=== PATIENT | male | born 1950 | race Caucasian/White ===

== ENCOUNTER 2017-03-26 12:49 | Inpatient (IN) | payer MEDICARE, OTHER, SELFPAY ==
[2017-03-26] VITALS (11 sets, daily range): BP systolic 106–127; BP diastolic 60–70; PULSE 73–94; RESP 14–20; TEMP 36.8–37.8; O2SAT 95–100; BMI 27.2; BMI 27.3
--- NOTE | 2017-03-26 13:12 | RAD_ITS ---
STUDY: X-RAY CHEST REASON FOR EXAM: Male, 66 years old. Fever with cough. TECHNIQUE: Frontal and lateral views of the chest. COMPARISON: March 12, 2017 FINDINGS: There is stable low volume inspiration. There is scarring/atelectasis at the left base unchanged. There is no demonstrated pleural abnormality. There is cardiomegaly with changes of coronary artery bypass grafting unaltered. Normal mediastinum and joseph. Normal visualized pulmonary arteries. Normal visualized aortic arch and descending thoracic aorta. Normal visualized thoracic spine. Normal visualized ribs, clavicles, and shoulders. There is no demonstrated abnormality of the visualized soft tissue structures of the upper abdomen. RAD/Chest PA and Lateral IMPRESSION: Stable cardiomegaly with low volume inspiration and scarring/atelectasis in the left base. No new or acute pathology. Electronically Signed: Erickson Che MD at 14:16 EST , Service support ,
--- NOTE | 2017-03-26 13:14 | CT_ITS ---
STUDY: CT SOFT TISSUE NECK WITH CONTRAST REASON FOR EXAM: Male, 66 years old. SORE THROAT WITH DIFFICULTY SWALLOWING. PATIENT HAS BLOOD CANCER. RADIATION DOSAGE (If Supplied By Facility): CTDIvol = ( 20.65 ) mGy, DLP = ( 551.69 ) mGycm TECHNIQUE: The patient was scanned in a multi-detector CT scanner. High resolution transaxial imaging was performed following intravenous administration of 100 ml of Isovue 300 contrast material. Sagittal and coronal images were reconstructed. Individualized dose optimization techniques were used for this CT. COMPARISON: None. FINDINGS: Normal bilateral parotid glands. Normal bilateral inclinometer tester spaces. Normal bilateral parapharyngeal spaces. Normal bilateral carotid spaces. Normal bilateral sublingual and submandibular glands and spaces. Normal visualized nasopharynx. Normal retropharyngeal space. Normal perivertebral space. Normal visualized bilateral faucial tonsils. The visualized tongue, tongue base and oropharynx are normal. The visualized cervical lymph nodes (levels I-) are within normal size limits, and maintain normal morphology. There is no demonstrated solid or cystic mass lesion. There is no abnormal contrast enhancement. Normal epiglottis, bilateral vallecula and hypopharynx. The pre-epiglottic and paraglottic adipose spaces are normal. Normal visualized bilateral piriform sinuses, aryepiglottic folds, vocal cords, and arytenoid-cricoid articulations. Normal subglottic trachea. Normal bilateral lobes of the thyroid gland. Normal visualized pulmonary apices. Normal visualized paranasal sinuses. There is multilevel degenerative changes of the cervical spine. CT/Soft Tissue Neck WITH Contrast IMPRESSION: Normal enhanced CT examination of the soft tissues of the neck. Electronically Signed: Morro Worley MD at 14:36 EST Tel , Service support ,
[2017-03-26] MEDS: 0.9% Normal Saline 1,000 ML 999 ML IV (13:38)
[2017-03-26 13:51] LABS: International Normalized Ratio 1.2; Prothrombin Time (Protime)PT. 15.1 SECONDS (11.7-14.9)
[2017-03-26 13:52] LABS: Partial Thromboplast Time 33.4 Seconds (24.1-36.2)
[2017-03-26 13:57] LABS: ALB/GLOB Ratio 0.7 RATIO (0.9-2.4); AST(SGOT) 32 U/L (15-37); Alanine Aminotransfer ALT/SGPT 47 U/L (12-78); Albumin, Serum 2.8 g/dL (3.2-5.0); Alkaline Phosphatase 91 U/L (45-117); Anion Gap 8 (5-15); BUN 27 mg/dL (7-18); BUN/Creat Ratio 23.5 RATIO (10-20); Calcium,Total 8.2 mg/dL (8.5-10.1); Chloride 98 mmol/L (98-107); Creatinine, Serum 1.15 mg/dL (0.70-1.30); EST Glomerular Filtration Rate 67 mL/min (>60); Est Glom Filt Rate - Afr Amer 81 mL/min (>60); Estimated Creatinine Clearance 63.48 ml/min; Globulin 4.3 g/dL (2.2-4.2); Glucose 156 mg/dL (70-110); Magnesium 2.1 mg/dL (1.6-2.6); Potassium 3.9 mmol/L (3.5-5.1); Protein, Total 7.1 g/dL (6.4-8.2); Sodium Level 132 mmol/L (136-145)
[2017-03-26 14:12] LABS: Lactic Acid 1.7 mmol/L (0.4-2.0)
[2017-03-26 14:33] LABS: Hematocrit 23.2 % (40-54); Hemoglobin 8.1 g/dl (13.0-16.5); Mean Corp Hgb Conc 34.9 g/gl (32-36); Mean Corpuscular Hgb 34.2 pg (27.0-32.0); Mean Corpuscular Volume 97.9 fL (80-94); RBC Distribution Width CV 17.9 % (11.6-14.6); RBC Distribution Width SD 59.2 fl (35.1-43.9); Red Blood Count 2.37 M/mm3 (4.6-6.2); White Blood Count 0.7 K/mm3 (4.4-11.0)
[2017-03-26 14:34] LABS: Absolute Lymphocyte Count 0.32 X10^3/ul (0.83-4.51); Basophil% 10.3 % (0-1); Differential Indicated SCAN CRITERIA MET; Eosinophils% 1.5 % (0-5); Lymphocyte # 0.32 X10^3/ul (4.0); Mean Platelet Vol. 10.6 fl (6.2-12.0); Monocyte% 41.2 % (0-10); POSITIVE COUNT YES; POSITIVE DIFFERENTIAL YES; POSITIVE MORPHOLOGY YES; Platelet Count 22 K/mm3 (150-450)
[2017-03-26 14:35] LABS: Basophil# 0.07 X10^3/uL; Differential Comment SCANNED; Eosinophil# 0.01 X10^3/uL; Monocyte# 0.28 X10^3/uL; Platelet Estimate MKD DEC (ADEQ)
[2017-03-26 14:42] LABS: Bacteria 0 SEEN /hpf (None Seen); Mucous, Urine 0 SEEN /hpf (<or=2+); Squamous Epithelial Cells - UA 0 SEEN /hpf (0-5); White Blood Cells 0 SEEN /hpf (0-5)
[2017-03-26 14:44] LABS: Color, Urine Yellow (Yellow); Glucose, Dipstick Normal (Normal); Ketone-Dipstick Negative (Negative); Leukocyte Esterase-Dipstick Negative /ul (Negative); Nitrite-Dipstick Negative (Negative); Occult Blood-Urine Negative /ul (Negative); Protein-Dipstick 15 mg/dl (Negative); Urine Bilirubin Dipstick Negative (Negative); Urine Clarity Clear (Clear); Urine Urobilinogen 1 mg/dl (Normal); Urine pH 6.5 (5.0 - 8.0)
[2017-03-26] MEDS: 0.9% Normal Saline 1,000 ML 150 ML IV (14:44)
[2017-03-26 14:52] LABS: Red Blood Cells-Urine 0-5 SEEN /hpf (0-5)
--- NOTE | 2017-03-26 16:01 | PCM.HP.STD ---
Problem List (1) Neutropenic sepsis Status: Acute (2) Pancytopenia Status: Chronic (3) MDS (myelodysplastic syndrome) with 5q deletion Status: Chronic History of Present Illness Date of Admission: 03/26/17 Chief Complaint: Sore throat The patient is a 66 year old M past medical history of MDS, status post repeated blood transfusions and platelet transfusions, following with oncology in [place], on Revlimid comes in with complaints of worsening sore throat, fever. Patient was recently seen in the ED and diagnosed with oropharyngeal candidiasis and started on nystatin swish and swallow. He has been on his oral chemotherapy and has noticed worsening problems with swallowing. He admits to fever and chills but denied any nausea and vomiting or diarrhea. Admits to nasal congestion Past Medical History Past Medical History (Chronic Problems): Chronic Problems (Last Reviewed 03/13/17 @ 09:01 by Soo Yang) Neutropenia (Chronic) Leukopenia (Chronic) Thrombocytopenia (Chronic) Pancytopenia (Chronic) 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) Allergies No Known Allergies Allergy (Verified 03/26/17 12:54) Home Medications: Ambulatory Orders Medication Instructions Recorded Atorvastatin Calcium [Lipitor] 80 mg PO QHS 04/16/13 Nitroglycerin [Nitrostat] 0.4 mg SUBLINGUAL PRN PRN 04/16/13 Ramipril [Altace] 10 mg PO DAILY 04/16/13 Lactobacillus Combo No.10 1 each PO DAILY 02/03/17 [Probiotic] Lenalidomide [Revlimid] 5 mg PO DAILY #30 cap NS 03/07/17 Dexamethasone [Decadron] 2 mg PO DAILY #30 tab 03/08/17 Acetaminophen with Codeine 1 each PO Q6H PRN #60 tablet 03/20/17 [Tylenol with Codeine #3 Tablet] Lidocaine 2% Viscous [Xylocaine 20 ml PO 4X/DAY PRN 03/26/17 Viscous] Metoprolol Tartrate 12.5 mg PO BID 03/26/17 Nystatin [Nystatin] 5 ml PO 4X/DAY 03/26/17 Oxycodone Soln [Oxyfast] 5 - 10 mg PO Q4H PRN 03/26/17 Psychiatric History: No pertinent psych hx Smoking Status: Never smoker Tobacco Use: Non-smoker Alcohol: None Drugs: None - *Family History Maternal Family History: Family History (Last Reviewed 03/13/17 @ 09:01 by Soo Yang) Mother Hyperlipidemia Heart disease Father CHF (congestive heart failure) History Items: Heart Disease Paternal Family History: Family History (Last Reviewed 03/13/17 @ 09:01 by Soo Yang) Mother Hyperlipidemia Heart disease Father CHF (congestive heart failure) History Items: Heart Disease Review of Systems Constitutional: Reports: Chills, Fever. Denies: Anorexia, Weakness, Weight Change Eyes: Denies: Blurred vision, Cataracts, Conjunctivae Inflammation, Pain, Redness HEENT: Denies: Difficulty Hearing, Difficulty Swallowing, Head Aches, Hearing Changes, Sinus Congestion, Sinus Drainage, Sore Throat Cardiovascular: Reports: Orthopnea, Paroxysmal Noc. Dyspnea. Denies: Chest Pain, Claudication, Chest Pressure, Palpitations Respiratory: Denies: Cough, Shortness of Breath, Shortness of breath at rest, Shortness of breath upon exertion, Sputum production Gastrointestinal: Denies: Abdominal Pain, Hematemesis, Hematochezia, Nausea, Vomiting Genitourinary: Denies: Dysuria, Frequency, Incontinence Musculoskeletal: Denies: Joint Pain, Joint stiffness, Joint swelling, Joint Tenderness Skin: Denies: Dryness, Pruritis, Rash, Wounds Neurological: Denies: Difficulty swallowing, Focal weakness, Numbness, Tingling Psychiatric: Denies: Anxiety, Depression, Homicidal Ideations, Suicidal Ideations Hematologic/ Lymphatic: Denies: Easy Bruising, Easy Bleeding VTE Information - Inpt Only VTE Present on Admission: No VTE Pharm Prophylaxis ordered?: Yes Patient Problems: Active and Suspected Problems (Last Reviewed 03/13/17 @ 09:01 by Soo Yang) Neutropenic sepsis (Acute) - Physical Exam General: Alert, Oriented x3, Cooperative, No apparent distress HEENT: Atraumatic, PERRLA, EOMI, Normocephalic Oral: Moist Mucosa Neck: Supple Lungs: Clear to auscultation, Normal air movement Cardiovascular: Regular rate, Regular Rhythm, Normal S1, Normal S2, No murmurs Abdomen: Bowel Sounds Present, Soft, Non Tender, Non-Distended, No Hepato-splenomegaly Extremities: No edema Skin: No rashes Musculoskeletal: No Tenderness to Palpation of Joints or Extremities Lymphatic: No Cervical, Supraclavicular, or Inguinal Adenopathy Neurological: Cranial nerves II-XII grossly intact Psych/Mental Status: Normal Affect, Appropriate Vital Signs Temp Pulse Resp BP Pulse Ox 98.9 F 74 14 120/60 97 03/26/17 15:28 03/26/17 14:46 03/26/17 14:46 03/26/17 14:46 03/26/17 14:46 Oxygen Delivery Method Room Air Weight: 86.183 kg Body Mass Index (BMI) 27.2 Microbiology Past 72 Hours 03/26/17 13:20 Influenza Types A,B Direct FA ([facility]) - Final Mucosa - Nasopharyngeal Laboratory Tests Past 24 Hrs 03/26/17 03/26/17 03/26/17 13:30 13:30 13:30 WBC Cancelled Corrected WBC Cancelled RBC Cancelled Hgb Cancelled Hct Cancelled MCV Cancelled MCH Cancelled MCHC Cancelled RDW Cancelled RDW Differential Cancelled Plt Count Cancelled MPV Cancelled Immature Gran % (Auto) Cancelled Neut % (Auto) Cancelled Lymph % (Auto) Cancelled [place] % (Auto) Cancelled Eos % (Auto) Cancelled Baso % (Auto) Cancelled Immature Gran # (Auto) Cancelled Absolute Neuts (auto) Cancelled Absolute Lymphs (auto) Cancelled Absolute Monos (auto) Cancelled Total Counted Cancelled Neutrophils % (Manual) Cancelled Band Neutrophils % Cancelled Lymphocytes % (Manual) Cancelled Monocytes % (Manual) Cancelled Eosinophils % (Manual) Cancelled Basophils % (Manual) Cancelled Metamyelocytes % Cancelled Myelocytes % Cancelled Promyelocytes % Cancelled Blast Cells % Cancelled Plasma Cell % (Manual) Cancelled Other Cells % Cancelled Lymphocytes # Cancelled Nucleated RBCs/100 WBC Cancelled Differential Comment Cancelled Diff Path Review Cancelled Hypersegmented Neuts Cancelled Atypical Lymphocytes Cancelled Reactive Lymphocytes Cancelled Smudge Cells Cancelled Eosinophilia # Cancelled Basophilia # Cancelled Toxic Granulation Cancelled Dohle Bodies Cancelled [place] Rods Cancelled Platelet Estimate Cancelled Plt Morphology Comment Cancelled RBC Morphology Cancelled Polychromasia Cancelled Hypochromasia Cancelled Poikilocytosis Cancelled Basophilic Stippling Cancelled Anisocytosis Cancelled Microcytosis Cancelled Macrocytosis Cancelled Spherocytes Cancelled Sickle Cells Cancelled Target Cells Cancelled Tear Drop Cells Cancelled Ovalocytes Cancelled Stomatocytes Cancelled [place] Bodies Cancelled [place] Cells Cancelled Bite Cells Cancelled Acanthocytes (Spur) Cancelled Rouleaux Cancelled Schistocytes Cancelled PT 15.1 H INR 1.2 APTT 33.4 Sodium 132 L Potassium 3.9 Chloride 98 Carbon Dioxide 26.0 Anion Gap 8 BUN 27 H Creatinine 1.15 Estim Creat Clear Calc 63.48 Est GFR (MDRD) Af Amer 81 Est GFR (MDRD) Non-Af 67 BUN/Creatinine Ratio 23.5 H Glucose 156 H Lactic Acid Calcium 8.2 L Magnesium 2.1 Total Bilirubin 1.10 H AST 32 ALT 47 Alkaline Phosphatase 91 Total Protein 7.1 Albumin 2.8 L Globulin 4.3 H Albumin/Globulin Ratio 0.7 L Urine Color Urine Clarity Urine pH Ur Specific [place] Urine Protein Urine Glucose (UA) Urine Ketones Urine Occult Blood Urine Nitrite Urine Bilirubin Urine Urobilinogen Ur Leukocyte Esterase Urine RBC Urine WBC Ur Squamous Epith Cells Urine Bacteria Urine Mucus 03/26/17 03/26/17 03/26/17 13:30 13:30 14:35 WBC 0.7 L* Corrected WBC RBC 2.37 L Hgb 8.1 L Hct 23.2 L MCV 97.9 H MCH 34.2 H MCHC 34.9 RDW 17.9 H RDW Differential 59.2 H Plt Count 22 L* MPV 10.6 Immature Gran % (Auto) 0.000 Neut % (Auto) 0.0 L Lymph % (Auto) 47.0 H [place] % (Auto) 41.2 H Eos % (Auto) 1.5 Baso % (Auto) 10.3 H Immature Gran # (Auto) Absolute Neuts (auto) 0.0 L Absolute Lymphs (auto) 0.32 L Absolute Monos (auto) Total Counted Not Reportable Neutrophils % (Manual) Band Neutrophils % Lymphocytes % (Manual) Monocytes % (Manual) Eosinophils % (Manual) Basophils % (Manual) Metamyelocytes % Myelocytes % Promyelocytes % Blast Cells % Plasma Cell % (Manual) Other Cells % Lymphocytes # Nucleated RBCs/100 WBC Differential Comment SCANNED Diff Path Review May foll Hypersegmented Neuts Atypical Lymphocytes Reactive Lymphocytes Smudge Cells Eosinophilia # Basophilia # Toxic Granulation Dohle Bodies Blake Rods Platelet Estimate MKD DEC Plt Morphology Comment RBC Morphology Polychromasia Hypochromasia Poikilocytosis Basophilic Stippling Anisocytosis Microcytosis Macrocytosis Spherocytes Sickle Cells Target Cells Tear Drop Cells Ovalocytes Stomatocytes [place] Bodies [place] Cells Bite Cells Acanthocytes (Spur) Rouleaux Schistocytes PT INR APTT Sodium Potassium Chloride Carbon Dioxide Anion Gap BUN Creatinine Estim Creat Clear Calc Est GFR (MDRD) Af Amer Est GFR (MDRD) Non-Af BUN/Creatinine Ratio Glucose Lactic Acid 1.7 Calcium Magnesium Total Bilirubin AST ALT Alkaline Phosphatase Total Protein Albumin Globulin Albumin/Globulin Ratio Urine Color Yellow Urine Clarity Clear Urine pH 6.5 Ur Specific [place] 1.010 Urine Protein 15 H Urine Glucose (UA) Normal Urine Ketones Negative Urine Occult Blood Negative Urine Nitrite Negative Urine Bilirubin Negative Urine Urobilinogen 1 H Ur Leukocyte Esterase Negative Urine RBC 0-5 SEEN Urine WBC 0 SEEN Ur Squamous Epith Cells 0 SEEN Urine Bacteria 0 SEEN Urine Mucus 0 SEEN Assessment/Plan Active and Suspected Problems (Last Reviewed 03/13/17 @ 09:01 by Soo Yang) Neutropenic sepsis (Acute) 66y/o female with PMHx of MDS comes in with fever, congestion, sorethroat whilst also receiving chemotherapy for MDS. 1. Neutropenia in a patient on chemotherapy for MDS, absolute neutrophil count is 0, patient having low-grade fevers with T-max of 100.1 F, WBC count is 0.7 Plan: Admit patient to the MedSurg floor, reverse isolation, started on meropenem 1 g 3 times daily, oncology consult, stage Granix, repeat CBCD daily 2. Odynophagia secondary to Oropharyngeal candidiasis,been on nystatin swish and swallow for some days, will continue and add diflucan 3. MDS, s/p chemotherapy, will hold Revlimid, oncology consult 4. Hyperlipidemia, on statin 5. Hypertension, on ramipril, will continue with holding parameters 6. DVT PPx - SCDs on account of thrombocytopenia Code Visit Inpatient E&M: 77177 Subs Hosp L2
--- NOTE | 2017-03-26 16:45 | ED.VISSUMM ---
- ER Visit Summary Date of Service: 03/26/17 Chief Complaint: Sore throat History of Present Illness: The patient is a 66 M who has myelodysplastic syndrome with every [address] Watson for oncology and is currently on Revlimid and tells me that on Monday he was neutropenic. He was seen last Monday uvulitis and placed on amoxicillin. He was seen by oncology on Monday. he was at an urgent care was diagnosed with thrush and put on nystatin. States now he has a fever (100.1) and worsening sore throat. He states he has decreased p.o. due to pain. He feels lethargic. He states that he usually sleeps in a chair or at an angle. He states it is hard for him to swallow but is able to do so and is not drooling. Physical Examination: Temperature 100.1 heart rate 74 respirations are 16 pulse ox 95% on room air blood pressure is 113/67 Gen: Well-nourished well-developed Head: Normocephalic atraumatic Eyes: Perrl EOMI ENT: TMs clear no rhinorrhea moist mucous membranes there is uvular edema and erythema involving the pharynx and posterior pharynx. There is no retropharyngeal or peritonsillar abscess. He seems to be handling his secretions. Neck: Supple no lymphadenopathy no JVD nontender CVS: Regular rate rhythm no murmurs normal S1-S2 Respiratory: No distress clear to auscultation bilaterally chest nontender Abdomen: Soft nontender nondistended normal bowel sounds no masses Back: Nontender Extremity: Nontender no edema Skin: Normal color no rash Neuro: alert orientated ?3 CN II-XII intact normal strength sensation reflexes gait cerebellar Psych: Normal affect normal mood Test Results: . Absolute neutrophil count is 0. Hemoglobin 8.1. Platelets are 22. Creatinine 1.15. BUN is 27. Lactic acid 1.7. Urinalysis normal. Chest x-ray negative. Influenza negative. CT the soft tissue the neck demonstrates no epiglottitis. Emergency Department Course and Treatment: Patient received IV fluids. I believe the patient's pain is most likely due to irritation from oral candidiasis. By definition he does not meet SIRS criteria. Without giving him any antipyretics for the temperature of 100.1 it has come down. I spoke with oncology who would like the patient admitted. I spoke with Dr. Cardoso. She is asked that the patient receive a dose of meropenem. Impression: 1. Oral candidiasis 2. Dehydration 3. Pancytopenia with an ANC of 0. This note was generated with [employer] dictation software. It may contain incorrect words, spelling, and punctuation that were not noted in review of the chart prior to signing ED Disposition - Plan for ED Patient: Chief Complaint: Sore Throat Referrals: Екатерина Haq MD [Primary Care Provider] -
[2017-03-26] MEDS: TBO-FILGRASTIM 300 MCG/0.5 ML ML SC (21:34)
[2017-03-26] MEDS: NYSTATIN 500,000 UNIT/5 ML UDC 500000 UNIT PO (21:35)
[2017-03-26] MEDS: Atorvastatin Calcium 80 MG Tablet PO (21:36)
[2017-03-27] VITALS (10 sets, daily range): BP systolic 114–119; BP diastolic 56–68; PULSE 78–99; RESP 16–18; TEMP 37–37.8; O2SAT 93–97
[2017-03-27] MEDS: oxyCODONE Soln 5 MG/0.25 ML PO.SYRINGE PO ×5 (00:46→17:24)
[2017-03-27 06:29] LABS: Basophil# 0.02 X10^3/uL; Basophil% 2.2 % (0-1); Eosinophil# 0.01 X10^3/uL; Eosinophils% 1.1 % (0-5); Hematocrit 21.2 % (40-54); Hemoglobin 7.4 g/dl (13.0-16.5); Lymphocyte % 67.4 % (19-41); Mean Corp Hgb Conc 34.9 g/gl (32-36); Mean Corpuscular Hgb 33.6 pg (27.0-32.0); Mean Corpuscular Volume 96.4 fL (80-94); Mean Platelet Vol. 10.4 fl (6.2-12.0); Monocyte# 0.22 X10^3/uL; Monocyte% 24.7 % (0-10); Neutrophil # 0.04 X10^3/uL (2.7-7.7); Neutrophil % 4.6 % (47-70); RBC Distribution Width CV 18.1 % (11.6-14.6)
[2017-03-27 06:34] LABS: Differential Indicated SCAN CRITERIA MET; POSITIVE COUNT YES; POSITIVE DIFFERENTIAL YES; POSITIVE MORPHOLOGY YES; Platelet Count 15 K/mm3 (150-450); White Blood Count 0.9 K/mm3 (4.4-11.0)
[2017-03-27 06:40] LABS: Anion Gap 9 (5-15); BUN 20 mg/dL (7-18); BUN/Creat Ratio 21.7 RATIO (10-20); Calcium,Total 7.9 mg/dL (8.5-10.1); Chloride 100 mmol/L (98-107); Creatinine, Serum 0.92 mg/dL (0.70-1.30); EST Glomerular Filtration Rate 87 mL/min (>60); Est Glom Filt Rate - Afr Amer 105 mL/min (>60); Estimated Creatinine Clearance 79.35 ml/min; Glucose 92 mg/dL (70-110); Potassium 3.6 mmol/L (3.5-5.1); Sodium Level 133 mmol/L (136-145)
[2017-03-27 07:18] LABS: Differential Comment SCANNED
--- NOTE | 2017-03-27 07:18 | PCM.PN.HOSP ---
Patient Problems: Active and Suspected Problems (Last Reviewed 03/13/17 @ 09:01 by Soo Yang) Neutropenic sepsis (Acute) Subjective: Patient with no acute events overnight per self and per nursing report. Patient does state he still having a sore throat and difficulty swallowing but it has improved mildly since initial presentation. Discussed plan of care which included alteration of IV fluconazole, ongoing pending cultures, pending him on evaluation, plan speech and surgery evaluation for consideration for EGD to ascertain the extent of oropharyngeal candidiasis, possible esophageal involvement, suspected. Patient denies fevers, chills, nausea, emesis, abdominal pain, chest pain or dyspnea. Objective: Physical Examination: General: awake, alert, oriented x 3 and cooperative, seated upright in bed , trying to eat breakfast, notes ongoing sore throat. Skin: normal color, turgor, no icterus, cyanosis. HEENT: AT/NC, EOMI, PERRLA, moderately dry MM, posterior OP thrush noted, no exudate or lesions otherwise. Lungs: CTA bilaterally, moderate effort, moderate decrease BL bases, no rales, ronchi or wheezing. Heart: Regular rate and rhythm; no gallop, rub audible. Abdomen: soft, NTTP, ND, normal BS, no HSM. Extremities: no cyanosis, clubbing, or edema. Neurological: patient awake, alert, oriented x 3; cognitive function intact; pupils equally reactive to light and accomodation; cranial nerves II-XII grossly normal, moving all 4 extremities, no focal deficits, strength severely globally decreased secondary to acute presentation. Psychiatric: affect appears fatigued, no acute evidence of depressive or anxiety feelings. Vitals/I&O's: Vital Signs Temp Pulse Resp BP Pulse Ox 98.6 F 78 16 117/64 96 03/27/17 04:04 03/27/17 07:09 03/27/17 04:04 03/27/17 04:04 03/27/17 04:04 Oxygen Delivery Method Room Air Weight: 190 lb 0.615 oz Body Mass Index (BMI) 27.2 Intake and Output for Last 24 Hours 03/25/17 03/26/17 03/27/17 23:59 23:59 23:59 Intake Total 286 / 286 534.1 / 534.1 Output Total 400 / 400 950 / 950 Balance -114 / -114 -415.9 / -415.9 Laboratory Results 03/27/17 05:32: WBC 0.9 L*, RBC 2.20 L, Hgb 7.4 L, Hct 21.2 L, MCV 96.4 H, MCH 33.6 H, MCHC 34.9, RDW 18.1 H, RDW Differential 61.0 H, Plt Count 15 L*, MPV 10.4, Immature Gran % (Auto) 0.000, Neut % (Auto) 4.6 L, Lymph % (Auto) 67.4 H, [place] % (Auto) 24.7 H, Eos % (Auto) 1.1, Baso % (Auto) 2.2 H, Absolute Neuts (auto) 0.0 L, Absolute Lymphs (auto) 0.60 L, Total Counted Not Reportable, Differential Comment SCANNED, Diff Path Review May foll 03/27/17 05:32: Sodium 133 L, Potassium 3.6, Chloride 100, Carbon Dioxide 24.0, Anion Gap 9, BUN 20 H, Creatinine 0.92, Estim Creat Clear Calc 79.35, Est GFR (MDRD) Af Amer 105, Est GFR (MDRD) Non-Af 87, BUN/Creatinine Ratio 21.7 H, Glucose 92, Calcium 7.9 L Current Medications Acetaminophen/Codeine Phosphate (Tylenol#3) 1 tablet PO Q6H PRN PRN PRN Reason: PAIN Atorvastatin Calcium (Lipitor) 80 mg PO QHS [facility] Last Admin: 03/26/17 21:36 Dose: 80 mg Fluconazole (Diflucan) 100 mg PO DAILY [facility] Meropenem 1 gm/ Sodium (Chloride) 120 mls @ 33 mls/hr IV Q8 [facility] Last Admin: 03/27/17 05:14 Dose: 33 mls/hr Lactobacillus Acidophilus (Acidophilus) 1 tablet PO DAILY [facility] Lidocaine HCl (Xylocaine Viscous) 20 ml PO 4X/DAY PRN PRN PRN Reason: PAIN Last Admin: 03/26/17 19:24 Dose: 20 ml Magnesium Hydroxide (Milk Of Magnesia) 30 ml PO DAILY PRN PRN PRN Reason: Constipation Metoprolol Tartrate (Lopressor (Beta Suellen)) 12.5 mg PO BID [facility] Last Admin: 03/26/17 21:36 Dose: Not Given Morphine Sulfate (Morphine) 2 mg IV Q4H PRN PRN PRN Reason: SEVERE PAIN (6-10/10) Last Admin: 03/27/17 04:02 Dose: 2 mg Nitroglycerin (Nitrostat) 0.4 mg SUBLINGUAL Q5M PRN PRN Reason: Chest Pain Nutritional Formula (Lactose Free) (Ensure Enlive) 120 ml PO 4X/DAY [facility] Last Admin: 03/26/17 21:39 Dose: Not Given Nystatin (Nystatin) 500,000 unit PO 4X/DAY [facility] Last Admin: 03/26/17 21:35 Dose: 500,000 unit Oxycodone HCl (Oxyfast) 5 mg PO Q4H PRN PRN PRN Reason: MOD-SEVERE PAIN (4-10/10) Last Admin: 03/27/17 05:14 Dose: 5 mg Ramipril (Altace) 10 mg PO DAILY [facility] Sodium Chloride () 5 - 30 ml IV UD PRN PRN Reason: SALINE FLUSH Tbo-Filgrastim (Granix) 300 mcg SC DAILY [facility] Assessment/Plan Active and Suspected Problems (Last Reviewed 03/13/17 @ 09:01 by Soo Yang) Neutropenic sepsis (Acute) The patient is a 66 y/o M w/ PMHx: MDS w/ Chronic Pancytopenia, HTN, HLD, CAD, Chronic Pain Syndrome who presents to the [facility] ED on 03/26/17 with sore throat, fever, noted to have Oropharyngeal candidiasis in the ED, started on nystatin S/S with worsened swallowing. (1) Neutropenic fever secondary to Oropharyngeal Candidiasis, Possible Additional Etiology: Admission T 100.1, afebrile since admission. Admission CBC w/ WBC 0.7, Hgb 8.1, Plts 22 with ANC 0-->03/27/17 CBC w/ WBC 0.9, Hgb 7.4, Plts 15 with ANC 0, CXR w/ stable cardiomegaly w/ low volume inspiration and scarring/atelectasis L base, UA w/ no acute findings. Bld cx and UCx pending. Oncology aware, consult pending. Maintained on MS, maintain on Neutropenic precautions, maintain on fluconazole but transition to IV and elevated dose pending Hem/Onc assessment, mag 2.1, will obtain phos level, maintain I&Os, treat with IV meropenem pending cultures. PRN tylenol, anti-emetics, pain regimen. Granix administered upon admission. Will place on altered mechanical soft diet pending Speech assessment. Given possible extension, will also request evaluation per Surgery for consideration EGD to ascertain esophageal involvement. (2) MDS secondary to Chronic Thrombocytopenia: Admission CBC w/ WBC 0.7, Hgb 8.1, Plts 22 with ANC 0-->03/27/17 CBC w/ WBC 0.9, Hgb 7.4, Plts 15 with ANC 0, maintain on precautions, expect plt administration, but will await Hem/Onc evaluation today to avoid repeat ordering, maintain on fluconazole. (3) Hypertension: Continue home regimen including metoprolol, ANITRA inhibitor, PRN hydralazine. (4) Hyperlipidemia: Continue home statin regimen. (5) CAD: Will continue home regimen statin, BB. Holding ASA. (6) Severe Protein-Calorie Malnutrition: Evidenced per weight loss, muscle and fat loss, nutrition consulted. (7) DVT Prophylaxis: SCDs, defer chemoprophylaxis given presentation. Code Visit Inpatient E&M: 64005 [facility] Hosp L3
--- NOTE | 2017-03-27 07:30 | PN_ITS ---
Patient Problems: Active and Suspected Problems (Last Reviewed 03/13/17 @ 09:01 by Soo Yang) Neutropenic sepsis (Acute) Subjective: Patient with no acute events overnight per self and per nursing report. Patient does state he still having a sore throat and difficulty swallowing but it has improved mildly since initial presentation. Discussed plan of care which included alteration of IV fluconazole, ongoing pending cultures, pending him on evaluation, plan speech and surgery evaluation for consideration for EGD to ascertain the extent of oropharyngeal candidiasis, possible esophageal involvement, suspected. Patient denies fevers, chills, nausea, emesis, abdominal pain, chest pain or dyspnea. Objective: Physical Examination: General: awake, alert, oriented x 3 and cooperative, seated upright in bed , trying to eat breakfast, notes ongoing sore throat. Skin: normal color, turgor, no icterus, cyanosis. HEENT: AT/NC, EOMI, PERRLA, moderately dry MM, posterior OP thrush noted, no exudate or lesions otherwise. Lungs: CTA bilaterally, moderate effort, moderate decrease BL bases, no rales, ronchi or wheezing. Heart: Regular rate and rhythm; no gallop, rub audible. Abdomen: soft, NTTP, ND, normal BS, no HSM. Extremities: no cyanosis, clubbing, or edema. Neurological: patient awake, alert, oriented x 3; cognitive function intact; pupils equally reactive to light and accomodation; cranial nerves II-XII grossly normal, moving all 4 extremities, no focal deficits, strength severely globally decreased secondary to acute presentation. Psychiatric: affect appears fatigued, no acute evidence of depressive or anxiety feelings. Vitals/I&O's: Vital Signs Temp Pulse Resp BP Pulse Ox 98.6 F 78 16 117/64 96 03/27/17 04:04 03/27/17 07:09 03/27/17 04:04 03/27/17 04:04 03/27/17 04:04 Oxygen Delivery Method Room Air Weight: 190 lb 0.615 oz Body Mass Index (BMI) 27.2 Intake and Output for Last 24 Hours 03/25/17 03/26/17 03/27/17 23:59 23:59 23:59 Intake Total 286 / 286 534.1 / 534.1 Output Total 400 / 400 950 / 950 Balance -114 / -114 -415.9 / -415.9 Laboratory Results 03/27/17 05:32: WBC 0.9 L*, RBC 2.20 L, Hgb 7.4 L, Hct 21.2 L, MCV 96.4 H, MCH 33.6 H, MCHC 34.9, RDW 18.1 H, RDW Differential 61.0 H, Plt Count 15 L*, MPV 10.4, Immature Gran % (Auto) 0.000, Neut % (Auto) 4.6 L, Lymph % (Auto) 67.4 H, [place] % (Auto) 24.7 H, Eos % (Auto) 1.1, Baso % (Auto) 2.2 H, Absolute Neuts ( auto) 0.0 L, Absolute Lymphs (auto) 0.60 L, Total Counted Not Reportable, Differential Comment SCANNED, Diff Path Review May foll 03/27/17 05:32: Sodium 133 L, Potassium 3.6, Chloride 100, Carbon Dioxide 24.0, Anion Gap 9, BUN 20 H, Creatinine 0.92, Estim Creat Clear Calc 79.35, Est GFR ( MDRD) Af Amer 105, Est GFR (MDRD) Non-Af 87, BUN/Creatinine Ratio 21.7 H, Glucose 92, Calcium 7.9 L Current Medications Acetaminophen/Codeine Phosphate (Tylenol#3) 1 tablet PO Q6H PRN PRN PRN Reason: PAIN Atorvastatin Calcium (Lipitor) 80 mg PO QHS [facility] Last Admin: 03/26/17 21:36 Dose: 80 mg Fluconazole (Diflucan) 100 mg PO DAILY [facility] Meropenem 1 gm/ Sodium (Chloride) 120 mls @ 33 mls/hr IV Q8 [facility] Last Admin: 03/27/17 05:14 Dose: 33 mls/hr Lactobacillus Acidophilus (Acidophilus) 1 tablet PO DAILY [facility] Lidocaine HCl (Xylocaine Viscous) 20 ml PO 4X/DAY PRN PRN PRN Reason: PAIN Last Admin: 03/26/17 19:24 Dose: 20 ml Magnesium Hydroxide (Milk Of Magnesia) 30 ml PO DAILY PRN PRN PRN Reason: Constipation Metoprolol Tartrate (Lopressor (Beta Suellen)) 12.5 mg PO BID [facility] Last Admin: 03/26/17 21:36 Dose: Not Given Morphine Sulfate (Morphine) 2 mg IV Q4H PRN PRN PRN Reason: SEVERE PAIN (6-10/10) Last Admin: 03/27/17 04:02 Dose: 2 mg Nitroglycerin (Nitrostat) 0.4 mg SUBLINGUAL Q5M PRN PRN Reason: Chest Pain Nutritional Formula (Lactose Free) (Ensure Enlive) 120 ml PO 4X/DAY [facility] Last Admin: 03/26/17 21:39 Dose: Not Given Nystatin (Nystatin) 500,000 unit PO 4X/DAY [facility] Last Admin: 03/26/17 21:35 Dose: 500,000 unit Oxycodone HCl (Oxyfast) 5 mg PO Q4H PRN PRN PRN Reason: MOD-SEVERE PAIN (4-10/10) Last Admin: 03/27/17 05:14 Dose: 5 mg Ramipril (Altace) 10 mg PO DAILY [facility] Sodium Chloride () 5 - 30 ml IV UD PRN PRN Reason: SALINE FLUSH Tbo-Filgrastim (Granix) 300 mcg SC DAILY [facility] Assessment/Plan Active and Suspected Problems (Last Reviewed 03/13/17 @ 09:01 by Soo Yang) Neutropenic sepsis (Acute) The patient is a 66 y/o M w/ PMHx: MDS w/ Chronic Pancytopenia, HTN, HLD, CAD, Chronic Pain Syndrome who presents to the [facility] ED on 03/26/17 with sore throat, fever, noted to have Oropharyngeal candidiasis in the ED, started on nystatin S/ S with worsened swallowing. (1) Neutropenic fever secondary to Oropharyngeal Candidiasis, Possible Additional Etiology: Admission T 100.1, afebrile since admission. Admission CBC w/ WBC 0.7, Hgb 8.1, Plts 22 with ANC 0-->03/27/17 CBC w/ WBC 0.9, Hgb 7.4, Plts 15 with ANC 0, CXR w/ stable cardiomegaly w/ low volume inspiration and scarring /atelectasis L base, UA w/ no acute findings. Bld cx and UCx pending. Oncology aware, consult pending. Maintained on MS, maintain on Neutropenic precautions, maintain on fluconazole but transition to IV and elevated dose pending Hem/Onc assessment, mag 2.1, will obtain phos level, maintain I&Os, treat with IV meropenem pending cultures. PRN tylenol, anti-emetics, pain regimen. Granix administered upon admission. Will place on altered mechanical soft diet pending Speech assessment. Given possible extension, will also request evaluation per Surgery for consideration EGD to ascertain esophageal involvement. (2) MDS secondary to Chronic Thrombocytopenia: Admission CBC w/ WBC 0.7, Hgb 8.1 , Plts 22 with ANC 0-->03/27/17 CBC w/ WBC 0.9, Hgb 7.4, Plts 15 with ANC 0, maintain on precautions, expect plt administration, but will await Hem/Onc evaluation today to avoid repeat ordering, maintain on fluconazole. (3) Hypertension: Continue home regimen including metoprolol, ANITRA inhibitor, PRN hydralazine. (4) Hyperlipidemia: Continue home statin regimen. (5) CAD: Will continue home regimen statin, BB. Holding ASA. (6) Severe Protein-Calorie Malnutrition: Evidenced per weight loss, muscle and fat loss, nutrition consulted. (7) DVT Prophylaxis: SCDs, defer chemoprophylaxis given presentation. Code Visit Inpatient E&M: [id number] [facility] Hosp L3
[2017-03-27 08:22] LABS: Phosphorus 2.9 mg/dL (2.5-4.9)
[2017-03-27] MEDS: Metoprolol Tartrate 25 MG Tablet 12.5 MG PO ×2 (08:43→22:02)
[2017-03-27] MEDS: Ramipril 10 MG Capsule PO (08:43)
[2017-03-27] MEDS: NYSTATIN 500,000 UNIT/5 ML UDC 500000 UNIT PO ×4 (08:44→21:59)
[2017-03-27] MEDS: Famotidine 20 MG Tablet PO ×2 (08:54→21:59)
[2017-03-27] MEDS: TBO-FILGRASTIM 300 MCG/0.5 ML ML SC (12:31)
[2017-03-27] MEDS: 0.9% NaCl Peripheral Flush Adult/Peds IV (13:45)
--- NOTE | 2017-03-27 14:41 | NURSING ---
ST [facility] saw patient this morning and cleared for mechanical soft diet- per physician order.
--- NOTE | 2017-03-27 15:09 | CON.PCM_ITS ---
Reason for Consult Date of Consultation: 03/27/17 Reason for Consultation: Request possible EGD for possible esophageal candidiasis History of Present Illness: The patient is a 66 year old M admitted yesterday due to neutropenic fevers. Patient has a past medical history for MDS and has been doing chemotherapy however that did cause a drop in his white blood cell count so he was getting Granix to help improve this. Patient was previously diagnosed with uveitis and was given antibiotics however he did state his throat did get more sore. In the ER he was diagnosed noticed also with some oral thrush, severe Neutropenia, thrombocytopenia. Patient was started on IV meropenem and Flagyl along with nystatin swish and swallow. Patient states that his sore throat is better today his cultures did come back as alpha hemolytic strep, blood cultures are pending. Patient had a CT of the soft tissue of the neck which was normal. Due to patient's MDS. He has chronically low platelet counts been in the 30s but currently they have been from 22-15,000. Patient also states that he seems to be getting a bit of a cold with some nasal congestion but denies any pain in his chest or coughing. Patient did pass a swallow eval with thickened liquids. 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) Allergies No Known Allergies Allergy (Verified 03/26/17 12:54) Home Medications: Ambulatory Orders Medication Instructions Recorded Atorvastatin Calcium [Lipitor] 80 mg PO DAILY 04/16/13 Nitroglycerin [Nitrostat] 0.4 mg SUBLINGUAL PRN PRN 04/16/13 Ramipril [Altace] 10 mg PO DAILY 04/16/13 Lactobacillus Combo No.10 1 each PO DAILY 02/03/17 [Probiotic] Lenalidomide [Revlimid] 5 mg PO DAILY #30 cap NS 03/07/17 Dexamethasone [Decadron] 2 mg PO DAILY #30 tab 03/08/17 Acetaminophen with Codeine 1 each PO Q6H PRN #60 tablet 03/20/17 [Tylenol with Codeine #3 Tablet] Lidocaine 2% Viscous [Xylocaine 20 ml PO 4X/DAY PRN 03/26/17 Viscous] Metoprolol Tartrate 12.5 mg PO BID 03/26/17 Nystatin [Nystatin] 5 ml PO 4X/DAY 03/26/17 Oxycodone Soln [Oxyfast] 5 - 10 mg PO Q4H PRN 03/26/17 Surgical History: coronary bypass surgery Psychiatric History: No pertinent psych hx Lives: Spouse/ Significant Other Smoking Status: Never smoker Tobacco Use: Non-smoker Alcohol: None Drugs: None - *Family History Maternal Family History: Family History (Last Reviewed 03/13/17 @ 09:01 by Soo Yang) Mother Hyperlipidemia Heart disease Father CHF (congestive heart failure) History Items: Heart Disease Paternal Family History: Family History (Last Reviewed 03/13/17 @ 09:01 by Soo Yang) Mother Hyperlipidemia Heart disease Father CHF (congestive heart failure) History Items: Heart Disease Review of Systems Constitutional: Reports: Fever. Denies: Anorexia HEENT: Reports: Sore Throat. Denies: Difficulty Swallowing Cardiovascular: Denies: Chest Pain Respiratory: Denies: Cough Gastrointestinal: Denies: Abdominal Pain Genitourinary: Denies: Dysuria Skin: Denies: Rash Psychiatric: Denies: Depression Hematologic/ Lymphatic: Reports: Anemia Patient Problems: Active and Suspected Problems (Last Reviewed 03/13/17 @ 09:01 by Soo Yang) Febrile neutropenia (Acute) Neutropenic sepsis (Acute) - Physical Exam General: Alert, Oriented x3, Cooperative, No apparent distress Oral: - - Unable to see the back of the throat clearly due to obstruction from tongue Lungs: Normal air movement Cardiovascular: Regular rate Abdomen: Soft, Non Tender, Non-Distended, - - No guarding or rebound Extremities: No clubbing, No cyanosis Skin: No rashes Vital Signs Temp Pulse Resp BP Pulse Ox 99.4 F H 92 18 119/56 L 94 03/27/17 14:40 03/27/17 14:40 03/27/17 14:40 03/27/17 14:40 03/27/17 14:40 Oxygen Delivery Method Room Air Weight: 190 lb 0.615 oz Body Mass Index (BMI) 27.2 Intake and Output for Last 24 Hours 03/25/17 03/26/17 03/27/17 23:59 23:59 23:59 Intake Total 286 / 286 786.1 / 786.1 Output Total 400 / 400 1200 / 1200 Balance -114 / -114 -413.9 / -413.9 Microbiology Past 72 Hours 03/26/17 19:22 Respiratory Panel (PCR) - Final Mucosa - Nose Laboratory Tests Past 24 Hrs 03/27/17 03/27/17 03/27/17 05:32 05:32 05:32 WBC 0.9 L* RBC 2.20 L Hgb 7.4 L Hct 21.2 L MCV 96.4 H MCH 33.6 H MCHC 34.9 RDW 18.1 H RDW Differential 61.0 H Plt Count 15 L* MPV 10.4 Immature Gran % (Auto) 0.000 Neut % (Auto) 4.6 L Lymph % (Auto) 67.4 H [place] % (Auto) 24.7 H Eos % (Auto) 1.1 Baso % (Auto) 2.2 H Absolute Neuts (auto) 0.0 L Absolute Lymphs (auto) 0.60 L Total Counted Not Reportable Differential Comment SCANNED Diff Path Review May foll Sodium 133 L Potassium 3.6 Chloride 100 Carbon Dioxide 24.0 Anion Gap 9 BUN 20 H Creatinine 0.92 Estim Creat Clear Calc 79.35 Est GFR (MDRD) Af Amer 105 Est GFR (MDRD) Non-Af 87 BUN/Creatinine Ratio 21.7 H Glucose 92 Calcium 7.9 L Phosphorus 2.9 Assessment/Plan Active and Suspected Problems (Last Reviewed 03/13/17 @ 09:01 by Soo Yang) Febrile neutropenia (Acute) Neutropenic sepsis (Acute) 66-year-old male with MDS, neutropenic fever, oropharyngeal candidiasis and presumed esophageal candidiasis, chronic thrombocytopenia 1. Discussed with patient and his that doing an EGD would not change his current therapy of systemic fluconazole and due to his extremely low platelet count he would be at very high risk for bleeding during the procedure. Normally I would prefer to do an EGD with platelets around 50,000 his platelets are currently 15-22,000. Patient also states that his soreness in his throat is also improving. If the pain would get worse I would possibly consider doing EGD after multiple transfusions of platelet; however, currently I do not believe the risk outweigh the benefits and would continue with current therapy of IV fluconazole or possible oral depending on his blood cultures per primary. Patient's were agreeable with plan and had no further questions at this time. Also discussed with Dr. Bradford. Lyn Chance M.D. Pager: [phone] [facility] [address] [place] [address], [address] [place] [address] Office: [phone]
--- NOTE | 2017-03-27 15:27 | ONC.CON.INP2 ---
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 minus deletion I PSS score 2.5 he started Revlimid March 16, 2017. He had received granix every other day in the past few weeks to improve his neutrophil count but did not show a significant improvement. He was treated with oral amoxicillin approximately 1 week earlier for upper respiratory tract infection possible epiglottitis and oral nystatin for thrush a few days ago. Overall patient did not feel any notable improvement and was hospitalized with fever and neutropenia. 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: Yes Living Will: Yes Advance Directives on File: No Health History: Cancer History: [] Past Medical History: [] Past Surgical History: [] Family History: [] Social History: [] Allergies/Adverse Reactions: Allergy/AdvReac Type Severity Reaction Status Date / Time No Known Allergies Allergy Verified 03/26/17 12:54 Home Medications Medication Instructions Recorded Atorvastatin Calcium [Lipitor] 80 mg PO DAILY 04/16/13 Nitroglycerin [Nitrostat] 0.4 mg SUBLINGUAL PRN PRN 04/16/13 Ramipril [Altace] 10 mg PO DAILY 04/16/13 Lactobacillus Combo No.10 1 each PO DAILY 02/03/17 [Probiotic] Lenalidomide [Revlimid] 5 mg PO DAILY #30 cap NS 03/07/17 Dexamethasone [Decadron] 2 mg PO DAILY #30 tab 03/08/17 Acetaminophen with Codeine 1 each PO Q6H PRN #60 tablet 03/20/17 [Tylenol with Codeine #3 Tablet] Lidocaine 2% Viscous [Xylocaine 20 ml PO 4X/DAY PRN 03/26/17 Viscous] Metoprolol Tartrate 12.5 mg PO BID 03/26/17 Nystatin [Nystatin] 5 ml PO 4X/DAY 03/26/17 Oxycodone Soln [Oxyfast] 5 - 10 mg PO Q4H PRN 03/26/17 Review of Systems Constitutional:: Reports: Weakness, Fatigue, Fever, Weight loss, Appetite change, - - Sore throat and hoarse voice. Denies: Sweats, Chills Cardiovascular:: Denies: Chest pain, Palpitations, Dyspnea on exertion, Orthopnea, PND, Shortness of breath Respiratory: Denies: Cough, Hemoptysis, Shortness of Breath, Wheezing Gastrointestinal:: Denies: Abdominal pain, Nausea, Vomiting, Diarrhea, Constipation, Hematochezia Genitourinary: Denies: Dysuria, Hematuria, 15, Flank pain Musculoskeletal:: Denies: Back pain, Myalgia, Arthralgia Skin: Reports: - - Bruises easy. Denies: Rash, Skin Changes, Wounds Neurological:: Denies: Headache, Dizziness, Visual changes, Tinnitus, Hearing loss Psychiatric: Denies: Anxiety, Depression, Homicidal Ideations, Suicidal Ideations Vital Signs Height 5 ft 10 in Weight: 86.2 kg Weight in Pounds 190.0 lbs Pulse Ox 94 Temperature 99.4 F Pulse Rate 92 Respiratory Rate 18 Blood Pressure 119/56 Blood Pressure Position Semi-Fowlers - Physical Exam General: Alert, Oriented x3, - - Chronic ill-looking and pale HEENT: Atraumatic, PERRLA, EOMI, Normocephalic Oropharynx:: Dry mucosa, - - No visible oral thrush Neck:: Supple, Trachea midline. Negative for: JVD, bilateral Cardiac:: Regular rate, Regular rhythm, Normal S1, Normal S2. Negative for: Murmur Lungs: Clear to auscultation, Excusion symmetrical. Negative for: Rhonchi, Wheezes Abdomen:: Soft, Non-tender, Non-distended. Negative for: Hepatosplenomegaly Extremities:: Negative for: Cyanosis, Edema Neurological: Neuro grossly intact Skin:: Ecchymosis. Negative for: Lesions, Rash, Petechiae Psychiatric:: Appropriate affect, Euthymic Lymphatics:: Negative for: Cervical lymphadenopathy, Supraclavicular lymphadenopathy, Axillary lymphadenopathy Laboratory Data: Microbiology 03/26/17 19:22 Respiratory Panel (PCR) - Final Mucosa - Nose Laboratory Tests 03/27/17 03/27/17 03/27/17 Range/Units 05:32 05:32 05:32 WBC 0.9 L* (4.4-11.0) K/mm3 RBC 2.20 L (4.6-6.2) M/mm3 Hgb 7.4 L (13.0-16.5) g/dl Hct 21.2 L (40-54) % MCV 96.4 H (80-94) fL MCH 33.6 H (27.0-32.0) pg MCHC 34.9 (32-36) g/gl RDW 18.1 H (11.6-14.6) % RDW Differential 61.0 H (35.1-43.9) fl Plt Count 15 L* (150-450) K/mm3 MPV 10.4 (6.2-12.0) fl Immature Gran % (Auto) 0.000 (0.0-0.9) % Neut % (Auto) 4.6 L (47-70) % Lymph % (Auto) 67.4 H (19-41) % [place] % (Auto) 24.7 H (0-10) % Eos % (Auto) 1.1 (0-5) % Baso % (Auto) 2.2 H (0-1) % Absolute Neuts (auto) 0.0 L (2.0-7.7) X10^3/uL Absolute Lymphs (auto) 0.60 L (0.83-4.51) X10^3/ul Total Counted Not Reportable Differential Comment SCANNED Diff Path Review June Sodium 133 L (136-145) mmol/L Potassium 3.6 (3.5-5.1) mmol/L Chloride 100 (98-107) mmol/L Carbon Dioxide 24.0 (21.0-32.0) mmol/L Anion Gap 9 (5-15) BUN 20 H (7-18) mg/dL Creatinine 0.92 (0.70-1.30) mg/dL Estim Creat Clear Calc 79.35 ml/min Est GFR (MDRD) Af Amer 105 (>60) mL/min Est GFR (MDRD) Non-Af 87 (>60) mL/min BUN/Creatinine Ratio 21.7 H (10-20) RATIO Glucose 92 (70-110) mg/dL Calcium 7.9 L (8.5-10.1) mg/dL Phosphorus 2.9 (2.5-4.9) mg/dL Diagnostic Data: Diagnostic Data Chest X-Ray 03/26/17 13:12 IMPRESSION: Stable cardiomegaly with low volume inspiration and scarring/atelectasis in the left base. No new or acute pathology. Electronically Signed: Erickson Che MD at 14:16 EST , Service support , Soft Tissue Neck CT 03/26/17 13:14 IMPRESSION: Normal enhanced CT examination of the soft tissues of the neck. Electronically Signed: Morro Worley MD at 14:36 EST Tel , Service support , Assessment and Plan 66-year-old male with 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 Patient admitted with febrile neutropenia, strep throat infection, and diagnosed earlier with oral thrush. From the hematology consult view recommend: 1. Hold Revlimid during acute infectious episode. 2. A trial of daily Granix 480 mcg subcu may improve neutrophil count and help and recovery from infection. Of note he did not respond to every other day Granix trial. 3. Support was blood product transfusions target hemoglobin above 7 g per DL and prophylactic platelet transfusions if platelet count is less than 10,000. 4. VTE prophylaxis with nonpharmacologic agents and ambulation. 5. Treatment of infection deferred to primary service Medications: Prescriptions This Visit Medication Instructions Recorded Lidocaine 2% Viscous [Xylocaine 20 ml PO 4X/DAY PRN 03/26/17 Viscous] Metoprolol Tartrate 12.5 mg PO BID 03/26/17 Nystatin [Nystatin] 5 ml PO 4X/DAY 03/26/17 Oxycodone Soln [Oxyfast] 5 - 10 mg PO Q4H PRN 03/26/17 Medications Added to Medication List This Visit Category Date Time Status Acetaminophen [Tylenol] Med 03/27/17 07:25 Active 650 mg PO Q6H PRN PRN Famotidine [Pepcid] Med 03/27/17 10:00 Active 20 mg PO BID Fluconazole [Diflucan] Med 03/27/17 10:00 Active 200 mg in 100 ml IV Q24 HydrALAZINE [Apresoline] Med 03/27/17 07:23 Active 10 mg IV Q4H PRN PRN Lactobacillus Acidophilus [Acidophilus] Med 03/27/17 10:00 Active 1 tablet PO DAILY Ramipril [Altace] Med 03/27/17 10:00 Active 10 mg PO DAILY Tbo-Filgrastim [Granix] Med 03/27/17 10:00 Active 300 mcg SC DAILY Tbo-Filgrastim [Granix] Med 03/28/17 12:15 Once 480 mcg SC X1 ONE Temazepam [Restoril] Med 03/27/17 07:24 Active 15 mg PO QHS PRN PRN Primary Care Provider: Екатерина Haq Referring Provider:
[2017-03-27] MEDS: Atorvastatin Calcium 80 MG Tablet PO (21:59)
[2017-03-28] VITALS (7 sets, daily range): BP systolic 99–120; BP diastolic 57–68; PULSE 87–98; RESP 18–20; TEMP 36.9–38.2; O2SAT 92–100
[2017-03-28] MEDS: oxyCODONE Soln 5 MG/0.25 ML PO.SYRINGE PO ×4 (03:07→23:08)
[2017-03-28 06:48] LABS: Basophil# 0.07 X10^3/uL; Basophil% 7.5 % (0-1); Eosinophil# 0.01 X10^3/uL; Eosinophils% 1.1 % (0-5); Hematocrit 20.4 % (40-54); Lymphocyte % 64.5 % (19-41); Mean Corp Hgb Conc 34.3 g/gl (32-36); Mean Corpuscular Hgb 33.7 pg (27.0-32.0); Mean Corpuscular Volume 98.1 fL (80-94); Mean Platelet Vol. 10.4 fl (6.2-12.0); Monocyte# 0.22 X10^3/uL; Monocyte% 23.7 % (0-10); Neutrophil # 0.01 X10^3/uL (2.7-7.7); RBC Distribution Width CV 17.8 % (11.6-14.6); RBC Distribution Width SD 58.5 fl (35.1-43.9); Red Blood Count 2.08 M/mm3 (4.6-6.2)
[2017-03-28 06:50] LABS: Differential Indicated SCAN CRITERIA MET; POSITIVE COUNT YES; POSITIVE DIFFERENTIAL YES; POSITIVE MORPHOLOGY YES; Platelet Count 18 K/mm3 (150-450); White Blood Count 0.9 K/mm3 (4.4-11.0)
[2017-03-28 06:52] LABS: ALB/GLOB Ratio 0.5 RATIO (0.9-2.4); AST(SGOT) 41 U/L (15-37); Alanine Aminotransfer ALT/SGPT 56 U/L (16-61); Albumin, Serum 2.3 g/dL (3.2-5.0); Alkaline Phosphatase 78 U/L (45-117); Anion Gap 8 (5-15); BUN 21 mg/dL (7-18); BUN/Creat Ratio 23.3 RATIO (10-20); Calcium,Total 7.9 mg/dL (8.5-10.1); Chloride 97 mmol/L (98-107); EST Glomerular Filtration Rate 89 mL/min (>60); Est Glom Filt Rate - Afr Amer 108 mL/min (>60); Estimated Creatinine Clearance 81.11 ml/min; Globulin 4.3 g/dL (2.2-4.2); Glucose 111 mg/dL (70-110); Potassium 3.8 mmol/L (3.5-5.1); Protein, Total 6.6 g/dL (6.4-8.2); Sodium Level 131 mmol/L (136-145)
[2017-03-28 07:18] LABS: Differential Comment SCAN; Platelet Estimate MKD DEC (ADEQ)
--- NOTE | 2017-03-28 08:28 | PCM.PN.HOSP ---
Patient Problems: Active and Suspected Problems (Last Reviewed 03/13/17 @ 09:01 by Soo Yang) Febrile neutropenia (Acute) Neutropenic sepsis (Acute) Subjective: Patient with no acute events overnight per self and per nursing report. He still does have sore throat although this is mildly improved from the day prior he is status post speech evaluation with further alterations to the diet to include soft mechanical as well as nectar thickened liquids. Discussed recent evaluations with surgery evaluation and deferral of EGD and continued IV fluconazole secondary to risks with current lab values with low platelets and continued anemia. Patient denies fevers, chills, nausea, emesis, abdominal pain, chest pain or dyspnea. Objective: Physical Examination: General: awake, alert, oriented x 3 and cooperative, seated upright in bed, NAD. Skin: normal color, turgor, no icterus, cyanosis. HEENT: AT/NC, EOMI, PERRLA, moderately dry MM, posterior OP thrush improved, mild erythema posteriorly, no exudate or lesions otherwise. Lungs: CTA bilaterally, moderate effort, moderate decrease BL bases, no rales, ronchi or wheezing. Heart: Regular rate and rhythm; no gallop, rub audible. Abdomen: soft, NTTP, ND, normal BS, no HSM. Extremities: no cyanosis, clubbing, or edema. Neurological: patient awake, alert, oriented x 3; cognitive function intact; pupils equally reactive to light and accomodation; cranial nerves II-XII grossly normal, moving all 4 extremities, no focal deficits, strength improved, remains moderately to severely globally decreased secondary to acute presentation. Psychiatric: affect appears improved, normal, no acute evidence of depressive or anxiety feelings. Vitals/I&O's: Vital Signs Temp Pulse Resp BP Pulse Ox 98.5 F 98 20 H 120/68 93 03/28/17 08:18 03/28/17 08:18 03/28/17 08:18 03/28/17 08:18 03/28/17 08:18 Oxygen Delivery Method Room Air Weight: 190 lb 0.615 oz Body Mass Index (BMI) 27.2 Intake and Output for Last 24 Hours 03/26/17 03/27/17 03/28/17 23:59 23:59 23:59 Intake Total 286 / 286 786.1 / 786.1 454 / 454 Output Total 400 / 400 1200 / 1200 525 / 525 Balance -114 / -114 -413.9 / -413.9 -71 / -71 Microbiology Past 72 Hours 03/26/17 19:22 Mucosa - Nose Respiratory Panel (PCR) - Final Laboratory Results 03/28/17 05:54: WBC 0.9 L*, RBC 2.08 L, Hgb 7.0 L, Hct 20.4 L, MCV 98.1 H, MCH 33.7 H, MCHC 34.3, RDW 17.8 H, RDW Differential 58.5 H, Plt Count 18 L*, MPV 10.4, Immature Gran % (Auto) 2.200 H, Neut % (Auto) 1.0 L, Lymph % (Auto) 64.5 H, [place] % (Auto) 23.7 H, Eos % (Auto) 1.1, Baso % (Auto) 7.5 H, Absolute Neuts (auto) 0.0 L, Absolute Lymphs (auto) 0.60 L, Total Counted Not Reportable, Differential Comment SCAN, Diff Path Review June, Platelet Estimate MKD 03/28/17 05:54: Sodium 131 L, Potassium 3.8, Chloride 97 L, Carbon Dioxide 26.0, Anion Gap 8, BUN 21 H, Creatinine 0.90, Estim Creat Clear Calc 81.11, Est GFR (MDRD) Af Amer 108, Est GFR (MDRD) Non-Af 89, BUN/Creatinine Ratio 23.3 H, Glucose 111 H, Calcium 7.9 L, Total Bilirubin 1.30 H, AST 41 H, ALT 56, Alkaline Phosphatase 78, Total Protein 6.6, Albumin 2.3 L, Globulin 4.3 H, Albumin/Globulin Ratio 0.5 L Current Medications Acetaminophen (Tylenol) 650 mg PO Q6H PRN PRN PRN Reason: fever, pain Atorvastatin Calcium (Lipitor) 80 mg PO QHS [facility] Last Admin: 03/27/17 21:59 Dose: 80 mg Famotidine (Pepcid) 20 mg PO BID [facility] Last Admin: 03/27/17 21:59 Dose: 20 mg Hydralazine HCl (Apresoline) 10 mg IV Q4H PRN PRN PRN Reason: SBP > 160 Meropenem 1 gm/ Sodium (Chloride) 120 mls @ 33 mls/hr IV Q8 [facility] Last Admin: 03/28/17 05:15 Dose: 33 mls/hr Fluconazole (Diflucan) 200 mg in 100 mls @ 100 mls/hr IV Q24 [facility] Last Admin: 03/27/17 08:54 Dose: 100 mls/hr Lactobacillus Acidophilus (Acidophilus) 1 tablet PO DAILY [facility] Last Admin: 03/27/17 08:43 Dose: 1 tablet Lidocaine HCl (Xylocaine Viscous) 20 ml PO 4X/DAY PRN PRN PRN Reason: PAIN Last Admin: 03/26/17 19:24 Dose: 20 ml Magnesium Hydroxide (Milk Of Magnesia) 30 ml PO DAILY PRN PRN PRN Reason: Constipation Metoprolol Tartrate (Lopressor (Beta Suellen)) 12.5 mg PO BID [facility] Last Admin: 03/27/17 22:02 Dose: 12.5 mg Morphine Sulfate (Morphine) 2 mg IV Q4H PRN PRN PRN Reason: SEVERE PAIN (6-10/10) Last Admin: 03/28/17 03:08 Dose: 2 mg Nitroglycerin (Nitrostat) 0.4 mg SUBLINGUAL Q5M PRN PRN Reason: Chest Pain Nutritional Formula (Lactose Free) (Ensure Enlive) 120 ml PO 4X/DAY [facility] Last Admin: 03/27/17 21:59 Dose: 120 ml Nystatin (Nystatin) 500,000 unit PO 4X/DAY [facility] Last Admin: 03/27/17 21:59 Dose: 500,000 unit Oxycodone HCl (Oxyfast) 5 mg PO Q4H PRN PRN PRN Reason: MOD-SEVERE PAIN (4-10/10) Last Admin: 03/28/17 08:24 Dose: 5 mg Ramipril (Altace) 10 mg PO DAILY [facility] Last Admin: 03/27/17 08:43 Dose: 10 mg Sodium Chloride () 5 - 30 ml IV UD PRN PRN Reason: SALINE FLUSH Last Admin: 03/27/17 13:45 Dose: 10 ml Tbo-Filgrastim (Granix) 300 mcg SC DAILY [facility] Last Admin: 03/27/17 12:31 Dose: 300 mcg Tbo-Filgrastim (Granix) 480 mcg SC X1 ONE Stop: 03/28/17 12:16 Temazepam (Restoril) 15 mg PO QHS PRN PRN PRN Reason: insomnia Assessment/Plan Active and Suspected Problems (Last Reviewed 03/13/17 @ 09:01 by Soo Yang) Febrile neutropenia (Acute) Neutropenic sepsis (Acute) The patient is a 66 y/o M w/ PMHx: MDS w/ Chronic Pancytopenia, HTN, HLD, CAD, Chronic Pain Syndrome who presents to the [facility] ED on 03/26/17 with sore throat, fever, noted to have Oropharyngeal candidiasis in the ED, started on nystatin S/S with worsened swallowing. (1) Neutropenic fever secondary to Oropharyngeal Candidiasis, Possible Esophageal in addition to Alpha-Hemolytic Streptococcal Throat Infection w/ Dysphagia, Oropharyngeal: Admission T 100.1, afebrile since admission. Admission CBC w/ WBC 0.7, Hgb 8.1, Plts 22 with ANC 0, CXR w/ stable cardiomegaly w/ low volume inspiration and scarring/atelectasis L base, UA w/ no acute findings. Bld cx and UCx pending. Oncology aware, consult pending. Maintained on MS, maintain on Neutropenic precautions, maintain on fluconazole transitioned to IV and elevated dose, mag and phos normal, trending CBC w/ WBC 0.7, Hgb 8.1, Plts 22 with ANC 0-->03/27/17 CBC w/ WBC 0.9, Hgb 7.4, Plts 15 with ANC 0-->03/28/17 CBC w/ WBC 0.9, Hgb 7, Plts 18 w/ ANC 1.0, maintained on IV meropenem until cultures result negative, throat culture w/ + strep, discussed w/ Hem/Onc and pharmacy and will continue meropenem until negative Bld Cx and following if only source aside candidal infection, transition to oral amox 500 mg BID-TID x 10 days. UCx unremarkable. Respiratory viral panel unremarkable. PRN tylenol, anti-emetics, pain regimen. Granix administered upon admission and continued at increased dose daily per Hem/Onc recommendation. Continued on altered mechanical soft diet w/ Speech assessment w/ recommendation mechanical soft texture with nectar thick liquids with [place]enez water protocol, medications with liquids or pur?es prior, during, post with continued evaluations. Surgery evaluation performed, deferred EGD to ascertain esophageal involvement given labs secondary to risk. (2) MDS secondary to Chronic Thrombocytopenia: Admission CBC w/ WBC 0.7, Hgb 8.1, Plts 22 with ANC 0-->03/27/17 CBC w/ WBC 0.9, Hgb 7.4, Plts 15 with ANC 0-->03/28/17 CBC w/ WBC 0.9, Hgb 7, Plts 18 w/ ANC 1.0, improved ANC, continue to monitor, maintain on precautions, discussed plt/PRBC with Hem/Onc, and will defer until PRBC < 7 or plts < 10,000 if no bleeding present, maintain on fluconazole IV as noted above and planned meropenem-->amoxicillin pending cultures. Holding revlimid during acute infectious period. (3) Hypertension: Continue home regimen including metoprolol, ANITRA inhibitor, PRN hydralazine. (4) Hyperlipidemia: Continue home statin regimen. (5) CAD: Will continue home regimen statin, BB. Holding ASA. (6) Severe Protein-Calorie Malnutrition: Evidenced per weight loss, muscle and fat loss, nutrition consulted. (7) DVT Prophylaxis: SCDs, defer chemoprophylaxis given presentation. Code Visit Inpatient E&M: 49367 Subs Hosp L2
--- NOTE | 2017-03-28 08:34 | PN_ITS ---
Patient Problems: Active and Suspected Problems (Last Reviewed 03/13/17 @ 09:01 by Soo Yang) Febrile neutropenia (Acute) Neutropenic sepsis (Acute) Subjective: Patient with no acute events overnight per self and per nursing report. He still does have sore throat although this is mildly improved from the day prior he is status post speech evaluation with further alterations to the diet to include soft mechanical as well as nectar thickened liquids. Discussed recent evaluations with surgery evaluation and deferral of EGD and continued IV fluconazole secondary to risks with current lab values with low platelets and continued anemia. Patient denies fevers, chills, nausea, emesis, abdominal pain , chest pain or dyspnea. Objective: Physical Examination: General: awake, alert, oriented x 3 and cooperative, seated upright in bed, NAD. Skin: normal color, turgor, no icterus, cyanosis. HEENT: AT/NC, EOMI, PERRLA, moderately dry MM, posterior OP thrush improved, mild erythema posteriorly, no exudate or lesions otherwise. Lungs: CTA bilaterally, moderate effort, moderate decrease BL bases, no rales, ronchi or wheezing. Heart: Regular rate and rhythm; no gallop, rub audible. Abdomen: soft, NTTP, ND, normal BS, no HSM. Extremities: no cyanosis, clubbing, or edema. Neurological: patient awake, alert, oriented x 3; cognitive function intact; pupils equally reactive to light and accomodation; cranial nerves II-XII grossly normal, moving all 4 extremities, no focal deficits, strength improved, remains moderately to severely globally decreased secondary to acute presentation. Psychiatric: affect appears improved, normal, no acute evidence of depressive or anxiety feelings. Vitals/I&O's: Vital Signs Temp Pulse Resp BP Pulse Ox 98.5 F 98 20 H 120/68 93 03/28/17 08:18 03/28/17 08:18 03/28/17 08:18 03/28/17 08:18 03/28/17 08:18 Oxygen Delivery Method Room Air Weight: 190 lb 0.615 oz Body Mass Index (BMI) 27.2 Intake and Output for Last 24 Hours 03/26/17 03/27/17 03/28/17 23:59 23:59 23:59 Intake Total 286 / 286 786.1 / 786.1 454 / 454 Output Total 400 / 400 1200 / 1200 525 / 525 Balance -114 / -114 -413.9 / -413.9 -71 / -71 Microbiology Past 72 Hours 03/26/17 19:22 Mucosa - Nose Respiratory Panel (PCR) - Final Laboratory Results 03/28/17 05:54: WBC 0.9 L*, RBC 2.08 L, Hgb 7.0 L, Hct 20.4 L, MCV 98.1 H, MCH 33.7 H, MCHC 34.3, RDW 17.8 H, RDW Differential 58.5 H, Plt Count 18 L*, MPV 10.4, Immature Gran % (Auto) 2.200 H, Neut % (Auto) 1.0 L, Lymph % (Auto) 64.5 H , [place] % (Auto) 23.7 H, Eos % (Auto) 1.1, Baso % (Auto) 7.5 H, Absolute Neuts ( auto) 0.0 L, Absolute Lymphs (auto) 0.60 L, Total Counted Not Reportable, Differential Comment SCAN, Diff Path Review June, Platelet Estimate MKD 03/28/17 05:54: Sodium 131 L, Potassium 3.8, Chloride 97 L, Carbon Dioxide 26.0 , Anion Gap 8, BUN 21 H, Creatinine 0.90, Estim Creat Clear Calc 81.11, Est GFR (MDRD) Af Amer 108, Est GFR (MDRD) Non-Af 89, BUN/Creatinine Ratio 23.3 H, Glucose 111 H, Calcium 7.9 L, Total Bilirubin 1.30 H, AST 41 H, ALT 56, Alkaline Phosphatase 78, Total Protein 6.6, Albumin 2.3 L, Globulin 4.3 H, Albumin/Globulin Ratio 0.5 L Current Medications Acetaminophen (Tylenol) 650 mg PO Q6H PRN PRN PRN Reason: fever, pain Atorvastatin Calcium (Lipitor) 80 mg PO QHS [facility] Last Admin: 03/27/17 21:59 Dose: 80 mg Famotidine (Pepcid) 20 mg PO BID [facility] Last Admin: 03/27/17 21:59 Dose: 20 mg Hydralazine HCl (Apresoline) 10 mg IV Q4H PRN PRN PRN Reason: SBP > 160 Meropenem 1 gm/ Sodium (Chloride) 120 mls @ 33 mls/hr IV Q8 [facility] Last Admin: 03/28/17 05:15 Dose: 33 mls/hr Fluconazole (Diflucan) 200 mg in 100 mls @ 100 mls/hr IV Q24 [facility] Last Admin: 03/27/17 08:54 Dose: 100 mls/hr Lactobacillus Acidophilus (Acidophilus) 1 tablet PO DAILY [facility] Last Admin: 03/27/17 08:43 Dose: 1 tablet Lidocaine HCl (Xylocaine Viscous) 20 ml PO 4X/DAY PRN PRN PRN Reason: PAIN Last Admin: 03/26/17 19:24 Dose: 20 ml Magnesium Hydroxide (Milk Of Magnesia) 30 ml PO DAILY PRN PRN PRN Reason: Constipation Metoprolol Tartrate (Lopressor (Beta Suellen)) 12.5 mg PO BID [facility] Last Admin: 03/27/17 22:02 Dose: 12.5 mg Morphine Sulfate (Morphine) 2 mg IV Q4H PRN PRN PRN Reason: SEVERE PAIN (6-10/10) Last Admin: 03/28/17 03:08 Dose: 2 mg Nitroglycerin (Nitrostat) 0.4 mg SUBLINGUAL Q5M PRN PRN Reason: Chest Pain Nutritional Formula (Lactose Free) (Ensure Enlive) 120 ml PO 4X/DAY [facility] Last Admin: 03/27/17 21:59 Dose: 120 ml Nystatin (Nystatin) 500,000 unit PO 4X/DAY [facility] Last Admin: 03/27/17 21:59 Dose: 500,000 unit Oxycodone HCl (Oxyfast) 5 mg PO Q4H PRN PRN PRN Reason: MOD-SEVERE PAIN (4-10/10) Last Admin: 03/28/17 08:24 Dose: 5 mg Ramipril (Altace) 10 mg PO DAILY [facility] Last Admin: 03/27/17 08:43 Dose: 10 mg Sodium Chloride () 5 - 30 ml IV UD PRN PRN Reason: SALINE FLUSH Last Admin: 03/27/17 13:45 Dose: 10 ml Tbo-Filgrastim (Granix) 300 mcg SC DAILY [facility] Last Admin: 03/27/17 12:31 Dose: 300 mcg Tbo-Filgrastim (Granix) 480 mcg SC X1 ONE Stop: 03/28/17 12:16 Temazepam (Restoril) 15 mg PO QHS PRN PRN PRN Reason: insomnia Assessment/Plan Active and Suspected Problems (Last Reviewed 03/13/17 @ 09:01 by Soo Yang) Febrile neutropenia (Acute) Neutropenic sepsis (Acute) The patient is a 66 y/o M w/ PMHx: MDS w/ Chronic Pancytopenia, HTN, HLD, CAD, Chronic Pain Syndrome who presents to the [facility] ED on 03/26/17 with sore throat, fever, noted to have Oropharyngeal candidiasis in the ED, started on nystatin S/ S with worsened swallowing. (1) Neutropenic fever secondary to Oropharyngeal Candidiasis, Possible Esophageal in addition to Alpha-Hemolytic Streptococcal Throat Infection w/ Dysphagia, Oropharyngeal: Admission T 100.1, afebrile since admission. Admission CBC w/ WBC 0.7, Hgb 8.1, Plts 22 with ANC 0, CXR w/ stable cardiomegaly w/ low volume inspiration and scarring/atelectasis L base, UA w/ no acute findings. Bld cx and UCx pending. Oncology aware, consult pending. Maintained on MS, maintain on Neutropenic precautions, maintain on fluconazole transitioned to IV and elevated dose, mag and phos normal, trending CBC w/ WBC 0.7, Hgb 8.1, Plts 22 with ANC 0-->03/27/17 CBC w/ WBC 0.9, Hgb 7.4, Plts 15 with ANC 0-->03/28/17 CBC w/ WBC 0.9, Hgb 7, Plts 18 w/ ANC 1.0, maintained on IV meropenem until cultures result negative, throat culture w/ + strep, discussed w/ Hem/Onc and pharmacy and will continue meropenem until negative Bld Cx and following if only source aside candidal infection, transition to oral amox 500 mg BID-TID x 10 days. UCx unremarkable. Respiratory viral panel unremarkable. PRN tylenol, anti-emetics, pain regimen. Granix administered upon admission and continued at increased dose daily per Hem/Onc recommendation. Continued on altered mechanical soft diet w/ Speech assessment w/ recommendation mechanical soft texture with nectar thick liquids with Jimenez water protocol, medications with liquids or pur?es prior, during, post with continued evaluations. Surgery evaluation performed, deferred EGD to ascertain esophageal involvement given labs secondary to risk. (2) MDS secondary to Chronic Thrombocytopenia: Admission CBC w/ WBC 0.7, Hgb 8.1 , Plts 22 with ANC 0-->03/27/17 CBC w/ WBC 0.9, Hgb 7.4, Plts 15 with ANC 0--> CBC w/ WBC 0.9, Hgb 7, Plts 18 w/ ANC 1.0, improved ANC, continue to monitor, maintain on precautions, discussed plt/PRBC with Hem/Onc, and will defer until PRBC < 7 or plts < 10,000 if no bleeding present, maintain on fluconazole IV as noted above and planned meropenem-->amoxicillin pending cultures. Holding revlimid during acute infectious period. (3) Hypertension: Continue home regimen including metoprolol, ANITRA inhibitor, PRN hydralazine. (4) Hyperlipidemia: Continue home statin regimen. (5) CAD: Will continue home regimen statin, BB. Holding ASA. (6) Severe Protein-Calorie Malnutrition: Evidenced per weight loss, muscle and fat loss, nutrition consulted. (7) DVT Prophylaxis: SCDs, defer chemoprophylaxis given presentation. Code Visit Inpatient E&M: 34832 Subs Hosp L2
[2017-03-28 09:53] LABS: Pathologist Review Reviewed
[2017-03-28] MEDS: Metoprolol Tartrate 25 MG Tablet 12.5 MG PO ×2 (10:04→21:27)
[2017-03-28] MEDS: Ramipril 10 MG Capsule PO (10:04)
[2017-03-28] MEDS: TBO-FILGRASTIM 300 MCG/0.5 ML ML SC (10:05)
[2017-03-28] MEDS: Famotidine 20 MG Tablet PO ×2 (10:05→21:28)
[2017-03-28] MEDS: NYSTATIN 500,000 UNIT/5 ML UDC 500000 UNIT PO ×4 (10:06→21:32)
[2017-03-28 10:10] LABS: Pathologist Review Reviewed
[2017-03-28] MEDS: Phenol/Sodium Phenolate 180ML 5 SPRAY MM ×4 (12:20→21:31)
[2017-03-28] MEDS: TBO-FILGRASTIM 480 MCG/0.8 ML ML SC (12:20)
--- NOTE | 2017-03-28 13:31 | CASEMGMT ---
See RN CM Assessment Link. DC PLAN: Home on dc with family support. Pt has prn home O2 through [facility]. Mely SALVADOR RN ACM
--- NOTE | 2017-03-28 16:10 | PN_ITS ---
Patient Problems: Active and Suspected Problems (Last Reviewed 03/13/17 @ 09:01 by Soo Yang) Febrile neutropenia (Acute) Neutropenic sepsis (Acute) Subjective: I feel a bit better today My throat does not hurt as much unable to talk with less hoarseness Have a cough with clear sputum no hemoptysis No nausea or vomiting or diarrhea and no KS bleed No dysuria or hematuria No skin rash No headache - Physical Exam General: Alert, Oriented x3, Cooperative, - - Pale and chronically ill but in no acute distress Vital Signs Temp Pulse Resp BP Pulse Ox 99.2 F H 87 18 99/57 L 93 03/28/17 14:13 03/28/17 14:13 03/28/17 14:13 03/28/17 14:13 03/28/17 14:13 Oxygen Delivery Method Room Air Weight: 86.2 kg Body Mass Index (BMI) 27.2 Intake and Output for Last 24 Hours 03/26/17 03/27/17 03/28/17 23:59 23:59 23:59 Intake Total 286 / 286 786.1 / 786.1 700 / 700 Output Total 400 / 400 1200 / 1200 525 / 525 Balance -114 / -114 -413.9 / -413.9 175 / 175 Microbiology Past 72 Hours 03/26/17 19:22 Respiratory Panel (PCR) - Final Mucosa - Nose Laboratory Tests Past 24 Hrs 03/27/17 03/28/17 03/28/17 05:32 05:54 05:54 WBC 0.9 L* RBC 2.08 L Hgb 7.0 L Hct 20.4 L MCV 98.1 H MCH 33.7 H MCHC 34.3 RDW 17.8 H RDW Differential 58.5 H Plt Count 18 L* MPV 10.4 Immature Gran % (Auto) 2.200 H Neut % (Auto) 1.0 L Lymph % (Auto) 64.5 H [place] % (Auto) 23.7 H Eos % (Auto) 1.1 Baso % (Auto) 7.5 H Absolute Neuts (auto) 0.0 L Absolute Lymphs (auto) 0.60 L Total Counted Not Reportable Differential Comment SCAN Diff Path Review Reviewed June foll Platelet Estimate MKD DEC Sodium 131 L Potassium 3.8 Chloride 97 L Carbon Dioxide 26.0 Anion Gap 8 BUN 21 H Creatinine 0.90 Estim Creat Clear Calc 81.11 Est GFR (MDRD) Af Amer 108 Est GFR (MDRD) Non-Af 89 BUN/Creatinine Ratio 23.3 H Glucose 111 H Calcium 7.9 L Total Bilirubin 1.30 H AST 41 H ALT 56 Alkaline Phosphatase 78 Total Protein 6.6 Albumin 2.3 L Globulin 4.3 H Albumin/Globulin Ratio 0.5 L Assessment/Plan Active and Suspected Problems (Last Reviewed 03/13/17 @ 09:01 by Soo Yang) Febrile neutropenia (Acute) Neutropenic sepsis (Acute) 66-year-old male with 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 Patient admitted with febrile neutropenia, strep throat infection, and diagnosed earlier with oral thrush. From the hematology consult view recommend: 1. Hold Revlimid during acute infectious episode. 2. Continue with a trial of daily Granix 480 mcg subcu may improve neutrophil count and help and recovery from infection. Of note he did not respond to every other day Granix in the past. 3. Support was blood product transfusions target hemoglobin above 7 g per DL and prophylactic platelet transfusions if platelet count is less than 10,000. 4. VTE prophylaxis with nonpharmacologic agents and ambulation. 5. Treatment of infection deferred to primary service Impression and plan discussed with patient
[2017-03-28 16:46] LABS: Pathologist Review Reviewed
[2017-03-28] MEDS: Atorvastatin Calcium 80 MG Tablet PO (21:28)
[2017-03-28] MEDS: Acetaminophen 325 MG Tablet 650 MG PO (21:28)
[2017-03-29] VITALS (7 sets, daily range): BP systolic 94–116; BP diastolic 56–63; PULSE 60–99; RESP 18–20; TEMP 36.8–37; O2SAT 93–99
[2017-03-29] MEDS: oxyCODONE Soln 5 MG/0.25 ML PO.SYRINGE PO ×4 (03:18→22:07)
[2017-03-29 05:44] LABS: Absolute Lymphocyte Count 0.95 X10^3/ul (0.83-4.51); Basophil# 0.09 X10^3/uL; Basophil% 5.9 % (0-1); Eosinophil# 0.01 X10^3/uL; Eosinophils% 0.7 % (0-5); Hemoglobin 7.6 g/dl (13.0-16.5); Lymphocyte # 0.95 X10^3/ul (4.0); Lymphocyte % 62.5 % (19-41); Mean Corp Hgb Conc 34.5 g/gl (32-36); Mean Corpuscular Hgb 33.3 pg (27.0-32.0); Mean Corpuscular Volume 96.5 fL (80-94); Monocyte# 0.43 X10^3/uL; Monocyte% 28.3 % (0-10); Neutrophil # 0.03 X10^3/uL (2.7-7.7); Neutrophil % 1.9 % (47-70); RBC Distribution Width CV 18.3 % (11.6-14.6); RBC Distribution Width SD 62.1 fl (35.1-43.9); Red Blood Count 2.28 M/mm3 (4.6-6.2); White Blood Count 1.5 K/mm3 (4.4-11.0)
[2017-03-29 05:45] LABS: Differential Indicated SCAN CRITERIA MET; POSITIVE COUNT YES; POSITIVE DIFFERENTIAL YES; POSITIVE MORPHOLOGY YES
[2017-03-29 05:46] LABS: Platelet Count 13 K/mm3 (150-450)
--- NOTE | 2017-03-29 05:48 | NURSING ---
Lab called notifying this RN that the pt's platelets are 13. Message given to pt's primary RN, Harleen.
[2017-03-29 05:50] LABS: BUN 25 mg/dL (7-18); Creatinine, Serum 1.05 mg/dL (0.70-1.30); Glucose 120 mg/dL (70-110)
[2017-03-29 05:51] LABS: ALB/GLOB Ratio 0.5 RATIO (0.9-2.4); AST(SGOT) 79 U/L (15-37); Alanine Aminotransfer ALT/SGPT 98 U/L (16-61); Albumin, Serum 2.3 g/dL (3.2-5.0); Alkaline Phosphatase 88 U/L (45-117); Anion Gap 7 (5-15); BUN/Creat Ratio 23.8 RATIO (10-20); Chloride 99 mmol/L (98-107); EST Glomerular Filtration Rate 75 mL/min (>60); Est Glom Filt Rate - Afr Amer 90 mL/min (>60); Estimated Creatinine Clearance 69.52 ml/min; Globulin 4.7 g/dL (2.2-4.2); Potassium 3.7 mmol/L (3.5-5.1); Sodium Level 134 mmol/L (136-145)
[2017-03-29 06:22] LABS: Differential Comment SCAN; Platelet Estimate MKD DEC (ADEQ)
[2017-03-29 06:23] LABS: Platelet Morphology LARGE
[2017-03-29 06:24] LABS: Anisocytosis 1+; Hypochromasia 1+; Microcytosis 1+; Polychromasia 1+
--- NOTE | 2017-03-29 06:53 | PCM.PN.HOSP ---
Patient Problems: Active and Suspected Problems (Last Reviewed 03/13/17 @ 09:01 by Soo Yang) Febrile neutropenia (Acute) Neutropenic sepsis (Acute) Subjective: Patient with no acute events overnight per self and per nursing report. He does report a mild dull headache and states that he still has ongoing dysphagia with sore throat but this has improved and continues to mildly improve on a daily basis. Discussed labs this morning with some improvement in his WBC and ANC with ongoing granix administration. Noted to be weak per staff with assist needs with pending PT and OT assessment. Patient denies fevers, chills, nausea, emesis, abdominal pain, chest pain or dyspnea. Objective: Physical Examination: General: awake, alert, oriented x 3 and cooperative, seated upright in bed, NAD. Skin: normal color, turgor, no icterus, cyanosis. HEENT: AT/NC, EOMI, PERRLA, moderately dry MM, posterior OP with no apparent thrush now, lessened redness, no exudate or lesions otherwise. Lungs: CTA bilaterally, moderate effort, moderate decrease BL bases, no rales, ronchi or wheezing. Heart: Regular rate and rhythm; no gallop, rub audible. Abdomen: soft, NTTP, ND, normal BS. Extremities: no cyanosis, clubbing, or edema. Neurological: patient awake, alert, oriented x 3; cognitive function intact; pupils equally reactive to light and accomodation; cranial nerves II-XII grossly normal, moving all 4 extremities, no focal deficits, strength improving but still weak and needing assist, moderately to severely globally decreased secondary to acute presentation. Psychiatric: affect appears normal, no acute evidence of depressive or anxiety feelings. Vitals/I&O's: Vital Signs Temp Pulse Resp BP Pulse Ox 98.6 F 86 18 94/56 L 99 03/29/17 02:15 03/29/17 02:15 03/29/17 02:15 03/29/17 02:15 03/29/17 02:15 Oxygen Delivery Method Room Air Weight: 190 lb 0.615 oz Body Mass Index (BMI) 27.2 Intake and Output for Last 24 Hours 03/27/17 03/28/17 03/29/17 23:59 23:59 23:59 Intake Total 786.1 / 786.1 1203 / 1203 681 / 681 Output Total 1200 / 1200 1525 / 1525 500 / 500 Balance -413.9 / -413.9 -322 / -322 181 / 181 Microbiology Past 72 Hours 03/26/17 19:22 Mucosa - Nose Respiratory Panel (PCR) - Final Laboratory Results 03/27/17 05:32: Diff Path Review Reviewed 03/28/17 05:54: Total Counted Not Reportable, Differential Comment SCAN, Diff Path Review Reviewed, Platelet Estimate MKD 03/29/17 05:20: WBC 1.5 L, RBC 2.28 L, Hgb 7.6 L, Hct 22.0 L, MCV 96.5 H, MCH 33.3 H, MCHC 34.5, RDW 18.3 H, RDW Differential 62.1 H, Plt Count 13 L*, Immature Gran % (Auto) 0.700, Neut % (Auto) 1.9 L, Lymph % (Auto) 62.5 H, [place] % (Auto) 28.3 H, Eos % (Auto) 0.7, Baso % (Auto) 5.9 H, Absolute Neuts (auto) 0.0 L, Absolute Lymphs (auto) 0.95, Total Counted Not Reportable, Differential Comment SCAN, Diff Path Review May foll, Platelet Estimate MKD JAN, Plt Morphology Comment LARGE, Polychromasia 1+, Hypochromasia 1+, Anisocytosis 1+, Microcytosis 1+ 03/29/17 05:20: Sodium 134 L, Potassium 3.7, Chloride 99, Carbon Dioxide 28.0, Anion Gap 7, BUN 25 H, Creatinine 1.05, Estim Creat Clear Calc 69.52, Est GFR (MDRD) Af Amer 90, Est GFR (MDRD) Non-Af 75, BUN/Creatinine Ratio 23.8 H, Glucose 120 H, Calcium 8.0 L, Total Bilirubin 1.30 H, AST 79 H, ALT 98 H, Alkaline Phosphatase 88, Total Protein 7.0, Albumin 2.3 L, Globulin 4.7 H, Albumin/Globulin Ratio 0.5 L Current Medications Acetaminophen (Tylenol) 650 mg PO Q6H PRN PRN PRN Reason: fever, pain Last Admin: 03/28/17 21:28 Dose: 650 mg Atorvastatin Calcium (Lipitor) 80 mg PO QHS [facility] Last Admin: 03/28/17 21:28 Dose: 80 mg Famotidine (Pepcid) 20 mg PO BID [facility] Last Admin: 03/28/17 21:28 Dose: 20 mg Hydralazine HCl (Apresoline) 10 mg IV Q4H PRN PRN PRN Reason: SBP > 160 Meropenem 1 gm/ Sodium (Chloride) 120 mls @ 33 mls/hr IV Q8 [facility] Last Admin: 03/29/17 05:35 Dose: 33 mls/hr Fluconazole (Diflucan) 200 mg in 100 mls @ 100 mls/hr IV Q24 [facility] Last Admin: 03/28/17 10:04 Dose: 100 mls/hr Lactobacillus Acidophilus (Acidophilus) 1 tablet PO DAILY [facility] Last Admin: 03/28/17 10:03 Dose: 1 tablet Lidocaine HCl (Xylocaine Viscous) 20 ml PO 4X/DAY PRN PRN PRN Reason: PAIN Last Admin: 03/26/17 19:24 Dose: 20 ml Magnesium Hydroxide (Milk Of Magnesia) 30 ml PO DAILY PRN PRN PRN Reason: Constipation Metoprolol Tartrate (Lopressor (Beta Suellen)) 12.5 mg PO BID [facility] Last Admin: 03/28/17 21:27 Dose: 12.5 mg Morphine Sulfate (Morphine) 2 mg IV Q4H PRN PRN PRN Reason: SEVERE PAIN (6-10/10) Last Admin: 03/28/17 19:28 Dose: 2 mg Nitroglycerin (Nitrostat) 0.4 mg SUBLINGUAL Q5M PRN PRN Reason: Chest Pain Nutritional Formula (Lactose Free) (Ensure Enlive) 120 ml PO 4X/DAY [facility] Last Admin: 03/28/17 21:27 Dose: 120 ml Nystatin (Nystatin) 500,000 unit PO 4X/DAY [facility] Last Admin: 03/28/17 21:32 Dose: 500,000 unit Oxycodone HCl (Oxyfast) 5 mg PO Q4H PRN PRN PRN Reason: MOD-SEVERE PAIN (4-10/10) Last Admin: 03/29/17 03:18 Dose: 5 mg Phenol/Menthol (Chloraseptic (Bkc)) 5 spray MM Q2H PRN PRN PRN Reason: SORE THROAT Last Admin: 03/28/17 21:31 Dose: 5 spray Ramipril (Altace) 10 mg PO DAILY [facility] Last Admin: 03/28/17 10:04 Dose: 10 mg Sodium Chloride () 5 - 30 ml IV UD PRN PRN Reason: SALINE FLUSH Last Admin: 03/27/17 13:45 Dose: 10 ml Tbo-Filgrastim (Granix) 300 mcg SC DAILY [facility] Last Admin: 03/28/17 10:05 Dose: 300 mcg Temazepam (Restoril) 15 mg PO QHS PRN PRN PRN Reason: insomnia Assessment/Plan Active and Suspected Problems (Last Reviewed 03/13/17 @ 09:01 by Soo Yang) Febrile neutropenia (Acute) Neutropenic sepsis (Acute) The patient is a 66 y/o M w/ PMHx: MDS w/ Chronic Pancytopenia, HTN, HLD, CAD, Chronic Pain Syndrome who presents to the [facility] ED on 03/26/17 with sore throat, fever, noted to have Oropharyngeal candidiasis in the ED, started on nystatin S/S with worsened swallowing. (1) Neutropenic fever secondary to Oropharyngeal Candidiasis, Possible Esophageal in addition to Alpha-Hemolytic Streptococcal Throat Infection w/ Dysphagia, Oropharyngeal: Admission T 100.1, afebrile since admission. Admission CBC w/ WBC 0.7, Hgb 8.1, Plts 22 with ANC 0, CXR w/ stable cardiomegaly w/ low volume inspiration and scarring/atelectasis L base, UA w/ no acute findings. Bld cx and UCx pending. Oncology aware, consult pending. Maintained on MS, maintain on Neutropenic precautions, maintain on fluconazole transitioned to IV and elevated dose, mag and phos normal, trending CBC w/ WBC 0.7, Hgb 8.1, Plts 22 with ANC 0-->03/27/17 CBC w/ WBC 0.9, Hgb 7.4, Plts 15 with ANC 0-->03/29/17 CBC w/ WBC 1.5, Hgb 7.6, Plts 13 with ANC 1.9, however 03/28/17 Tm 100.8, maintained on IV meropenem until cultures result negative, throat culture w/ + strep, discussed w/ Hem/Onc and pharmacy w/ plan to transition off meropenem given all cultures negative aside candidal infection and + strep throat culture to oral amox 500 mg BID-TID x 10 days but will discuss again w/ Hem/Onc given T elevated day prior. PRN tylenol, anti-emetics, pain regimen. Granix administered upon admission and continued at increased dose daily per Hem/Onc recommendation. Continued on altered mechanical soft diet w/ Speech assessment w/ recommendation mechanical soft texture with nectar thick liquids with Jimenez water protocol, medications with liquids or pur?es prior, during, post with continued evaluations. Surgery evaluation performed, deferred EGD to ascertain esophageal involvement given labs secondary to risk. PT, OT consulted given ongoing weakness and debility for discharge planning. (2) MDS secondary to Chronic Thrombocytopenia: Admission CBC w/ WBC 0.7, Hgb 8.1, Plts 22 with ANC 0-->03/27/17 CBC w/ WBC 0.9, Hgb 7.4, Plts 15 with ANC 0-->03/29/17 CBC w/ WBC 1.5, Hgb 7.6, Plts 13 with ANC 1.9, continue to monitor, maintain on precautions, discussed plt/PRBC with Hem/Onc, and will defer until PRBC < 7 or plts < 10,000 if no bleeding present, maintain on fluconazole IV as noted above and planned meropenem-->amoxicillin but will discuss w/ Hem/Onc given elevated T recently. Holding revlimid during acute infectious period. (3) Hypertension: Continue home regimen including metoprolol, ANITRA inhibitor, PRN hydralazine. (4) Hyperlipidemia: Continue home statin regimen. (5) CAD: Will continue home regimen statin, BB. Holding ASA. (6) Severe Protein-Calorie Malnutrition: Evidenced per weight loss, muscle and fat loss, nutrition consulted. (7) DVT Prophylaxis: SCDs, defer chemoprophylaxis given presentation. Code Visit Inpatient E&M: 80090 Subs Hosp L2
--- NOTE | 2017-03-29 06:56 | PN_ITS ---
Patient Problems: Active and Suspected Problems (Last Reviewed 03/13/17 @ 09:01 by Soo Yang) Febrile neutropenia (Acute) Neutropenic sepsis (Acute) Subjective: Patient with no acute events overnight per self and per nursing report. He does report a mild dull headache and states that he still has ongoing dysphagia with sore throat but this has improved and continues to mildly improve on a daily basis. Discussed labs this morning with some improvement in his WBC and ANC with ongoing granix administration. Noted to be weak per staff with assist needs with pending PT and OT assessment. Patient denies fevers, chills, nausea , emesis, abdominal pain, chest pain or dyspnea. Objective: Physical Examination: General: awake, alert, oriented x 3 and cooperative, seated upright in bed, NAD. Skin: normal color, turgor, no icterus, cyanosis. HEENT: AT/NC, EOMI, PERRLA, moderately dry MM, posterior OP with no apparent thrush now, lessened redness, no exudate or lesions otherwise. Lungs: CTA bilaterally, moderate effort, moderate decrease BL bases, no rales, ronchi or wheezing. Heart: Regular rate and rhythm; no gallop, rub audible. Abdomen: soft, NTTP, ND, normal BS. Extremities: no cyanosis, clubbing, or edema. Neurological: patient awake, alert, oriented x 3; cognitive function intact; pupils equally reactive to light and accomodation; cranial nerves II-XII grossly normal, moving all 4 extremities, no focal deficits, strength improving but still weak and needing assist, moderately to severely globally decreased secondary to acute presentation. Psychiatric: affect appears normal, no acute evidence of depressive or anxiety feelings. Vitals/I&O's: Vital Signs Temp Pulse Resp BP Pulse Ox 98.6 F 86 18 94/56 L 99 03/29/17 02:15 03/29/17 02:15 03/29/17 02:15 03/29/17 02:15 03/29/17 02:15 Oxygen Delivery Method Room Air Weight: 190 lb 0.615 oz Body Mass Index (BMI) 27.2 Intake and Output for Last 24 Hours 03/27/17 03/28/17 03/29/17 23:59 23:59 23:59 Intake Total 786.1 / 786.1 1203 / 1203 681 / 681 Output Total 1200 / 1200 1525 / 1525 500 / 500 Balance -413.9 / -413.9 -322 / -322 181 / 181 Microbiology Past 72 Hours 03/26/17 19:22 Mucosa - Nose Respiratory Panel (PCR) - Final Laboratory Results 03/27/17 05:32: Diff Path Review Reviewed 03/28/17 05:54: Total Counted Not Reportable, Differential Comment SCAN, Diff Path Review Reviewed, Platelet Estimate MKD 03/29/17 05:20: WBC 1.5 L, RBC 2.28 L, Hgb 7.6 L, Hct 22.0 L, MCV 96.5 H, MCH 33.3 H, MCHC 34.5, RDW 18.3 H, RDW Differential 62.1 H, Plt Count 13 L*, Immature Gran % (Auto) 0.700, Neut % (Auto) 1.9 L, Lymph % (Auto) 62.5 H, [place] % (Auto) 28.3 H, Eos % (Auto) 0.7, Baso % (Auto) 5.9 H, Absolute Neuts (auto) 0.0 L, Absolute Lymphs (auto) 0.95, Total Counted Not Reportable, Differential Comment SCAN, Diff Path Review May foll, Platelet Estimate MKD JAN, Plt Morphology Comment LARGE, Polychromasia 1+, Hypochromasia 1+, Anisocytosis 1+, Microcytosis 1+ 03/29/17 05:20: Sodium 134 L, Potassium 3.7, Chloride 99, Carbon Dioxide 28.0, Anion Gap 7, BUN 25 H, Creatinine 1.05, Estim Creat Clear Calc 69.52, Est GFR ( MDRD) Af Amer 90, Est GFR (MDRD) Non-Af 75, BUN/Creatinine Ratio 23.8 H, Glucose 120 H, Calcium 8.0 L, Total Bilirubin 1.30 H, AST 79 H, ALT 98 H, Alkaline Phosphatase 88, Total Protein 7.0, Albumin 2.3 L, Globulin 4.7 H, Albumin/Globulin Ratio 0.5 L Current Medications Acetaminophen (Tylenol) 650 mg PO Q6H PRN PRN PRN Reason: fever, pain Last Admin: 03/28/17 21:28 Dose: 650 mg Atorvastatin Calcium (Lipitor) 80 mg PO QHS WARREN Last Admin: 03/28/17 21:28 Dose: 80 mg Famotidine (Pepcid) 20 mg PO BID COUNT INCLUDES THE [facility] Last Admin: 03/28/17 21:28 Dose: 20 mg Hydralazine HCl (Apresoline) 10 mg IV Q4H PRN PRN PRN Reason: SBP > 160 Meropenem 1 gm/ Sodium (Chloride) 120 mls @ 33 mls/hr IV Q8 COUNT INCLUDES THE [facility] Last Admin: 03/29/17 05:35 Dose: 33 mls/hr Fluconazole (Diflucan) 200 mg in 100 mls @ 100 mls/hr IV Q24 COUNT INCLUDES THE [facility] Last Admin: 03/28/17 10:04 Dose: 100 mls/hr Lactobacillus Acidophilus (Acidophilus) 1 tablet PO DAILY COUNT INCLUDES THE [facility] Last Admin: 03/28/17 10:03 Dose: 1 tablet Lidocaine HCl (Xylocaine Viscous) 20 ml PO 4X/DAY PRN PRN PRN Reason: PAIN Last Admin: 03/26/17 19:24 Dose: 20 ml Magnesium Hydroxide (Milk Of Magnesia) 30 ml PO DAILY PRN PRN PRN Reason: Constipation Metoprolol Tartrate (Lopressor (Beta Suellen)) 12.5 mg PO BID COUNT INCLUDES THE [facility] Last Admin: 03/28/17 21:27 Dose: 12.5 mg Morphine Sulfate (Morphine) 2 mg IV Q4H PRN PRN PRN Reason: SEVERE PAIN (6-10/10) Last Admin: 03/28/17 19:28 Dose: 2 mg Nitroglycerin (Nitrostat) 0.4 mg SUBLINGUAL Q5M PRN PRN Reason: Chest Pain Nutritional Formula (Lactose Free) (Ensure Enlive) 120 ml PO 4X/DAY COUNT INCLUDES THE [facility] Last Admin: 03/28/17 21:27 Dose: 120 ml Nystatin (Nystatin) 500,000 unit PO 4X/DAY COUNT INCLUDES THE [facility] Last Admin: 03/28/17 21:32 Dose: 500,000 unit Oxycodone HCl (Oxyfast) 5 mg PO Q4H PRN PRN PRN Reason: MOD-SEVERE PAIN (4-10/10) Last Admin: 03/29/17 03:18 Dose: 5 mg Phenol/Menthol (Chloraseptic (Bkc)) 5 spray MM Q2H PRN PRN PRN Reason: SORE THROAT Last Admin: 03/28/17 21:31 Dose: 5 spray Ramipril (Altace) 10 mg PO DAILY COUNT INCLUDES THE [facility] Last Admin: 03/28/17 10:04 Dose: 10 mg Sodium Chloride () 5 - 30 ml IV UD PRN PRN Reason: SALINE FLUSH Last Admin: 03/27/17 13:45 Dose: 10 ml Tbo-Filgrastim (Granix) 300 mcg SC DAILY WARREN Last Admin: 03/28/17 10:05 Dose: 300 mcg Temazepam (Restoril) 15 mg PO QHS PRN PRN PRN Reason: insomnia Assessment/Plan Active and Suspected Problems (Last Reviewed 03/13/17 @ 09:01 by Soo Yang) Febrile neutropenia (Acute) Neutropenic sepsis (Acute) The patient is a 66 y/o M w/ PMHx: MDS w/ Chronic Pancytopenia, HTN, HLD, CAD, Chronic Pain Syndrome who presents to the [facility] ED on 03/26/17 with sore throat, fever, noted to have Oropharyngeal candidiasis in the ED, started on nystatin S/ S with worsened swallowing. (1) Neutropenic fever secondary to Oropharyngeal Candidiasis, Possible Esophageal in addition to Alpha-Hemolytic Streptococcal Throat Infection w/ Dysphagia, Oropharyngeal: Admission T 100.1, afebrile since admission. Admission CBC w/ WBC 0.7, Hgb 8.1, Plts 22 with ANC 0, CXR w/ stable cardiomegaly w/ low volume inspiration and scarring/atelectasis L base, UA w/ no acute findings. Bld cx and UCx pending. Oncology aware, consult pending. Maintained on MS, maintain on Neutropenic precautions, maintain on fluconazole transitioned to IV and elevated dose, mag and phos normal, trending CBC w/ WBC 0.7, Hgb 8.1, Plts 22 with ANC 0-->03/27/17 CBC w/ WBC 0.9, Hgb 7.4, Plts 15 with ANC 0-->03/29/17 CBC w/ WBC 1.5, Hgb 7.6, Plts 13 with ANC 1.9, however 03/28 Tm 100.8, maintained on IV meropenem until cultures result negative, throat culture w/ + strep, discussed w/ Hem/Onc and pharmacy w/ plan to transition off meropenem given all cultures negative aside candidal infection and + strep throat culture to oral amox 500 mg BID-TID x 10 days but will discuss again w/ Hem/Onc given T elevated day prior. PRN tylenol, anti-emetics, pain regimen. Granix administered upon admission and continued at increased dose daily per Hem /Onc recommendation. Continued on altered mechanical soft diet w/ Speech assessment w/ recommendation mechanical soft texture with nectar thick liquids with Jimenez water protocol, medications with liquids or pur?es prior, during, post with continued evaluations. Surgery evaluation performed, deferred EGD to ascertain esophageal involvement given labs secondary to risk. PT, OT consulted given ongoing weakness and debility for discharge planning. (2) MDS secondary to Chronic Thrombocytopenia: Admission CBC w/ WBC 0.7, Hgb 8.1 , Plts 22 with ANC 0-->03/27/17 CBC w/ WBC 0.9, Hgb 7.4, Plts 15 with ANC 0--> CBC w/ WBC 1.5, Hgb 7.6, Plts 13 with ANC 1.9, continue to monitor, maintain on precautions, discussed plt/PRBC with Hem/Onc, and will defer until PRBC < 7 or plts < 10,000 if no bleeding present, maintain on fluconazole IV as noted above and planned meropenem-->amoxicillin but will discuss w/ Hem/Onc given elevated T recently. Holding revlimid during acute infectious period. (3) Hypertension: Continue home regimen including metoprolol, ANITRA inhibitor, PRN hydralazine. (4) Hyperlipidemia: Continue home statin regimen. (5) CAD: Will continue home regimen statin, BB. Holding ASA. (6) Severe Protein-Calorie Malnutrition: Evidenced per weight loss, muscle and fat loss, nutrition consulted. (7) DVT Prophylaxis: SCDs, defer chemoprophylaxis given presentation. Code Visit Inpatient E&M: 70815 Subs Hosp L2
[2017-03-29 10:40] LABS: Pathologist Review Reviewed
[2017-03-29] MEDS: Metoprolol Tartrate 25 MG Tablet 12.5 MG PO ×2 (11:07→21:49)
[2017-03-29] MEDS: Ramipril 10 MG Capsule PO (11:07)
[2017-03-29] MEDS: Famotidine 20 MG Tablet PO ×2 (11:07→21:49)
[2017-03-29] MEDS: Magnesium Hydroxide 30 ML UDC PO (11:08)
[2017-03-29] MEDS: TBO-FILGRASTIM 300 MCG/0.5 ML ML SC (11:08)
[2017-03-29] MEDS: NYSTATIN 500,000 UNIT/5 ML UDC 500000 UNIT PO ×4 (11:08→21:49)
[2017-03-29] MEDS: Phenol/Sodium Phenolate 180ML 5 SPRAY MM ×2 (15:03→21:50)
--- NOTE | 2017-03-29 15:45 | CHAPLAIN ---
Type of Pastoral Visit _x__ Initial Visit ___ Follow-up Visit ___ On-call Visit ___ General Patient Visit ___ Spiritual Assessment ___ Family Conference ___ Bereavement ___ Rapid Response ___ Code Blue ___ Other (describe below) Pastoral Care Referral From _x__ Patient ___ Family ___ Nurse ___ Physician ___ Mangle Catcher ___ Repair Table Operator ___ Other (describe below) Sacrament/Intervention _x__ Active listening ___ Anointing ___ Druze ___ Bereavement ___ Communion ___ Miriam exploration ___ ___ Life review _x__ Prayer ___ Reconciliation ___ Sacrament of Sick _x__ Supportive presence ___ Wedding ___ Other (describe below) Pastoral Comments
--- NOTE | 2017-03-29 17:10 | CON.PCM_ITS ---
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 minus deletion I PSS score 2.5 he started Revlimid March 16, 2017. He had received granix every other day in the past few weeks to improve his neutrophil count but did not show a significant improvement. He was treated with oral amoxicillin approximately 1 week earlier for upper respiratory tract infection possible epiglottitis and oral nystatin for thrush a few days ago. Overall patient did not feel any notable improvement and was hospitalized with fever and neutropenia. Power of Technical Information Specialist: No Living Will: No Advance Directives on File: No Past Medical History: Chronic Problems (Last Reviewed 03/13/17 @ 09:01 by Soo Yang) 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) Pancytopenia (Chronic) Neutropenia (Chronic) Leukopenia (Chronic) Thrombocytopenia (Chronic) Pancytopenia (Chronic) 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) Past Medical/Surgical History: Cancer History: [] Past Medical History: [] Past Surgical History: [] Family History: [] Social History: [] Lives: Spouse/ Significant Other Smoking Status: Never smoker Tobacco Use: Non-smoker Alcohol: None Drugs: None Maternal Family History: Family History (Last Reviewed 03/13/17 @ 09:01 by Soo Yang) Mother Hyperlipidemia Heart disease Father CHF (congestive heart failure) Family History: Heart Disease Paternal Family History: Family History (Last Reviewed 03/13/17 @ 09:01 by Soo Yang) Mother Hyperlipidemia Heart disease Father CHF (congestive heart failure) Family History: Heart Disease Allergies/Adverse Reactions: Allergy/AdvReac Type Severity Reaction Status Date / Time No Known Allergies Allergy Verified 03/26/17 12:54 Home Medications Medication Instructions Recorded Atorvastatin Calcium [Lipitor] 80 mg PO DAILY 04/16/13 Nitroglycerin [Nitrostat] 0.4 mg SUBLINGUAL PRN PRN 04/16/13 Ramipril [Altace] 10 mg PO DAILY 04/16/13 Lactobacillus Combo No.10 1 each PO DAILY 02/03/17 [Probiotic] Lenalidomide [Revlimid] 5 mg PO DAILY #30 cap NS 03/07/17 Dexamethasone [Decadron] 2 mg PO DAILY #30 tab 03/08/17 Acetaminophen with Codeine 1 each PO Q6H PRN #60 tablet 03/20/17 [Tylenol with Codeine #3 Tablet] Lidocaine 2% Viscous [Xylocaine 20 ml PO 4X/DAY PRN 03/26/17 Viscous] Metoprolol Tartrate 12.5 mg PO BID 03/26/17 Nystatin [Nystatin] 5 ml PO 4X/DAY 03/26/17 Oxycodone Soln [Oxyfast] 5 - 10 mg PO Q4H PRN 03/26/17 Vital Signs Height 5 ft 10 in Weight: 86.2 kg Weight in Pounds 190.0 lbs Pulse Ox 95 Temperature 98.5 F Pulse Rate 95 Respiratory Rate 18 Blood Pressure 96/61 Blood Pressure Position Semi-Fowlers Laboratory Data: Microbiology 03/26/17 19:22 Respiratory Panel (PCR) - Final Mucosa - Nose Laboratory Tests 3 03/29/17 03/29/17 Range/Units 05:20 05:20 WBC 1.5 L (4.4-11.0) K/mm3 RBC 2.28 L (4.6-6.2) M/mm3 Hgb 7.6 L (13.0-16.5) g/dl Hct 22.0 L (40-54) % MCV 96.5 H (80-94) fL MCH 33.3 H (27.0-32.0) pg MCHC 34.5 (32-36) g/gl RDW 18.3 H (11.6-14.6) % RDW Differential 62.1 H (35.1-43.9) fl Plt Count 13 L* (150-450) K/mm3 Immature Gran % (Auto) 0.700 (0.0-0.9) % Neut % (Auto) 1.9 L (47-70) % Lymph % (Auto) 62.5 H (19-41) % [place] % (Auto) 28.3 H (0-10) % Eos % (Auto) 0.7 (0-5) % Baso % (Auto) 5.9 H (0-1) % Absolute Neuts (auto) 0.0 L (2.0-7.7) X10^3/uL Absolute Lymphs (auto) 0.95 (0.83-4.51) X10^3/ul Total Counted Not Reportable Differential Comment SCAN Diff Path Review Reviewed Platelet Estimate MKD DEC (ADEQ) Plt Morphology Comment LARGE Polychromasia 1+ Hypochromasia 1+ Anisocytosis 1+ Microcytosis 1+ Sodium 134 L (136-145) mmol/L Potassium 3.7 (3.5-5.1) mmol/L Chloride 99 (98-107) mmol/L Carbon Dioxide 28.0 (21.0-32.0) mmol/L Anion Gap 7 (5-15) BUN 25 H (7-18) mg/dL Creatinine 1.05 (0.70-1.30) mg/dL Estim Creat Clear Calc 69.52 ml/min Est GFR (MDRD) Af Amer 90 (>60) mL/min Est GFR (MDRD) Non-Af 75 (>60) mL/min BUN/Creatinine Ratio 23.8 H (10-20) RATIO Glucose 120 H (70-110) mg/dL Calcium 8.0 L (8.5-10.1) mg/dL Total Bilirubin 1.30 H (0.20-1.00) mg/dL AST 79 H (15-37) U/L ALT 98 H (16-61) U/L Alkaline Phosphatase 88 (45-117) U/L Total Protein 7.0 (6.4-8.2) g/dL Albumin 2.3 L (3.2-5.0) g/dL Globulin 4.7 H (2.2-4.2) g/dL Albumin/Globulin Ratio 0.5 L (0.9-2.4) RATIO Diagnostic Data: Diagnostic Data Chest X-Ray 03/26/17 13:12 IMPRESSION: Stable cardiomegaly with low volume inspiration and scarring/atelectasis in the left base. No new or acute pathology. Electronically Signed: Erickson Che MD at 14:16 EST , Service support , Soft Tissue Neck CT 03/26/17 13:14 IMPRESSION: Normal enhanced CT examination of the soft tissues of the neck. Electronically Signed: Morro Worley MD at 14:36 EST Tel , Service support , Assessment and Plan 66-year-old male with 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 Patient admitted with febrile neutropenia, strep throat infection, and diagnosed earlier with oral thrush. From the hematology consult view recommend: 1. Hold Revlimid during acute infectious episode. 2. Continue with a trial of daily Granix 480 mcg subcu may improve neutrophil count and help and recovery from infection. Of note he did not respond to every other day Granix in the past. 3. Support was blood product transfusions target hemoglobin above 7 g per DL and prophylactic platelet transfusions if platelet count is less than 10,000. 4. VTE prophylaxis with nonpharmacologic agents and ambulation. 5. Treatment of infection deferred to primary service Impression and plan discussed with patient Medications: Prescriptions This Visit Medication Instructions Recorded Lidocaine 2% Viscous [Xylocaine 20 ml PO 4X/DAY PRN 03/26/17 Viscous] Metoprolol Tartrate 12.5 mg PO BID 03/26/17 Nystatin [Nystatin] 5 ml PO 4X/DAY 03/26/17 Oxycodone Soln [Oxyfast] 5 - 10 mg PO Q4H PRN 03/26/17
[2017-03-29] MEDS: Ondansetron 4 MG/2 ML Vial IV (20:17)
[2017-03-29] MEDS: 0.9% NaCl Peripheral Flush Adult/Peds IV (20:17)
[2017-03-29] MEDS: Atorvastatin Calcium 80 MG Tablet PO (21:49)
[2017-03-30] VITALS (24 sets, daily range): BP systolic 96–136; BP diastolic 56–75; PULSE 79–99; RESP 16–18; TEMP 36.7–38.7; O2SAT 93–99
[2017-03-30] MEDS: Phenol/Sodium Phenolate 180ML 5 SPRAY MM ×3 (06:23→20:10)
[2017-03-30 06:26] LABS: Absolute Lymphocyte Count 0.74 X10^3/ul (0.83-4.51); Basophil# 0.08 X10^3/uL; Basophil% 5.4 % (0-1); Eosinophil# 0.01 X10^3/uL; Eosinophils% 0.7 % (0-5); Hematocrit 19.8 % (40-54); Hemoglobin 6.8 g/dl (13.0-16.5); Lymphocyte # 0.74 X10^3/ul (4.0); Lymphocyte % 49.6 % (19-41); Mean Corp Hgb Conc 34.3 g/gl (32-36); Mean Corpuscular Hgb 33.3 pg (27.0-32.0); Mean Corpuscular Volume 97.1 fL (80-94); Monocyte# 0.66 X10^3/uL; Monocyte% 44.3 % (0-10); RBC Distribution Width CV 18.6 % (11.6-14.6); RBC Distribution Width SD 63.2 fl (35.1-43.9); Red Blood Count 2.04 M/mm3 (4.6-6.2); White Blood Count 1.5 K/mm3 (4.4-11.0)
[2017-03-30 06:27] LABS: Differential Indicated SCAN CRITERIA MET; POSITIVE COUNT YES; POSITIVE DIFFERENTIAL YES; POSITIVE MORPHOLOGY YES
[2017-03-30 06:31] LABS: Platelet Count 9 K/mm3 (150-450)
[2017-03-30 06:36] LABS: ALB/GLOB Ratio 0.4 RATIO (0.9-2.4); AST(SGOT) 105 U/L (15-37); Alanine Aminotransfer ALT/SGPT 122 U/L (16-61); Albumin, Serum 2.1 g/dL (3.2-5.0); Alkaline Phosphatase 95 U/L (45-117); Anion Gap 8 (5-15); BUN 30 mg/dL (7-18); Calcium,Total 7.8 mg/dL (8.5-10.1); Chloride 101 mmol/L (98-107); Creatinine, Serum 1.07 mg/dL (0.70-1.30); EST Glomerular Filtration Rate 73 mL/min (>60); Est Glom Filt Rate - Afr Amer 88 mL/min (>60); Estimated Creatinine Clearance 68.22 ml/min; Globulin 4.7 g/dL (2.2-4.2); Glucose 113 mg/dL (70-110); Potassium 4.1 mmol/L (3.5-5.1); Protein, Total 6.8 g/dL (6.4-8.2); Sodium Level 137 mmol/L (136-145)
[2017-03-30] MEDS: 0.9% NaCl Peripheral Flush Adult/Peds IV (06:38)
[2017-03-30] MEDS: Ondansetron 4 MG/2 ML Vial IV (06:38)
[2017-03-30] MEDS: Magnesium Citrate 300 ML 150 ML PO (06:38)
--- NOTE | 2017-03-30 06:39 | PCM.PN.HOSP ---
Patient Problems: Active and Suspected Problems (Last Reviewed 03/13/17 @ 09:01 by Soo Ynag) Neutropenic sepsis (Acute) Subjective: Patient overnight with worsened fatigue, mild dyspnea, abdominal distention although ongoing flatus with discomfort with decreased bowel movements noted to be firm and small. Discussed labs this morning with plan for PRBC and platelet administration. KUB ordered stat this morning with nonspecific pattern although patient notes that abdominal discomfort is improved but still notes constipation present. Patient and family note that if hemoglobin less than 8 often he is very fatigued, lethargic. Patient denies fevers, chills, nausea, emesis, abdominal pain, chest pain. Objective: Physical Examination: General: awake, alert, oriented x 3 and cooperative, seated upright in bed, fatigued appearance, more than prior. Skin: pale palor, turgor, no icterus, cyanosis. HEENT: AT/NC, EOMI, PERRLA, moderately dry MM, posterior OP with no apparent thrush now, lessened redness, no exudate or lesions otherwise. Lungs: Diminished BS bases, mild effort, no rales, ronchi or wheezing. Heart: Regular rate and rhythm; no gallop, rub audible. Abdomen: soft, NTTP, improved distention, noted was firm evening prior, normalized BS. Extremities: no cyanosis, clubbing, or edema. Neurological: patient awake, alert, oriented x 3; cognitive function intact; pupils equally reactive to light and accomodation; cranial nerves II-XII grossly normal, moving all 4 extremities, no focal deficits, strength worsened, severely globally decreased secondary to acute presentation. Psychiatric: affect appears flat, no acute evidence of depressive or anxiety feelings. Vitals/I&O's: Vital Signs Temp Pulse Resp BP Pulse Ox 98.9 F 99 16 126/61 H 98 03/30/17 03:25 03/30/17 03:25 03/30/17 03:25 03/30/17 03:25 03/30/17 03:25 Oxygen Flow Rate 2 Oxygen Delivery Method Nasal Cannula Weight: 190 lb 0.615 oz Body Mass Index (BMI) 27.2 Intake and Output for Last 24 Hours 03/28/17 03/29/17 03/30/17 23:59 23:59 23:59 Intake Total 1203 / 1203 1608 / 1608 546 / 546 Output Total 1525 / 1525 500 / 500 650 / 650 Balance -322 / -322 1108 / 1108 -104 / -104 Microbiology Past 72 Hours 03/26/17 19:22 Mucosa - Nose Respiratory Panel (PCR) - Final Laboratory Results 03/29/17 05:20: Diff Path Review Reviewed 03/30/17 06:00: WBC 1.5 L, RBC 2.04 L, Hgb 6.8 L, Hct 19.8 L, MCV 97.1 H, MCH 33.3 H, MCHC 34.3, RDW 18.6 H, RDW Differential 63.2 H, Plt Count 9 L*, Immature Gran % (Auto) 0.000, Neut % (Auto) 0.0 L, Lymph % (Auto) 49.6 H, [place] % (Auto) 44.3 H, Eos % (Auto) 0.7, Baso % (Auto) 5.4 H, Absolute Neuts (auto) 0.0 L, Absolute Lymphs (auto) 0.74 L, Total Counted Pending 03/30/17 06:00: Sodium 137, Potassium 4.1, Chloride 101, Carbon Dioxide 28.0, Anion Gap 8, BUN 30 H, Creatinine 1.07, Estim Creat Clear Calc 68.22, Est GFR (MDRD) Af Amer 88, Est GFR (MDRD) Non-Af 73, BUN/Creatinine Ratio 28.0 H, Glucose 113 H, Calcium 7.8 L, Total Bilirubin 0.80, AST 105 H, ALT 122 H, Alkaline Phosphatase 95, Total Protein 6.8, Albumin 2.1 L, Globulin 4.7 H, Albumin/Globulin Ratio 0.4 L Current Medications Acetaminophen (Tylenol) 650 mg PO Q6H PRN PRN PRN Reason: fever, pain Last Admin: 03/28/17 21:28 Dose: 650 mg Amoxicillin (Amoxil 200mg/5ml Susp) 500 mg PO Q8 [facility] Stop: 04/05/17 06:38 Atorvastatin Calcium (Lipitor) 80 mg PO QHS [facility] Last Admin: 03/29/17 21:49 Dose: 80 mg Famotidine (Pepcid) 20 mg PO BID [facility] Last Admin: 03/29/17 21:49 Dose: 20 mg Hydralazine HCl (Apresoline) 10 mg IV Q4H PRN PRN PRN Reason: SBP > 160 Fluconazole (Diflucan) 200 mg in 100 mls @ 100 mls/hr IV Q24 [facility] Last Admin: 03/29/17 09:24 Dose: 100 mls/hr Lactobacillus Acidophilus (Acidophilus) 1 tablet PO DAILY [facility] Last Admin: 03/29/17 11:07 Dose: 1 tablet Lidocaine HCl (Xylocaine Viscous) 20 ml PO 4X/DAY PRN PRN PRN Reason: PAIN Last Admin: 03/29/17 22:07 Dose: 15 ml Magnesium Hydroxide (Milk Of Magnesia) 30 ml PO DAILY PRN PRN PRN Reason: Constipation Last Admin: 03/29/17 11:08 Dose: 30 ml Metoprolol Tartrate (Lopressor (Beta Suellen)) 12.5 mg PO BID [facility] Last Admin: 03/29/17 21:49 Dose: 12.5 mg Morphine Sulfate (Morphine) 2 mg IV Q4H PRN PRN PRN Reason: SEVERE PAIN (6-10/10) Last Admin: 03/28/17 19:28 Dose: 2 mg Nitroglycerin (Nitrostat) 0.4 mg SUBLINGUAL Q5M PRN PRN Reason: Chest Pain Nutritional Formula (Lactose Free) (Ensure Enlive) 120 ml PO 4X/DAY [facility] Last Admin: 03/29/17 21:56 Dose: 120 ml Nystatin (Nystatin) 500,000 unit PO 4X/DAY [facility] Last Admin: 03/29/17 21:49 Dose: 500,000 unit Ondansetron HCl (Zofran) 4 mg IV Q6H PRN PRN PRN Reason: NAUSEA Last Admin: 03/29/17 20:17 Dose: 4 mg Oxycodone HCl (Oxyfast) 5 mg PO Q4H PRN PRN PRN Reason: MOD-SEVERE PAIN (4-10/10) Last Admin: 03/29/17 22:07 Dose: 5 mg Phenol/Menthol (Chloraseptic (Bkc)) 5 spray MM Q2H PRN PRN PRN Reason: SORE THROAT Last Admin: 03/30/17 06:23 Dose: 5 spray Promethazine HCl (Phenergan (Ll)) 25 mg IV Q6H PRN PRN PRN Reason: NAUSEA/VOMITING Ramipril (Altace) 10 mg PO DAILY [facility] Last Admin: 03/29/17 11:07 Dose: 10 mg Sodium Chloride () 5 - 30 ml IV UD PRN PRN Reason: SALINE FLUSH Last Admin: 03/29/17 20:17 Dose: 10 ml Tbo-Filgrastim (Granix) 300 mcg SC DAILY [facility] Last Admin: 03/29/17 11:08 Dose: 300 mcg Temazepam (Restoril) 15 mg PO QHS PRN PRN PRN Reason: insomnia Assessment/Plan Active and Suspected Problems (Last Reviewed 03/13/17 @ 09:01 by Soo Yang) Neutropenic sepsis (Acute) The patient is a 66 y/o M w/ PMHx: MDS w/ Chronic Pancytopenia, HTN, HLD, CAD, Chronic Pain Syndrome who presents to the [facility] ED on 03/26/17 with sore throat, fever, noted to have Oropharyngeal candidiasis in the ED, started on nystatin S/S with worsened swallowing. (1) Neutropenic fever secondary to Oropharyngeal Candidiasis, Possible Esophageal in addition to Alpha-Hemolytic Streptococcal Throat Infection w/ Dysphagia, Oropharyngeal: Admission T 100.1, afebrile since admission. Admission CBC w/ WBC 0.7, Hgb 8.1, Plts 22 with ANC 0, CXR w/ stable cardiomegaly w/ low volume inspiration and scarring/atelectasis L base, UA w/ no acute findings. Maintained on MS, maintain on Neutropenic precautions, maintain on fluconazole transitioned to IV and elevated dose, mag and phos normal, trending CBC w/ WBC 0.7, Hgb 8.1, Plts 22 with ANC 0-->03/27/17 CBC w/ WBC 0.9, Hgb 7.4, Plts 15 with ANC 0-->03/29/17 CBC w/ WBC 1.5, Hgb 7.6, Plts 13 with ANC 1.9, however 03/28/17 Tm 100.8, maintained on IV meropenem until cultures result negative, throat culture w/ + strep, discussed w/ Hem/Onc and pharmacy w/ 03/30/17 transition off meropenem given all cultures negative aside candidal infection and + strep throat culture to oral amox 500 mg BID-TID x 10 days total abx duration. 03/30/17 CBC w/ WBC 1.5, Hgb 6.8, Plts 9 thus PRBC and plts ordered. Granix administered upon admission and continued at increased dose daily per Hem/Onc recommendation which they noted they will manage. Continued on altered mechanical soft diet w/ Speech assessment w/ recommendation mechanical soft texture with nectar thick liquids with Jimenez water protocol, medications with liquids or pur?es prior, during, post with continued evaluations. Surgery evaluation performed, deferred EGD to ascertain esophageal involvement given labs secondary to risk. PT, OT consulted given ongoing weakness and debility for discharge planning. Planning discharge to home once appropriate elevated WBC and ANC with stable plts and hgb x 3 days per Hem/Onc recommendation. (2) MDS with Acute on Chronic Pancytopenia: Admission CBC w/ WBC 0.7, Hgb 8.1, Plts 22 with ANC 0-->03/27/17 CBC w/ WBC 0.9, Hgb 7.4, Plts 15 with ANC 0-->03/30/17 CBC w/ WBC 1.5, Hgb 6.8, Plts 9, 03/30/17 will initiate PRBC (4u) and Plt (2p) administration given PRBC < 7 or plts < 10,000, maintain on fluconazole IV as noted above w/ 03/30/17 meropenem-->amoxicillin given source of fever. Holding revlimid during acute infectious period. (3) Elevated LFTs: Initially normal upon admission, trending upward, 03/30/17 AST/ALT 105/122, will obtain liver US, hepatitis panel. (4) Abdominal distention, discomfort secondary to Constipation: NPO status initially, STAT KUB performed with non-specific pattern, likely secondary to constipation as noted mild improvement following small BM, but still constipated. Will place on more aggressive bowel regimen. Following improved Hgb w/ transfusions, encouraged regular ambulation to assist w/ bowel function. (5) Hypertension: Continue home regimen including metoprolol, ANITRA inhibitor, PRN hydralazine. (6) Hyperlipidemia: Continue home statin regimen. (7) CAD: Will continue home regimen statin, BB. Holding ASA. (8) Severe Protein-Calorie Malnutrition: Evidenced per weight loss, muscle and fat loss, nutrition consulted. (9) DVT Prophylaxis: SCDs, defer chemoprophylaxis given presentation. Code Visit Inpatient E&M: 94057 [facility] Hosp L3
--- NOTE | 2017-03-30 06:44 | PN_ITS ---
Patient Problems: Active and Suspected Problems (Last Reviewed 03/13/17 @ 09:01 by Soo Yang) Neutropenic sepsis (Acute) Subjective: Patient overnight with worsened fatigue, mild dyspnea, abdominal distention although ongoing flatus with discomfort with decreased bowel movements noted to be firm and small. Discussed labs this morning with plan for PRBC and platelet administration. KUB ordered stat this morning with nonspecific pattern although patient notes that abdominal discomfort is improved but still notes constipation present. Patient and family note that if hemoglobin less than 8 often he is very fatigued, lethargic. Patient denies fevers, chills, nausea, emesis, abdominal pain, chest pain. Objective: Physical Examination: General: awake, alert, oriented x 3 and cooperative, seated upright in bed, fatigued appearance, more than prior. Skin: pale palor, turgor, no icterus, cyanosis. HEENT: AT/NC, EOMI, PERRLA, moderately dry MM, posterior OP with no apparent thrush now, lessened redness, no exudate or lesions otherwise. Lungs: Diminished BS bases, mild effort, no rales, ronchi or wheezing. Heart: Regular rate and rhythm; no gallop, rub audible. Abdomen: soft, NTTP, improved distention, noted was firm evening prior, normalized BS. Extremities: no cyanosis, clubbing, or edema. Neurological: patient awake, alert, oriented x 3; cognitive function intact; pupils equally reactive to light and accomodation; cranial nerves II-XII grossly normal, moving all 4 extremities, no focal deficits, strength worsened, severely globally decreased secondary to acute presentation. Psychiatric: affect appears flat, no acute evidence of depressive or anxiety feelings. Vitals/I&O's: Vital Signs Temp Pulse Resp BP Pulse Ox 98.9 F 99 16 126/61 H 98 03/30/17 03:25 03/30/17 03:25 03/30/17 03:25 03/30/17 03:25 03/30/17 03:25 Oxygen Flow Rate 2 Oxygen Delivery Method Nasal Cannula Weight: 190 lb 0.615 oz Body Mass Index (BMI) 27.2 Intake and Output for Last 24 Hours 03/28/17 03/29/17 03/30/17 23:59 23:59 23:59 Intake Total 1203 / 1203 1608 / 1608 546 / 546 Output Total 1525 / 1525 500 / 500 650 / 650 Balance -322 / -322 1108 / 1108 -104 / -104 Microbiology Past 72 Hours 03/26/17 19:22 Mucosa - Nose Respiratory Panel (PCR) - Final Laboratory Results 03/29/17 05:20: Diff Path Review Reviewed 03/30/17 06:00: WBC 1.5 L, RBC 2.04 L, Hgb 6.8 L, Hct 19.8 L, MCV 97.1 H, MCH 33.3 H, MCHC 34.3, RDW 18.6 H, RDW Differential 63.2 H, Plt Count 9 L*, Immature Gran % (Auto) 0.000, Neut % (Auto) 0.0 L, Lymph % (Auto) 49.6 H, [place] % (Auto) 44.3 H, Eos % (Auto) 0.7, Baso % (Auto) 5.4 H, Absolute Neuts (auto) 0.0 L, Absolute Lymphs (auto) 0.74 L, Total Counted Pending 03/30/17 06:00: Sodium 137, Potassium 4.1, Chloride 101, Carbon Dioxide 28.0, Anion Gap 8, BUN 30 H, Creatinine 1.07, Estim Creat Clear Calc 68.22, Est GFR ( MDRD) Af Amer 88, Est GFR (MDRD) Non-Af 73, BUN/Creatinine Ratio 28.0 H, Glucose 113 H, Calcium 7.8 L, Total Bilirubin 0.80, AST 105 H, ALT 122 H, Alkaline Phosphatase 95, Total Protein 6.8, Albumin 2.1 L, Globulin 4.7 H, Albumin/Globulin Ratio 0.4 L Current Medications Acetaminophen (Tylenol) 650 mg PO Q6H PRN PRN PRN Reason: fever, pain Last Admin: 03/28/17 21:28 Dose: 650 mg Amoxicillin (Amoxil 200mg/5ml Susp) 500 mg PO Q8 [facility] Stop: 04/05/17 06:38 Atorvastatin Calcium (Lipitor) 80 mg PO QHS [facility] Last Admin: 03/29/17 21:49 Dose: 80 mg Famotidine (Pepcid) 20 mg PO BID [facility] Last Admin: 03/29/17 21:49 Dose: 20 mg Hydralazine HCl (Apresoline) 10 mg IV Q4H PRN PRN PRN Reason: SBP > 160 Fluconazole (Diflucan) 200 mg in 100 mls @ 100 mls/hr IV Q24 [facility] Last Admin: 03/29/17 09:24 Dose: 100 mls/hr Lactobacillus Acidophilus (Acidophilus) 1 tablet PO DAILY [facility] Last Admin: 03/29/17 11:07 Dose: 1 tablet Lidocaine HCl (Xylocaine Viscous) 20 ml PO 4X/DAY PRN PRN PRN Reason: PAIN Last Admin: 03/29/17 22:07 Dose: 15 ml Magnesium Hydroxide (Milk Of Magnesia) 30 ml PO DAILY PRN PRN PRN Reason: Constipation Last Admin: 03/29/17 11:08 Dose: 30 ml Metoprolol Tartrate (Lopressor (Beta Suellen)) 12.5 mg PO BID [facility] Last Admin: 03/29/17 21:49 Dose: 12.5 mg Morphine Sulfate (Morphine) 2 mg IV Q4H PRN PRN PRN Reason: SEVERE PAIN (6-10/10) Last Admin: 03/28/17 19:28 Dose: 2 mg Nitroglycerin (Nitrostat) 0.4 mg SUBLINGUAL Q5M PRN PRN Reason: Chest Pain Nutritional Formula (Lactose Free) (Ensure Enlive) 120 ml PO 4X/DAY [facility] Last Admin: 03/29/17 21:56 Dose: 120 ml Nystatin (Nystatin) 500,000 unit PO 4X/DAY [facility] Last Admin: 03/29/17 21:49 Dose: 500,000 unit Ondansetron HCl (Zofran) 4 mg IV Q6H PRN PRN PRN Reason: NAUSEA Last Admin: 03/29/17 20:17 Dose: 4 mg Oxycodone HCl (Oxyfast) 5 mg PO Q4H PRN PRN PRN Reason: MOD-SEVERE PAIN (4-10/10) Last Admin: 03/29/17 22:07 Dose: 5 mg Phenol/Menthol (Chloraseptic (Bkc)) 5 spray MM Q2H PRN PRN PRN Reason: SORE THROAT Last Admin: 03/30/17 06:23 Dose: 5 spray Promethazine HCl (Phenergan (Ll)) 25 mg IV Q6H PRN PRN PRN Reason: NAUSEA/VOMITING Ramipril (Altace) 10 mg PO DAILY [facility] Last Admin: 03/29/17 11:07 Dose: 10 mg Sodium Chloride () 5 - 30 ml IV UD PRN PRN Reason: SALINE FLUSH Last Admin: 03/29/17 20:17 Dose: 10 ml Tbo-Filgrastim (Granix) 300 mcg SC DAILY [facility] Last Admin: 03/29/17 11:08 Dose: 300 mcg Temazepam (Restoril) 15 mg PO QHS PRN PRN PRN Reason: insomnia Assessment/Plan Active and Suspected Problems (Last Reviewed 03/13/17 @ 09:01 by Soo Yang) Neutropenic sepsis (Acute) The patient is a 66 y/o M w/ PMHx: MDS w/ Chronic Pancytopenia, HTN, HLD, CAD, Chronic Pain Syndrome who presents to the [facility] ED on 03/26/17 with sore throat, fever, noted to have Oropharyngeal candidiasis in the ED, started on nystatin S/ S with worsened swallowing. (1) Neutropenic fever secondary to Oropharyngeal Candidiasis, Possible Esophageal in addition to Alpha-Hemolytic Streptococcal Throat Infection w/ Dysphagia, Oropharyngeal: Admission T 100.1, afebrile since admission. Admission CBC w/ WBC 0.7, Hgb 8.1, Plts 22 with ANC 0, CXR w/ stable cardiomegaly w/ low volume inspiration and scarring/atelectasis L base, UA w/ no acute findings. Maintained on MS, maintain on Neutropenic precautions, maintain on fluconazole transitioned to IV and elevated dose, mag and phos normal, trending CBC w/ WBC 0.7, Hgb 8.1, Plts 22 with ANC 0-->03/27/17 CBC w/ WBC 0.9, Hgb 7.4, Plts 15 with ANC 0-->03/29/17 CBC w/ WBC 1.5, Hgb 7.6, Plts 13 with ANC 1.9, however 03/28/17 Tm 100.8, maintained on IV meropenem until cultures result negative, throat culture w/ + strep, discussed w/ Hem/Onc and pharmacy w/ 03/30/17 transition off meropenem given all cultures negative aside candidal infection and + strep throat culture to oral amox 500 mg BID-TID x 10 days total abx duration. 03/30/17 CBC w/ WBC 1.5, Hgb 6.8, Plts 9 thus PRBC and plts ordered. Granix administered upon admission and continued at increased dose daily per Hem/Onc recommendation which they noted they will manage. Continued on altered mechanical soft diet w/ Speech assessment w/ recommendation mechanical soft texture with nectar thick liquids with Jimenez water protocol, medications with liquids or pur?es prior, during, post with continued evaluations. Surgery evaluation performed, deferred EGD to ascertain esophageal involvement given labs secondary to risk. PT, OT consulted given ongoing weakness and debility for discharge planning. Planning discharge to home once appropriate elevated WBC and ANC with stable plts and hgb x 3 days per Hem/Onc recommendation. (2) MDS with Acute on Chronic Pancytopenia: Admission CBC w/ WBC 0.7, Hgb 8.1, Plts 22 with ANC 0-->03/27/17 CBC w/ WBC 0.9, Hgb 7.4, Plts 15 with ANC 0--> CBC w/ WBC 1.5, Hgb 6.8, Plts 9, 03/30/17 will initiate PRBC (4u) and Plt (2p) administration given PRBC < 7 or plts < 10,000, maintain on fluconazole IV as noted above w/ 03/30/17 meropenem-->amoxicillin given source of fever. Holding revlimid during acute infectious period. (3) Elevated LFTs: Initially normal upon admission, trending upward, 03/30/17 AST/ ALT 105/122, will obtain liver US, hepatitis panel. (4) Abdominal distention, discomfort secondary to Constipation: NPO status initially, STAT KUB performed with non-specific pattern, likely secondary to constipation as noted mild improvement following small BM, but still constipated. Will place on more aggressive bowel regimen. Following improved Hgb w/ transfusions, encouraged regular ambulation to assist w/ bowel function. (5) Hypertension: Continue home regimen including metoprolol, ANITRA inhibitor, PRN hydralazine. (6) Hyperlipidemia: Continue home statin regimen. (7) CAD: Will continue home regimen statin, BB. Holding ASA. (8) Severe Protein-Calorie Malnutrition: Evidenced per weight loss, muscle and fat loss, nutrition consulted. (9) DVT Prophylaxis: SCDs, defer chemoprophylaxis given presentation. Code Visit Inpatient E&M: [id number] [facility] Hosp L3
[2017-03-30 06:53] LABS: Differential Comment SCAN; Platelet Estimate MKD DEC (ADEQ)
--- NOTE | 2017-03-30 06:58 | RAD_ITS ---
STUDY: X-RAY - ABDOMEN/PELVIS REASON FOR EXAM: Male, 66 years old. Abdominal distention. Neutropenic. Sepsis on chemotherapy for MDS TECHNIQUE: 5 AP supine and upright views of the abdomen and pelvis. COMPARISON: None. FINDINGS: There are interstitial changes in the left lung base. The patient is status post sternotomy. There is an unremarkable bowel gas pattern. There is no demonstrated free abdominal air. The visualized liver, spleen and kidneys are grossly normal in size and morphology. Normal soft tissue structures. Normal visualized osseous structures. There are surgical clips in bilateral groin areas RAD/Abd Decub and/or Erect(Portabl IMPRESSION: No nonobstructive gas pattern with the abdomen Electronically Signed: Say Jiang MD, FACR at 8:28 EST , Service support ,
--- NOTE | 2017-03-30 07:46 | US_ITS ---
STUDY: ABDOMINAL ULTRASOUND - RIGHT UPPER QUADRANT REASON FOR VISIT: Male, 66 years old. Elevated LFTs. TECHNIQUE: Ultrasound evaluation of the right upper quadrant was performed with real-time and static renee-scale imaging. TECHNICAL QUALITY: Examination limited by bowel gas. COMPARISON: None. FINDINGS: Liver: The liver measures 15.0 cm. There is increased echogenicity consistent with fatty infiltration. The bile ducts are within normal limits. There is hepatic color flow. The direction of portal flow is hepatopetal. There is no demonstrated mass lesion. Gallbladder: Normal distended gallbladder. The gallbladder wall measures 2 mm. There is a negative sonographic Covarrubias's sign. There is no pericholecystic fluid. There are no gallstones. Common Bile Duct (C.B.D.): The common bile duct measures 4 mm. Pancreas: There is nonvisualization of the pancreas. Right Kidney: Normal size of the right kidney. The right kidney measures 12.4 cm. Normal renal cortex. The right cortex measures 1.7 cm. There is no demonstrated renal mass or cyst. There is no right hydronephrosis. US/Liver IMPRESSION: 1. Nonvisualization of the pancreas. 2. Fatty infiltration of the liver without focal mass. 3. No other sonographic evidence of right upper quadrant abnormality Electronically Signed: Chi Moreno DO at 17:43 EST Tel [phone], Service support ,
[2017-03-30] MEDS: Ramipril 10 MG Capsule PO (09:27)
[2017-03-30] MEDS: Famotidine 20 MG Tablet PO ×2 (09:27→21:27)
[2017-03-30] MEDS: NYSTATIN 500,000 UNIT/5 ML UDC 500000 UNIT PO ×4 (09:27→21:28)
[2017-03-30] MEDS: Metoprolol Tartrate 25 MG Tablet 12.5 MG PO ×2 (09:45→21:27)
[2017-03-30] MEDS: Senna/Docusate Sodium 1 Tablet 2 TABLET PO (09:59)
[2017-03-30] MEDS: Amoxicillin 200MG/5 ML Susp PO.SYRINGE 500 MG PO ×3 (09:59→21:32)
[2017-03-30] MEDS: Bisacodyl 10 MG Suppository RECTAL (10:06)
[2017-03-30] MEDS: TBO-FILGRASTIM 480 MCG/0.8 ML ML SC (10:07)
--- NOTE | 2017-03-30 12:35 | PCM.PROGNOTE ---
Patient Problems: Active and Suspected Problems (Last Reviewed 03/13/17 @ 09:01 by Soo Yang) Febrile neutropenia (Acute) Neutropenic sepsis (Acute) Subjective: No fever or chills Tired, no dyspnea or chest pain, cough with clear sputum Still hoarse but no dysphagia Abdominal discomfort and constipation, no dysuria No rectal bleed or hematuria No headache No skin rash - Physical Exam General: Alert, Oriented x3, Cooperative HEENT: Atraumatic, PERRLA, EOMI, Normocephalic Oral: Moist Mucosa, - - No thrush Neck: Supple, No JVD Lungs: Clear to auscultation, Normal air movement Cardiovascular: Regular rate, No murmurs Abdomen: Soft, Non Tender Extremities: No edema, Capillary Refill Less than 3 Seconds Skin: No rashes, - - Bruises over the extremities Musculoskeletal: No Tenderness to Palpation of Joints or Extremities Neurological: Neuro grossly intact Psych/Mental Status: Normal Affect Vital Signs Temp Pulse Resp BP Pulse Ox 98.8 F 92 18 114/67 96 03/30/17 09:20 03/30/17 09:45 03/30/17 09:20 03/30/17 09:20 03/30/17 09:20 Oxygen Flow Rate 2 Oxygen Delivery Method Nasal Cannula Weight: 86.2 kg Body Mass Index (BMI) 27.2 Intake and Output for Last 24 Hours 03/28/17 03/29/17 03/30/17 23:59 23:59 23:59 Intake Total 1203 / 1203 1608 / 1608 546 / 546 Output Total 1525 / 1525 500 / 500 650 / 650 Balance -322 / -322 1108 / 1108 -104 / -104 Microbiology Past 72 Hours 03/26/17 19:22 Respiratory Panel (PCR) - Final Mucosa - Nose Laboratory Tests Past 24 Hrs 03/30/17 03/30/17 03/30/17 06:00 06:00 07:12 WBC 1.5 L RBC 2.04 L Hgb 6.8 L Hct 19.8 L MCV 97.1 H MCH 33.3 H MCHC 34.3 RDW 18.6 H RDW Differential 63.2 H Plt Count 9 L* Immature Gran % (Auto) 0.000 Neut % (Auto) 0.0 L Lymph % (Auto) 49.6 H [place] % (Auto) 44.3 H Eos % (Auto) 0.7 Baso % (Auto) 5.4 H Absolute Neuts (auto) 0.0 L Absolute Lymphs (auto) 0.74 L Total Counted Not Reportable Differential Comment SCAN Diff Path Review May foll Platelet Estimate MKD DEC Sodium 137 Potassium 4.1 Chloride 101 Carbon Dioxide 28.0 Anion Gap 8 BUN 30 H Creatinine 1.07 Estim Creat Clear Calc 68.22 Est GFR (MDRD) Af Amer 88 Est GFR (MDRD) Non-Af 73 BUN/Creatinine Ratio 28.0 H Glucose 113 H Calcium 7.8 L Total Bilirubin 0.80 AST 105 H ALT 122 H Alkaline Phosphatase 95 Total Protein 6.8 Albumin 2.1 L Globulin 4.7 H Albumin/Globulin Ratio 0.4 L Hepatitis A IgM Ab Hepatitis A Ab Total Hep Bs Antigen Hep B Core Total Ab Hep B Core IgM Ab Hepatitis C Comment Blood Type O POSITIVE Antibody Screen NEGATIVE Crossmatch See Detail 03/30/17 08:25 WBC RBC Hgb Hct MCV MCH MCHC RDW RDW Differential Plt Count Immature Gran % (Auto) Neut % (Auto) Lymph % (Auto) [place] % (Auto) Eos % (Auto) Baso % (Auto) Absolute Neuts (auto) Absolute Lymphs (auto) Total Counted Differential Comment Diff Path Review Platelet Estimate Sodium Potassium Chloride Carbon Dioxide Anion Gap BUN Creatinine Estim Creat Clear Calc Est GFR (MDRD) Af Amer Est GFR (MDRD) Non-Af BUN/Creatinine Ratio Glucose Calcium Total Bilirubin AST ALT Alkaline Phosphatase Total Protein Albumin Globulin Albumin/Globulin Ratio Hepatitis A IgM Ab Pending Hepatitis A Ab Total Pending Hep Bs Antigen Pending Hep B Core Total Ab Pending Hep B Core IgM Ab Pending Hepatitis C Comment Pending Blood Type Antibody Screen Crossmatch Assessment/Plan Active and Suspected Problems (Last Reviewed 03/13/17 @ 09:01 by Soo Yang) Febrile neutropenia (Acute) Neutropenic sepsis (Acute) 66-year-old male with 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 Patient admitted with febrile neutropenia, strep throat infection, and diagnosed prior to admission with oral thrush. From the hematology consult view recommend: 1. Hold Revlimid during acute infectious episode. 2. Continue with a trial of daily Granix 480 mcg subcu , although there is a mild increase in the total WBC he remains severely neutropenic with ANC 0. 3. Support was blood product transfusions target hemoglobin above 7 g per DL and prophylactic platelet transfusions if platelet count is less than 10,000. 4. VTE prophylaxis with nonpharmacologic agents and ambulation. 5. Continue treatment of documented strep and oral thrush infection choice of antimicrobial as per primary service 6. Management of other medical problems as per primary service Impression and plan discussed with patient and his sister who was present at the bedside Overall prognosis remains poor due to bone marrow failure. An evolving acute leukemia cannot be ruled out without a bone marrow biopsy at this time. Dr. Grijalva his primary meat cutting block repairer will be covering the inpatient service as of tomorrow and will follow-up.
[2017-03-30 13:14] LABS: Pathologist Review Reviewed
[2017-03-30] MEDS: oxyCODONE Soln 5 MG/0.25 ML PO.SYRINGE PO ×2 (15:54→20:16)
[2017-03-30] MEDS: Acetaminophen 325 MG Tablet 650 MG PO (20:45)
[2017-03-30] MEDS: Atorvastatin Calcium 80 MG Tablet PO (21:27)
[2017-03-31] VITALS (13 sets, daily range): BP systolic 101–117; BP diastolic 54–65; PULSE 71–81; RESP 16–20; TEMP 36.9–37.5; O2SAT 93–99
[2017-03-31] MEDS: Amoxicillin 200MG/5 ML Susp PO.SYRINGE 500 MG PO ×3 (06:03→21:44)
[2017-03-31 06:08] LABS: HEPATITIS B SURFACE AG Negative (Negative); Hepatitis A AB, Total Positive (Negative); Hepatitis A IgM Antibody Negative (Negative); Hepatitis B Core AB IgM Negative (Negative); Hepatitis B Core Ab Total Negative (Negative); Hepatitis C Ab 0.1 s/co ratio (0.0-0.9)
[2017-03-31 08:13] LABS: Hematocrit 28.9 % (40-54); Mean Corp Hgb Conc 34.6 g/gl (32-36); Mean Corpuscular Hgb 31.5 pg (27.0-32.0); Mean Corpuscular Volume 91.2 fL (80-94); Mean Platelet Vol. 11.3 fl (6.2-12.0); Platelet Count 52 K/mm3 (150-450); RBC Distribution Width CV 18.7 % (11.6-14.6); RBC Distribution Width SD 56.4 fl (35.1-43.9); Red Blood Count 3.17 M/mm3 (4.6-6.2); White Blood Count 1.7 K/mm3 (4.4-11.0)
[2017-03-31 08:14] LABS: Differential Indicated MANUAL DIFF; POSITIVE COUNT NO; POSITIVE DIFFERENTIAL YES; POSITIVE MORPHOLOGY YES
--- NOTE | 2017-03-31 08:19 | PCM.PN.HOSP ---
Patient Problems: Active and Suspected Problems (Last Reviewed 03/13/17 @ 09:01 by Soo Yang) Neutropenic sepsis (Acute) Subjective: Patient overnight with ongoing bowel movements, noted to be more firm not specifically diarrhea following aggressive bowel regimen day prior. Still feeling weak but improved since transfusions day prior. He is upright sitting in bed eating this morning and more talkative and interactive. Discussed results from day including improved CBC, mild increased liver enzymes with unremarkable liver ultrasound and pending hepatitis panel. Dr. Watson evaluate patient today and notes possible addition of cyclosporine. Patient denies fevers, chills, nausea, emesis, abdominal pain, chest pain or dyspnea. Objective: Physical Examination: General: awake, alert, oriented x 3 and cooperative, seated upright in bed, NAD, much more interactive, less fatigued appearance. Skin: improved less pale color, turgor, no icterus, cyanosis. HEENT: AT/NC, EOMI, PERRLA, improved MMM. Lungs: Diminished bases, moderate effort, no rales, ronchi or wheezing. Heart: Regular rate and rhythm; no gallop, rub audible. Abdomen: soft, NTTP, improved, less distended, normalized BS. Extremities: no cyanosis, clubbing, or edema. Neurological: patient awake, alert, oriented x 3; cognitive function intact; pupils equally reactive to light and accomodation; cranial nerves II-XII grossly normal, moving all 4 extremities, no focal deficits, strength moderately to severely globally decreased. Psychiatric: affect appears improved, less fatigued, no acute evidence of depressive or anxiety feelings. Vitals/I&O's: Vital Signs Temp Pulse Resp BP Pulse Ox 98.5 F 80 18 106/62 99 03/31/17 02:14 03/31/17 02:27 03/31/17 02:27 03/31/17 02:14 03/31/17 02:27 Oxygen Flow Rate 1 Oxygen Delivery Method Nasal Cannula Weight: 190 lb 0.615 oz Body Mass Index (BMI) 27.2 Intake and Output for Last 24 Hours 03/29/17 03/30/17 03/31/17 23:59 23:59 23:59 Intake Total 1608 / 1608 2416 / 2416 2711 / 2711 Output Total 500 / 500 950 / 950 375 / 375 Balance 1108 / 1108 1466 / 1466 2336 / 2336 Laboratory Results 03/30/17 06:00: Diff Path Review Reviewed 03/30/17 07:12: Blood Type O POSITIVE, Antibody Screen NEGATIVE, Crossmatch See Detail 03/30/17 08:25: Hepatitis A IgM Ab Pending, Hepatitis A Ab Total Pending, Hep Bs Antigen Pending, Hep B Core Total Ab Pending, Hep B Core IgM Ab Pending, Hepatitis C Comment Pending 03/31/17 07:30: WBC 1.7 L, RBC 3.17 L, Hgb 10.0 L, Hct 28.9 L, MCV 91.2, MCH 31.5, MCHC 34.6, RDW 18.7 H, RDW Differential 56.4 H, Plt Count 52 L, MPV 11.3, Neut % (Auto) Not Reportable, Absolute Neuts (auto) Not Reportable, Total Counted Pending 03/31/17 07:30: Sodium Pending, Potassium Pending, Chloride Pending, Carbon Dioxide Pending, Anion Gap Pending, BUN Pending, Creatinine Pending, Est GFR (MDRD) Af Amer Pending, Est GFR (MDRD) Non-Af Pending, BUN/Creatinine Ratio Pending, Glucose Pending, Calcium Pending, Phosphorus Pending, Magnesium Pending, Total Bilirubin Pending, AST Pending, ALT Pending, Alkaline Phosphatase Pending, Total Protein Pending, Albumin Pending Current Medications Acetaminophen (Tylenol) 650 mg PO Q6H PRN PRN PRN Reason: fever, pain Last Admin: 03/30/17 20:45 Dose: 650 mg Amoxicillin (Amoxil 200mg/5ml Susp) 500 mg PO Q8 [facility] Stop: 04/05/17 06:38 Last Admin: 03/31/17 06:03 Dose: 500 mg Atorvastatin Calcium (Lipitor) 80 mg PO QHS [facility] Last Admin: 03/30/17 21:27 Dose: 80 mg Famotidine (Pepcid) 20 mg PO BID [facility] Last Admin: 03/30/17 21:27 Dose: 20 mg Hydralazine HCl (Apresoline) 10 mg IV Q4H PRN PRN PRN Reason: SBP > 160 Fluconazole (Diflucan) 200 mg in 100 mls @ 100 mls/hr IV Q24 [facility] Last Admin: 03/30/17 10:07 Dose: 100 mls/hr Lactobacillus Acidophilus (Acidophilus) 1 tablet PO DAILY [facility] Last Admin: 03/30/17 09:27 Dose: 1 tablet Lidocaine HCl (Xylocaine Viscous) 20 ml PO 4X/DAY PRN PRN PRN Reason: PAIN Last Admin: 03/29/17 22:07 Dose: 15 ml Magnesium Hydroxide (Milk Of Magnesia) 30 ml PO DAILY PRN PRN PRN Reason: Constipation Last Admin: 03/29/17 11:08 Dose: 30 ml Metoprolol Tartrate (Lopressor (Beta Suellen)) 12.5 mg PO BID [facility] Last Admin: 03/30/17 21:27 Dose: 12.5 mg Morphine Sulfate (Morphine) 2 mg IV Q4H PRN PRN PRN Reason: SEVERE PAIN (6-10/10) Last Admin: 03/28/17 19:28 Dose: 2 mg Nitroglycerin (Nitrostat) 0.4 mg SUBLINGUAL Q5M PRN PRN Reason: Chest Pain Nutritional Formula (Lactose Free) (Ensure Enlive) 120 ml PO 4X/DAY [facility] Last Admin: 03/30/17 21:32 Dose: 120 ml Nystatin (Nystatin) 500,000 unit PO 4X/DAY [facility] Last Admin: 03/30/17 21:28 Dose: 500,000 unit Ondansetron HCl (Zofran) 4 mg IV Q6H PRN PRN PRN Reason: NAUSEA Last Admin: 03/30/17 06:38 Dose: 4 mg Oxycodone HCl (Oxyfast) 5 mg PO Q4H PRN PRN PRN Reason: MOD-SEVERE PAIN (4-10/10) Last Admin: 03/30/17 20:16 Dose: 5 mg Phenol/Menthol (Chloraseptic (Bkc)) 5 spray MM Q2H PRN PRN PRN Reason: SORE THROAT Last Admin: 03/30/17 20:10 Dose: 5 spray Promethazine HCl (Phenergan (Ll)) 25 mg IV Q6H PRN PRN PRN Reason: NAUSEA/VOMITING Ramipril (Altace) 10 mg PO DAILY [facility] Last Admin: 03/30/17 09:27 Dose: 10 mg Senna/Docusate Sodium (Senokot-S, Anika-Colace) 2 tablet PO BID [facility] Last Admin: 03/30/17 21:18 Dose: Not Given Sodium Chloride () 5 - 30 ml IV UD PRN PRN Reason: SALINE FLUSH Last Admin: 03/30/17 06:38 Dose: 10 ml Tbo-Filgrastim (Granix) 480 mcg SC DAILY [facility] Last Admin: 03/30/17 10:07 Dose: 480 mcg Temazepam (Restoril) 15 mg PO QHS PRN PRN PRN Reason: insomnia Assessment/Plan Active and Suspected Problems (Last Reviewed 03/13/17 @ 09:01 by Soo Yang) Neutropenic sepsis (Acute) The patient is a 66 y/o M w/ PMHx: MDS w/ Chronic Pancytopenia, HTN, HLD, CAD, Chronic Pain Syndrome who presents to the [facility] ED on 03/26/17 with sore throat, fever, noted to have Oropharyngeal candidiasis in the ED, started on nystatin S/S with worsened swallowing. (1) Neutropenic fever secondary to Oropharyngeal Candidiasis, Possible Esophageal in addition to Alpha-Hemolytic Streptococcal Throat Infection w/ Dysphagia, Oropharyngeal: Admission T 100.1, afebrile since admission. Admission CBC w/ WBC 0.7, Hgb 8.1, Plts 22 with ANC 0, CXR w/ stable cardiomegaly w/ low volume inspiration and scarring/atelectasis L base, UA w/ no acute findings. Maintained on MS, maintain on Neutropenic precautions, maintain on fluconazole transitioned to IV and elevated dose, mag and phos normal, trending CBC w/ WBC 0.7, Hgb 8.1, Plts 22 with ANC 0-->03/27/17 CBC w/ WBC 0.9, Hgb 7.4, Plts 15 with ANC 0-->03/29/17 CBC w/ WBC 1.5, Hgb 7.6, Plts 13 with ANC 1.9, however 03/28/17 Tm 100.8, maintained on IV meropenem until cultures result negative, throat culture w/ + strep, discussed w/ Hem/Onc and pharmacy w/ 03/30/17 transition off meropenem given all cultures negative aside candidal infection and + strep throat culture to oral amox 500 mg BID-TID x 10 days total abx duration. 03/30/17 CBC w/ WBC 1.5, Hgb 6.8, Plts 9 thus PRBC and plts ordered-->03/31/17 CBC w/ WBC 1.7, Hgb 10, Plts 52. Granix administered upon admission and continued at increased dose daily per Hem/Onc recommendation which they noted they will manage. Continued on altered mechanical soft diet w/ Speech assessment w/ recommendation mechanical soft texture with nectar thick liquids with Jimenez water protocol, medications with liquids or pur?es prior, during, post with continued evaluations. Surgery evaluation performed, deferred EGD to ascertain esophageal involvement given labs secondary to risk. PT, OT consulted given ongoing weakness and debility for discharge planning. Planning discharge to home once appropriate elevated WBC and ANC with stable plts and hgb x 3 days per Hem/Onc recommendation. Dr. Watson noted possibility of cyclosporine usage. (2) MDS with Acute on Chronic Pancytopenia: Admission CBC w/ WBC 0.7, Hgb 8.1, Plts 22 with ANC 0-->03/27/17 CBC w/ WBC 0.9, Hgb 7.4, Plts 15 with ANC 0-->03/30/17 CBC w/ WBC 1.5, Hgb 6.8, Plts 9, 03/30/17 will initiate PRBC (4u) and Plt (2p) administration given PRBC < 7 or plts < 10,000, maintain on fluconazole IV as noted above w/ 03/30/17 meropenem-->amoxicillin given source of fever. Holding revlimid during acute infectious period. (3) Elevated LFTs: Initially normal upon admission, trending upward, 03/30/17 AST/ALT 105/122, liver US w/ nonvisualization of the pancreas, fatty infiltration of the liver without focal mass, hepatitis panel pending, 03/31/17 CMP AST/ALT 129/139, unclear specific etiology. (4) Abdominal distention, discomfort secondary to Constipation: NPO status initially, STAT KUB performed with non-specific pattern, likely secondary to constipation as noted mild improvement following small BM, but still constipated. Placed on more aggressive bowel regimen with following overnight several bowel movements. Will hold further aggressive regimen given good response and once appropriate add back only softner. (5) Hypertension: Continue home regimen including metoprolol, ANITRA inhibitor, PRN hydralazine. (6) Hyperlipidemia: Continue home statin regimen. (7) CAD: Will continue home regimen statin, BB. Holding ASA. (8) Severe Protein-Calorie Malnutrition: Evidenced per weight loss, muscle and fat loss, nutrition consulted. (9) DVT Prophylaxis: SCDs, defer chemoprophylaxis given presentation. Code Visit Inpatient E&M: 55735 Subs Hosp L2
[2017-03-31 08:22] LABS: ALB/GLOB Ratio 0.5 RATIO (0.9-2.4); AST(SGOT) 129 U/L (15-37); Alanine Aminotransfer ALT/SGPT 139 U/L (16-61); Albumin, Serum 2.2 g/dL (3.2-5.0); Alkaline Phosphatase 98 U/L (45-117); Anion Gap 9 (5-15); BUN 31 mg/dL (7-18); BUN/Creat Ratio 26.3 RATIO (10-20); Calcium,Total 7.9 mg/dL (8.5-10.1); Chloride 100 mmol/L (98-107); Creatinine, Serum 1.18 mg/dL (0.70-1.30); EST Glomerular Filtration Rate 65 mL/min (>60); Est Glom Filt Rate - Afr Amer 79 mL/min (>60); Estimated Creatinine Clearance 61.86 ml/min; Globulin 4.8 g/dL (2.2-4.2); Glucose 148 mg/dL (70-110); Magnesium 2.5 mg/dL (1.6-2.6); Phosphorus 1.8 mg/dL (2.5-4.9); Potassium 4.1 mmol/L (3.5-5.1); Sodium Level 135 mmol/L (136-145)
--- NOTE | 2017-03-31 08:25 | PN_ITS ---
Patient Problems: Active and Suspected Problems (Last Reviewed 03/13/17 @ 09:01 by Soo Yang) Neutropenic sepsis (Acute) Subjective: Patient overnight with ongoing bowel movements, noted to be more firm not specifically diarrhea following aggressive bowel regimen day prior. Still feeling weak but improved since transfusions day prior. He is upright sitting in bed eating this morning and more talkative and interactive. Discussed results from day including improved CBC, mild increased liver enzymes with unremarkable liver ultrasound and pending hepatitis panel. Dr. Watson evaluate patient today and notes possible addition of cyclosporine. Patient denies fevers, chills, nausea, emesis, abdominal pain, chest pain or dyspnea. Objective: Physical Examination: General: awake, alert, oriented x 3 and cooperative, seated upright in bed, NAD , much more interactive, less fatigued appearance. Skin: improved less pale color, turgor, no icterus, cyanosis. HEENT: AT/NC, EOMI, PERRLA, improved MMM. Lungs: Diminished bases, moderate effort, no rales, ronchi or wheezing. Heart: Regular rate and rhythm; no gallop, rub audible. Abdomen: soft, NTTP, improved, less distended, normalized BS. Extremities: no cyanosis, clubbing, or edema. Neurological: patient awake, alert, oriented x 3; cognitive function intact; pupils equally reactive to light and accomodation; cranial nerves II-XII grossly normal, moving all 4 extremities, no focal deficits, strength moderately to severely globally decreased. Psychiatric: affect appears improved, less fatigued, no acute evidence of depressive or anxiety feelings. Vitals/I&O's: Vital Signs Temp Pulse Resp BP Pulse Ox 98.5 F 80 18 106/62 99 03/31/17 02:14 03/31/17 02:27 03/31/17 02:27 03/31/17 02:14 03/31/17 02:27 Oxygen Flow Rate 1 Oxygen Delivery Method Nasal Cannula Weight: 190 lb 0.615 oz Body Mass Index (BMI) 27.2 Intake and Output for Last 24 Hours 03/29/17 03/30/17 03/31/17 23:59 23:59 23:59 Intake Total 1608 / 1608 2416 / 2416 2711 / 2711 Output Total 500 / 500 950 / 950 375 / 375 Balance 1108 / 1108 1466 / 1466 2336 / 2336 Laboratory Results 03/30/17 06:00: Diff Path Review Reviewed 03/30/17 07:12: Blood Type O POSITIVE, Antibody Screen NEGATIVE, Crossmatch See Detail 03/30/17 08:25: Hepatitis A IgM Ab Pending, Hepatitis A Ab Total Pending, Hep Bs Antigen Pending, Hep B Core Total Ab Pending, Hep B Core IgM Ab Pending, Hepatitis C Comment Pending 03/31/17 07:30: WBC 1.7 L, RBC 3.17 L, Hgb 10.0 L, Hct 28.9 L, MCV 91.2, MCH 31.5, MCHC 34.6, RDW 18.7 H, RDW Differential 56.4 H, Plt Count 52 L, MPV 11.3, Neut % (Auto) Not Reportable, Absolute Neuts (auto) Not Reportable, Total Counted Pending 03/31/17 07:30: Sodium Pending, Potassium Pending, Chloride Pending, Carbon Dioxide Pending, Anion Gap Pending, BUN Pending, Creatinine Pending, Est GFR ( MDRD) Af Amer Pending, Est GFR (MDRD) Non-Af Pending, BUN/Creatinine Ratio Pending, Glucose Pending, Calcium Pending, Phosphorus Pending, Magnesium Pending , Total Bilirubin Pending, AST Pending, ALT Pending, Alkaline Phosphatase Pending, Total Protein Pending, Albumin Pending Current Medications Acetaminophen (Tylenol) 650 mg PO Q6H PRN PRN PRN Reason: fever, pain Last Admin: 03/30/17 20:45 Dose: 650 mg Amoxicillin (Amoxil 200mg/5ml Susp) 500 mg PO Q8 [facility] Stop: 04/05/17 06:38 Last Admin: 03/31/17 06:03 Dose: 500 mg Atorvastatin Calcium (Lipitor) 80 mg PO QHS [facility] Last Admin: 03/30/17 21:27 Dose: 80 mg Famotidine (Pepcid) 20 mg PO BID [facility] Last Admin: 03/30/17 21:27 Dose: 20 mg Hydralazine HCl (Apresoline) 10 mg IV Q4H PRN PRN PRN Reason: SBP > 160 Fluconazole (Diflucan) 200 mg in 100 mls @ 100 mls/hr IV Q24 [facility] Last Admin: 03/30/17 10:07 Dose: 100 mls/hr Lactobacillus Acidophilus (Acidophilus) 1 tablet PO DAILY [facility] Last Admin: 03/30/17 09:27 Dose: 1 tablet Lidocaine HCl (Xylocaine Viscous) 20 ml PO 4X/DAY PRN PRN PRN Reason: PAIN Last Admin: 03/29/17 22:07 Dose: 15 ml Magnesium Hydroxide (Milk Of Magnesia) 30 ml PO DAILY PRN PRN PRN Reason: Constipation Last Admin: 03/29/17 11:08 Dose: 30 ml Metoprolol Tartrate (Lopressor (Beta Suellen)) 12.5 mg PO BID [facility] Last Admin: 03/30/17 21:27 Dose: 12.5 mg Morphine Sulfate (Morphine) 2 mg IV Q4H PRN PRN PRN Reason: SEVERE PAIN (6-10/10) Last Admin: 03/28/17 19:28 Dose: 2 mg Nitroglycerin (Nitrostat) 0.4 mg SUBLINGUAL Q5M PRN PRN Reason: Chest Pain Nutritional Formula (Lactose Free) (Ensure Enlive) 120 ml PO 4X/DAY [facility] Last Admin: 03/30/17 21:32 Dose: 120 ml Nystatin (Nystatin) 500,000 unit PO 4X/DAY [facility] Last Admin: 03/30/17 21:28 Dose: 500,000 unit Ondansetron HCl (Zofran) 4 mg IV Q6H PRN PRN PRN Reason: NAUSEA Last Admin: 03/30/17 06:38 Dose: 4 mg Oxycodone HCl (Oxyfast) 5 mg PO Q4H PRN PRN PRN Reason: MOD-SEVERE PAIN (4-10/10) Last Admin: 03/30/17 20:16 Dose: 5 mg Phenol/Menthol (Chloraseptic (Bkc)) 5 spray MM Q2H PRN PRN PRN Reason: SORE THROAT Last Admin: 03/30/17 20:10 Dose: 5 spray Promethazine HCl (Phenergan (Ll)) 25 mg IV Q6H PRN PRN PRN Reason: NAUSEA/VOMITING Ramipril (Altace) 10 mg PO DAILY [facility] Last Admin: 03/30/17 09:27 Dose: 10 mg Senna/Docusate Sodium (Senokot-S, Anika-Colace) 2 tablet PO BID [facility] Last Admin: 03/30/17 21:18 Dose: Not Given Sodium Chloride () 5 - 30 ml IV UD PRN PRN Reason: SALINE FLUSH Last Admin: 03/30/17 06:38 Dose: 10 ml Tbo-Filgrastim (Granix) 480 mcg SC DAILY [facility] Last Admin: 03/30/17 10:07 Dose: 480 mcg Temazepam (Restoril) 15 mg PO QHS PRN PRN PRN Reason: insomnia Assessment/Plan Active and Suspected Problems (Last Reviewed 03/13/17 @ 09:01 by Soo Yang) Neutropenic sepsis (Acute) The patient is a 66 y/o M w/ PMHx: MDS w/ Chronic Pancytopenia, HTN, HLD, CAD, Chronic Pain Syndrome who presents to the [facility] ED on 03/26/17 with sore throat, fever, noted to have Oropharyngeal candidiasis in the ED, started on nystatin S/ S with worsened swallowing. (1) Neutropenic fever secondary to Oropharyngeal Candidiasis, Possible Esophageal in addition to Alpha-Hemolytic Streptococcal Throat Infection w/ Dysphagia, Oropharyngeal: Admission T 100.1, afebrile since admission. Admission CBC w/ WBC 0.7, Hgb 8.1, Plts 22 with ANC 0, CXR w/ stable cardiomegaly w/ low volume inspiration and scarring/atelectasis L base, UA w/ no acute findings. Maintained on MS, maintain on Neutropenic precautions, maintain on fluconazole transitioned to IV and elevated dose, mag and phos normal, trending CBC w/ WBC 0.7, Hgb 8.1, Plts 22 with ANC 0-->03/27/17 CBC w/ WBC 0.9, Hgb 7.4, Plts 15 with ANC 0-->03/29/17 CBC w/ WBC 1.5, Hgb 7.6, Plts 13 with ANC 1.9, however 03/28/17 Tm 100.8, maintained on IV meropenem until cultures result negative, throat culture w/ + strep, discussed w/ Hem/Onc and pharmacy w/ 03/30/17 transition off meropenem given all cultures negative aside candidal infection and + strep throat culture to oral amox 500 mg BID-TID x 10 days total abx duration. 03/30/17 CBC w/ WBC 1.5, Hgb 6.8, Plts 9 thus PRBC and plts ordered-->03/31/17 CBC w/ WBC 1.7, Hgb 10, Plts 52. Granix administered upon admission and continued at increased dose daily per Hem/Onc recommendation which they noted they will manage. Continued on altered mechanical soft diet w/ Speech assessment w/ recommendation mechanical soft texture with nectar thick liquids with Jimenez water protocol, medications with liquids or pur?es prior, during, post with continued evaluations. Surgery evaluation performed, deferred EGD to ascertain esophageal involvement given labs secondary to risk. PT, OT consulted given ongoing weakness and debility for discharge planning. Planning discharge to home once appropriate elevated WBC and ANC with stable plts and hgb x 3 days per Hem/Onc recommendation. Dr. Watson noted possibility of cyclosporine usage. (2) MDS with Acute on Chronic Pancytopenia: Admission CBC w/ WBC 0.7, Hgb 8.1, Plts 22 with ANC 0-->03/27/17 CBC w/ WBC 0.9, Hgb 7.4, Plts 15 with ANC 0--> CBC w/ WBC 1.5, Hgb 6.8, Plts 9, 03/30/17 will initiate PRBC (4u) and Plt (2p) administration given PRBC < 7 or plts < 10,000, maintain on fluconazole IV as noted above w/ 03/30/17 meropenem-->amoxicillin given source of fever. Holding revlimid during acute infectious period. (3) Elevated LFTs: Initially normal upon admission, trending upward, 03/30/17 AST/ ALT 105/122, liver US w/ nonvisualization of the pancreas, fatty infiltration of the liver without focal mass, hepatitis panel pending, 03/31/17 CMP AST/ALT 129 /139, unclear specific etiology. (4) Abdominal distention, discomfort secondary to Constipation: NPO status initially, STAT KUB performed with non-specific pattern, likely secondary to constipation as noted mild improvement following small BM, but still constipated. Placed on more aggressive bowel regimen with following overnight several bowel movements. Will hold further aggressive regimen given good response and once appropriate add back only softner. (5) Hypertension: Continue home regimen including metoprolol, ANITRA inhibitor, PRN hydralazine. (6) Hyperlipidemia: Continue home statin regimen. (7) CAD: Will continue home regimen statin, BB. Holding ASA. (8) Severe Protein-Calorie Malnutrition: Evidenced per weight loss, muscle and fat loss, nutrition consulted. (9) DVT Prophylaxis: SCDs, defer chemoprophylaxis given presentation. Code Visit Inpatient E&M: 82522 Subs Hosp L2
[2017-03-31 09:02] LABS: Lymphocyte 61 % (19-41); Neutrophil-Segmented 1 % (47-70); Total Cells Counted 100 (MANUAL DIFF)
[2017-03-31 09:03] LABS: Eosinophil 1 % (0-5); Monocyte 37 % (0-10); Platelet Estimate MOD DEC (ADEQ); Red Cell Morphology NORM C+C NORMAL (NORM C&C)
[2017-03-31 09:05] LABS: Absolute Lymphocyte Count 1.04 X10^3/ul (0.83-4.51)
[2017-03-31] MEDS: Acetaminophen 325 MG Tablet 650 MG PO ×2 (09:43→17:07)
[2017-03-31] MEDS: Metoprolol Tartrate 25 MG Tablet 12.5 MG PO ×2 (09:44→21:35)
[2017-03-31] MEDS: NYSTATIN 500,000 UNIT/5 ML UDC 500000 UNIT PO ×4 (09:45→21:36)
[2017-03-31] MEDS: Ramipril 10 MG Capsule PO (09:45)
[2017-03-31] MEDS: Famotidine 20 MG Tablet PO ×2 (09:47→21:36)
[2017-03-31] MEDS: TBO-FILGRASTIM 480 MCG/0.8 ML ML SC (10:06)
[2017-03-31] MEDS: 0.9% NaCl Peripheral Flush Adult/Peds IV (10:10)
--- NOTE | 2017-03-31 10:56 | PCM.PROGNOTE ---
Patient Problems: Active and Suspected Problems (Last Reviewed 03/13/17 @ 09:01 by Soo Yang) Neutropenic sepsis (Acute) Subjective: Pt awake, feels better today with less throat pain. Was eating breakfast when I saw him. Denies fever, nausea/vomiting or diarrhea. - Physical Exam General: Alert, Oriented x3, Cooperative Psych/Mental Status: Normal Affect, Appropriate Vital Signs Temp Pulse Resp BP Pulse Ox 98.5 F 81 20 H 101/61 93 03/31/17 09:33 03/31/17 09:44 03/31/17 09:33 03/31/17 09:33 03/31/17 09:33 Oxygen Flow Rate 1 Oxygen Delivery Method Room Air Weight: 86.2 kg Body Mass Index (BMI) 27.2 Intake and Output for Last 24 Hours 03/29/17 03/30/17 03/31/17 23:59 23:59 23:59 Intake Total 1608 / 1608 2416 / 2416 2711 / 2711 Output Total 500 / 500 950 / 950 375 / 375 Balance 1108 / 1108 1466 / 1466 2336 / 2336 Laboratory Tests Past 24 Hrs 03/30/17 03/30/17 03/31/17 06:00 07:12 07:30 WBC 1.7 L RBC 3.17 L Hgb 10.0 L Hct 28.9 L MCV 91.2 MCH 31.5 MCHC 34.6 RDW 18.7 H RDW Differential 56.4 H Plt Count 52 L MPV 11.3 Neut % (Auto) Not Reportable Absolute Neuts (auto) 0.0 L Absolute Lymphs (auto) 1.04 Total Counted 100 Neutrophils % (Manual) 1 L Lymphocytes % (Manual) 61 H Monocytes % (Manual) 37 H Eosinophils % (Manual) 1 Diff Path Review Reviewed June foll Platelet Estimate MOD DEC RBC Morphology NORM C+C Sodium Potassium Chloride Carbon Dioxide Anion Gap BUN Creatinine Estim Creat Clear Calc Est GFR (MDRD) Af Amer Est GFR (MDRD) Non-Af BUN/Creatinine Ratio Glucose Calcium Phosphorus Magnesium Total Bilirubin AST ALT Alkaline Phosphatase Total Protein Albumin Globulin Albumin/Globulin Ratio Blood Type O POSITIVE Antibody Screen NEGATIVE Crossmatch See Detail 03/31/17 07:30 WBC RBC Hgb Hct MCV MCH MCHC RDW RDW Differential Plt Count MPV Neut % (Auto) Absolute Neuts (auto) Absolute Lymphs (auto) Total Counted Neutrophils % (Manual) Lymphocytes % (Manual) Monocytes % (Manual) Eosinophils % (Manual) Diff Path Review Platelet Estimate RBC Morphology Sodium 135 L Potassium 4.1 Chloride 100 Carbon Dioxide 26.0 Anion Gap 9 BUN 31 H Creatinine 1.18 Estim Creat Clear Calc 61.86 Est GFR (MDRD) Af Amer 79 Est GFR (MDRD) Non-Af 65 BUN/Creatinine Ratio 26.3 H Glucose 148 H Calcium 7.9 L Phosphorus 1.8 L Magnesium 2.5 Total Bilirubin 1.00 AST 129 H ALT 139 H Alkaline Phosphatase 98 Total Protein 7.0 Albumin 2.2 L Globulin 4.8 H Albumin/Globulin Ratio 0.5 L Blood Type Antibody Screen Crossmatch Assessment/Plan Active and Suspected Problems (Last Reviewed 03/13/17 @ 09:01 by Soo Yang) Neutropenic sepsis (Acute) MDS 5q minus. Pancytopenia with Pharyngitis. Still Neutropenic. Received RBCs and Platelet transfusions and responded with increase in Hgb and Plt. Increased liver enzymes may be multifactorial including Fluconazole, Antibiotics. Suggestion is to continue Antibiotics, Supportive transfusions as needed, continue Granix. Will consider Cyclosprine for MDS when Pt is stable.
[2017-03-31 11:54] LABS: Hep B Surface Antibodies Non Reactive (.)
--- NOTE | 2017-03-31 14:21 | CASEMGMT ---
Addendum entered by Jj Triana 03/31/17 16:00: Per Theodora, [facility] can accept patient with start of care likely to be Monday. Original Note: Addendum entered by Jj Triana 03/31/17 14:31: See Green sheet. Physician will need to sign Face to Face and fax to [facility] on dc. If [facility] is not able to accept pt, will need to find another agency on Monday. Mely QUINN Original Note: Discussed home health with patient. He is agreeable to [facility] on dc. Call to Ras PICKETT for [facility] who will check on availability. Mely QUINN
[2017-03-31 15:25] LABS: Pathologist Review Reviewed
[2017-03-31] MEDS: oxyCODONE Soln 5 MG/0.25 ML PO.SYRINGE PO (18:42)
[2017-03-31] MEDS: Atorvastatin Calcium 80 MG Tablet PO (21:35)
[2017-03-31] MEDS: Senna/Docusate Sodium 1 Tablet 2 TABLET PO (21:36)
[2017-04-01] VITALS (10 sets, daily range): BP systolic 107–126; BP diastolic 58–73; PULSE 76–90; RESP 16–20; TEMP 37–37.6; O2SAT 93–98
[2017-04-01] MEDS: oxyCODONE Soln 5 MG/0.25 ML PO.SYRINGE PO ×4 (00:57→22:10)
[2017-04-01] MEDS: Amoxicillin 200MG/5 ML Susp PO.SYRINGE 500 MG PO ×3 (05:53→21:31)
[2017-04-01 07:20] LABS: Absolute Lymphocyte Count 0.87 X10^3/ul (0.83-4.51); Basophil# 0.13 X10^3/uL; Basophil% 8.2 % (0-1); Eosinophil# 0.01 X10^3/uL; Eosinophils% 0.6 % (0-5); Hematocrit 31.5 % (40-54); Hemoglobin 10.6 g/dl (13.0-16.5); Lymphocyte # 0.87 X10^3/ul (4.0); Lymphocyte % 55.1 % (19-41); Mean Corp Hgb Conc 33.7 g/gl (32-36); Mean Corpuscular Hgb 31.3 pg (27.0-32.0); Mean Corpuscular Volume 92.9 fL (80-94); Monocyte# 0.57 X10^3/uL; Monocyte% 36.1 % (0-10); RBC Distribution Width CV 18.7 % (11.6-14.6); RBC Distribution Width SD 60.7 fl (35.1-43.9); Red Blood Count 3.39 M/mm3 (4.6-6.2); White Blood Count 1.6 K/mm3 (4.4-11.0)
[2017-04-01 07:22] LABS: Differential Indicated SCAN CRITERIA MET; POSITIVE COUNT YES; POSITIVE DIFFERENTIAL YES; POSITIVE MORPHOLOGY YES; Platelet Count 23 K/mm3 (150-450)
--- NOTE | 2017-04-01 07:32 | PCM.PN.HOSP ---
Subjective: Patient with no acute events overnight per self and per nursing report. Patient's stooling markedly decreased and resolved following aggressive bowel regimen with serial stools the day prior. He notes continuing to have more energy following transfusions. He states that swallowing has improved. Reviewed lab results with patient and family with continued current regimen until resolution of neutropenia to satisfaction of heme oncology. Patient denies fevers, chills, nausea, emesis, abdominal pain, chest pain or dyspnea. Objective: Physical Examination: General: awake, alert, oriented x 3 and cooperative, seated upright in bed, NAD. Skin: improved less pale color, turgor, no icterus, cyanosis. HEENT: AT/NC, EOMI, PERRLA, improved MMM. Lungs: Diminished bases, moderate effort, no rales, ronchi or wheezing. Heart: Regular rate and rhythm; no gallop, rub audible. Abdomen: soft, NTTP, improved, less distended, normalized BS. Extremities: no cyanosis, clubbing, or edema. Neurological: patient awake, alert, oriented x 3; cognitive function intact; pupils equally reactive to light and accomodation; cranial nerves II-XII grossly normal, moving all 4 extremities, no focal deficits, strength improving, moderately globally decreased. Psychiatric: affect appears improved, no acute evidence of depressive or anxiety feelings. Vitals/I&O's: Vital Signs Temp Pulse Resp BP Pulse Ox 99.0 F 76 18 114/67 97 04/01/17 06:39 04/01/17 06:39 04/01/17 06:39 04/01/17 06:39 04/01/17 06:39 Oxygen Flow Rate 2 Oxygen Delivery Method Nasal Cannula Weight: 190 lb 0.615 oz Body Mass Index (BMI) 27.2 Intake and Output for Last 24 Hours 03/30/17 03/31/17 04/01/17 23:59 23:59 23:59 Intake Total 2416 / 2416 3861 / 3861 300 / 300 Output Total 950 / 950 375 / 375 Balance 1466 / 1466 3486 / 3486 300 / 300 Laboratory Results 03/30/17 08:25: Hepatitis A IgM Ab Negative, Hepatitis A Ab Total Positive H, Hep Bs Antigen Negative, Hep B Core Total Ab Negative, Hep B Core IgM Ab Negative, Hepatitis C Ab Confirm 0.1, Hepatitis C Comment Comment 03/31/17 07:30: WBC 1.7 L, RBC 3.17 L, Hgb 10.0 L, Hct 28.9 L, MCV 91.2, MCH 31.5, MCHC 34.6, RDW 18.7 H, RDW Differential 56.4 H, Plt Count 52 L, MPV 11.3, Neut % (Auto) Not Reportable, Absolute Neuts (auto) 0.0 L, Absolute Lymphs (auto) 1.04, Total Counted 100, Neutrophils % (Manual) 1 L, Lymphocytes % (Manual) 61 H, Monocytes % (Manual) 37 H, Eosinophils % (Manual) 1, Diff Path Review Reviewed, Platelet Estimate MOD DEC, RBC Morphology NORM C+C 03/31/17 07:30: Sodium 135 L, Potassium 4.1, Chloride 100, Carbon Dioxide 26.0, Anion Gap 9, BUN 31 H, Creatinine 1.18, Estim Creat Clear Calc 61.86, Est GFR (MDRD) Af Amer 79, Est GFR (MDRD) Non-Af 65, BUN/Creatinine Ratio 26.3 H, Glucose 148 H, Calcium 7.9 L, Phosphorus 1.8 L, Magnesium 2.5, Total Bilirubin 1.00, AST 129 H, ALT 139 H, Alkaline Phosphatase 98, Total Protein 7.0, Albumin 2.2 L, Globulin 4.8 H, Albumin/Globulin Ratio 0.5 L 04/01/17 06:30: WBC 1.6 L, RBC 3.39 L, Hgb 10.6 L, Hct 31.5 L, MCV 92.9, MCH 31.3, MCHC 33.7, RDW 18.7 H, RDW Differential 60.7 H, Plt Count 23 L*, MPV 11.0, Immature Gran % (Auto) 0.000, Neut % (Auto) 0.0 L, Lymph % (Auto) 55.1 H, Brule % (Auto) 36.1 H, Eos % (Auto) 0.6, Baso % (Auto) 8.2 H, Absolute Neuts (auto) 0.0 L, Absolute Lymphs (auto) 0.87, Total Counted Pending 04/01/17 06:30: Sodium Pending, Potassium Pending, Chloride Pending, Carbon Dioxide Pending, Anion Gap Pending, BUN Pending, Creatinine Pending, Est GFR (MDRD) Af Amer Pending, Est GFR (MDRD) Non-Af Pending, BUN/Creatinine Ratio Pending, Glucose Pending, Calcium Pending, Magnesium Pending, Total Bilirubin Pending, AST Pending, ALT Pending, Alkaline Phosphatase Pending, Total Protein Pending, Albumin Pending 04/01/17 06:30: Phosphorus Pending Current Medications Acetaminophen (Tylenol) 650 mg PO Q6H PRN PRN PRN Reason: fever, pain Last Admin: 03/31/17 17:07 Dose: 650 mg Amoxicillin (Amoxil 200mg/5ml Susp) 500 mg PO Q8 [facility] Stop: 04/05/17 06:38 Last Admin: 04/01/17 05:53 Dose: 500 mg Atorvastatin Calcium (Lipitor) 80 mg PO QHS [facility] Last Admin: 03/31/17 21:35 Dose: 80 mg Famotidine (Pepcid) 20 mg PO BID [facility] Last Admin: 03/31/17 21:36 Dose: 20 mg Hydralazine HCl (Apresoline) 10 mg IV Q4H PRN PRN PRN Reason: SBP > 160 Fluconazole (Diflucan) 200 mg in 100 mls @ 100 mls/hr IV Q24 [facility] Last Admin: 03/31/17 10:05 Dose: 100 mls/hr Lactobacillus Acidophilus (Acidophilus) 1 tablet PO DAILY [facility] Last Admin: 03/31/17 09:44 Dose: 1 tablet Lidocaine HCl (Xylocaine Viscous) 20 ml PO 4X/DAY PRN PRN PRN Reason: PAIN Last Admin: 03/31/17 23:21 Dose: 20 ml Magnesium Hydroxide (Milk Of Magnesia) 30 ml PO DAILY PRN PRN PRN Reason: Constipation Last Admin: 03/29/17 11:08 Dose: 30 ml Metoprolol Tartrate (Lopressor (Beta Suellen)) 12.5 mg PO BID [facility] Last Admin: 03/31/17 21:35 Dose: 12.5 mg Morphine Sulfate (Morphine) 2 mg IV Q4H PRN PRN PRN Reason: SEVERE PAIN (6-10/10) Last Admin: 03/28/17 19:28 Dose: 2 mg Nitroglycerin (Nitrostat) 0.4 mg SUBLINGUAL Q5M PRN PRN Reason: Chest Pain Nutritional Formula (Lactose Free) (Ensure Enlive) 120 ml PO 4X/DAY [facility] Last Admin: 03/31/17 21:34 Dose: 120 ml Nystatin (Nystatin) 500,000 unit PO 4X/DAY [facility] Last Admin: 03/31/17 21:36 Dose: 500,000 unit Ondansetron HCl (Zofran) 4 mg IV Q6H PRN PRN PRN Reason: NAUSEA Last Admin: 03/30/17 06:38 Dose: 4 mg Oxycodone HCl (Oxyfast) 5 mg PO Q4H PRN PRN PRN Reason: MOD-SEVERE PAIN (4-10/10) Last Admin: 04/01/17 06:47 Dose: 5 mg Phenol/Menthol (Chloraseptic (Bkc)) 5 spray MM Q2H PRN PRN PRN Reason: SORE THROAT Last Admin: 03/30/17 20:10 Dose: 5 spray Promethazine HCl (Phenergan (Ll)) 25 mg IV Q6H PRN PRN PRN Reason: NAUSEA/VOMITING Ramipril (Altace) 10 mg PO DAILY [facility] Last Admin: 03/31/17 09:45 Dose: 10 mg Senna/Docusate Sodium (Senokot-S, Anika-Colace) 2 tablet PO BID [facility] Last Admin: 03/31/17 21:36 Dose: 2 tablet Sodium Chloride () 5 - 30 ml IV UD PRN PRN Reason: SALINE FLUSH Last Admin: 03/31/17 10:10 Dose: 10 ml Tbo-Filgrastim (Granix) 480 mcg SC DAILY [facility] Last Admin: 03/31/17 10:06 Dose: 480 mcg Temazepam (Restoril) 15 mg PO QHS PRN PRN PRN Reason: insomnia Assessment/Plan The patient is a 66 y/o M w/ PMHx: MDS w/ Chronic Pancytopenia, HTN, HLD, CAD, Chronic Pain Syndrome who presents to the [facility] ED on 03/26/17 with sore throat, fever, noted to have Oropharyngeal candidiasis in the ED, started on nystatin S/S with worsened swallowing. (1) Neutropenic fever secondary to Oropharyngeal Candidiasis, Possible Esophageal in addition to Alpha-Hemolytic Streptococcal Throat Infection w/ Dysphagia, Oropharyngeal: Admission T 100.1, afebrile since admission. Admission CBC w/ WBC 0.7, Hgb 8.1, Plts 22 with ANC 0, CXR w/ stable cardiomegaly w/ low volume inspiration and scarring/atelectasis L base, UA w/ no acute findings. Maintained on MS, maintain on Neutropenic precautions, maintain on fluconazole transitioned to IV and elevated dose while dsyphagia ongoing w/ plan x 21 days treatment w/ then continued treatment at least 2 weeks beyond resolution, mag and phos normal, trending CBC w/ WBC 0.7, Hgb 8.1, Plts 22 with ANC 0-->03/27/17 CBC w/ WBC 0.9, Hgb 7.4, Plts 15 with ANC 0-->03/29/17 CBC w/ WBC 1.5, Hgb 7.6, Plts 13 with ANC 1.9, however 03/28/17 Tm 100.8, maintained on IV meropenem until cultures result negative, throat culture w/ + strep, discussed w/ Hem/Onc and pharmacy w/ 03/30/17 transition off meropenem given all cultures negative aside candidal infection and + strep throat culture to oral amox 500 mg BID-TID x 10 days total abx duration. 03/30/17 CBC w/ WBC 1.5, Hgb 6.8, Plts 9 thus PRBC and plts ordered-->03/31/17 CBC w/ WBC 1.7, Hgb 10, Plts 52-->04/01/17 CBC w/ WBC 1.6, Hgb 10.6, Plts 23. Granix administered upon admission and continued at increased dose daily per Hem/Onc recommendation which they noted they will manage. Continued on altered mechanical soft diet w/ Speech assessment w/ recommendation mechanical soft texture with nectar thick liquids with Jimenez water protocol, medications with liquids or pur?es prior, during, post with continued evaluations. Surgery evaluation performed, deferred EGD to ascertain esophageal involvement given labs secondary to risk. PT, OT consulted given ongoing weakness and debility for discharge planning. Planning discharge to home once appropriate elevated WBC and ANC with stable plts and hgb x 3 days per Hem/Onc recommendation. Dr. Watson noted possibility of cyclosporine usage. (2) MDS with Acute on Chronic Pancytopenia: Admission CBC w/ WBC 0.7, Hgb 8.1, Plts 22 with ANC 0-->03/27/17 CBC w/ WBC 0.9, Hgb 7.4, Plts 15 with ANC 0-->03/30/17 CBC w/ WBC 1.5, Hgb 6.8, Plts 9, 03/30/17 initiated PRBC (4u) and Plt (2p) administration given. 04/01/17 CBC w/ WBC 1.6, Hgb 10.6, Plts 23. Continue w/ goal PRBC < 7 or plts < 10,000. Patient maintained on fluconazole IV as noted above w/ 03/30/17 meropenem-->amoxicillin given source of fever. Holding revlimid during acute infectious period. (3) Elevated LFTs: Initially normal upon admission, trending upward, 03/30/17 AST/ALT 105/122, liver US w/ nonvisualization of the pancreas, fatty infiltration of the liver without focal mass, hepatitis panel pending, 03/31/17 CMP AST/ALT 129/139-->04/01/17 AST/ALT 127/144, unclear specific etiology, possible secondary to abx and antifungal therapy. (4) Abdominal distention, discomfort secondary to Constipation: NPO status initially, STAT KUB performed with non-specific pattern, likely secondary to constipation as noted mild improvement following small BM, but still constipated. Placed on more aggressive bowel regimen with following overnight several bowel movements. Will hold further aggressive regimen given good response and once appropriate add back only softner. (5) Hypertension: Continue home regimen including metoprolol, ANITRA inhibitor, PRN hydralazine. (6) Hyperlipidemia: Continue home statin regimen. (7) CAD: Will continue home regimen statin, BB. Holding ASA. (8) Severe Protein-Calorie Malnutrition: Evidenced per weight loss, muscle and fat loss, nutrition consulted. (9) DVT Prophylaxis: SCDs, defer chemoprophylaxis given presentation. Code Visit Inpatient E&M: 96680 Subs Hosp L2
[2017-04-01 07:35] LABS: ALB/GLOB Ratio 0.4 RATIO (0.9-2.4); AST(SGOT) 127 U/L (15-37); Alanine Aminotransfer ALT/SGPT 144 U/L (16-61); Albumin, Serum 2.1 g/dL (3.2-5.0); Alkaline Phosphatase 111 U/L (45-117); Anion Gap 9 (5-15); BUN 30 mg/dL (7-18); BUN/Creat Ratio 28.3 RATIO (10-20); Calcium,Total 8.2 mg/dL (8.5-10.1); Chloride 98 mmol/L (98-107); Creatinine, Serum 1.06 mg/dL (0.70-1.30); EST Glomerular Filtration Rate 74 mL/min (>60); Est Glom Filt Rate - Afr Amer 89 mL/min (>60); Estimated Creatinine Clearance 68.87 ml/min; Globulin 5.2 g/dL (2.2-4.2); Glucose 109 mg/dL (74-106); Magnesium 2.5 mg/dL (1.6-2.6); Potassium 4.2 mmol/L (3.5-5.1); Protein, Total 7.3 g/dL (6.4-8.2); Sodium Level 134 mmol/L (136-145)
--- NOTE | 2017-04-01 07:35 | PN_ITS ---
Subjective: Patient with no acute events overnight per self and per nursing report. Patient 's stooling markedly decreased and resolved following aggressive bowel regimen with serial stools the day prior. He notes continuing to have more energy following transfusions. He states that swallowing has improved. Reviewed lab results with patient and family with continued current regimen until resolution of neutropenia to satisfaction of heme oncology. Patient denies fevers, chills , nausea, emesis, abdominal pain, chest pain or dyspnea. Objective: Physical Examination: General: awake, alert, oriented x 3 and cooperative, seated upright in bed, NAD. Skin: improved less pale color, turgor, no icterus, cyanosis. HEENT: AT/NC, EOMI, PERRLA, improved MMM. Lungs: Diminished bases, moderate effort, no rales, ronchi or wheezing. Heart: Regular rate and rhythm; no gallop, rub audible. Abdomen: soft, NTTP, improved, less distended, normalized BS. Extremities: no cyanosis, clubbing, or edema. Neurological: patient awake, alert, oriented x 3; cognitive function intact; pupils equally reactive to light and accomodation; cranial nerves II-XII grossly normal, moving all 4 extremities, no focal deficits, strength improving , moderately globally decreased. Psychiatric: affect appears improved, no acute evidence of depressive or anxiety feelings. Vitals/I&O's: Vital Signs Temp Pulse Resp BP Pulse Ox 99.0 F 76 18 114/67 97 04/01/17 06:39 04/01/17 06:39 04/01/17 06:39 04/01/17 06:39 04/01/17 06:39 Oxygen Flow Rate 2 Oxygen Delivery Method Nasal Cannula Weight: 190 lb 0.615 oz Body Mass Index (BMI) 27.2 Intake and Output for Last 24 Hours 03/30/17 03/31/17 04/01/17 23:59 23:59 23:59 Intake Total 2416 / 2416 3861 / 3861 300 / 300 Output Total 950 / 950 375 / 375 Balance 1466 / 1466 3486 / 3486 300 / 300 Laboratory Results 03/30/17 08:25: Hepatitis A IgM Ab Negative, Hepatitis A Ab Total Positive H, Hep Bs Antigen Negative, Hep B Core Total Ab Negative, Hep B Core IgM Ab Negative, Hepatitis C Ab Confirm 0.1, Hepatitis C Comment Comment 03/31/17 07:30: WBC 1.7 L, RBC 3.17 L, Hgb 10.0 L, Hct 28.9 L, MCV 91.2, MCH 31.5, MCHC 34.6, RDW 18.7 H, RDW Differential 56.4 H, Plt Count 52 L, MPV 11.3, Neut % (Auto) Not Reportable, Absolute Neuts (auto) 0.0 L, Absolute Lymphs (auto ) 1.04, Total Counted 100, Neutrophils % (Manual) 1 L, Lymphocytes % (Manual) 61 H, Monocytes % (Manual) 37 H, Eosinophils % (Manual) 1, Diff Path Review Reviewed, Platelet Estimate MOD DEC, RBC Morphology NORM C+C 03/31/17 07:30: Sodium 135 L, Potassium 4.1, Chloride 100, Carbon Dioxide 26.0, Anion Gap 9, BUN 31 H, Creatinine 1.18, Estim Creat Clear Calc 61.86, Est GFR ( MDRD) Af Amer 79, Est GFR (MDRD) Non-Af 65, BUN/Creatinine Ratio 26.3 H, Glucose 148 H, Calcium 7.9 L, Phosphorus 1.8 L, Magnesium 2.5, Total Bilirubin 1.00, AST 129 H, ALT 139 H, Alkaline Phosphatase 98, Total Protein 7.0, Albumin 2.2 L, Globulin 4.8 H, Albumin/Globulin Ratio 0.5 L 04/01/17 06:30: WBC 1.6 L, RBC 3.39 L, Hgb 10.6 L, Hct 31.5 L, MCV 92.9, MCH 31.3, MCHC 33.7, RDW 18.7 H, RDW Differential 60.7 H, Plt Count 23 L*, MPV 11.0 , Immature Gran % (Auto) 0.000, Neut % (Auto) 0.0 L, Lymph % (Auto) 55.1 H, [place] % (Auto) 36.1 H, Eos % (Auto) 0.6, Baso % (Auto) 8.2 H, Absolute Neuts ( auto) 0.0 L, Absolute Lymphs (auto) 0.87, Total Counted Pending 04/01/17 06:30: Sodium Pending, Potassium Pending, Chloride Pending, Carbon Dioxide Pending, Anion Gap Pending, BUN Pending, Creatinine Pending, Est GFR ( MDRD) Af Amer Pending, Est GFR (MDRD) Non-Af Pending, BUN/Creatinine Ratio Pending, Glucose Pending, Calcium Pending, Magnesium Pending, Total Bilirubin Pending, AST Pending, ALT Pending, Alkaline Phosphatase Pending, Total Protein Pending, Albumin Pending 04/01/17 06:30: Phosphorus Pending Current Medications Acetaminophen (Tylenol) 650 mg PO Q6H PRN PRN PRN Reason: fever, pain Last Admin: 03/31/17 17:07 Dose: 650 mg Amoxicillin (Amoxil 200mg/5ml Susp) 500 mg PO Q8 [facility] Stop: 04/05/17 06:38 Last Admin: 04/01/17 05:53 Dose: 500 mg Atorvastatin Calcium (Lipitor) 80 mg PO QHS [facility] Last Admin: 03/31/17 21:35 Dose: 80 mg Famotidine (Pepcid) 20 mg PO BID [facility] Last Admin: 03/31/17 21:36 Dose: 20 mg Hydralazine HCl (Apresoline) 10 mg IV Q4H PRN PRN PRN Reason: SBP > 160 Fluconazole (Diflucan) 200 mg in 100 mls @ 100 mls/hr IV Q24 [facility] Last Admin: 03/31/17 10:05 Dose: 100 mls/hr Lactobacillus Acidophilus (Acidophilus) 1 tablet PO DAILY [facility] Last Admin: 03/31/17 09:44 Dose: 1 tablet Lidocaine HCl (Xylocaine Viscous) 20 ml PO 4X/DAY PRN PRN PRN Reason: PAIN Last Admin: 03/31/17 23:21 Dose: 20 ml Magnesium Hydroxide (Milk Of Magnesia) 30 ml PO DAILY PRN PRN PRN Reason: Constipation Last Admin: 03/29/17 11:08 Dose: 30 ml Metoprolol Tartrate (Lopressor (Beta Suellen)) 12.5 mg PO BID [facility] Last Admin: 03/31/17 21:35 Dose: 12.5 mg Morphine Sulfate (Morphine) 2 mg IV Q4H PRN PRN PRN Reason: SEVERE PAIN (6-10/10) Last Admin: 03/28/17 19:28 Dose: 2 mg Nitroglycerin (Nitrostat) 0.4 mg SUBLINGUAL Q5M PRN PRN Reason: Chest Pain Nutritional Formula (Lactose Free) (Ensure Enlive) 120 ml PO 4X/DAY [facility] Last Admin: 03/31/17 21:34 Dose: 120 ml Nystatin (Nystatin) 500,000 unit PO 4X/DAY [facility] Last Admin: 03/31/17 21:36 Dose: 500,000 unit Ondansetron HCl (Zofran) 4 mg IV Q6H PRN PRN PRN Reason: NAUSEA Last Admin: 03/30/17 06:38 Dose: 4 mg Oxycodone HCl (Oxyfast) 5 mg PO Q4H PRN PRN PRN Reason: MOD-SEVERE PAIN (4-10/10) Last Admin: 04/01/17 06:47 Dose: 5 mg Phenol/Menthol (Chloraseptic (Bkc)) 5 spray MM Q2H PRN PRN PRN Reason: SORE THROAT Last Admin: 03/30/17 20:10 Dose: 5 spray Promethazine HCl (Phenergan (Ll)) 25 mg IV Q6H PRN PRN PRN Reason: NAUSEA/VOMITING Ramipril (Altace) 10 mg PO DAILY [facility] Last Admin: 03/31/17 09:45 Dose: 10 mg Senna/Docusate Sodium (Senokot-S, Anika-Colace) 2 tablet PO BID [facility] Last Admin: 03/31/17 21:36 Dose: 2 tablet Sodium Chloride () 5 - 30 ml IV UD PRN PRN Reason: SALINE FLUSH Last Admin: 03/31/17 10:10 Dose: 10 ml Tbo-Filgrastim (Granix) 480 mcg SC DAILY [facility] Last Admin: 03/31/17 10:06 Dose: 480 mcg Temazepam (Restoril) 15 mg PO QHS PRN PRN PRN Reason: insomnia Assessment/Plan The patient is a 66 y/o M w/ PMHx: MDS w/ Chronic Pancytopenia, HTN, HLD, CAD, Chronic Pain Syndrome who presents to the [facility] ED on 03/26/17 with sore throat, fever, noted to have Oropharyngeal candidiasis in the ED, started on nystatin S/ S with worsened swallowing. (1) Neutropenic fever secondary to Oropharyngeal Candidiasis, Possible Esophageal in addition to Alpha-Hemolytic Streptococcal Throat Infection w/ Dysphagia, Oropharyngeal: Admission T 100.1, afebrile since admission. Admission CBC w/ WBC 0.7, Hgb 8.1, Plts 22 with ANC 0, CXR w/ stable cardiomegaly w/ low volume inspiration and scarring/atelectasis L base, UA w/ no acute findings. Maintained on MS, maintain on Neutropenic precautions, maintain on fluconazole transitioned to IV and elevated dose while dsyphagia ongoing w/ plan x 21 days treatment w/ then continued treatment at least 2 weeks beyond resolution, mag and phos normal, trending CBC w/ WBC 0.7, Hgb 8.1, Plts 22 with ANC 0-->03/27/17 CBC w/ WBC 0.9, Hgb 7.4, Plts 15 with ANC 0--> CBC w/ WBC 1.5, Hgb 7.6, Plts 13 with ANC 1.9, however 03/28/17 Tm 100.8, maintained on IV meropenem until cultures result negative, throat culture w/ + strep, discussed w/ Hem/Onc and pharmacy w/ 03/30/17 transition off meropenem given all cultures negative aside candidal infection and + strep throat culture to oral amox 500 mg BID-TID x 10 days total abx duration. 03/30/17 CBC w/ WBC 1.5 , Hgb 6.8, Plts 9 thus PRBC and plts ordered-->03/31/17 CBC w/ WBC 1.7, Hgb 10, Plts 52-->04/01/17 CBC w/ WBC 1.6, Hgb 10.6, Plts 23. Granix administered upon admission and continued at increased dose daily per Hem/Onc recommendation which they noted they will manage. Continued on altered mechanical soft diet w/ Speech assessment w/ recommendation mechanical soft texture with nectar thick liquids with Jimenez water protocol, medications with liquids or pur?es prior, during, post with continued evaluations. Surgery evaluation performed, deferred EGD to ascertain esophageal involvement given labs secondary to risk. PT, OT consulted given ongoing weakness and debility for discharge planning. Planning discharge to home once appropriate elevated WBC and ANC with stable plts and hgb x 3 days per Hem/Onc recommendation. Dr. Watson noted possibility of cyclosporine usage. (2) MDS with Acute on Chronic Pancytopenia: Admission CBC w/ WBC 0.7, Hgb 8.1, Plts 22 with ANC 0-->03/27/17 CBC w/ WBC 0.9, Hgb 7.4, Plts 15 with ANC 0--> CBC w/ WBC 1.5, Hgb 6.8, Plts 9, 03/30/17 initiated PRBC (4u) and Plt (2p) administration given. 04/01/17 CBC w/ WBC 1.6, Hgb 10.6, Plts 23. Continue w/ goal PRBC < 7 or plts < 10,000. Patient maintained on fluconazole IV as noted above w/ 03/30/17 meropenem-->amoxicillin given source of fever. Holding revlimid during acute infectious period. (3) Elevated LFTs: Initially normal upon admission, trending upward, 03/30/17 AST/ ALT 105/122, liver US w/ nonvisualization of the pancreas, fatty infiltration of the liver without focal mass, hepatitis panel pending, 03/31/17 CMP AST/ALT 129 /139-->04/01/17 AST/ALT 127/144, unclear specific etiology, possible secondary to abx and antifungal therapy. (4) Abdominal distention, discomfort secondary to Constipation: NPO status initially, STAT KUB performed with non-specific pattern, likely secondary to constipation as noted mild improvement following small BM, but still constipated. Placed on more aggressive bowel regimen with following overnight several bowel movements. Will hold further aggressive regimen given good response and once appropriate add back only softner. (5) Hypertension: Continue home regimen including metoprolol, ANITRA inhibitor, PRN hydralazine. (6) Hyperlipidemia: Continue home statin regimen. (7) CAD: Will continue home regimen statin, BB. Holding ASA. (8) Severe Protein-Calorie Malnutrition: Evidenced per weight loss, muscle and fat loss, nutrition consulted. (9) DVT Prophylaxis: SCDs, defer chemoprophylaxis given presentation. Code Visit Inpatient E&M: 72615 Subs Hosp L2
[2017-04-01 07:53] LABS: Differential Comment SCAN; Platelet Estimate MKD DEC (ADEQ)
[2017-04-01 08:01] LABS: Phosphorus 2.7 mg/dL (2.5-4.9)
[2017-04-01] MEDS: Acetaminophen 325 MG Tablet 650 MG PO ×2 (08:59→16:37)
[2017-04-01] MEDS: TBO-FILGRASTIM 480 MCG/0.8 ML ML SC (10:40)
[2017-04-01] MEDS: Famotidine 20 MG Tablet PO ×2 (10:41→21:32)
[2017-04-01] MEDS: Metoprolol Tartrate 25 MG Tablet 12.5 MG PO ×2 (10:41→21:31)
[2017-04-01] MEDS: Ramipril 10 MG Capsule PO (10:41)
[2017-04-01] MEDS: 0.9% NaCl Peripheral Flush Adult/Peds IV (10:42)
[2017-04-01] MEDS: NYSTATIN 500,000 UNIT/5 ML UDC 500000 UNIT PO ×4 (10:42→21:31)
--- NOTE | 2017-04-01 13:06 | PCM.PROGNOTE ---
Patient Problems: Active and Suspected Problems (Last Reviewed 03/13/17 @ 09:01 by Soo Yang) Neutropenic sepsis (Acute) Subjective: Pt seen this afternoon at bedside, throat pain is improving. - Physical Exam General: Alert, Oriented x3, Cooperative Vital Signs Temp Pulse Resp BP Pulse Ox 98.6 F 77 18 118/58 L 94 04/01/17 10:24 04/01/17 10:41 04/01/17 10:24 04/01/17 10:41 04/01/17 10:24 Oxygen Flow Rate 94 Oxygen Delivery Method Room Air Weight: 86.2 kg Body Mass Index (BMI) 27.2 Intake and Output for Last 24 Hours 03/30/17 03/31/17 04/01/17 23:59 23:59 23:59 Intake Total 2416 / 2416 3861 / 3861 300 / 300 Output Total 950 / 950 375 / 375 Balance 1466 / 1466 3486 / 3486 300 / 300 Laboratory Tests Past 24 Hrs 03/31/17 04/01/17 04/01/17 07:30 06:30 06:30 WBC 1.6 L RBC 3.39 L Hgb 10.6 L Hct 31.5 L MCV 92.9 MCH 31.3 MCHC 33.7 RDW 18.7 H RDW Differential 60.7 H Plt Count 23 L* MPV 11.0 Immature Gran % (Auto) 0.000 Neut % (Auto) 0.0 L Lymph % (Auto) 55.1 H [place] % (Auto) 36.1 H Eos % (Auto) 0.6 Baso % (Auto) 8.2 H Absolute Neuts (auto) 0.0 L Absolute Lymphs (auto) 0.87 Total Counted Not Reportable Differential Comment SCAN Diff Path Review Reviewed June foll Platelet Estimate MKD DEC Sodium 134 L Potassium 4.2 Chloride 98 Carbon Dioxide 27.0 Anion Gap 9 BUN 30 H Creatinine 1.06 Estim Creat Clear Calc 68.87 Est GFR (MDRD) Af Amer 89 Est GFR (MDRD) Non-Af 74 BUN/Creatinine Ratio 28.3 H Glucose 109 H Calcium 8.2 L Phosphorus Magnesium 2.5 Total Bilirubin 1.00 AST 127 H ALT 144 H Alkaline Phosphatase 111 Total Protein 7.3 Albumin 2.1 L Globulin 5.2 H Albumin/Globulin Ratio 0.4 L 04/01/17 06:30 WBC RBC Hgb Hct MCV MCH MCHC RDW RDW Differential Plt Count MPV Immature Gran % (Auto) Neut % (Auto) Lymph % (Auto) [place] % (Auto) Eos % (Auto) Baso % (Auto) Absolute Neuts (auto) Absolute Lymphs (auto) Total Counted Differential Comment Diff Path Review Platelet Estimate Sodium Potassium Chloride Carbon Dioxide Anion Gap BUN Creatinine Estim Creat Clear Calc Est GFR (MDRD) Af Amer Est GFR (MDRD) Non-Af BUN/Creatinine Ratio Glucose Calcium Phosphorus 2.7 Magnesium Total Bilirubin AST ALT Alkaline Phosphatase Total Protein Albumin Globulin Albumin/Globulin Ratio Assessment/Plan Active and Suspected Problems (Last Reviewed 03/13/17 @ 09:01 by Soo Yang) Neutropenic sepsis (Acute) MDS 5q minus. Pancytopenia with Pharyngitis. Still Neutropenic/agranulocytosis, this may be due to Revlimid which is on hold now. Throat pain is improving. Suggestion is to continue Antibiotics, Supportive transfusions as needed to keep Hgb above 7 and Plt at 10 or above, continue Granix. Will consider Cyclosprine for MDS when Pt is stable. Code Visit Inpatient E&M: 86812 Subs Hosp L3
[2017-04-01] MEDS: Senna/Docusate Sodium 1 Tablet 2 TABLET PO (21:32)
[2017-04-01] MEDS: Atorvastatin Calcium 80 MG Tablet PO (21:32)
[2017-04-01] MEDS: Temazepam 15 MG Capsule PO (21:44)
[2017-04-02] VITALS (17 sets, daily range): BP systolic 114–140; BP diastolic 63–83; PULSE 75–92; RESP 16–20; TEMP 36.3–38.3; O2SAT 92–99
[2017-04-02] MEDS: 0.9% NaCl Peripheral Flush Adult/Peds IV ×6 (03:36→23:22)
[2017-04-02] MEDS: Amoxicillin 200MG/5 ML Susp PO.SYRINGE 500 MG PO ×3 (06:18→21:50)
[2017-04-02 06:30] LABS: ALB/GLOB Ratio 0.4 RATIO (0.9-2.4); AST(SGOT) 119 U/L (15-37); Alanine Aminotransfer ALT/SGPT 144 U/L (16-61); Alkaline Phosphatase 109 U/L (45-117); Anion Gap 10 (5-15); BUN 23 mg/dL (7-18); BUN/Creat Ratio 25.5 RATIO (10-20); Calcium,Total 8.3 mg/dL (8.5-10.1); Chloride 98 mmol/L (98-107); EST Glomerular Filtration Rate 89 mL/min (>60); Est Glom Filt Rate - Afr Amer 108 mL/min (>60); Estimated Creatinine Clearance 81.11 ml/min; Globulin 5.6 g/dL (2.2-4.2); Glucose 98 mg/dL (74-106); Magnesium 2.2 mg/dL (1.6-2.6); Potassium 4.2 mmol/L (3.5-5.1); Protein, Total 7.6 g/dL (6.4-8.2); Sodium Level 134 mmol/L (136-145)
[2017-04-02 06:37] LABS: Hemoglobin 10.4 g/dl (13.0-16.5); Mean Corp Hgb Conc 33.5 g/gl (32-36); Mean Corpuscular Hgb 31.4 pg (27.0-32.0); Mean Corpuscular Volume 93.7 fL (80-94); Phosphorus 2.7 mg/dL (2.5-4.9); RBC Distribution Width CV 18.1 % (11.6-14.6); RBC Distribution Width SD 60.5 fl (35.1-43.9); Red Blood Count 3.31 M/mm3 (4.6-6.2); White Blood Count 1.6 K/mm3 (4.4-11.0)
[2017-04-02 06:39] LABS: Differential Indicated MANUAL DIFF; POSITIVE COUNT YES; POSITIVE DIFFERENTIAL YES; POSITIVE MORPHOLOGY YES
[2017-04-02 06:42] LABS: Platelet Count 13 K/mm3 (150-450)
--- NOTE | 2017-04-02 07:23 | NURSING ---
DR IRBY AWARE OF PLT CT ON PT AND SHE ORDERED 2 PLTS FOR PT THIS AM- TALKED WITH [facility]ONE IN BLOOD BANK AND WILL HAVE TO WAIT FOR PLT SHIPMENT AT [facility]- STATES THAT IT WILL BE LATE AFTERNOON BEFORE PLT ARE HERE.
--- NOTE | 2017-04-02 07:55 | PCM.PN.HOSP ---
Subjective: The patient is a 66 y/o M w/ PMHx: MDS w/ Chronic Pancytopenia, HTN, HLD, CAD, Chronic Pain Syndrome who presents to the [facility] ED on 03/26/17 with sore throat, fever, noted to have Oropharyngeal candidiasis in the ED, started on nystatin S/S with worsened swallowing. Neutropenic fever secondary to Oropharyngeal Candidiasis, Possible Esophageal in addition to Alpha-Hemolytic Streptococcal Throat Infection w/ Dysphagia, Oropharyngeal: Admission T 100.1, afebrile since admission. Admission CBC w/ WBC 0.7, Hgb 8.1, Plts 22 with ANC 0, CXR w/ stable cardiomegaly w/ low volume inspiration and scarring/atelectasis L base, UA w/ no acute findings. Maintained on MS, maintain on Neutropenic precautions, maintain on fluconazole transitioned to IV and elevated dose while dsyphagia ongoing w/ plan x 21 days treatment w/ then continued treatment at least 2 weeks beyond resolution, mag and phos normal, trending CBC w/ WBC 0.7, Hgb 8.1, Plts 22 with ANC 0-->03/27/17 CBC w/ WBC 0.9, Hgb 7.4, Plts 15 with ANC 0-->03/29/17 CBC w/ WBC 1.5, Hgb 7.6, Plts 13 with ANC 1.9, however 03/28/17 Tm 100.8, maintained on IV meropenem until cultures result negative, throat culture w/ + strep, discussed w/ Hem/Onc and pharmacy w/ 03/30/17 transition off meropenem given all cultures negative aside candidal infection and + strep throat culture to oral amox 500 mg BID-TID x 10 days total abx duration. 03/30/17 CBC w/ WBC 1.5, Hgb 6.8, Plts 9 thus PRBC and plts ordered-->03/31/17 CBC w/ WBC 1.7, Hgb 10, Plts 52-->04/02/17 CBC w/ WBC 1.6, Hgb 10.4, Plts 13. Granix administered upon admission and continued at increased dose daily per Hem/Onc recommendation which they noted they will manage. Continued on altered mechanical soft diet w/ Speech assessment w/ recommendation mechanical soft texture with nectar thick liquids with Jimenez water protocol, medications with liquids or pur?es prior, during, post with continued evaluations. Surgery evaluation performed, deferred EGD to ascertain esophageal involvement given labs secondary to risk. Planning discharge to home once appropriate elevated WBC and ANC with stable plts and hgb x 3 days per Hem/Onc recommendation with current 04/02/17 labs with worsened Plts, but stable WBC 1.6 and Hgb. Day #3 with WBC > 1.5, continue to trend and given slow improvement, hope possible discharge 04/03/17 pending repeat labs and re-evaluation per Dr. Watson. Dr. Watson noted possibility of cyclosporine usage once clinically improved. Of note 03/30/17 CBC w/ WBC 1.5, Hgb 6.8, Plts 9, 03/30/17 initiated PRBC (4u) and Plt (2p) administration given. 04/02/17 CBC w/ WBC 1.6, Hgb 10.4, Plts 13. 04/02/17 2 Pack additional Plts pending for transfusion given again notable decline. 04/02/17 AST/ALT 119/144, continued stable elevation, unclear specific etiology, possible secondary to abx and antifungal therapy. Patient with no acute events overnight per self and per nursing report. He continues to have improvement with odynophagia although it does tend to be worse in the mornings and improves through the day with continued usage and intake. Stressed labs this morning with decrease again in platelets with platelet pack transfusion pending, likely this afternoon secondary to shortage. Given patient continues to have WBC > 1.5 now x 3 days if repeat CBC in AM amenable and no further transfusion needs, hope for discharge to home 04/03/17. Patient denies fevers, chills, nausea, emesis, abdominal pain, chest pain or dyspnea. Objective: Physical Examination: General: awake, alert, oriented x 3 and cooperative, seated upright in bed, NAD. Skin: improved less pale color, turgor, no icterus, cyanosis. HEENT: AT/NC, EOMI, PERRLA, improved MMM, markedly improved oral and posterior OP thrush. Lungs: Diminished bases, moderate effort, no rales, ronchi or wheezing. Heart: Regular rate and rhythm; no gallop, rub audible. Abdomen: soft, NTTP, improved, less distended, normalized BS. Extremities: no cyanosis, clubbing, or edema. Neurological: patient awake, alert, oriented x 3; cognitive function intact; pupils equally reactive to light and accomodation; cranial nerves II-XII grossly normal, moving all 4 extremities, no focal deficits, strength improving, moderately globally decreased. Psychiatric: affect appears improved, no acute evidence of depressive or anxiety feelings. Vitals/I&O's: Vital Signs Temp Pulse Resp BP Pulse Ox 97.4 F L 83 16 126/74 H 99 04/02/17 03:27 04/02/17 03:27 04/02/17 03:27 04/02/17 03:27 04/02/17 03:27 Oxygen Flow Rate 2 Oxygen Delivery Method Nasal Cannula Weight: 190 lb 0.615 oz Body Mass Index (BMI) 27.2 Intake and Output for Last 24 Hours 03/31/17 04/01/17 04/02/17 23:59 23:59 23:59 Intake Total 3861 / 3861 1545 / 1545 200 / 200 Output Total 375 / 375 250 / 250 Balance 3486 / 3486 1295 / 1295 200 / 200 Laboratory Results 04/01/17 06:30: Phosphorus 2.7 04/02/17 05:51: WBC 1.6 L, RBC 3.31 L, Hgb 10.4 L, Hct 31.0 L, MCV 93.7, MCH 31.4, MCHC 33.5, RDW 18.1 H, RDW Differential 60.5 H, Plt Count Pending, Neut % (Auto) Not Reportable, Absolute Neuts (auto) Not Reportable, Total Counted Pending 04/02/17 05:51: Sodium 134 L, Potassium 4.2, Chloride 98, Carbon Dioxide 26.0, Anion Gap 10, BUN 23 H, Creatinine 0.90, Estim Creat Clear Calc 81.11, Est GFR (MDRD) Af Amer 108, Est GFR (MDRD) Non-Af 89, BUN/Creatinine Ratio 25.5 H, Glucose 98, Calcium 8.3 L, Magnesium 2.2, Total Bilirubin 1.10 H, AST 119 H, ALT 144 H, Alkaline Phosphatase 109, Total Protein 7.6, Albumin 2.0 L, Globulin 5.6 H, Albumin/Globulin Ratio 0.4 L 04/02/17 05:51: Phosphorus 2.7 Current Medications Acetaminophen (Tylenol) 650 mg PO Q6H PRN PRN PRN Reason: fever, pain Last Admin: 04/01/17 16:37 Dose: 650 mg Amoxicillin (Amoxil 200mg/5ml Susp) 500 mg PO Q8 [facility] Stop: 04/05/17 06:38 Last Admin: 04/02/17 06:18 Dose: 500 mg Atorvastatin Calcium (Lipitor) 80 mg PO QHS [facility] Last Admin: 04/01/17 21:32 Dose: 80 mg Famotidine (Pepcid) 20 mg PO BID [facility] Last Admin: 04/01/17 21:32 Dose: 20 mg Hydralazine HCl (Apresoline) 10 mg IV Q4H PRN PRN PRN Reason: SBP > 160 Fluconazole (Diflucan) 200 mg in 100 mls @ 100 mls/hr IV Q24 [facility] Last Admin: 04/01/17 10:41 Dose: 100 mls/hr Lactobacillus Acidophilus (Acidophilus) 1 tablet PO DAILY [facility] Last Admin: 04/01/17 10:41 Dose: 1 tablet Lidocaine HCl (Xylocaine Viscous) 20 ml PO 4X/DAY PRN PRN PRN Reason: PAIN Last Admin: 04/02/17 03:35 Dose: 20 ml Magnesium Hydroxide (Milk Of Magnesia) 30 ml PO DAILY PRN PRN PRN Reason: Constipation Last Admin: 03/29/17 11:08 Dose: 30 ml Metoprolol Tartrate (Lopressor (Beta Suellen)) 12.5 mg PO BID [facility] Last Admin: 04/01/17 21:31 Dose: 12.5 mg Morphine Sulfate (Morphine) 2 mg IV Q4H PRN PRN PRN Reason: SEVERE PAIN (6-10/10) Last Admin: 04/02/17 03:36 Dose: 2 mg Nitroglycerin (Nitrostat) 0.4 mg SUBLINGUAL Q5M PRN PRN Reason: Chest Pain Nutritional Formula (Lactose Free) (Ensure Enlive) 120 ml PO 4X/DAY [facility] Last Admin: 04/01/17 21:32 Dose: 120 ml Nystatin (Nystatin) 500,000 unit PO 4X/DAY [facility] Last Admin: 04/01/17 21:31 Dose: 500,000 unit Ondansetron HCl (Zofran) 4 mg IV Q6H PRN PRN PRN Reason: NAUSEA Last Admin: 03/30/17 06:38 Dose: 4 mg Oxycodone HCl (Oxyfast) 5 mg PO Q4H PRN PRN PRN Reason: MOD-SEVERE PAIN (4-10/10) Last Admin: 04/01/17 22:10 Dose: 5 mg Phenol/Menthol (Chloraseptic (Bkc)) 5 spray MM Q2H PRN PRN PRN Reason: SORE THROAT Last Admin: 03/30/17 20:10 Dose: 5 spray Promethazine HCl (Phenergan (Ll)) 25 mg IV Q6H PRN PRN PRN Reason: NAUSEA/VOMITING Ramipril (Altace) 10 mg PO DAILY [facility] Last Admin: 04/01/17 10:41 Dose: 10 mg Senna/Docusate Sodium (Senokot-S, Anika-Colace) 2 tablet PO BID [facility] Last Admin: 04/01/17 21:32 Dose: 2 tablet Sodium Chloride () 5 - 30 ml IV UD PRN PRN Reason: SALINE FLUSH Last Admin: 04/02/17 03:36 Dose: 10 ml Tbo-Filgrastim (Granix) 480 mcg SC DAILY [facility] Last Admin: 04/01/17 10:40 Dose: 480 mcg Temazepam (Restoril) 15 mg PO QHS PRN PRN PRN Reason: insomnia Last Admin: 04/01/17 21:44 Dose: 15 mg Assessment/Plan The patient is a 66 y/o M w/ PMHx: MDS w/ Chronic Pancytopenia, HTN, HLD, CAD, Chronic Pain Syndrome who presents to the [facility] ED on 03/26/17 with sore throat, fever, noted to have Oropharyngeal candidiasis in the ED, started on nystatin S/S with worsened swallowing. (1) Neutropenic fever secondary to Oropharyngeal Candidiasis, Possible Esophageal in addition to Alpha-Hemolytic Streptococcal Throat Infection w/ Dysphagia, Oropharyngeal: Admission T 100.1, afebrile since admission. Admission CBC w/ WBC 0.7, Hgb 8.1, Plts 22 with ANC 0, CXR w/ stable cardiomegaly w/ low volume inspiration and scarring/atelectasis L base, UA w/ no acute findings. Maintained on MS, maintain on Neutropenic precautions, maintain on fluconazole transitioned to IV and elevated dose while dsyphagia ongoing w/ plan x 21 days treatment w/ then continued treatment at least 2 weeks beyond resolution, mag and phos normal, trending CBC w/ WBC 0.7, Hgb 8.1, Plts 22 with ANC 0-->03/27/17 CBC w/ WBC 0.9, Hgb 7.4, Plts 15 with ANC 0-->03/29/17 CBC w/ WBC 1.5, Hgb 7.6, Plts 13 with ANC 1.9, however 03/28/17 Tm 100.8, maintained on IV meropenem until cultures result negative, throat culture w/ + strep, discussed w/ Hem/Onc and pharmacy w/ 03/30/17 transition off meropenem given all cultures negative aside candidal infection and + strep throat culture to oral amox 500 mg BID-TID x 10 days total abx duration. 03/30/17 CBC w/ WBC 1.5, Hgb 6.8, Plts 9 thus PRBC and plts ordered-->03/31/17 CBC w/ WBC 1.7, Hgb 10, Plts 52-->04/02/17 CBC w/ WBC 1.6, Hgb 10.4, Plts 13. Granix administered upon admission and continued at increased dose daily per Hem/Onc recommendation which they noted they will manage. Continued on altered mechanical soft diet w/ Speech assessment w/ recommendation mechanical soft texture with nectar thick liquids with Jimenez water protocol, medications with liquids or pur?es prior, during, post with continued evaluations. Surgery evaluation performed, deferred EGD to ascertain esophageal involvement given labs secondary to risk. Planning discharge to home once appropriate elevated WBC and ANC with stable plts and hgb x 3 days per Hem/Onc recommendation with current 04/02/17 labs with worsened Plts, but stable WBC 1.6 and Hgb. Day #3 with WBC > 1.5, continue to trend and given slow improvement, hope possible discharge 04/03/17 pending repeat labs and re-evaluation per Dr. Watson. Dr. Watson noted possibility of cyclosporine usage once clinically improved. (2) MDS with Acute on Chronic Pancytopenia: Admission CBC w/ WBC 0.7, Hgb 8.1, Plts 22 with ANC 0-->03/27/17 CBC w/ WBC 0.9, Hgb 7.4, Plts 15 with ANC 0-->03/30/17 CBC w/ WBC 1.5, Hgb 6.8, Plts 9, 03/30/17 initiated PRBC (4u) and Plt (2p) administration given. 04/02/17 CBC w/ WBC 1.6, Hgb 10.4, Plts 13. 04/02/17 2 Pack additional Plts pending for transfusion given again notable decline. Continue w/ goal PRBC < 7 or plts < 10,000. Patient maintained on fluconazole IV as noted above w/ 03/30/17 meropenem-->amoxicillin given source of fever. Holding revlimid during acute infectious period. (3) Elevated LFTs: Initially normal upon admission, trending upward, 03/30/17 AST/ALT 105/122, liver US w/ nonvisualization of the pancreas, fatty infiltration of the liver without focal mass, hepatitis panel pending, 03/31/17 CMP AST/ALT 129/139-->04/02/17 AST/ALT 119/144, unclear specific etiology, possible secondary to abx and antifungal therapy. (4) Abdominal distention, discomfort secondary to Constipation: Resolved. Transient abdominal distention and discomfort, KUB obtained and non-specific pattern, aggressive bowel regimen administered and distention, constipation resolved. (5) Hypertension: Continue home regimen including metoprolol, ANITRA inhibitor, PRN hydralazine. (6) Hyperlipidemia: Continue home statin regimen. (7) CAD: Will continue home regimen statin, BB. Holding ASA. (8) Severe Protein-Calorie Malnutrition: Evidenced per weight loss, muscle and fat loss, nutrition consulted. (9) DVT Prophylaxis: SCDs, defer chemoprophylaxis given presentation. Code Visit Inpatient E&M: 00783 Subs Hosp L2
--- NOTE | 2017-04-02 08:06 | PN_ITS ---
Subjective: The patient is a 66 y/o M w/ PMHx: MDS w/ Chronic Pancytopenia, HTN, HLD, CAD, Chronic Pain Syndrome who presents to the [facility] ED on 03/26/17 with sore throat, fever, noted to have Oropharyngeal candidiasis in the ED, started on nystatin S/ S with worsened swallowing. Neutropenic fever secondary to Oropharyngeal Candidiasis, Possible Esophageal in addition to Alpha-Hemolytic Streptococcal Throat Infection w/ Dysphagia, Oropharyngeal: Admission T 100.1, afebrile since admission. Admission CBC w/ WBC 0.7, Hgb 8.1, Plts 22 with ANC 0, CXR w/ stable cardiomegaly w/ low volume inspiration and scarring/atelectasis L base, UA w/ no acute findings. Maintained on MS, maintain on Neutropenic precautions, maintain on fluconazole transitioned to IV and elevated dose while dsyphagia ongoing w/ plan x 21 days treatment w/ then continued treatment at least 2 weeks beyond resolution, mag and phos normal, trending CBC w/ WBC 0.7, Hgb 8.1, Plts 22 with ANC 0-->03/27/17 CBC w/ WBC 0.9, Hgb 7.4, Plts 15 with ANC 0--> CBC w/ WBC 1.5, Hgb 7.6, Plts 13 with ANC 1.9, however 03/28/17 Tm 100.8, maintained on IV meropenem until cultures result negative, throat culture w/ + strep, discussed w/ Hem/Onc and pharmacy w/ 03/30/17 transition off meropenem given all cultures negative aside candidal infection and + strep throat culture to oral amox 500 mg BID-TID x 10 days total abx duration. 03/30/17 CBC w/ WBC 1.5 , Hgb 6.8, Plts 9 thus PRBC and plts ordered-->03/31/17 CBC w/ WBC 1.7, Hgb 10, Plts 52-->04/02/17 CBC w/ WBC 1.6, Hgb 10.4, Plts 13. Granix administered upon admission and continued at increased dose daily per Hem/Onc recommendation which they noted they will manage. Continued on altered mechanical soft diet w/ Speech assessment w/ recommendation mechanical soft texture with nectar thick liquids with Jimenez water protocol, medications with liquids or pur?es prior, during, post with continued evaluations. Surgery evaluation performed, deferred EGD to ascertain esophageal involvement given labs secondary to risk. Planning discharge to home once appropriate elevated WBC and ANC with stable plts and hgb x 3 days per Hem/Onc recommendation with current 04/02/17 labs with worsened Plts, but stable WBC 1.6 and Hgb. Day #3 with WBC > 1.5, continue to trend and given slow improvement, hope possible discharge 04/03/17 pending repeat labs and re-evaluation per Dr. Watson. Dr. Watson noted possibility of cyclosporine usage once clinically improved. Of note 03/30/17 CBC w/ WBC 1.5, Hgb 6.8, Plts 9, initiated PRBC (4u) and Plt (2p) administration given. 04/02/17 CBC w/ WBC 1.6 , Hgb 10.4, Plts 13. 04/02/17 2 Pack additional Plts pending for transfusion given again notable decline. 04/02/17 AST/ALT 119/144, continued stable elevation , unclear specific etiology, possible secondary to abx and antifungal therapy. Patient with no acute events overnight per self and per nursing report. He continues to have improvement with odynophagia although it does tend to be worse in the mornings and improves through the day with continued usage and intake. Stressed labs this morning with decrease again in platelets with platelet pack transfusion pending, likely this afternoon secondary to shortage. Given patient continues to have WBC > 1.5 now x 3 days if repeat CBC in AM amenable and no further transfusion needs, hope for discharge to home 04/03/17. Patient denies fevers, chills, nausea, emesis, abdominal pain, chest pain or dyspnea. Objective: Physical Examination: General: awake, alert, oriented x 3 and cooperative, seated upright in bed, NAD. Skin: improved less pale color, turgor, no icterus, cyanosis. HEENT: AT/NC, EOMI, PERRLA, improved MMM, markedly improved oral and posterior OP thrush. Lungs: Diminished bases, moderate effort, no rales, ronchi or wheezing. Heart: Regular rate and rhythm; no gallop, rub audible. Abdomen: soft, NTTP, improved, less distended, normalized BS. Extremities: no cyanosis, clubbing, or edema. Neurological: patient awake, alert, oriented x 3; cognitive function intact; pupils equally reactive to light and accomodation; cranial nerves II-XII grossly normal, moving all 4 extremities, no focal deficits, strength improving , moderately globally decreased. Psychiatric: affect appears improved, no acute evidence of depressive or anxiety feelings. Vitals/I&O's: Vital Signs Temp Pulse Resp BP Pulse Ox 97.4 F L 83 16 126/74 H 99 04/02/17 03:27 04/02/17 03:27 04/02/17 03:27 04/02/17 03:27 04/02/17 03:27 Oxygen Flow Rate 2 Oxygen Delivery Method Nasal Cannula Weight: 190 lb 0.615 oz Body Mass Index (BMI) 27.2 Intake and Output for Last 24 Hours 03/31/17 04/01/17 04/02/17 23:59 23:59 23:59 Intake Total 3861 / 3861 1545 / 1545 200 / 200 Output Total 375 / 375 250 / 250 Balance 3486 / 3486 1295 / 1295 200 / 200 Laboratory Results 04/01/17 06:30: Phosphorus 2.7 04/02/17 05:51: WBC 1.6 L, RBC 3.31 L, Hgb 10.4 L, Hct 31.0 L, MCV 93.7, MCH 31.4, MCHC 33.5, RDW 18.1 H, RDW Differential 60.5 H, Plt Count Pending, Neut % (Auto) Not Reportable, Absolute Neuts (auto) Not Reportable, Total Counted Pending 04/02/17 05:51: Sodium 134 L, Potassium 4.2, Chloride 98, Carbon Dioxide 26.0, Anion Gap 10, BUN 23 H, Creatinine 0.90, Estim Creat Clear Calc 81.11, Est GFR ( MDRD) Af Amer 108, Est GFR (MDRD) Non-Af 89, BUN/Creatinine Ratio 25.5 H, Glucose 98, Calcium 8.3 L, Magnesium 2.2, Total Bilirubin 1.10 H, AST 119 H, ALT 144 H, Alkaline Phosphatase 109, Total Protein 7.6, Albumin 2.0 L, Globulin 5.6 H, Albumin/Globulin Ratio 0.4 L 04/02/17 05:51: Phosphorus 2.7 Current Medications Acetaminophen (Tylenol) 650 mg PO Q6H PRN PRN PRN Reason: fever, pain Last Admin: 04/01/17 16:37 Dose: 650 mg Amoxicillin (Amoxil 200mg/5ml Susp) 500 mg PO Q8 [facility] Stop: 04/05/17 06:38 Last Admin: 04/02/17 06:18 Dose: 500 mg Atorvastatin Calcium (Lipitor) 80 mg PO QHS [facility] Last Admin: 04/01/17 21:32 Dose: 80 mg Famotidine (Pepcid) 20 mg PO BID [facility] Last Admin: 04/01/17 21:32 Dose: 20 mg Hydralazine HCl (Apresoline) 10 mg IV Q4H PRN PRN PRN Reason: SBP > 160 Fluconazole (Diflucan) 200 mg in 100 mls @ 100 mls/hr IV Q24 [facility] Last Admin: 04/01/17 10:41 Dose: 100 mls/hr Lactobacillus Acidophilus (Acidophilus) 1 tablet PO DAILY [facility] Last Admin: 04/01/17 10:41 Dose: 1 tablet Lidocaine HCl (Xylocaine Viscous) 20 ml PO 4X/DAY PRN PRN PRN Reason: PAIN Last Admin: 04/02/17 03:35 Dose: 20 ml Magnesium Hydroxide (Milk Of Magnesia) 30 ml PO DAILY PRN PRN PRN Reason: Constipation Last Admin: 03/29/17 11:08 Dose: 30 ml Metoprolol Tartrate (Lopressor (Beta Suellen)) 12.5 mg PO BID [facility] Last Admin: 04/01/17 21:31 Dose: 12.5 mg Morphine Sulfate (Morphine) 2 mg IV Q4H PRN PRN PRN Reason: SEVERE PAIN (6-10/10) Last Admin: 04/02/17 03:36 Dose: 2 mg Nitroglycerin (Nitrostat) 0.4 mg SUBLINGUAL Q5M PRN PRN Reason: Chest Pain Nutritional Formula (Lactose Free) (Ensure Enlive) 120 ml PO 4X/DAY [facility] Last Admin: 04/01/17 21:32 Dose: 120 ml Nystatin (Nystatin) 500,000 unit PO 4X/DAY [facility] Last Admin: 04/01/17 21:31 Dose: 500,000 unit Ondansetron HCl (Zofran) 4 mg IV Q6H PRN PRN PRN Reason: NAUSEA Last Admin: 03/30/17 06:38 Dose: 4 mg Oxycodone HCl (Oxyfast) 5 mg PO Q4H PRN PRN PRN Reason: MOD-SEVERE PAIN (4-10/10) Last Admin: 04/01/17 22:10 Dose: 5 mg Phenol/Menthol (Chloraseptic (Bkc)) 5 spray MM Q2H PRN PRN PRN Reason: SORE THROAT Last Admin: 03/30/17 20:10 Dose: 5 spray Promethazine HCl (Phenergan (Ll)) 25 mg IV Q6H PRN PRN PRN Reason: NAUSEA/VOMITING Ramipril (Altace) 10 mg PO DAILY [facility] Last Admin: 04/01/17 10:41 Dose: 10 mg Senna/Docusate Sodium (Senokot-S, Anika-Colace) 2 tablet PO BID [facility] Last Admin: 04/01/17 21:32 Dose: 2 tablet Sodium Chloride () 5 - 30 ml IV UD PRN PRN Reason: SALINE FLUSH Last Admin: 04/02/17 03:36 Dose: 10 ml Tbo-Filgrastim (Granix) 480 mcg SC DAILY [facility] Last Admin: 04/01/17 10:40 Dose: 480 mcg Temazepam (Restoril) 15 mg PO QHS PRN PRN PRN Reason: insomnia Last Admin: 04/01/17 21:44 Dose: 15 mg Assessment/Plan The patient is a 66 y/o M w/ PMHx: MDS w/ Chronic Pancytopenia, HTN, HLD, CAD, Chronic Pain Syndrome who presents to the [facility] ED on 03/26/17 with sore throat, fever, noted to have Oropharyngeal candidiasis in the ED, started on nystatin S/ S with worsened swallowing. (1) Neutropenic fever secondary to Oropharyngeal Candidiasis, Possible Esophageal in addition to Alpha-Hemolytic Streptococcal Throat Infection w/ Dysphagia, Oropharyngeal: Admission T 100.1, afebrile since admission. Admission CBC w/ WBC 0.7, Hgb 8.1, Plts 22 with ANC 0, CXR w/ stable cardiomegaly w/ low volume inspiration and scarring/atelectasis L base, UA w/ no acute findings. Maintained on MS, maintain on Neutropenic precautions, maintain on fluconazole transitioned to IV and elevated dose while dsyphagia ongoing w/ plan x 21 days treatment w/ then continued treatment at least 2 weeks beyond resolution, mag and phos normal, trending CBC w/ WBC 0.7, Hgb 8.1, Plts 22 with ANC 0-->03/27/17 CBC w/ WBC 0.9, Hgb 7.4, Plts 15 with ANC 0--> CBC w/ WBC 1.5, Hgb 7.6, Plts 13 with ANC 1.9, however 03/28/17 Tm 100.8, maintained on IV meropenem until cultures result negative, throat culture w/ + strep, discussed w/ Hem/Onc and pharmacy w/ 03/30/17 transition off meropenem given all cultures negative aside candidal infection and + strep throat culture to oral amox 500 mg BID-TID x 10 days total abx duration. 03/30/17 CBC w/ WBC 1.5 , Hgb 6.8, Plts 9 thus PRBC and plts ordered-->03/31/17 CBC w/ WBC 1.7, Hgb 10, Plts 52-->04/02/17 CBC w/ WBC 1.6, Hgb 10.4, Plts 13. Granix administered upon admission and continued at increased dose daily per Hem/Onc recommendation which they noted they will manage. Continued on altered mechanical soft diet w/ Speech assessment w/ recommendation mechanical soft texture with nectar thick liquids with Jimenez water protocol, medications with liquids or pur?es prior, during, post with continued evaluations. Surgery evaluation performed, deferred EGD to ascertain esophageal involvement given labs secondary to risk. Planning discharge to home once appropriate elevated WBC and ANC with stable plts and hgb x 3 days per Hem/Onc recommendation with current 04/02/17 labs with worsened Plts, but stable WBC 1.6 and Hgb. Day #3 with WBC > 1.5, continue to trend and given slow improvement, hope possible discharge 04/03/17 pending repeat labs and re-evaluation per Dr. Watson. Dr. Watson noted possibility of cyclosporine usage once clinically improved. (2) MDS with Acute on Chronic Pancytopenia: Admission CBC w/ WBC 0.7, Hgb 8.1, Plts 22 with ANC 0-->03/27/17 CBC w/ WBC 0.9, Hgb 7.4, Plts 15 with ANC 0--> CBC w/ WBC 1.5, Hgb 6.8, Plts 9, 03/30/17 initiated PRBC (4u) and Plt (2p) administration given. 04/02/17 CBC w/ WBC 1.6, Hgb 10.4, Plts 13. 04/02/17 2 Pack additional Plts pending for transfusion given again notable decline. Continue w / goal PRBC < 7 or plts < 10,000. Patient maintained on fluconazole IV as noted above w/ 03/30/17 meropenem-->amoxicillin given source of fever. Holding revlimid during acute infectious period. (3) Elevated LFTs: Initially normal upon admission, trending upward, 03/30/17 AST/ ALT 105/122, liver US w/ nonvisualization of the pancreas, fatty infiltration of the liver without focal mass, hepatitis panel pending, 03/31/17 CMP AST/ALT 129 /139-->04/02/17 AST/ALT 119/144, unclear specific etiology, possible secondary to abx and antifungal therapy. (4) Abdominal distention, discomfort secondary to Constipation: Resolved. Transient abdominal distention and discomfort, KUB obtained and non-specific pattern, aggressive bowel regimen administered and distention, constipation resolved. (5) Hypertension: Continue home regimen including metoprolol, ANITRA inhibitor, PRN hydralazine. (6) Hyperlipidemia: Continue home statin regimen. (7) CAD: Will continue home regimen statin, BB. Holding ASA. (8) Severe Protein-Calorie Malnutrition: Evidenced per weight loss, muscle and fat loss, nutrition consulted. (9) DVT Prophylaxis: SCDs, defer chemoprophylaxis given presentation. Code Visit Inpatient E&M: 69283 Subs Hosp L2
[2017-04-02] MEDS: Acetaminophen 325 MG Tablet 650 MG PO ×2 (08:17→16:51)
[2017-04-02 08:26] LABS: Lymphocyte 72 % (19-41); Metamyelocyte 2 % (0-1); Monocyte 14 % (0-10); Neutrophil-Band 2 % (0-5); Neutrophil-Segmented 10 % (47-70); Total Cells Counted 50 (MANUAL DIFF)
[2017-04-02 08:27] LABS: Anisocytosis 1+; Hypochromasia 1+; Microcytosis 1+; Platelet Estimate MKD DEC (ADEQ); Polychromasia 1+
--- NOTE | 2017-04-02 10:22 | RAD_ITS ---
STUDY: X-RAY CHEST REASON FOR EXAM: Male, 66 years old. Fever TECHNIQUE: PA and lateral views of the chest. COMPARISON: None. FINDINGS: Lungs are adequately inflated. Diffuse interstitial prominence noted throughout the lungs, could represent pulmonary edema. Superimposed left lower lobe infiltrate. There is no demonstrated pleural abnormality. Sternal cerclage wires and vascular clips are present from a prior sternotomy and coronary artery bypass graft procedure (CABG). Mild cardiomegaly. Normal mediastinum and joseph. Normal visualized pulmonary arteries. Normal visualized aortic arch and descending thoracic aorta. Normal visualized thoracic spine. Normal visualized ribs, clavicles, and shoulders. There is no demonstrated abnormality of the visualized soft tissue structures of the upper abdomen. RAD/Chest PA and Lateral IMPRESSION: Interstitial prominence throughout the lungs suggests edema Electronically Signed: Ricky Sloan DO at 12:57 EST Tel , Service support ,
[2017-04-02] MEDS: Ramipril 10 MG Capsule PO (10:43)
[2017-04-02] MEDS: NYSTATIN 500,000 UNIT/5 ML UDC 500000 UNIT PO ×4 (10:43→21:50)
[2017-04-02] MEDS: TBO-FILGRASTIM 480 MCG/0.8 ML ML SC (10:43)
[2017-04-02] MEDS: Metoprolol Tartrate 25 MG Tablet 12.5 MG PO ×2 (10:43→21:49)
[2017-04-02] MEDS: Senna/Docusate Sodium 1 Tablet 2 TABLET PO ×2 (10:44→21:50)
[2017-04-02] MEDS: Famotidine 20 MG Tablet PO ×2 (10:44→21:50)
[2017-04-02] MEDS: oxyCODONE Soln 5 MG/0.25 ML PO.SYRINGE PO ×3 (11:08→21:50)
[2017-04-02] MEDS: Furosemide 20 MG/2 ML VIAL IV (14:15)
[2017-04-02] MEDS: Atorvastatin Calcium 80 MG Tablet PO (21:50)
[2017-04-03] VITALS (9 sets, daily range): BP systolic 107–133; BP diastolic 62–76; PULSE 84–92; RESP 18–20; TEMP 36.7–37.4; O2SAT 91–99
[2017-04-03] MEDS: Acetaminophen 325 MG Tablet 650 MG PO (04:06)
[2017-04-03] MEDS: oxyCODONE Soln 5 MG/0.25 ML PO.SYRINGE PO ×2 (04:18→12:44)
[2017-04-03 06:41] LABS: Hematocrit 27.5 % (40-54); Hemoglobin 9.2 g/dl (13.0-16.5); Mean Corp Hgb Conc 33.5 g/gl (32-36); Mean Corpuscular Hgb 31.6 pg (27.0-32.0); Mean Corpuscular Volume 94.5 fL (80-94); Mean Platelet Vol. 11.6 fl (6.2-12.0); RBC Distribution Width CV 17.2 % (11.6-14.6); RBC Distribution Width SD 56.5 fl (35.1-43.9); Red Blood Count 2.91 M/mm3 (4.6-6.2)
[2017-04-03] MEDS: Amoxicillin 200MG/5 ML Susp PO.SYRINGE 500 MG PO ×3 (06:47→21:25)
[2017-04-03 06:49] LABS: POSITIVE COUNT YES; POSITIVE DIFFERENTIAL YES; POSITIVE MORPHOLOGY YES; Platelet Count 29 K/mm3 (150-450); White Blood Count 1.1 K/mm3 (4.4-11.0)
[2017-04-03 06:54] LABS: ALB/GLOB Ratio 0.4 RATIO (0.9-2.4); AST(SGOT) 155 U/L (15-37); Alanine Aminotransfer ALT/SGPT 163 U/L (16-61); Albumin, Serum 1.9 g/dL (3.2-5.0); Alkaline Phosphatase 106 U/L (45-117); Anion Gap 8 (5-15); BUN 22 mg/dL (7-18); BUN/Creat Ratio 23.4 RATIO (10-20); Calcium,Total 8.2 mg/dL (8.5-10.1); Chloride 99 mmol/L (98-107); Creatinine, Serum 0.94 mg/dL (0.70-1.30); EST Glomerular Filtration Rate 85 mL/min (>60); Est Glom Filt Rate - Afr Amer 102 mL/min (>60); Estimated Creatinine Clearance 77.66 ml/min; Globulin 5.4 g/dL (2.2-4.2); Glucose 103 mg/dL (74-106); Magnesium 2.2 mg/dL (1.6-2.6); Potassium 3.9 mmol/L (3.5-5.1); Protein, Total 7.3 g/dL (6.4-8.2); Sodium Level 133 mmol/L (136-145)
[2017-04-03 06:56] LABS: Absolute Lymphocyte Count 0.69 X10^3/ul (0.83-4.51); Basophil% 8.5 % (0-1); Differential Indicated SCAN CRITERIA MET; Eosinophils% 1.9 % (0-5); Lymphocyte # 0.69 X10^3/ul (4.0); Lymphocyte % 65.1 % (19-41); Monocyte% 24.5 % (0-10)
[2017-04-03 06:57] LABS: Basophil# 0.09 X10^3/uL; Eosinophil# 0.02 X10^3/uL; Monocyte# 0.26 X10^3/uL
[2017-04-03 06:58] LABS: Differential Comment SCANNED; Platelet Estimate MKD DEC (ADEQ)
[2017-04-03 07:00] LABS: Rouleaux 1+
--- NOTE | 2017-04-03 08:35 | PCM.PROGNOTE ---
Subjective: Chief complaint: Follow-up after admission for neutropenic fever, severe thrombocytopenia, oropharyngeal and possible esophageal candidiasis with dysphagia as well as elevated LFTs. Patient seen and examined. No acute events overnight. Today, he denies any significant symptoms. He reported improvement of his sore throat and pain upon swallowing. He has been able to eat and drink. Denied chest pain or shortness of breath. Denied abdominal pain, nausea vomiting. He is still having spikes of low-grade fever, other vital signs are stable. - Physical Exam General: Alert, Oriented x3, Cooperative HEENT: Atraumatic, PERRLA, EOMI Oral: Moist Mucosa, No Gingival or Mucosal Lesions/ Ulcerations Neck: Supple, No JVD, Negative Carotid Bruits, Trachea Midline, Thyroid Normal Size and Texture Lungs: Clear to auscultation, No rhonchi, No wheeze, No rales, Diminished Cardiovascular: Regular rate, Regular Rhythm, Normal S1, Normal S2, PMI Normal Abdomen: Bowel Sounds Present, Soft, Non Tender, No Hepato-splenomegaly, Distended Extremities: No clubbing, No cyanosis, No edema Skin: No rashes, No breakdown Lymphatic: No Cervical, Supraclavicular, or Inguinal Adenopathy Neurological: Cranial nerves II-XII grossly intact, Motor Exam 5/5 strength throughout Psych/Mental Status: Normal Affect, Appropriate, Alert and oriented to time, place, person, mood and affect Vital Signs Temp Pulse Resp BP Pulse Ox 98.1 F 91 18 107/63 94 04/03/17 07:00 04/03/17 04:00 04/03/17 04:00 04/03/17 04:00 04/03/17 07:00 Oxygen Flow Rate 2 Oxygen Delivery Method Nasal Cannula Weight: 190 lb 0.615 oz Body Mass Index (BMI) 27.2 Intake and Output for Last 24 Hours 04/01/17 04/02/17 04/03/17 23:59 23:59 23:59 Intake Total 1545 / 1545 1550 / 1550 605 / 605 Output Total 250 / 250 0 / 0 Balance 1295 / 1295 1550 / 1550 605 / 605 Laboratory Tests Past 24 Hrs 03/30/17 04/02/17 04/02/17 07:12 05:51 08:28 WBC 1.6 L RBC 3.31 L Hgb 10.4 L Hct 31.0 L MCV 93.7 MCH 31.4 MCHC 33.5 RDW 18.1 H RDW Differential 60.5 H Plt Count 13 L* MPV Neut % (Auto) Lymph % (Auto) [place] % (Auto) Eos % (Auto) Baso % (Auto) Absolute Neuts (auto) Absolute Lymphs (auto) Total Counted 50 Neutrophils % (Manual) 10 L Band Neutrophils % 2 Lymphocytes % (Manual) 72 H* Monocytes % (Manual) 14 H Metamyelocytes % 2 H Differential Comment Diff Path Review May foll Platelet Estimate MKD DEC Polychromasia 1+ Hypochromasia 1+ Anisocytosis 1+ Microcytosis 1+ Rouleaux Sodium Potassium Chloride Carbon Dioxide Anion Gap BUN Creatinine Estim Creat Clear Calc Est GFR (MDRD) Af Amer Est GFR (MDRD) Non-Af BUN/Creatinine Ratio Glucose Calcium Phosphorus Magnesium Total Bilirubin AST ALT Alkaline Phosphatase Total Protein Albumin Globulin Albumin/Globulin Ratio Blood Type O POSITIVE Crossmatch See Detail 04/03/17 04/03/17 05:48 05:48 WBC 1.1 L* RBC 2.91 L Hgb 9.2 L Hct 27.5 L MCV 94.5 H MCH 31.6 MCHC 33.5 RDW 17.2 H RDW Differential 56.5 H Plt Count 29 L* MPV 11.6 Neut % (Auto) 0.0 L Lymph % (Auto) 65.1 H [place] % (Auto) 24.5 H Eos % (Auto) 1.9 Baso % (Auto) 8.5 H Absolute Neuts (auto) 0.0 L Absolute Lymphs (auto) 0.69 L Total Counted Not Reportable Neutrophils % (Manual) Band Neutrophils % Lymphocytes % (Manual) Monocytes % (Manual) Metamyelocytes % Differential Comment SCANNED Diff Path Review May foll Platelet Estimate MKD DEC Polychromasia Hypochromasia Anisocytosis Microcytosis Rouleaux 1+ Sodium 133 L Potassium 3.9 Chloride 99 Carbon Dioxide 26.0 Anion Gap 8 BUN 22 H Creatinine 0.94 Estim Creat Clear Calc 77.66 Est GFR (MDRD) Af Amer 102 Est GFR (MDRD) Non-Af 85 BUN/Creatinine Ratio 23.4 H Glucose 103 Calcium 8.2 L Phosphorus 4.0 Magnesium 2.2 Total Bilirubin 1.00 AST 155 H ALT 163 H Alkaline Phosphatase 106 Total Protein 7.3 Albumin 1.9 L Globulin 5.4 H Albumin/Globulin Ratio 0.4 L Blood Type Crossmatch Assessment/Plan This is a 66 years old male patient presented to the emergency room because of sore throat, painful swallowing and fever and he was found to have neutropenic fever, oropharyngeal candidiasis as well as possible esophageal candidiasis, found to have severe thrombocytopenia requiring platelet transfusion. #1 neutropenic fever: Secondary to oropharyngeal candidiasis. He is on oral amoxicillin and IV fluconazole. Also, he is on subcu filgrastim. Today's total white blood cell count is 1100 and absolute neutrophil count still 0. He is still having spikes of low-grade fever. Blood culture showed no growth in 5 days. Urine culture showed no growth. Respiratory panel for viruses were negative. Urine culture were negative. Nasal swab for influenza a and B were negative. Oncology on the case, plan to continue same treatment, repeat CBC tomorrow morning. #2 oropharyngeal/possible esophageal candidiasis: He is on IV fluconazole and oral nystatin. Reported improvement of his sore throat and chest discomfort upon swallowing. Plan to continue same treatment. 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 He is on subcu clinics as mentioned above. Total white blood cell count and absolute neutrophil count are still very low. Today's platelet count is 29,000, he received total of 4 units of platelets. No evidence of active bleeding. Today's hemoglobin is 9.2 g/dL. He received total of 4 units of packed RBCs. Plan to repeat CBC tomorrow as mentioned above. #4 elevated liver transaminases: Could be due to Revlimid in addition to side effects of antifungal medications. Total bilirubin and alkaline phosphatase are normal. Liver transaminases are trending up. Plan to monitor. #5 hypertension: Blood pressure stable, continue ramipril and metoprolol, continue IV hydrazine as needed #6 hyperlipidemia: Continue statins. #6 CAD: Stable, no acute issues. Continue statins, due to blockers and Altace. #7 severe protein calorie malnutrition: Nutrition consulted. #8 DVT prophylaxis: SCDs. This note was generated with [employer] software. It may contain incorrect words, spelling, and punctuation that were not noted in checking the note before signing. Code Visit Inpatient E&M: 71076 Subs Hosp L2
[2017-04-03] MEDS: Famotidine 20 MG Tablet PO ×2 (09:35→21:26)
[2017-04-03] MEDS: Ramipril 10 MG Capsule PO (09:35)
[2017-04-03] MEDS: Metoprolol Tartrate 25 MG Tablet 12.5 MG PO ×2 (09:35→21:27)
[2017-04-03] MEDS: Senna/Docusate Sodium 1 Tablet 2 TABLET PO ×2 (09:35→21:26)
[2017-04-03] MEDS: NYSTATIN 500,000 UNIT/5 ML UDC 500000 UNIT PO ×4 (09:36→21:27)
[2017-04-03] MEDS: 0.9% NaCl Peripheral Flush Adult/Peds IV ×2 (09:36→22:09)
[2017-04-03] MEDS: TBO-FILGRASTIM 480 MCG/0.8 ML ML SC (09:36)
[2017-04-03 15:06] LABS: Pathologist Review Reviewed
[2017-04-03 15:10] LABS: Pathologist Review Reviewed
--- NOTE | 2017-04-03 17:01 | PCM.PN.BLA ---
Progress Note Subjective: Pt seen at bedside, still does not feel well. Objective: afebrile. Mouth: no thrush. Labs: ANC 0. ASS: MDS, agranulocytopenia. Suggestion: Bone marrow biopsy. Code Visit Inpatient E&M: 82757 Subs Hosp L1
--- NOTE | 2017-04-03 17:12 | PN_ITS ---
Progress Note Subjective: Pt seen at bedside, still does not feel well. Objective: afebrile. Mouth: no thrush. Labs: ANC 0. ASS: MDS, agranulocytopenia. Suggestion: Bone marrow biopsy. Code Visit Inpatient E&M: 00162 Subs Hosp L1
[2017-04-03] MEDS: Sodium Chloride 0.65% 1 SPRAY SPRAY.BTL 2 SPRAY NASAL (17:24)
[2017-04-03] MEDS: Atorvastatin Calcium 80 MG Tablet PO (21:27)
[2017-04-03] MEDS: Temazepam 15 MG Capsule PO (21:52)
[2017-04-04] VITALS (11 sets, daily range): BP systolic 115–136; BP diastolic 68–76; PULSE 66–101; RESP 16–18; TEMP 36.4–38.4; O2SAT 91–98
[2017-04-04 06:15] LABS: Absolute Lymphocyte Count 0.54 X10^3/ul (0.83-4.51); Basophil# 0.06 X10^3/uL; Basophil% 7.5 % (0-1); Eosinophil# 0.01 X10^3/uL; Eosinophils% 1.3 % (0-5); Hematocrit 27.9 % (40-54); Hemoglobin 9.3 g/dl (13.0-16.5); Lymphocyte # 0.54 X10^3/ul (4.0); Lymphocyte % 67.4 % (19-41); Mean Corp Hgb Conc 33.3 g/gl (32-36); Mean Platelet Vol. 11.6 fl (6.2-12.0); Monocyte# 0.19 X10^3/uL; Monocyte% 23.8 % (0-10); RBC Distribution Width CV 17.1 % (11.6-14.6); RBC Distribution Width SD 56.8 fl (35.1-43.9)
[2017-04-04 06:21] LABS: White Blood Count 0.8 K/mm3 (4.4-11.0)
[2017-04-04 06:22] LABS: Differential Indicated SCAN CRITERIA MET; POSITIVE COUNT YES; POSITIVE DIFFERENTIAL YES; POSITIVE MORPHOLOGY YES; Platelet Count 18 K/mm3 (150-450)
[2017-04-04 06:27] LABS: Phosphorus 3.7 mg/dL (2.5-4.9)
[2017-04-04 06:32] LABS: Differential Comment SCANNED
[2017-04-04] MEDS: Amoxicillin 200MG/5 ML Susp PO.SYRINGE 500 MG PO ×3 (06:49→21:14)
[2017-04-04] MEDS: oxyCODONE Soln 5 MG/0.25 ML PO.SYRINGE PO ×3 (08:31→21:15)
--- NOTE | 2017-04-04 08:53 | PN_ITS ---
Subjective: Chief complaint: Follow-up after admission for neutropenic fever, pancytopenia, oropharyngeal and possible esophageal candidiasis with dysphagia as well as elevated LFT. Patient seen and examined. No acute events overnight. This morning, he complained of weakness and fatigue. Also, he complained of cough with minimal sputum. According to his , he has couple of episodes of diarrhea last night as well as this morning with watery stool. He has been afebrile overnight, other vital signs are stable. - Physical Exam General: Alert, Oriented x3, Cooperative, No apparent distress HEENT: Atraumatic, PERRLA, EOMI Oral: Moist Mucosa, No Gingival or Mucosal Lesions/ Ulcerations Neck: Supple, No JVD, Negative Carotid Bruits, Trachea Midline, Thyroid Normal Size and Texture Lungs: Clear to auscultation, No rhonchi, No wheeze, No rales, Diminished Cardiovascular: Regular rate, Regular Rhythm, Normal S1, Normal S2, PMI Normal Abdomen: Bowel Sounds Present, Soft, Non Tender, Non-Distended, No Hepato- splenomegaly Extremities: No clubbing, No cyanosis, No edema Skin: No rashes, No breakdown Lymphatic: No Cervical, Supraclavicular, or Inguinal Adenopathy Neurological: Cranial nerves II-XII grossly intact, Motor Exam 5/5 strength throughout Psych/Mental Status: Normal Affect, Appropriate, Alert and oriented to time, place, person, mood and affect Vital Signs Temp Pulse Resp BP Pulse Ox 97.6 F L 95 18 116/74 93 04/04/17 08:19 04/04/17 08:19 04/04/17 08:19 04/04/17 08:19 04/04/17 08:19 Oxygen Flow Rate 2 Oxygen Delivery Method Room Air Weight: 190 lb 0.615 oz Body Mass Index (BMI) 27.2 Intake and Output for Last 24 Hours 04/02/17 04/03/17 04/04/17 23:59 23:59 23:59 Intake Total 1550 / 1550 1585 / 1585 360 / 360 Output Total 0 / 0 Balance 1550 / 1550 1585 / 1585 360 / 360 Laboratory Tests Past 24 Hrs 04/01/17 04/02/17 04/04/17 06:30 05:51 05:40 WBC RBC Hgb Hct MCV MCH MCHC RDW RDW Differential Plt Count MPV Immature Gran % (Auto) Neut % (Auto) Lymph % (Auto) [place] % (Auto) Eos % (Auto) Baso % (Auto) Absolute Neuts (auto) Absolute Lymphs (auto) Total Counted Differential Comment Diff Path Review Reviewed Reviewed Phosphorus 3.7 Magnesium 2.0 04/04/17 05:40 WBC 0.8 L* RBC 3.00 L Hgb 9.3 L Hct 27.9 L MCV 93.0 MCH 31.0 MCHC 33.3 RDW 17.1 H RDW Differential 56.8 H Plt Count 18 L* MPV 11.6 Immature Gran % (Auto) 0.000 Neut % (Auto) 0.0 L Lymph % (Auto) 67.4 H [place] % (Auto) 23.8 H Eos % (Auto) 1.3 Baso % (Auto) 7.5 H Absolute Neuts (auto) 0.0 L Absolute Lymphs (auto) 0.54 L Total Counted Not Reportable Differential Comment SCANNED Diff Path Review May foll Phosphorus Magnesium Assessment/Plan This is a 66 years old male patient presented to the emergency room because of sore throat, painful swallowing and fever and he was found to have neutropenic fever, oropharyngeal candidiasis as well as possible esophageal candidiasis, found to have severe thrombocytopenia requiring platelet transfusion. 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 Remained on oral amoxicillin and IV fluconazole. Also, he is on subcu filgrastim. Today's total white blood cell count is 800 and absolute neutrophil count still 0. Has been afebrile overnight. Blood culture showed no growth in 5 days. Urine culture showed no growth. Respiratory panel for viruses were negative. Urine culture were negative. Nasal swab for influenza a and B were negative. Oncology suggested ???bone marrow biopsy. I spoke with and he recommended to have his platelet count at least above 50,000 to be able to do the bone marrow biopsy. Plan to give 2 units of plateletpheresis today, repeat pro time, INR and PTT tomorrow morning and CT-guided bone marrow biopsy tomorrow if feasible. #2 oropharyngeal/possible esophageal candidiasis: He is on IV fluconazole and oral nystatin. Reported improvement of his sore throat and chest discomfort upon swallowing. Plan to continue same treatment. 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 He is on subcu Granix as mentioned above. Total white blood cell count and absolute neutrophil count are still very low. Today's platelet count is 18,000, he received total of 4 units of platelets. No evidence of active bleeding. Today' s hemoglobin is 9.3 g/dL. He received total of 4 units of packed RBCs. Plan: Transfuse 2 units of plateletpheresis today, repeat pro time, INR and PTT tomorrow morning, plan for bone marrow biopsy tomorrow. #4 elevated liver transaminases: Could be due to Revlimid in addition to side effects of antifungal medications. Total bilirubin and alkaline phosphatase are normal. Liver transaminases are trending up. Plan to monitor. #5 hypertension: Blood pressure stable, continue ramipril and metoprolol, continue IV hydrazine as needed #6 hyperlipidemia: Continue statins. #6 CAD: Stable, no acute issues. Continue statins, due to beta blockers and Altace. #7 severe protein calorie malnutrition: Nutrition consulted. #8 DVT prophylaxis: SCDs. This note was generated with [employer] software. It may contain incorrect words, spelling, and punctuation that were not noted in checking the note before signing. Code Visit Inpatient E&M: 33538 Subs Hosp L2
[2017-04-04] MEDS: TBO-FILGRASTIM 480 MCG/0.8 ML ML SC (10:25)
[2017-04-04] MEDS: 0.9% NaCl Peripheral Flush Adult/Peds IV ×2 (10:25→15:01)
[2017-04-04] MEDS: Ramipril 10 MG Capsule PO (10:27)
[2017-04-04] MEDS: Metoprolol Tartrate 25 MG Tablet 12.5 MG PO ×2 (10:27→21:16)
[2017-04-04] MEDS: NYSTATIN 500,000 UNIT/5 ML UDC 500000 UNIT PO ×4 (10:27→21:15)
[2017-04-04] MEDS: Famotidine 20 MG Tablet PO ×2 (10:28→21:16)
[2017-04-04] MEDS: guaiFENesin/Codeine 5 ML UDC 10 ML PO ×2 (11:58→18:02)
--- NOTE | 2017-04-04 12:46 | PCM.PROGNOTE ---
- Physical Exam Vital Signs Temp Pulse Resp BP Pulse Ox 97.6 F L 95 18 116/74 93 04/04/17 08:19 04/04/17 10:27 04/04/17 08:19 04/04/17 10:27 04/04/17 08:19 Oxygen Flow Rate 2 Oxygen Delivery Method Room Air Weight: 86.2 kg Body Mass Index (BMI) 27.2 Intake and Output for Last 24 Hours 04/02/17 04/03/17 04/04/17 23:59 23:59 23:59 Intake Total 1550 / 1550 1585 / 1585 940 / 940 Output Total 0 / 0 Balance 1550 / 1550 1585 / 1585 940 / 940 Laboratory Tests Past 24 Hrs 04/01/17 04/02/17 04/04/17 06:30 05:51 05:40 WBC RBC Hgb Hct MCV MCH MCHC RDW RDW Differential Plt Count MPV Immature Gran % (Auto) Neut % (Auto) Lymph % (Auto) [place] % (Auto) Eos % (Auto) Baso % (Auto) Absolute Neuts (auto) Absolute Lymphs (auto) Total Counted Differential Comment Diff Path Review Reviewed Reviewed Phosphorus 3.7 Magnesium 2.0 04/04/17 05:40 WBC 0.8 L* RBC 3.00 L Hgb 9.3 L Hct 27.9 L MCV 93.0 MCH 31.0 MCHC 33.3 RDW 17.1 H RDW Differential 56.8 H Plt Count 18 L* MPV 11.6 Immature Gran % (Auto) 0.000 Neut % (Auto) 0.0 L Lymph % (Auto) 67.4 H [place] % (Auto) 23.8 H Eos % (Auto) 1.3 Baso % (Auto) 7.5 H Absolute Neuts (auto) 0.0 L Absolute Lymphs (auto) 0.54 L Total Counted Not Reportable Differential Comment SCANNED Diff Path Review May foll Phosphorus Magnesium
[2017-04-04 14:46] LABS: Pathologist Review Reviewed
[2017-04-04 14:52] LABS: Pathologist Review Reviewed
[2017-04-04] MEDS: Phenol/Sodium Phenolate 180ML 5 SPRAY MM (16:20)
[2017-04-04] MEDS: Acetaminophen 325 MG Tablet 650 MG PO (18:27)
[2017-04-04] MEDS: Temazepam 15 MG Capsule PO (21:15)
[2017-04-04] MEDS: Atorvastatin Calcium 80 MG Tablet PO (21:15)
[2017-04-05] VITALS (8 sets, daily range): BP systolic 124–147; BP diastolic 75–87; PULSE 95–103; RESP 16–20; TEMP 36.6–38.3; O2SAT 85–100
[2017-04-05] MEDS: guaiFENesin/Codeine 5 ML UDC 10 ML PO ×2 (02:08→10:34)
[2017-04-05] MEDS: Acetaminophen 325 MG Tablet 650 MG PO ×2 (02:09→21:18)
[2017-04-05] MEDS: oxyCODONE Soln 5 MG/0.25 ML PO.SYRINGE PO ×3 (05:17→16:48)
[2017-04-05] MEDS: Amoxicillin 200MG/5 ML Susp PO.SYRINGE 500 MG PO (05:17)
[2017-04-05 06:46] LABS: Basophil# 0.06 X10^3/uL; Basophil% 8.3 % (0-1); Eosinophil# 0.01 X10^3/uL; Eosinophils% 1.4 % (0-5); Hematocrit 26.9 % (40-54); Hemoglobin 8.9 g/dl (13.0-16.5); Lymphocyte % 69.5 % (19-41); Mean Corp Hgb Conc 33.1 g/gl (32-36); Mean Corpuscular Hgb 31.6 pg (27.0-32.0); Mean Corpuscular Volume 95.4 fL (80-94); Mean Platelet Vol. 10.2 fl (6.2-12.0); Monocyte# 0.15 X10^3/uL; Monocyte% 20.8 % (0-10); Platelet Count 43 K/mm3 (150-450); RBC Distribution Width CV 16.7 % (11.6-14.6); RBC Distribution Width SD 54.5 fl (35.1-43.9); Red Blood Count 2.82 M/mm3 (4.6-6.2); White Blood Count 0.7 K/mm3 (4.4-11.0)
[2017-04-05 06:49] LABS: International Normalized Ratio 1.3; Prothrombin Time (Protime)PT. 15.7 SECONDS (11.7-14.9)
[2017-04-05 06:50] LABS: Partial Thromboplast Time 33.6 Seconds (24.1-36.2)
[2017-04-05 07:07] LABS: POSITIVE COUNT YES; POSITIVE DIFFERENTIAL YES; POSITIVE MORPHOLOGY YES
--- NOTE | 2017-04-05 08:12 | PCM.PROGNOTE ---
Subjective: Chief complaint: Follow-up after admission for neutropenic fever, pancytopenia, oropharyngeal and possible esophageal candidiasis with dysphagia as well as elevated LFT. Patient seen and examined. No acute events overnight. Today, he complained of weakness, otherwise no significant complaints. He is still having spikes of low-grade fever, other vital signs are stable. - Physical Exam General: Alert, Oriented x3, Cooperative, No apparent distress HEENT: Atraumatic, PERRLA, EOMI Oral: Moist Mucosa, No Gingival or Mucosal Lesions/ Ulcerations Neck: Supple, No JVD, Negative Carotid Bruits Lungs: Clear to auscultation, No rhonchi, No wheeze, No rales, Diminished Cardiovascular: Regular rate, Regular Rhythm, Normal S1, Normal S2, PMI Normal Abdomen: Bowel Sounds Present, Soft, Non Tender, Non-Distended, No Hepato-splenomegaly Extremities: No clubbing, No cyanosis, No edema Skin: No rashes, No breakdown Lymphatic: No Cervical, Supraclavicular, or Inguinal Adenopathy Neurological: Cranial nerves II-XII grossly intact, Motor Exam 5/5 strength throughout Psych/Mental Status: Normal Affect, Appropriate Vital Signs Temp Pulse Resp BP Pulse Ox 99.6 F H 99 18 138/79 H 100 04/05/17 02:35 04/05/17 02:35 04/05/17 02:35 04/05/17 02:35 04/05/17 02:35 Oxygen Flow Rate 2 Oxygen Delivery Method Nasal Cannula Weight: 190 lb 0.615 oz Body Mass Index (BMI) 27.2 Intake and Output for Last 24 Hours 04/03/17 04/04/17 04/05/17 23:59 23:59 23:59 Intake Total 1585 / 1585 1380 / 1380 240 / 240 Output Total 0 / 0 Balance 1585 / 1585 1380 / 1380 240 / 240 Laboratory Tests Past 24 Hrs 04/03/17 04/04/17 04/05/17 05:48 05:40 06:05 WBC 0.7 L* RBC 2.82 L Hgb 8.9 L Hct 26.9 L MCV 95.4 H MCH 31.6 MCHC 33.1 RDW 16.7 H RDW Differential 54.5 H Plt Count 43 L* MPV 10.2 Neut % (Auto) 0.0 L Lymph % (Auto) 69.5 H [place] % (Auto) 20.8 H Eos % (Auto) 1.4 Baso % (Auto) 8.3 H Absolute Neuts (auto) 0.0 L Absolute Lymphs (auto) 0.50 L Total Counted Pending Diff Path Review Reviewed Reviewed PT INR APTT 04/05/17 06:05 WBC RBC Hgb Hct MCV MCH MCHC RDW RDW Differential Plt Count MPV Neut % (Auto) Lymph % (Auto) [place] % (Auto) Eos % (Auto) Baso % (Auto) Absolute Neuts (auto) Absolute Lymphs (auto) Total Counted Diff Path Review PT 15.7 H INR 1.3 APTT 33.6 Assessment/Plan This is a 66 years old male patient presented to the emergency room because of sore throat, painful swallowing and fever and he was found to have neutropenic fever, oropharyngeal candidiasis as well as possible esophageal candidiasis, found to have severe thrombocytopenia requiring platelet transfusion. #1 neutropenic fever: Remained on IV fluconazole, oral amoxicillin discontinued. 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 Also, he is on subcu filgrastim. Today's total white blood cell count is 700 and absolute neutrophil count still 0. Started to have spikes of low-grade fever again. Blood culture showed no growth in 5 days. Urine culture showed no growth. Respiratory panel for viruses were negative. Urine culture were negative. Nasal swab for influenza a and B were negative. Today's platelet count is 43,000. Plan for bone marrow biopsy if okay with radiology, will transfuse 1 more unit of platelet apheresis. #2 oropharyngeal/possible esophageal candidiasis: He is on IV fluconazole and oral nystatin. Reported improvement of his sore throat and chest discomfort upon swallowing. Plan to continue same treatment. 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 He is on subcu Granix as mentioned above. Total white blood cell count and absolute neutrophil count are still very low. Today's platelet count is 43,000 after he received 2 units of platelets a phasic yesterday. No evidence of active bleeding. Today's hemoglobin is 8.9 g/dL. He received total of 4 units of packed RBCs. Plan: Diffuse 1 more unit of platelet apheresis, bone marrow biopsy today. #4 elevated liver transaminases: Could be due to Revlimid in addition to side effects of antifungal medications. Total bilirubin and alkaline phosphatase are normal. Liver transaminases are trending up. Plan to monitor. #5 hypertension: Blood pressure stable, continue ramipril and metoprolol, continue IV hydrazine as needed #6 hyperlipidemia: Continue statins. #6 CAD: Stable, no acute issues. Continue statins, due to beta blockers and Altace. #7 severe protein calorie malnutrition: Nutrition recommendations reviewed. #8 DVT prophylaxis: SCDs. This note was generated with [employer] dictation software. It may contain incorrect words, spelling, and punctuation that were not noted in checking the note before signing. Code Visit Inpatient E&M: 24527 Subs Hosp L2
[2017-04-05 08:54] LABS: Differential Indicated SCAN CRITERIA MET
[2017-04-05 08:55] LABS: Platelet Estimate MKD DEC (ADEQ)
[2017-04-05 08:56] LABS: Anisocytosis 1+
--- NOTE | 2017-04-05 08:58 | NURSING ---
LAB CALLED WITH CRITICAL LAB WITH PT'S WBC AND PLT COUNT - DR DAVIS ALREADY AWARE-
[2017-04-05] MEDS: Metoprolol Tartrate 25 MG Tablet 12.5 MG PO ×2 (10:31→21:17)
[2017-04-05] MEDS: Ramipril 10 MG Capsule PO (10:31)
[2017-04-05] MEDS: TBO-FILGRASTIM 480 MCG/0.8 ML ML SC (10:31)
[2017-04-05] MEDS: Famotidine 20 MG Tablet PO ×2 (10:32→21:17)
[2017-04-05] MEDS: Senna/Docusate Sodium 1 Tablet 2 TABLET PO ×2 (10:32→21:16)
[2017-04-05] MEDS: NYSTATIN 500,000 UNIT/5 ML UDC 500000 UNIT PO ×4 (10:34→21:20)
[2017-04-05] MEDS: Atorvastatin Calcium 80 MG Tablet PO (21:18)
[2017-04-06] VITALS (12 sets, daily range): BP systolic 125–145; BP diastolic 60–86; PULSE 88–101; RESP 14–20; TEMP 36.6–37.3; O2SAT 91–96
--- NOTE | 2017-04-06 | IMM_PTH ---
PATIENT: LUIS MELGAR LOC: MS2 U#:[id number] AGE/SX: 66/M ROOM: [facility] [place]12 RE03/26/[address]: Dr. Penelope Cordoba MD : [id number] BED: 1 DIS: 04/08/2017 SPEC #: [id number] RECD: 04/11/17 10:35 STATUS: SHI REQ #: [id number] CONSTANCE: 04/06/17 00:[address]: Penelope Cordoba DEPT: IMMUNOHISTOCHEMISTRY RECD BY: Cori Fitzgerald ENTERED: 04/11/17 10:36 SP TYPE: IMMUNO OTHR DR: MD Dr. Ochoa Espinosa DO Dr. Liza D Talampas, MD Dr. Mansour Isckarus, MD Dr. Tamera Robotham, MD Tissues: B - Bone marrow of iliac crest Procedures: CD138 (add) CD20 (add) CD3 (add) CD34 (add) CD45 (add) CD5 (add) CD79A (add) MPO (add) Pankeratin (add) CD56 (initial) PHYSICIAN & [place] [phone] SPECIMEN INFORMATION: Tissue Source: B ? Bone marrow clot Clinical Info: MDS, agranulocytosis, rule out leukemia Specimen Number: [id number] CPT code: 05029, 19153 x9 METHODOLOGY: Deparaffinized sections of prefer/formalin-fixed tissue or PAP/DQ stained slides are incubated with monoclonal/polyclonal antibodies/oligonucleotide probes. Localization is made via biotin free immunoperoxidase method. Appropriate controls are performed and reacted as expected. Results on target cell population are indicated in the following table: RESULTS: ANTIBODY / CLONE RESULT Block B CD56 (123C3.D5) negative MPO (polyclonal) positive CD34 (QBEnd-10) positive, 5% AE1-3 (AE1/AE3/PCK26) negative CD3 (PS1) negative CD5 (SP10) negative CD20 (L26) negative CD45 (RP2/18) positive CD79a (11E3) negative CD138 (B-A38) negative These tests were developed and their performance characteristics determined by [facility]. They may not have been cleared or approved by the U.S. Food and Drug Administration. The FDA has determined that such clearance or approval is not necessary. INTERPRETATION: B. Bone marrow clot: 5% myeloblasts consistent with myelodysplasia with increased blast population. AM:sergey 04/13/17
[2017-04-06] MEDS: guaiFENesin/Codeine 5 ML UDC 10 ML PO ×2 (03:33→15:21)
[2017-04-06] MEDS: 0.9% NaCl Peripheral Flush Adult/Peds IV ×3 (05:46→20:34)
--- NOTE | 2017-04-06 08:17 | PN_ITS ---
Subjective: Chief complaint: Follow-up after admission for neutropenic fever, pancytopenia, oropharyngeal and possible esophageal candidiasis with dysphagia as well as elevated LFT. Patient seen and examined. No acute events overnight. This morning, he complained of stuffy and dry nose. He had spike a fever last night, other vital signs are stable. - Physical Exam General: Alert, Oriented x3, Cooperative, No apparent distress HEENT: Atraumatic, PERRLA, EOMI Oral: Moist Mucosa, No Gingival or Mucosal Lesions/ Ulcerations Neck: Supple, No JVD, Negative Carotid Bruits, Trachea Midline, Thyroid Normal Size and Texture Lungs: Clear to auscultation, No wheeze, No rales, Diminished, Rhonchi Cardiovascular: Regular rate, Regular Rhythm, Normal S1, Normal S2, No murmurs Abdomen: Bowel Sounds Present, Soft, Non Tender, Non-Distended, No Hepato- splenomegaly Extremities: No clubbing, No cyanosis, No edema Skin: No rashes, No breakdown Lymphatic: No Cervical, Supraclavicular, or Inguinal Adenopathy Neurological: Cranial nerves II-XII grossly intact, Neuro grossly intact Psych/Mental Status: Normal Affect, Appropriate Vital Signs Temp Pulse Resp BP Pulse Ox 98.3 F 90 14 126/60 H 91 04/06/17 05:56 04/06/17 05:56 04/06/17 05:56 04/06/17 05:56 04/06/17 06:57 Oxygen Flow Rate 3 Oxygen Delivery Method Nasal Cannula Weight: 190 lb 0.615 oz Body Mass Index (BMI) 27.2 Intake and Output for Last 24 Hours 04/04/17 04/05/17 04/06/17 23:59 23:59 23:59 Intake Total 1380 / 1380 480 / 480 600 / 600 Balance 1380 / 1380 480 / 480 600 / 600 Laboratory Tests Past 24 Hrs 04/05/17 04/05/17 06:05 09:25 Total Counted Not Reportable Diff Path Review May foll Platelet Estimate MKD DEC Anisocytosis 1+ Blood Type O POSITIVE Assessment/Plan This is a 66 years old male patient presented to the emergency room because of sore throat, painful swallowing and fever and he was found to have neutropenic fever, oropharyngeal candidiasis as well as possible esophageal candidiasis, found to have severe thrombocytopenia requiring platelet transfusion. #1 neutropenic fever: Remained on IV fluconazole, oral amoxicillin discontinued. Also, he is on subcu filgrastim. Today's CBC is pending and to be done after platelet transfusion. From yesterday, absolute neutrophil count remained 0. Patient still having spikes of fever. Blood culture showed no growth in 5 days. Urine culture showed no growth. Respiratory panel for viruses were negative. Urine culture were negative. Nasal swab for influenza a and B were negative. Plan for bone marrow biopsy today hoping platelet count is above 50,000. #2 oropharyngeal/possible esophageal candidiasis: He is on IV fluconazole and oral nystatin. Has been able to drink and eat, swallowing is less painful. He is improving. Plan to continue same treatment. 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 He is on subcu Granix as mentioned above. CBC from today is pending. She received 1 unit of platelets apheresis this morning, plan to repeat CBC at this time and bone marrow biopsy today. No evidence of active bleeding. Yesterday's hemoglobin is 8.9 g/dL. He received total of 4 units of packed RBCs. Plan: Bone marrow biopsy today. #4 elevated liver transaminases: Could be due to Revlimid in addition to side effects of antifungal medications. Total bilirubin and alkaline phosphatase are normal. Liver transaminases are trending up. Plan to monitor. #5 hypertension: Blood pressure stable, continue ramipril and metoprolol, continue IV hydrazine as needed #6 hyperlipidemia: Continue statins. #6 CAD: Stable, no acute issues. Continue statins, due to beta blockers and Altace. #7 severe protein calorie malnutrition: Nutrition recommendations reviewed. #8 DVT prophylaxis: SCDs. This note was generated with [employer] dictation software. It may contain incorrect words, spelling, and punctuation that were not noted in checking the note before signing. Code Visit Inpatient E&M: 22331 Subs Hosp L2
--- NOTE | 2017-04-06 08:18 | NURSING ---
Spoke with Farzana at [facility] per Dr. Cordoba's request. Aware that no notes have been entered since 04/03/17 from oncology. Farzana states she will speak to Dr. Watson today about seeing pt and entering progress note today.
[2017-04-06 09:00] LABS: Absolute Lymphocyte Count 0.58 X10^3/ul (0.83-4.51); Basophil# 0.05 X10^3/uL; Basophil% 6.7 % (0-1); Hematocrit 26.5 % (40-54); Hemoglobin 8.8 g/dl (13.0-16.5); Lymphocyte # 0.58 X10^3/ul (4.0); Lymphocyte % 77.3 % (19-41); Mean Corp Hgb Conc 33.2 g/gl (32-36); Mean Corpuscular Hgb 31.1 pg (27.0-32.0); Mean Corpuscular Volume 93.6 fL (80-94); Monocyte# 0.12 X10^3/uL; RBC Distribution Width CV 16.8 % (11.6-14.6); RBC Distribution Width SD 56.4 fl (35.1-43.9); Red Blood Count 2.83 M/mm3 (4.6-6.2)
[2017-04-06 09:02] LABS: Differential Indicated SCAN CRITERIA MET; POSITIVE COUNT YES; POSITIVE DIFFERENTIAL YES; POSITIVE MORPHOLOGY YES; Platelet Count 41 K/mm3 (150-450); White Blood Count 0.8 K/mm3 (4.4-11.0)
[2017-04-06 09:04] LABS: International Normalized Ratio 1.3; Prothrombin Time (Protime)PT. 15.3 SECONDS (11.7-14.9)
[2017-04-06 09:05] LABS: Partial Thromboplast Time 36.3 Seconds (24.1-36.2)
[2017-04-06] MEDS: TBO-FILGRASTIM 480 MCG/0.8 ML ML SC (09:07)
[2017-04-06] MEDS: Metoprolol Tartrate 25 MG Tablet 12.5 MG PO ×2 (09:07→22:31)
[2017-04-06] MEDS: Sodium Chloride 0.65% 1 SPRAY SPRAY.BTL 2 SPRAY NASAL ×2 (09:21→18:05)
[2017-04-06 09:25] LABS: Anisocytosis RARE; Differential Comment SCANNED; Hypochromasia 2+; Platelet Estimate MKD DEC (ADEQ)
[2017-04-06 09:44] LABS: Pathologist Review Reviewed
--- NOTE | 2017-04-06 10:00 | CT_ITS ---
PROCEDURE: CT guided bone marrow biopsy of the left iliac bone. DATE OF EXAMINATION: April 06, 2017. INDICATION: Male, 66 years old. Paul cytopenia. PHYSICIAN: RADIATION DOSAGE (If Supplied By Facility): CTDIvol = ( 25 ) mGy, DLP = ( 412.53 ) mGycm CONSENT: The risks, benefits and alternatives to the procedure were explained to the patient, and the patient agreed to the procedure and signed the consent. SEDATION: Conscious sedation was performed. The patient received 2 mg of Versed and 50 mcg of fentanyl intravenously. The patient was independently monitored by the department nurse. Conscious sedation was started at 1408 and terminated at 1335. STERILE BARRIER TECHNIQUE: The following sterile barrier precautions were used during the procedure: hand hygiene; use of 2% chlorhexidine aseptic; use of a cap, mask, sterile gown, sterile gloves, sterile full body drape, and a large sterile sheet. PROCEDURE/TECHNIQUE: (All elements of maximal sterile barrier technique followed, including US elements as applicable) The risks, benefits, and alternatives to the procedure were explained to patient, and the patient agreed to the procedure and signed a consent form for the procedure. A timeout was performed to confirm the patient's identity, the type of procedure, to be performed and the site of entry. The patient was brought into the CT scan suite right lateral decubitus position. An appropriate entry site was identified. The overlying skin was prepped and draped in usual sterile fashion. 2% lidocaine was administered secondary sign for local anesthesia. Under CT guidance, a total of 3 passes were performed utilizing a T lock bone marrow biopsy kit. Bone marrow spurs and bone marrow biopsy was performed. The specimens were then placed in appropriate fluid and transported to the laboratory for analysis. Hemostasis was obtained. The patient tolerated the procedure well. CT/Biopsy/Inj or Needle Placement IMPRESSION: Successful CT-guided bone marrow biopsy and aspiration of the left iliac bone as described above. Electronically Signed: Rafa Khanna MD at 14:08 EST Tel [phone], Service support ,
--- NOTE | 2017-04-06 10:22 | NURSING ---
Received call back from Farzana at Dr. Watson's office, stated that Dr. Watson will round on patient this afternoon after office hours.
--- NOTE | 2017-04-06 11:01 | NURSING ---
radiology and Dr Cordoba aware that platelets are 41. plan to do bone marrow biopsy at 1230. family aware. report given at 1100.
--- NOTE | 2017-04-06 12:54 | NURSING ---
pt transported to radiology by Sukhdeep at this time
--- NOTE | 2017-04-06 13:35 | BMB_PTH ---
PATIENT: LUIS MELGAR LOC: MS2 U#:[id number] AGE/SX: 66/M [place] [facility] [place] RE03/26/[address]: Dr. Penelope Cordoba MD : [id number] BED: 1 DIS: 04/08/2017 SPEC #: [id number] RECD: 04/07/17 05:22 STATUS: SHI REDean #: [id number] CONSTANCE: 04/06/17 13:[address]: Penelope Cordoba DEPT: BONE MARROW RECD BY: Law Bernard ENTERED: 04/07/17 05:23 SP TYPE: BMB OTHR DR: MD Dr. Ochoa Espinosa DO Dr. Liza D Talampas, MD Dr. Mansour Isckarus, MD Dr. Tamera Robotham, MD Tissues: A - Bone marrow, NOS B - Bone marrow, NOS C - Bone marrow, NOS Procedures: Decalcification bone/plaque Bone Marrow Aspiration Bone Marrow Core Biopsy Iron Stain Bone Marrow HEADER OPERATION: Bone marrow biopsy, clot and aspiration PRE-OP DIAGNOSIS: MDS, agranulocytosis, rule out leukemia TISSUE SUBMITTED: A - Core, B - Clot, C - Smears, and send outs (flow, cytogenetics, FISH AML & MDS) BONE MARROW DIAGNOSIS Bone marrow biopsy, clot and aspiration: Consistent with myelodysplasia with excess blasts (5%). AM:sergey 04/13/17 COMMENT Flow cytometric analysis leaves a 5% aberrant (CD56 positive) myeloblasts population. Myeloblasts represent 5% of the non-erythroid cells and 4% of total cells and variably express CD13, CD33, CD34, CD117, HLA DR and CD56. Myelopoiesis shows left-shifted maturation. Monocytes show aberrant expression of CD56, a finding that can be seen in a neoplastic process. Expression of CD56 on myeloblasts is reported to be an unfavorable prognostic factor. The aspirate smears are markedly hemodilute and show left-shifted granulocytes with increased blast population as above. The specimen submitted as bone marrow biopsy consists primarily of serum. No bone and/or bone marrow is identified. The bone marrow clot section contains occasional bone marrow elements displaying a left shifted granulocyte with increased large mononuclear cells consistent with blasts. The M/E ratio is within normal range for age. Iron stain with matched control reveals mildly increased iron (2/4) with occasional atypical sideroblasts. Reticulin stain with matched control does not reveal increased reticulin fibers within the bone marrow elements. PAS stain with matched control highlights occasional megakaryocytes. Immunohistochemistry ([id number]) supports the above diagnosis. The slides on this case were reviewed with Dr. Watson on 04/10/17 at 4:20 p.m. Case has been reviewed in consultation with Dr. Mar who concurs with the above diagnosis. IDC:SJ BONE MARROW STUDY Slides are reviewed. CBC DATE: 04/12/17 WBC 0.7; RBC 2.58; HGB 7.9; HCT 23.8; MCV 92.2; RDW 16.2; PLTS 24,000 SEGS 10%; LYMPHS 72%; MONOS 14%; EOS 1% BONE MARROW GROSS A - Received is a container labeled with the patient's name and designated bone marrow core biopsy. The specimen consists of a gritty fragment of jason tissue measuring 0.5 x 0.1 x 0.1 cm. Attached to this is an elongated fragment of blood clot measuring 2 x 0.1 cm. The specimen is totally submitted in one cassette after decalcification. B - Received in two syringes labeled with the patient's name and designated bone marrow is a specimen that consists of approximately 10 cc of reddish fluid that on filtration yields multiple irregular fragments of red-jason soft tissue measuring in aggregate 2 x 1 x <0.1 cm. The specimen is totally submitted in one cassette. C - Also received are 31 unstained and 1 peripheral stained slides. The unstained slides are submitted for appropriate staining. Also received are two green top tubes which are sent to our reference lab for flow, cytogenetics, FISH AML & MDS. / AM:sergey TC: CPT: 32823, 32476, 70374 x2, 21535 x3, 57747 ADDENDUM ADDENDUM ADDENDUM ADDENDUM ADDENDUM ADDENDUM ADDENDUM ADDENDUM ADDENDUM ADDENDUM ADDENDUM ADDENDUM ADDENDUM ADDENDUM ADDENDUM ADDENDUM ADDENDUM ADDENDUM ADDENDUM ADDENDUM ADDENDUM ADDENDUM 05/03/2017 12:05 ADDENDUM 05/03/2017 12:05 ADDENDUM 05/03/2017 12:05 ADDENDUM 05/03/2017 12:05 ADDENDUM 05/03/2017 12:05 CYTOGENETICS AND FISH REPORT FROM [facility] CYTOGENETIC RESULT: 44-45,XY,-4,-5,+11,-15,add(17)(p11.2),-18, del(20)(q11.2),idic(21)(p11.2),+1-2 mar[cp3] INTERPRETATION: Transforming MDS AML FISH RESULT: 44% OF NUCLEI POSITIVE FOR 5Q DELETION; 14% OF NUCLEI POSITIVE FOR THREE ITRY2F6 SIGNALS; 44% OF NUCLEI POSITIVE FOR KMT2A(MLL) GENE AMPLIFICATION INTERPRETATION: Clonal evolution in poor prognosis AML MDS FISH RESULT: 44% OF NUCLEI POSITIVE FOR 5Q DELETION; 8% OF NUCLEI POSITIVE FOR THREE 8Q SIGNALS; 12% OF NUCLEI POSITIVE FOR 20Q DELETION INTERPRETATION: MDS related clone detected Please see complete report in e-chart or EMR for further details
[2017-04-06 13:51] LABS: Bone Marrow Aspiraton SEE PATHOLOGY REPORT
--- NOTE | 2017-04-06 14:18 | CASEMGMT ---
Continued stay review: Pt had bone biopsy today. Per OT, pt ambulated 10' contact guard. O2 sat decreased to 84% on Ra, placed on 2L O2 and O2 sat increased to 93%. Will continue to follow for Home Health, Home Oxygen or SNF referral. Pt is not in room at this time to discuss. Mely SALVADOR RN ACM
[2017-04-06] MEDS: Famotidine 20 MG Tablet PO ×2 (14:22→22:39)
[2017-04-06] MEDS: Ramipril 10 MG Capsule PO (14:22)
[2017-04-06] MEDS: NYSTATIN 500,000 UNIT/5 ML UDC 500000 UNIT PO ×3 (14:22→22:40)
--- NOTE | 2017-04-06 14:30 | NURSING ---
pt continuing to c/o nasal congestion. nasal spray helping slightly. after forcefully blowing nose, pt had small amount of bleeding noted to right nare. kleenex was placed to nare per pt request and family and patient aware of risks of bleeding with low platelets. instructed pt on trying to avoid blowing nose. will continue to monitor.
--- NOTE | 2017-04-06 14:35 | CASEMGMT ---
Continued stay review: Pt had bone biopsy today. Per OT, pt ambulated 10' contact guard. O2 sat decreased to 84% on Ra, placed on 2L O2 and O2 sat increased to 93%. Will continue to follow for Home Health- is set up with [facility], Home Oxygen and possible SNF referral if pt continues to be weak and hypoxic with activity. Pt is not in room at this time to discuss. Mely JACOBSN RN ACM
--- NOTE | 2017-04-06 16:28 | CASEMGMT ---
Meeting with Dr. Watson who spoke with pt. Per Dr. Watson he discussed plan of care which includes evaluating biopsy results, monitoring labwork. Pt will continue to need regular blood work and blood transfusions 1-2x week. Per Dr. Watson, pt has declined Palliative Care and physician does not feel in short term it would benefit him. -If Home with [facility], Nurse can draw labwork and family can drive pt for outpt transfusions. However, due to weakened condition, pt may benefit from SNF stay for strengthening and medical management. Blood transfusions can be scheduled outpt (family would need to transport, which they should be able to do as sister has been available to assist pt at home). RN CM and SW will discuss with patient tomorrow. Mely JACOBSN RN ACM
--- NOTE | 2017-04-06 18:28 | ONC.PN.INPT ---
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 66y.o.with MDS 5q minus was admitted with pharyngitis, oral thrush, agranulocytosis, anemia and thrombocytopenia. He still feels weak, spending most of the day in bed, requiring PRBC and Plt transfusions. Past Medical History: Chronic Problems (Last Reviewed 03/13/17 @ 09:01 by Soo Yang) 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) Pancytopenia (Chronic) Neutropenia (Chronic) Leukopenia (Chronic) Thrombocytopenia (Chronic) Pancytopenia (Chronic) 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) Past Medical History - Most Recent Inpatient Visit Past Medical History Start: 03/26/17 17:57 Text: Status: Complete Freq: ONCE Protocol: Document 03/26/17 18:16 NN (Rec: 03/26/17 18:28 NN [id number]) BMI Required to complete PMH What is Patient's BMI 27.3 Past Medical History Unable History Recalled Yes Query Text:Pt Unable/Family Not Present Neurologic Medical History Hx Stroke/TIA No Hx Dementia/Alzheimer's No Hx Parkinson's Disease No Hx Seizures No Hx Multiple Sclerosis No Hx Migraines No Cardiac Medical History VTE Present on Admission No Hx of Deep Vein Thrombosis/VTE/PE Yes: CALCIFIED CLOT IN HEART Hx Hypertension No: TAKES MEDICATIONS Hx Chest Pain/Angina Yes: NITRO PRN Hx Heart Attack Yes Hx Cardiac Surgery/Stents/Etc. Yes Hx Pacemaker/AICD No Hx Irregular Heartbeat and/or Afib No Hx Anticoagulant Therapy Yes: Coumadin STOPPED Query Text:(Coumadin, Aspirin, Plavix, Xarelto, etc.) Hx Pain in Legs when Walking/Leg Cramps No Respiratory Medical History Hx COPD No Hx Emphysema No Hx Smoking No Smoking Status Never smoker Hx Tobacco Use in last 12 months No Hx of Pipe Smoking No Hx of Cigar Smoking No Hx Sleep Apnea Yes: SLEEP STUDY DONE CPAP Yes: NEW BUT HASN'T USES YET BIPAP No STOP Results Positive GI Medical History Hx Ulcer No Hx Hepatitis No Hx Cirrhosis No Hx GI Bleed No Hx Unplanned Weight Loss Yes: 15# WT LOSS IN PLAST 3 WEEKS Genitourinary Medical History Indwelling Catheter in Place on Arrival/ No Admission Hx Renal Disease No Hx Dialysis No Musculoskeletal History Hx Arthritis No Hx Rheumatoid Arthritis No Endocrine Medical History Hx Diabetes No Hx Thyroid Disease No Hematologic Medical History Hx of Blood Transfusion Yes Hx of Transfusion in last 3 Months Yes Date of Last Transfusion (if within last 03/21/17 3 months) Ever experience any problems with No transfusion(s)? Hx of Preganancy in last 3 Months N/A Nurse Filling Out Transfusion & NOREM Questions: Date: 03/26/17 Time: 18:26 Psycho/Social Medical History Hx Depression No Hx Anxiety No Hx Behavior Disorder No Hx Alcohol Use No Hx Substance Use No Other Medical History Hx Blood Disorders No Hx Anemia Yes: FROM CHEMOTHERAPY Hx Cancer Yes: MDS Hx Drug Resistant Organism No Wound/Pressure Injury Present on Arrival No /Admission Query Text:If yes, chart assessment in Shift/Clinical Findings Central Line/PICC/VAD Present on Arrival No /Admission Antibiotics within last 7 days? Yes Name of Antibiotic (Include dose/# days AMOXICILLIN taken if known) Last day ATB taken 03/25/17 Methicillin Resistant Staphylococcus aureus Screening Active MRSA No Risk for Readmission Number of Risk Factors 4 At Risk for Readmission Patient is At Risk For Readmission Patient is eligible for Call Back Y Past Medical History (Last Reviewed 03/13/17 @ 09:01 by Soo Yang) Hyperlipidemia (Acute) Heart disease (Acute) Fatigue (Acute) Interstitial lung disease (Acute) history of heart cath (Acute) Past Surgical History (Last Reviewed 03/13/17 @ 09:01 by Soo Yang) Hx of CABG (Acute) Maternal Family History: Family History (Last Reviewed 03/13/17 @ 09:01 by Soo Yang) Mother Hyperlipidemia Heart disease Father CHF (congestive heart failure) Family History: Heart Disease Paternal Family History: Family History (Last Reviewed 03/13/17 @ 09:01 by Soo Yang) Mother Hyperlipidemia Heart disease Father CHF (congestive heart failure) Family History: Heart Disease - Social History Lives: Spouse/ Significant Other Smoking Status: Never smoker Tobacco Use: Non-smoker Alcohol: None Drugs: None Review of Systems Constitutional:: Reports: Weakness, Fatigue. Denies: Fever Cardiovascular:: Denies: Chest pain, Palpitations, Dyspnea on exertion, Orthopnea, PND, Shortness of breath Respiratory: Reports: Cough, Sputum production - has developed nasal bleed after bone marrow bx., - Gastrointestinal:: Denies: Abdominal pain, Nausea, Vomiting, Diarrhea, Constipation, Hematochezia Genitourinary: Denies: Dysuria, Hematuria, 15, Flank pain Vital Signs Height 5 ft 10 in Weight: 86.2 kg Weight in Pounds 190.0 lbs Pulse Ox 95 Temperature 98.5 F Pulse Rate 94 Respiratory Rate 18 Blood Pressure [BP] 115/66 Blood Pressure 126/78 Blood Pressure Position [BP] Supine Blood Pressure Position Semi-Fowlers - Physical Exam General: Alert, Oriented x3, Cooperative, - - lying in bed. HEENT: - - + epistaxis R nostril. Laboratory Data: Laboratory Tests 04/06/17 04/06/17 04/05/17 Range/Units 08:45 08:45 09:25 WBC 0.8 L* (4.4-11.0) K/mm3 RBC 2.83 L (4.6-6.2) M/mm3 Hgb 8.8 L (13.0-16.5) g/dl Hct 26.5 L (40-54) % MCV 93.6 (80-94) fL MCH 31.1 (27.0-32.0) pg MCHC 33.2 (32-36) g/gl RDW 16.8 H (11.6-14.6) % RDW Differential 56.4 H (35.1-43.9) fl Plt Count 41 L* (150-450) K/mm3 MPV 9.0 (6.2-12.0) fl Immature Gran % (Auto) 0.000 (0.0-0.9) % Neut % (Auto) 0.0 L (47-70) % Lymph % (Auto) 77.3 H (19-41) % [place] % (Auto) 16.0 H (0-10) % Eos % (Auto) 0.0 (0-5) % Baso % (Auto) 6.7 H (0-1) % Absolute Neuts (auto) 0.0 L (2.0-7.7) X10^3/uL Absolute Lymphs (auto) 0.58 L (0.83-4.51) X10^3/ul Total Counted Not Reportable Differential Comment SCANNED Diff Path Review May foll Platelet Estimate MKD DEC (ADEQ) Hypochromasia 2+ Anisocytosis RARE PT 15.3 H (11.7-14.9) SECONDS INR 1.3 APTT 36.3 H (24.1-36.2) Seconds Blood Type O POSITIVE 04/05/17 Range/Units 06:05 WBC (4.4-11.0) K/mm3 RBC (4.6-6.2) M/mm3 Hgb (13.0-16.5) g/dl Hct (40-54) % MCV (80-94) fL MCH (27.0-32.0) pg MCHC (32-36) g/gl RDW (11.6-14.6) % RDW Differential (35.1-43.9) fl Plt Count (150-450) K/mm3 MPV (6.2-12.0) fl Immature Gran % (Auto) (0.0-0.9) % Neut % (Auto) (47-70) % Lymph % (Auto) (19-41) % [place] % (Auto) (0-10) % Eos % (Auto) (0-5) % Baso % (Auto) (0-1) % Absolute Neuts (auto) (2.0-7.7) X10^3/uL Absolute Lymphs (auto) (0.83-4.51) X10^3/ul Total Counted Differential Comment Diff Path Review Reviewed Platelet Estimate (ADEQ) Hypochromasia Anisocytosis PT (11.7-14.9) SECONDS INR APTT (24.1-36.2) Seconds Blood Type Diagnostic Data: Diagnostic Data Soft Tissue Neck CT 03/26/17 13:14 IMPRESSION: Normal enhanced CT examination of the soft tissues of the neck. Electronically Signed: Morro Worley MD at 14:36 EST Tel , Service support , Abdomen X-Ray 03/30/17 06:58 IMPRESSION: No nonobstructive gas pattern with the abdomen Electronically Signed: Say Jiang MD, FACR at 8:28 EST , Service support , Liver Ultrasound 03/30/17 07:46 IMPRESSION: 1. Nonvisualization of the pancreas. 2. Fatty infiltration of the liver without focal mass. 3. No other sonographic evidence of right upper quadrant abnormality Electronically Signed: Chi Moreno, DO at 17:43 EST Tel [phone], Service support , Chest X-Ray 04/02/17 10:22 IMPRESSION: Interstitial prominence throughout the lungs suggests edema Electronically Signed: Ricky Sloan, DO at 12:57 EST Tel , Service support , Biopsy CT 04/06/17 10:00 IMPRESSION: Successful CT-guided bone marrow biopsy and aspiration of the left iliac bone as described above. Electronically Signed: Rafa Khanna MD at 14:08 EST Tel [phone], Service support , Assessment and Plan MDS 5q minus. Pt will require PRBC and Plt transfusion regularly to support him. Feels very weak. Pancytopenia with Pharyngitis. Still Neutropenic/agranulocytosis, this may be due to Revlimid which is on hold now. Throat pain is improving. Still Coughing on Guaifenesin/codeine. Had bone marrow bx done today. Suggestion is to continue Supportive transfusions as needed to keep Hgb above 7 and Plt at 10 or above, continue Granix. Consider Rehab to help improve his functional status. Will consider Cyclosprine for MDS when Pt is stable. Thank you. Medications: Prescriptions This Visit Medication Instructions Recorded Lidocaine 2% Viscous [Xylocaine 20 ml PO 4X/DAY PRN 03/26/17 Viscous] Metoprolol Tartrate 12.5 mg PO BID 03/26/17 Nystatin [Nystatin] 5 ml PO 4X/DAY 03/26/17 Oxycodone Soln [Oxyfast] 5 - 10 mg PO Q4H PRN 03/26/17 Code Visit Inpatient E&M: 42575 Subs Hosp L2
--- NOTE | 2017-04-06 18:39 | PN_ITS ---
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 66y.o.with MDS 5q minus was admitted with pharyngitis, oral thrush, agranulocytosis, anemia and thrombocytopenia. He still feels weak, spending most of the day in bed, requiring PRBC and Plt transfusions. Past Medical History: Chronic Problems (Last Reviewed 03/13/17 @ 09:01 by Soo Yang) 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) Pancytopenia (Chronic) Neutropenia (Chronic) Leukopenia (Chronic) Thrombocytopenia (Chronic) Pancytopenia (Chronic) 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) Past Medical History - Most Recent Inpatient Visit Past Medical History Start: 03/26/17 17: 57 Text: Status: Complete Freq: ONCE Protocol: Document 03/26/17 18:16 NN (Rec: 03/26/17 18:28 NN [id number]) BMI Required to complete PMH What is Patient's BMI 27.3 Past Medical History Unable History Recalled Yes Query Text:Pt Unable/Family Not Present Neurologic Medical History Hx Stroke/TIA No Hx Dementia/Alzheimer's No Hx Parkinson's Disease No Hx Seizures No Hx Multiple Sclerosis No Hx Migraines No Cardiac Medical History VTE Present on Admission No Hx of Deep Vein Thrombosis/VTE/PE Yes: CALCIFIED CLOT IN HEART Hx Hypertension No: TAKES MEDICATIONS Hx Chest Pain/Angina Yes: NITRO PRN Hx Heart Attack Yes Hx Cardiac Surgery/Stents/Etc. Yes Hx Pacemaker/AICD No Hx Irregular Heartbeat and/or Afib No Hx Anticoagulant Therapy Yes: Coumadin STOPPED Query Text:(Coumadin, Aspirin, Plavix, Xarelto, etc.) Hx Pain in Legs when Walking/Leg Cramps No Respiratory Medical History Hx COPD No Hx Emphysema No Hx Smoking No Smoking Status Never smoker Hx Tobacco Use in last 12 months No Hx of Pipe Smoking No Hx of Cigar Smoking No Hx Sleep Apnea Yes: SLEEP STUDY DONE CPAP Yes: NEW BUT HASN'T USES YET BIPAP No STOP Results Positive GI Medical History Hx Ulcer No Hx Hepatitis No Hx Cirrhosis No Hx GI Bleed No Hx Unplanned Weight Loss Yes: 15# WT LOSS IN PLAST 3 WEEKS Genitourinary Medical History Indwelling Catheter in Place on Arrival/ No Admission Hx Renal Disease No Hx Dialysis No Musculoskeletal History Hx Arthritis No Hx Rheumatoid Arthritis No Endocrine Medical History Hx Diabetes No Hx Thyroid Disease No Hematologic Medical History Hx of Blood Transfusion Yes Hx of Transfusion in last 3 Months Yes Date of Last Transfusion (if within last 03/21/17 3 months) Ever experience any problems with No transfusion(s)? Hx of Preganancy in last 3 Months N/A Nurse Filling Out Transfusion & NOREM Questions: Date: 03/26/17 Time: 18:26 Psycho/Social Medical History Hx Depression No Hx Anxiety No Hx Behavior Disorder No Hx Alcohol Use No Hx Substance Use No Other Medical History Hx Blood Disorders No Hx Anemia Yes: FROM CHEMOTHERAPY Hx Cancer Yes: MDS Hx Drug Resistant Organism No Wound/Pressure Injury Present on Arrival No /Admission Query Text:If yes, chart assessment in Shift/Clinical Findings Central Line/PICC/VAD Present on Arrival No /Admission Antibiotics within last 7 days? Yes Name of Antibiotic (Include dose/# days AMOXICILLIN taken if known) Last day ATB taken 03/25/17 Methicillin Resistant Staphylococcus aureus Screening Active MRSA No Risk for Readmission Number of Risk Factors 4 At Risk for Readmission Patient is At Risk For Readmission Patient is eligible for Call Back Y Past Medical History (Last Reviewed 03/13/17 @ 09:01 by Soo Yang) Hyperlipidemia (Acute) Heart disease (Acute) Fatigue (Acute) Interstitial lung disease (Acute) history of heart cath (Acute) Past Surgical History (Last Reviewed 03/13/17 @ 09:01 by Soo Yang) Hx of CABG (Acute) Maternal Family History: Family History (Last Reviewed 03/13/17 @ 09:01 by Soo Yang) Mother Hyperlipidemia Heart disease Father CHF (congestive heart failure) Family History: Heart Disease Paternal Family History: Family History (Last Reviewed 03/13/17 @ 09:01 by Soo Yang) Mother Hyperlipidemia Heart disease Father CHF (congestive heart failure) Family History: Heart Disease - Social History Lives: Spouse/ Significant Other Smoking Status: Never smoker Tobacco Use: Non-smoker Alcohol: None Drugs: None Review of Systems Constitutional:: Reports: Weakness, Fatigue. Denies: Fever Cardiovascular:: Denies: Chest pain, Palpitations, Dyspnea on exertion, Orthopnea, PND, Shortness of breath Respiratory: Reports: Cough, Sputum production - has developed nasal bleed after bone marrow bx., - Gastrointestinal:: Denies: Abdominal pain, Nausea, Vomiting, Diarrhea, Constipation, Hematochezia Genitourinary: Denies: Dysuria, Hematuria, 15, Flank pain Vital Signs Height 5 ft 10 in Weight: 86.2 kg Weight in Pounds 190.0 lbs Pulse Ox 95 Temperature 98.5 F Pulse Rate 94 Respiratory Rate 18 Blood Pressure [BP] 115/66 Blood Pressure 126/78 Blood Pressure Position [BP] Supine Blood Pressure Position Semi-Fowlers - Physical Exam General: Alert, Oriented x3, Cooperative, - - lying in bed. HEENT: - - + epistaxis R nostril. Laboratory Data: Laboratory Tests 3 04/06/17 04/06/17 04/05/17 Range/Units 08:45 08:45 09:25 WBC 0.8 L* (4.4-11.0) K/mm3 RBC 2.83 L (4.6-6.2) M/mm3 Hgb 8.8 L (13.0-16.5) g/dl Hct 26.5 L (40-54) % MCV 93.6 (80-94) fL MCH 31.1 (27.0-32.0) pg MCHC 33.2 (32-36) g/gl RDW 16.8 H (11.6-14.6) % RDW Differential 56.4 H (35.1-43.9) fl Plt Count 41 L* (150-450) K/mm3 MPV 9.0 (6.2-12.0) fl Immature Gran % (Auto) 0.000 (0.0-0.9) % Neut % (Auto) 0.0 L (47-70) % Lymph % (Auto) 77.3 H (19-41) % [place] % (Auto) 16.0 H (0-10) % Eos % (Auto) 0.0 (0-5) % Baso % (Auto) 6.7 H (0-1) % Absolute Neuts (auto) 0.0 L (2.0-7.7) X10^3/uL Absolute Lymphs (auto) 0.58 L (0.83-4.51) X10^3/ul Total Counted Not Reportable Differential Comment SCANNED Diff Path Review May foll Platelet Estimate MKD DEC (ADEQ) Hypochromasia 2+ Anisocytosis RARE PT 15.3 H (11.7-14.9) SECONDS INR 1.3 APTT 36.3 H (24.1-36.2) Seconds Blood Type O POSITIVE 3 04/05/17 Range/Units 06:05 WBC (4.4-11.0) K/mm3 RBC (4.6-6.2) M/mm3 Hgb (13.0-16.5) g/dl Hct (40-54) % MCV (80-94) fL MCH (27.0-32.0) pg MCHC (32-36) g/gl RDW (11.6-14.6) % RDW Differential (35.1-43.9) fl Plt Count (150-450) K/mm3 MPV (6.2-12.0) fl Immature Gran % (Auto) (0.0-0.9) % Neut % (Auto) (47-70) % Lymph % (Auto) (19-41) % [place] % (Auto) (0-10) % Eos % (Auto) (0-5) % Baso % (Auto) (0-1) % Absolute Neuts (auto) (2.0-7.7) X10^3/uL Absolute Lymphs (auto) (0.83-4.51) X10^3/ul Total Counted Differential Comment Diff Path Review Reviewed Platelet Estimate (ADEQ) Hypochromasia Anisocytosis PT (11.7-14.9) SECONDS INR APTT (24.1-36.2) Seconds Blood Type Diagnostic Data: Diagnostic Data Soft Tissue Neck CT 03/26/17 13:14 IMPRESSION: Normal enhanced CT examination of the soft tissues of the neck. Electronically Signed: Morro Worley MD at 14:36 EST Tel , Service support , Abdomen X-Ray 03/30/17 06:58 IMPRESSION: No nonobstructive gas pattern with the abdomen Electronically Signed: Say Jiang MD, FACR at 8:28 EST , Service support , Liver Ultrasound 03/30/17 07:46 IMPRESSION: 1. Nonvisualization of the pancreas. 2. Fatty infiltration of the liver without focal mass. 3. No other sonographic evidence of right upper quadrant abnormality Electronically Signed: Chi Moreno, DO at 17:43 EST Tel [phone], Service support , Chest X-Ray 04/02/17 10:22 IMPRESSION: Interstitial prominence throughout the lungs suggests edema Electronically Signed: Ricky Sloan, DO at 12:57 EST Tel , Service support , Biopsy CT 04/06/17 10:00 IMPRESSION: Successful CT-guided bone marrow biopsy and aspiration of the left iliac bone as described above. Electronically Signed: Rafa Khanna MD at 14:08 EST Tel [phone], Service support , Assessment and Plan MDS 5q minus. Pt will require PRBC and Plt transfusion regularly to support him. Feels very weak. Pancytopenia with Pharyngitis. Still Neutropenic/agranulocytosis, this may be due to Revlimid which is on hold now. Throat pain is improving. Still Coughing on Guaifenesin/codeine. Had bone marrow bx done today. Suggestion is to continue Supportive transfusions as needed to keep Hgb above 7 and Plt at 10 or above, continue Granix. Consider Rehab to help improve his functional status. Will consider Cyclosprine for MDS when Pt is stable. Thank you. Medications: Prescriptions This Visit Medication Instructions Recorded Lidocaine 2% Viscous [Xylocaine 20 ml PO 4X/DAY PRN 03/26/17 Viscous] Metoprolol Tartrate 12.5 mg PO BID 03/26/17 Nystatin [Nystatin] 5 ml PO 4X/DAY 03/26/17 Oxycodone Soln [Oxyfast] 5 - 10 mg PO Q4H PRN 03/26/17 Code Visit Inpatient E&M: 81619 Subs Hosp L2
[2017-04-06] MEDS: Acetaminophen 325 MG Tablet 650 MG PO (19:41)
[2017-04-06] MEDS: Atorvastatin Calcium 80 MG Tablet PO (22:31)
[2017-04-06] MEDS: Senna/Docusate Sodium 1 Tablet 2 TABLET PO (22:40)
[2017-04-07] VITALS (7 sets, daily range): BP systolic 132–142; BP diastolic 76–81; PULSE 95–112; RESP 18; TEMP 36.4–37.7; O2SAT 92–98
[2017-04-07 05:53] LABS: Absolute Lymphocyte Count 0.49 X10^3/ul (0.83-4.51); Basophil# 0.04 X10^3/uL; Hematocrit 26.6 % (40-54); Hemoglobin 8.8 g/dl (13.0-16.5); Lymphocyte # 0.49 X10^3/ul (4.0); Lymphocyte % 73.1 % (19-41); Mean Corp Hgb Conc 33.1 g/gl (32-36); Mean Corpuscular Hgb 31.1 pg (27.0-32.0); Mean Platelet Vol. 9.7 fl (6.2-12.0); Monocyte# 0.14 X10^3/uL; Monocyte% 20.9 % (0-10); RBC Distribution Width CV 16.8 % (11.6-14.6); RBC Distribution Width SD 56.6 fl (35.1-43.9); Red Blood Count 2.83 M/mm3 (4.6-6.2)
[2017-04-07 06:05] LABS: Differential Indicated SCAN CRITERIA MET; POSITIVE COUNT YES; POSITIVE DIFFERENTIAL YES; POSITIVE MORPHOLOGY YES; Platelet Count 33 K/mm3 (150-450); White Blood Count 0.7 K/mm3 (4.4-11.0)
[2017-04-07 06:09] LABS: Anion Gap 9 (5-15); BUN 16 mg/dL (7-18); BUN/Creat Ratio 21.4 RATIO (10-20); Calcium,Total 8.5 mg/dL (8.5-10.1); Chloride 98 mmol/L (98-107); Creatinine, Serum 0.75 mg/dL (0.70-1.30); EST Glomerular Filtration Rate 110 mL/min (>60); Est Glom Filt Rate - Afr Amer 133 mL/min (>60); Glucose 113 mg/dL (74-106); Potassium 3.8 mmol/L (3.5-5.1); Sodium Level 133 mmol/L (136-145)
[2017-04-07] MEDS: Phenol/Sodium Phenolate 180ML 5 SPRAY MM ×2 (06:09→08:38)
[2017-04-07] MEDS: Sodium Chloride 0.65% 1 SPRAY SPRAY.BTL 2 SPRAY NASAL ×2 (06:15→08:38)
[2017-04-07 06:21] LABS: Differential Comment SCANNED
--- NOTE | 2017-04-07 08:26 | PN_ITS ---
Subjective: Chief complaint: Follow-up after admission for neutropenic fever, pancytopenia, oropharyngeal and possible esophageal candidiasis with dysphagia as well as elevated LFT. Patient seen and examined. No acute events overnight. He complains of stuffy nose as well as poor appetite. Pain during swallowing is getting better. He is feeling very weak and tired. He has been afebrile for more than 48 hours, other vital signs are stable. - Physical Exam General: Alert, Oriented x3, Cooperative HEENT: Atraumatic, PERRLA, EOMI Oral: Moist Mucosa, No Gingival or Mucosal Lesions/ Ulcerations Neck: Supple, No JVD, Negative Carotid Bruits, Thyroid Normal Size and Texture Lungs: Clear to auscultation, No rhonchi, No wheeze, No rales, Diminished Cardiovascular: Regular rate, Regular Rhythm, Normal S1, Normal S2, No murmurs, PMI Normal Abdomen: Bowel Sounds Present, Soft, Non Tender, Non-Distended, No Hepato- splenomegaly Extremities: No clubbing, No cyanosis, No edema Skin: No rashes, No breakdown Lymphatic: No Cervical, Supraclavicular, or Inguinal Adenopathy Neurological: Cranial nerves II-XII grossly intact, Neuro grossly intact Psych/Mental Status: Normal Affect Vital Signs Temp Pulse Resp BP Pulse Ox 98.3 F 100 18 135/81 H 92 04/07/17 04:03 04/07/17 04:03 04/07/17 04:03 04/07/17 04:03 04/07/17 04:03 Oxygen Flow Rate 2 Oxygen Delivery Method Room Air Weight: 190 lb 0.615 oz Body Mass Index (BMI) 27.2 Intake and Output for Last 24 Hours 04/05/17 04/06/17 04/07/17 23:59 23:59 23:59 Intake Total 480 / 480 1198 / 1198 440 / 440 Balance 480 / 480 1198 / 1198 440 / 440 Laboratory Tests Past 24 Hrs 04/05/17 04/06/17 04/06/17 06:05 08:45 08:45 WBC 0.8 L* RBC 2.83 L Hgb 8.8 L Hct 26.5 L MCV 93.6 MCH 31.1 MCHC 33.2 RDW 16.8 H RDW Differential 56.4 H Plt Count 41 L* MPV 9.0 Immature Gran % (Auto) 0.000 Neut % (Auto) 0.0 L Lymph % (Auto) 77.3 H Henderson % (Auto) 16.0 H Eos % (Auto) 0.0 Baso % (Auto) 6.7 H Absolute Neuts (auto) 0.0 L Absolute Lymphs (auto) 0.58 L Total Counted Not Reportable Differential Comment SCANNED Diff Path Review Reviewed June foll Platelet Estimate MKD DEC Hypochromasia 2+ Anisocytosis RARE PT 15.3 H INR 1.3 APTT 36.3 H Sodium Potassium Chloride Carbon Dioxide Anion Gap BUN Creatinine Estim Creat Clear Calc Est GFR (MDRD) Af Amer Est GFR (MDRD) Non-Af BUN/Creatinine Ratio Glucose Calcium BM Aspirate Exam 04/06/17 04/07/17 04/07/17 13:35 05:10 05:10 WBC 0.7 L* RBC 2.83 L Hgb 8.8 L Hct 26.6 L MCV 94.0 MCH 31.1 MCHC 33.1 RDW 16.8 H RDW Differential 56.6 H Plt Count 33 L* MPV 9.7 Immature Gran % (Auto) 0.000 Neut % (Auto) 0.0 L Lymph % (Auto) 73.1 H [place] % (Auto) 20.9 H Eos % (Auto) 0.0 Baso % (Auto) 6.0 H Absolute Neuts (auto) 0.0 L Absolute Lymphs (auto) 0.49 L Total Counted Not Reportable Differential Comment SCANNED Diff Path Review May foll Platelet Estimate Hypochromasia Anisocytosis PT INR APTT Sodium 133 L Potassium 3.8 Chloride 98 Carbon Dioxide 26.0 Anion Gap 9 BUN 16 Creatinine 0.75 Estim Creat Clear Calc 73.00 Est GFR (MDRD) Af Amer 133 Est GFR (MDRD) Non-Af 110 BUN/Creatinine Ratio 21.4 H Glucose 113 H Calcium 8.5 BM Aspirate Exam Pending Assessment/Plan This is a 66 years old male patient presented to the emergency room because of sore throat, painful swallowing and fever and he was found to have neutropenic fever, oropharyngeal candidiasis as well as possible esophageal candidiasis, found to have severe thrombocytopenia requiring platelet transfusion. #1 neutropenic fever: Remained on IV fluconazole. Also, he is on subcu filgrastim. Today's total white blood cell count 700, absolute neutrophil count remained the same at 0. He has been afebrile for more than 48 hours, other vital signs are stable. Blood culture showed no growth in 5 days. Urine culture showed no growth. Respiratory panel for viruses were negative. Urine culture were negative. Nasal swab for influenza a and B were negative. Status post bone marrow biopsy, result is pending. Oncology recommended to have platelet count above 10,000 and hemoglobin above 7 g/dL and at this time, they are. I suggested placement to detention facility and patient and his agreed. Plan: Social service consult for possible placement to detention facility. #2 oropharyngeal/possible esophageal candidiasis: He is on IV fluconazole and oral nystatin. Has been able to drink and eat, swallowing is less painful. He is improving. Plan to continue same treatment. 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 He is on subcu Granix as mentioned above. Status post bone marrow biopsy, result is pending. CBC from today reviewed as above. WBC is 700, ANC is 0, platelet count is 33,000. No evidence of active bleeding. hemoglobin is 8.8 g/dL. He received total of 4 units of packed RBCs. Plan as above. #4 elevated liver transaminases: Could be due to Revlimid in addition to side effects of antifungal medications. Total bilirubin and alkaline phosphatase are normal. Liver transaminases are trending up. Plan to monitor. #5 hypertension: Blood pressure stable, continue ramipril and metoprolol, continue IV hydrazine as needed #6 hyperlipidemia: Continue statins. #6 CAD: Stable, no acute issues. Continue statins, due to beta blockers and Altace. #7 severe protein calorie malnutrition: Nutrition recommendations reviewed. #8 DVT prophylaxis: SCDs. This note was generated with [employer] software. It may contain incorrect words, spelling, and punctuation that were not noted in checking the note before signing.
[2017-04-07] MEDS: Ramipril 10 MG Capsule PO (10:12)
[2017-04-07] MEDS: Metoprolol Tartrate 25 MG Tablet 12.5 MG PO ×2 (10:12→22:04)
[2017-04-07] MEDS: Famotidine 20 MG Tablet PO ×2 (10:14→22:05)
[2017-04-07] MEDS: NYSTATIN 500,000 UNIT/5 ML UDC 500000 UNIT PO ×4 (10:14→22:04)
[2017-04-07] MEDS: TBO-FILGRASTIM 480 MCG/0.8 ML ML SC (10:14)
[2017-04-07] MEDS: guaiFENesin/Codeine 5 ML UDC 10 ML PO ×2 (10:15→16:45)
[2017-04-07] MEDS: 0.9% NaCl Peripheral Flush Adult/Peds IV ×2 (10:17→11:49)
--- NOTE | 2017-04-07 11:02 | CASEMGMT ---
Addendum entered by Kayli Escalera 04/07/17 13:57: SW spoke w/ and daughter in the hallway, is asking about hospice and the blood transfusions. SW explained hospice briefly, explained would need to ask hospice if pt can get blood transfusions while on hospice. SW did let her know that Dr. Haq is in agreement w/palliative care. SW explained will call and let her know. She explained was going to eat and would be back in an hour. SW called hospice, as per Peri, the nurse practitioner would be able to come in and speak w/them about palliative and hospice, and the blood transfusions. Mariana from TCU called and said that there would be a bed for pt in TCU. SW will speak w/ when she returns, she left at 12:20pm. KHAI Chandler, STRIPPER LATEX Original Note: SW spoke w/pt and in room, pt fell asleep so SW spoke w/. SW inquired about pt going somewhere for rehab, as Dr. Watson and Dr. Cordoba had indicated pt is interested in going to TCU. confirmed they are interested in TCU. SW explained will not know until early afternoon if TCU will have a bed. SW explained that they may need to pick another facility. is not certain where they would want to go. She states Dr. Watson thought pt may be here through the weekend waiting for the biopsy results. SW explained that if pt is able to go to TCU, they can take pt over to Dr. Watson's office for the weekly or twice weekly blood transfusions. If pt goes to a facility in the community, family may need to take pt. states understanding. She also asked about Dr. Reveles coming in to see pt regarding palliative care. SW explained will look into this, let her know, and also bring her a list of SNF's in the area. SW reviewed chart, there are no consults for Dr. Reveles. SW spoke w/ again, brought her the SNF list. SW explained that there is no consult for Dr. Reveles, can ask physician about it. SW explained that usually a liaison comes first to talk about the program. states they spoke w/Katie on the weekend, and Palliative was to be calling pt's PCP Dr. Haq to see if she is okay w/palliative. SW explained will check on this for her. then talked further about pt going home vs. SNF. states she does not know what help pt will need when home, states they have family who can stay w/pt during the day and help him, and she is there in the evenings and overnight. She then spoke about pt needing daily or every other day blood draws and is wondering how to do that if he is home, she states it would be difficult to bring him in daily for this. helped pt with both a shower and to the bathroom this morning, asked her how he is moving. confirms pt is weaker. She states she does think that some time in rehab would be good. SW explained that if pt goes to TCU or another facility, the blood draws could be done there. SW explained when pt goes home, they may be able to set up home health for blood draws, depending on how often he truly needs it. SW reviewed Dr. Watson's note, it does not state how often pt needs blood draws. After talking further, states she thinks they need more home care than palliative at this point. SW explained to will call Palliative care, and will let them know once this SW hears from TCU if they have a bed for pt. SW called Palliative, spoke w/Kristen. She states Dr. Haq is agreeable w/palliative, she spoke w/pt's RN yesterday and pt was not interested. SW explained will let know that if pt wants Palliative, Dr. Haq is agreeable, and they can call palliative any time, will give her the number. Once SW hears back from TCU, will speak w/pt and again. KHAI Chandler, STRIPPER LATEX
--- NOTE | 2017-04-07 14:13 | CASEMGMT ---
Addendum entered by Kayli Escalera 04/07/17 16:07: SW spoke w/Scarlett from [facility], the COMMUNICATIONS DIRECTOR from hospice will be here in the next 40-60 minutes or so. SW let the family know. KHAI Chandler, BEHAVIORAL CONSULTANT Original Note: Addendum entered by Kayli Escalera 04/07/17 15:57: SW did confirm w/Mariana again in TCU they will hold bed for pt, as per physician it is anticipated pt will go tomorrow. SW did fax referral to hospice earlier, did speak w/Peri and the COMMUNICATIONS DIRECTOR is to come today yet, Scarlett from hospice is to let this SW know what time. SW spoke w/ and family in room, let them know hospice is going to come today yet to speak w/them, and reassured them that the bed is being held for pt in TCU for pt to go there tomorrow. Family still thinks they will have pt go to TCU initially but would still like to speak w/hospice. SW will let them know as soon as this SW hears back, what time someone from hospice will be here. KHAI Chandler, BEHAVIORAL CONSULTANT Original Note: Addendum entered by Kayli Escalera 04/07/17 14:26: states family would like pt to go to TCU, but would like to speak w/hospice first just to make sure they don't want to just go with hospice. SW spoke w/physician, he is agreeable to hospice referral. SW spoke w/hospice, Peri is to call this SW back with a time for family to meet w/hospice. SW let family know waiting for a call back from hospice to see when someone can come over to speak w/them, will let them know. SW also explained that TCU does still have a bed for pt. KHAI Chandler, BEHAVIORAL CONSULTANT Original Note: SW spoke w/ in the hallway, and reviewed options. thinks she would like to have pt go to TCU and then speak to hospice in 1-2 weeks. She is going to speak w/her family and let this SW know their decision. SW will continue to follow. KHAI Chandler, BEHAVIORAL CONSULTANT
[2017-04-07] MEDS: Megestrol 40 MG Tablet PO ×2 (14:19→22:05)
[2017-04-07] MEDS: Atorvastatin Calcium 80 MG Tablet PO (22:04)
[2017-04-08] MEDS: Megestrol 40 MG Tablet PO (05:39)
[2017-04-08 06:00] VITALS: BP 129/76; PULSE 95; RESP 18; TEMP 36.8; O2SAT 95
[2017-04-08 06:37] LABS: Absolute Lymphocyte Count 0.52 X10^3/ul (0.83-4.51); Basophil# 0.03 X10^3/uL; Basophil% 4.3 % (0-1); Hemoglobin 8.7 g/dl (13.0-16.5); Lymphocyte # 0.52 X10^3/ul (4.0); Lymphocyte % 75.4 % (19-41); Mean Corp Hgb Conc 33.5 g/gl (32-36); Mean Corpuscular Volume 92.5 fL (80-94); Mean Platelet Vol. 10.4 fl (6.2-12.0); Monocyte# 0.13 X10^3/uL; Monocyte% 18.8 % (0-10); Neutrophil # 0.01 X10^3/uL (2.7-7.7); Neutrophil % 1.5 % (47-70); RBC Distribution Width CV 16.6 % (11.6-14.6); RBC Distribution Width SD 54.7 fl (35.1-43.9); Red Blood Count 2.81 M/mm3 (4.6-6.2)
[2017-04-08 07:07] LABS: White Blood Count 0.7 K/mm3 (4.4-11.0)
[2017-04-08 07:08] LABS: Differential Comment SCANNED; Differential Indicated SCAN CRITERIA MET; POSITIVE COUNT YES; POSITIVE DIFFERENTIAL YES; POSITIVE MORPHOLOGY YES; Platelet Count 17 K/mm3 (150-450)
[2017-04-08 09:24] VITALS: BP 128/79; PULSE 105; RESP 18; TEMP 36.7; O2SAT 98
[2017-04-08 09:27] VITALS: PULSE 105
[2017-04-08] MEDS: Ramipril 10 MG Capsule PO (09:27)
[2017-04-08] MEDS: Senna/Docusate Sodium 1 Tablet 2 TABLET PO (09:27)
[2017-04-08] MEDS: Metoprolol Tartrate 25 MG Tablet 12.5 MG PO (09:27)
[2017-04-08] MEDS: NYSTATIN 500,000 UNIT/5 ML UDC 500000 UNIT PO (09:27)
[2017-04-08] MEDS: Famotidine 20 MG Tablet PO (09:28)
[2017-04-08] MEDS: TBO-FILGRASTIM 480 MCG/0.8 ML ML SC (09:35)
--- NOTE | 2017-04-08 09:59 | PCM.TXEXTCAR ---
- Diet 04/06/17 14:18 Diet: Regular Diet Dietary Modifications:: Mechanical Soft Diet Is pt able to select menu?: Yes Diet Comments: Frequent oral care, provide frequent hydration opportunities - Routine Orders/Code Status Routine Lab Work: CBC Code Status: Full Code - Wound(s) L iliac crest Wound Type: Puncture - Suggestions for Active Care Change Position every (hours): 3 Hours to sit in a chair: 2 Times a day to sit in chair: 3 - Therapies Weight Bearing: Weight bearing as tolerated Physical Therapy: Eval and Treat Occupational Therapy: Eval and Treat Speech Therapy: Eval and Treat - Allergies/Procedures Done in Hospital Allergies/Adverse Reactions: Allergies No Known Allergies Allergy (Verified 03/26/17 12:54) - Type of Care/Length of Stay Estimated LOS: Convalescent Care Less Than 30 days Type of Care Needed: Skilled Rehab Potential: Fair Prognosis: Fair - Additional Orders/Day of Discharge H&P will serve as current which was dated: 03/26/17 Day of Discharge: 04/08/17 - Dietary and Speech Recommendations Dietitian Recommendations/Changes: Add neutropenic precautions to current diet order. Rec continue ONS medpass as ordered. Rec iron supplement d/t H/H. - Follow Up Care Primary Care Physician: Екатерина Haq MD [Primary Care Provider] - Please follow up with your Primary Care Physician in: 1 week. Please Follow Up With: Felix Watson MD When: 2-3 days, please call his office.
--- NOTE | 2017-04-08 11:45 | CASEMGMT ---
Social Work Note According to nursing pt's family met with [facility] last evening. Pt and family are opting to go to TCU with palliative care services and then potentially home with hospice at discharge from TCU. Pt transferred to TCU this date. Plan: TCU for rehabilitation. Ani Aguayo, TYPE CASTER, MANAGING DIRECTOR
--- NOTE | 2017-04-08 14:29 | PCM.DC.SUM ---
Discharge Date and Diagnosis - Problem List Patient Problems: Active and Suspected Problems (Last Reviewed 03/13/17 @ 09:01 by Soo Yang) Sore throat (Acute) Streptococcal pharyngitis (Acute) Oropharyngeal candidiasis (Acute) Sepsis (Acute) Date of Admission: 03/26/17 Date of Discharge: 04/08/17 - Primary Discharge Diagnosis Active and Suspected Problems (Last Reviewed 03/13/17 @ 09:01 by Soo Yang) #1 neutropenic fever. #2 oropharyngeal/esophageal candidiasis. #3 acute on chronic pancytopenia. #4 elevatedliver transaminases. 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 No new or acute pathology. Electronically Signed: Erickson Che MD at 14:16 EST , Service support , Soft Tissue Neck CT 03/26/17 13:14 IMPRESSION: Normal enhanced CT examination of the soft tissues of the neck. Electronically Signed: Morro Worley MD at 14:36 EST Tel , Service support , Abdomen X-Ray 03/30/17 06:58 IMPRESSION: No nonobstructive gas pattern with the abdomen Electronically Signed: Say Jiang MD, FACR at 8:28 EST , Service support , Liver Ultrasound 03/30/17 07:46 IMPRESSION: 1. Nonvisualization of the pancreas. 2. Fatty infiltration of the liver without focal mass. 3. No other sonographic evidence of right upper quadrant abnormality Electronically Signed: Chi MorenoDO at 17:43 EST Tel [phone], Service support , Chest X-Ray 04/02/17 10:22 IMPRESSION: Interstitial prominence throughout the lungs suggests edema Electronically Signed: Ricky SloanDO at 12:57 EST Tel , Service support , Biopsy CT 04/06/17 10:00 IMPRESSION: Successful CT-guided bone marrow biopsy and aspiration of the left iliac bone as described above. Electronically Signed: Rafa Khanna MD at 14:08 EST Tel [phone], Service support , Dr. Watson, oncology. Operations: None Procedures: Blood transfusion, - - CT-guided bone marrow biopsy. Summary of Care Provided: Patient seen and examined on the day of discharge and appears to be stable to be discharged to alf facility. He remained stable, complains of stuffy and blocked nose. Swallowing has been improving very slowly. Complaint of generalized weakness and fatigue. Vital signs are stable, remained afebrile, maximum temperature overnight was 99.8 Fahrenheit. - Physical Exam General: Alert, Oriented x3, Cooperative, No apparent distress. HEENT: Atraumatic, PERRLA, EOMI. Neck: Supple, No JVD, Negative Carotid Bruits, Trachea Midline, Thyroid Normal. Lungs: Diminished breath sounds bilateral, scattered rhonchi, No wheeze, No rales. Cardiovascular: Regular rate, Regular Rhythm, Normal S1, Normal S2, PMI Normal. Abdomen: Bowel Sounds Present, Soft, Non Tender, Non-Distended, No Hepato-splenomegaly. Extremities: No clubbing, No cyanosis, No edema Skin: No rashes, No breakdown Neurological: Neuro grossly intact, cranial nerves are intact. Vital Signs are stable. Hospital course: This is a 66 years old male patient presented to the emergency room because of sore throat, painful swallowing and fever and he was found to have neutropenic fever, oropharyngeal candidiasis as well as possible esophageal candidiasis, found to have severe thrombocytopenia requiring platelet transfusion. #1 neutropenic fever: Secondary to Revlimid, oropharyngeal candidiasis as well as myelodysplastic syndrome. He was treated with subcutaneous filgrastim, empiric IV antibiotics and antifungal medications. His total white blood cell count remained very low throughout admission and his absolute neutrophil count did not respond to filgrastim and remained at 0. Blood culture showed no growth in 5 days. Urine culture showed no growth. Respiratory panel for viruses were negative. Nasal swab for influenza a and B were negative. He underwent CT-guided bone marrow biopsy and biopsy result is pending at the time of discharge. Patient was seen and evaluated by hospice and palliative care team and they will follow-up with him after he discharged from TCU. #2 oropharyngeal/possible esophageal candidiasis: Treated with IV fluconazole and oral nystatin. Patient had issues with painful swallowing and with treatment, his symptoms improved and he is able to eat and drink but he has been having poor appetite. Patient was discharged on oral fluconazole 200 mg p.o. daily and nystatin 4 times daily. 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 He was treated with filgrastim subcutaneous injections as well as supportive treatment with blood and platelet transfusion. His total, absolute neutrophil count white blood cell and platelet count remained low in spite of aggressive treatment and transfusions. His platelet count continued to drop but there was no evidence of bleeding. He received a total of 4 units of packed RBCs and his hemoglobin remained above 8 g/dL. Bone marrow biopsy is pending at the time of discharge, order given to repeat CBC in 2 days. #4 elevated liver transaminases: Attributed to Revlimid in addition to side effects of antifungal medications. Total bilirubin and alkaline phosphatase are normal. #5 hypertension: Blood pressure has been stable throughout admission, continued on ramipril and metoprolol on discharge. Patient discharged to transitional care unit in a fairly stable to guarded medical condition, discharged on oral fluconazole and oral nystatin for oropharyngeal and esophageal candidiasis, completed course of antibiotics, order given to repeat CBC in 2 days, bone marrow biopsy result is pending at the time of discharge, plan is to follow-up with oncology in 2-3 days and follow-up with PCP in 1 week. This note was generated with Dragon dictation software. It may contain incorrect words, spelling, and punctuation that were not noted in checking the note before signing. Home Medications: Medications to take at Discharge Atorvastatin Calcium [Lipitor] 80 mg PO DAILY 04/16/13 Nitroglycerin [Nitrostat] 0.4 mg SUBLINGUAL PRN PRN 04/16/13 Ramipril [Altace] 10 mg PO DAILY 04/16/13 Lactobacillus Combo No.10 [Probiotic] 1 each PO DAILY 02/03/17 Acetaminophen with Codeine [Tylenol with Codeine #3 Tablet] 1 each PO Q6H PRN #60 tablet 03/20/17 Lidocaine 2% Viscous [Xylocaine Viscous] 20 ml PO 4X/DAY PRN 03/26/17 Metoprolol Tartrate 12.5 mg PO BID 03/26/17 Fluconazole [Diflucan] 200 mg PO DAILY 04/08/17 Magnesium Hydroxide [Milk Of Magnesia] 30 ml PO DAILY PRN PRN #1 udc 04/08/17 Megestrol [Megace] 40 mg PO TID 04/08/17 Nystatin 500,000 unit PO 4X/DAY 04/08/17 Senna/Docusate Sodium [Senokot-S] 2 tablet PO BID 04/08/17 Sodium Chloride 0.65% [[place] Nasal [place]] 2 spray NASAL TID PRN PRN #1 spray.btl 04/08/17 Following Prescrptions Were Given to Patient: Magnesium Hydroxide [Milk Of Magnesia] 30 ml PO DAILY PRN PRN #1 udc PRN Reason: Constipation Sodium Chloride 0.65% [[place]ender Nasal [place]] 2 spray NASAL TID PRN PRN #1 spray.btl PRN Reason: NASAL DRYNESS Primary Care Physician: Екатерина Haq MD [Primary Care Provider] - Please follow up with your Primary Care Physician in: 1 week. Please Follow Up With: Felix Watson MD When: 2-3 days, please call his office. [facility] Minutes spent on discharge:: 38 Patient Condition:: Fair Meaningful Use Info Meaningful Use Diagnoses (Choose all that apply): None applicable Code Visit Inpatient E&M: 82622 Disch Hosp
--- NOTE | 2017-04-08 14:32 | DS.PCM_ITS ---
Discharge Date and Diagnosis - Problem List Patient Problems: Active and Suspected Problems (Last Reviewed 03/13/17 @ 09:01 by Soo Yang) Sore throat (Acute) Streptococcal pharyngitis (Acute) Oropharyngeal candidiasis (Acute) Sepsis (Acute) Date of Admission: 03/26/17 Date of Discharge: 04/08/17 - Primary Discharge Diagnosis Active and Suspected Problems (Last Reviewed 03/13/17 @ 09:01 by Soo Yang) #1 neutropenic fever. #2 oropharyngeal/esophageal candidiasis. #3 acute on chronic pancytopenia. #4 elevatedliver transaminases. 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 No new or acute pathology. Electronically Signed: Erickson Che MD at 14:16 EST , Service support , Soft Tissue Neck CT 03/26/17 13:14 IMPRESSION: Normal enhanced CT examination of the soft tissues of the neck. Electronically Signed: Morro Worley MD at 14:36 EST Tel , Service support , Abdomen X-Ray 03/30/17 06:58 IMPRESSION: No nonobstructive gas pattern with the abdomen Electronically Signed: Say Jiang MD, FACR at 8:28 EST , Service support , Liver Ultrasound 03/30/17 07:46 IMPRESSION: 1. Nonvisualization of the pancreas. 2. Fatty infiltration of the liver without focal mass. 3. No other sonographic evidence of right upper quadrant abnormality Electronically Signed: Chi MorenoDO at 17:43 EST Tel [phone], Service support , Chest X-Ray 04/02/17 10:22 IMPRESSION: Interstitial prominence throughout the lungs suggests edema Electronically Signed: Ricky SloanDO at 12:57 EST Tel , Service support , Biopsy CT 04/06/17 10:00 IMPRESSION: Successful CT-guided bone marrow biopsy and aspiration of the left iliac bone as described above. Electronically Signed: Rafa Khanna MD at 14:08 EST Tel [phone], Service support , Dr. Watson, oncology. Operations: None Procedures: Blood transfusion, - - CT-guided bone marrow biopsy. Summary of Care Provided: Patient seen and examined on the day of discharge and appears to be stable to be discharged to [facility] facility. He remained stable, complains of stuffy and blocked nose. Swallowing has been improving very slowly. Complaint of generalized weakness and fatigue. Vital signs are stable, remained afebrile , maximum temperature overnight was 99.8 Fahrenheit. - Physical Exam General: Alert, Oriented x3, Cooperative, No apparent distress. HEENT: Atraumatic, PERRLA, EOMI. Neck: Supple, No JVD, Negative Carotid Bruits, Trachea Midline, Thyroid Normal. Lungs: Diminished breath sounds bilateral, scattered rhonchi, No wheeze, No rales. Cardiovascular: Regular rate, Regular Rhythm, Normal S1, Normal S2, PMI Normal. Abdomen: Bowel Sounds Present, Soft, Non Tender, Non-Distended, No Hepato- splenomegaly. Extremities: No clubbing, No cyanosis, No edema Skin: No rashes, No breakdown Neurological: Neuro grossly intact, cranial nerves are intact. Vital Signs are stable. Hospital course: This is a 66 years old male patient presented to the emergency room because of sore throat, painful swallowing and fever and he was found to have neutropenic fever, oropharyngeal candidiasis as well as possible esophageal candidiasis, found to have severe thrombocytopenia requiring platelet transfusion. #1 neutropenic fever: Secondary to Revlimid, oropharyngeal candidiasis as well as myelodysplastic syndrome. He was treated with subcutaneous filgrastim, empiric IV antibiotics and antifungal medications. His total white blood cell count remained very low throughout admission and his absolute neutrophil count did not respond to filgrastim and remained at 0. Blood culture showed no growth in 5 days. Urine culture showed no growth. Respiratory panel for viruses were negative. Nasal swab for influenza a and B were negative. He underwent CT-guided bone marrow biopsy and biopsy result is pending at the time of discharge. Patient was seen and evaluated by hospice and palliative care team and they will follow-up with him after he discharged from TCU. #2 oropharyngeal/possible esophageal candidiasis: Treated with IV fluconazole and oral nystatin. Patient had issues with painful swallowing and with treatment, his symptoms improved and he is able to eat and drink but he has been having poor appetite. Patient was discharged on oral fluconazole 200 mg p.o. daily and nystatin 4 times daily. 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 He was treated with filgrastim subcutaneous injections as well as supportive treatment with blood and platelet transfusion. His total, absolute neutrophil count white blood cell and platelet count remained low in spite of aggressive treatment and transfusions. His platelet count continued to drop but there was no evidence of bleeding. He received a total of 4 units of packed RBCs and his hemoglobin remained above 8 g/dL. Bone marrow biopsy is pending at the time of discharge, order given to repeat CBC in 2 days. #4 elevated liver transaminases: Attributed to Revlimid in addition to side effects of antifungal medications. Total bilirubin and alkaline phosphatase are normal. #5 hypertension: Blood pressure has been stable throughout admission, continued on ramipril and metoprolol on discharge. Patient discharged to transitional care unit in a fairly stable to guarded medical condition, discharged on oral fluconazole and oral nystatin for oropharyngeal and esophageal candidiasis, completed course of antibiotics, order given to repeat CBC in 2 days, bone marrow biopsy result is pending at the time of discharge, plan is to follow-up with oncology in 2-3 days and follow -up with PCP in 1 week. This note was generated with Dragon dictation software. It may contain incorrect words, spelling, and punctuation that were not noted in checking the note before signing. Home Medications: Medications to take at Discharge Atorvastatin Calcium [Lipitor] 80 mg PO DAILY 04/16/13 Nitroglycerin [Nitrostat] 0.4 mg SUBLINGUAL PRN PRN 04/16/13 Ramipril [Altace] 10 mg PO DAILY 04/16/13 Lactobacillus Combo No.10 [Probiotic] 1 each PO DAILY 02/03/17 Acetaminophen with Codeine [Tylenol with Codeine #3 Tablet] 1 each PO Q6H PRN # 60 tablet 03/20/17 Lidocaine 2% Viscous [Xylocaine Viscous] 20 ml PO 4X/DAY PRN 03/26/17 Metoprolol Tartrate 12.5 mg PO BID 03/26/17 Fluconazole [Diflucan] 200 mg PO DAILY 04/08/17 Magnesium Hydroxide [Milk Of Magnesia] 30 ml PO DAILY PRN PRN #1 udc 04/08/17 Megestrol [Megace] 40 mg PO TID 04/08/17 Nystatin 500,000 unit PO 4X/DAY 04/08/17 Senna/Docusate Sodium [Senokot-S] 2 tablet PO BID 04/08/17 Sodium Chloride 0.65% [[place] Nasal [place]] 2 spray NASAL TID PRN PRN #1 spray.btl 04/08/17 Following Prescrptions Were Given to Patient: Magnesium Hydroxide [Milk Of Magnesia] 30 ml PO DAILY PRN PRN #1 udc PRN Reason: Constipation Sodium Chloride 0.65% [[place] Nasal [place]] 2 spray NASAL TID PRN PRN #1 spray.btl PRN Reason: NASAL DRYNESS Primary Care Physician: Екатерина Haq MD [Primary Care Provider] - Please follow up with your Primary Care Physician in: 1 week. Please Follow Up With: Felix Watson MD When: 2-3 days, please call his office. [facility]: [facility] Minutes spent on discharge:: 38 Patient Condition:: Fair Meaningful Use Info Meaningful Use Diagnoses (Choose all that apply): None applicable Code Visit Inpatient E&M: 91582 Disch Hosp
[2017-04-10 11:01] LABS: Pathologist Review Reviewed
[2017-04-10 11:09] LABS: Pathologist Review Reviewed
[2017-04-11 09:55] LABS: Pathologist Review Reviewed
== END 2017-04-08 11:01 | disposition skilled nursing facility (03) | DRG 808 ==
LOC: ED 13:07 → MS2 16:59
PROVIDERS: Family Medicine; Admitting Provider Internal Medicine; Emergency Provider Emergency Medicine; Family Provider Internal Medicine; PCP Internal Medicine; Visit Provider Hospitalist
DX: D70.1 Agranulocytosis secondary to cancer chemotherapy (principal); E43 Unspecified severe protein-calorie malnutrition; B37.81 Candidal esophagitis; B37.0 Candidal stomatitis; D46.C Myelodysplastic syndrome with isolated del(5q) chromosomal abnormality; E78.5 Hyperlipidemia, unspecified; I10 Essential (primary) hypertension; T45.1X5A Adverse effect of antineoplastic and immunosuppressive drugs, initial encounter; R50.81 Fever presenting with conditions classified elsewhere; I25.10 Atherosclerotic heart disease of native coronary artery without angina pectoris; Z68.27 Body mass index [BMI] 27.0-27.9, adult; Z95.1 Presence of aortocoronary bypass graft; D61.810 Antineoplastic chemotherapy induced pancytopenia
CPT/HCPCS: 36415; 70491; 71046; 74019; 76705; 77012; 80048; 80053; 81001; 83605; 83735; 84100; 85025; 85610; 85730; 86644; 86704; 86705; 86706; 86708; 86709; 86803; 86850; 86900; 86920; 86922; 86965; 87040; 87070; 87086; 87340; 87633; 87804; 88305; 88311; 88313; 88341; 88342; 92507; 92526; 94640; 94762; 97110; 97116; 97162; 97165; 97530; 97535; 97802; 99156; 99157; 99283; J2185; J7030; J7040; J7050; P9031; P9035; P9037; P9040; Q9967; A4216; J1447; J1940; J2405

== ENCOUNTER 2017-04-08 11:15 | Inpatient (IN) | payer MEDICARE, OTHER, SELFPAY ==
[2017-04-08 11:36] VITALS: BP 137/71; PULSE 99; RESP 18; TEMP 36.7; O2SAT 94
[2017-04-08 12:06] VITALS: BMI 26.2
[2017-04-08 12:12] VITALS: BMI 26.2
--- NOTE | 2017-04-08 12:56 | PCM.HP.STD ---
Problem List (1) Sore throat Status: Acute (2) Streptococcal pharyngitis Status: Acute (3) Oropharyngeal candidiasis Status: Acute (4) Sepsis Status: Acute (5) Myelodysplastic syndrome Status: Chronic (6) Coronary artery disease Status: Chronic (7) Hypertension Status: Chronic (8) Neutropenia Status: Chronic (9) Pancytopenia Status: Chronic (10) Hyperlipidemia Status: Chronic History of Present Illness Date of Admission: 04/08/17 Chief Complaint: Here for rehabilitation, strengthening, prior to discharge home with spouse. The patient is a 66 year old Male with below past medical history presented to [facility] 03/26/2017 with sore throat. 03/26/2017 Chest X-ray showed stable cardiomegaly, atelectasis left base. 03/26/2017 CT soft tissue neck normal. History of MDS, Dr. Watson patient, multiple blood and platelet transfusions. on Revlimid, was told he is neutropenic. On amoxicillin for uvulitis. On Nystatin for thrush. Fever 100.1, sore throat getting worse. Unable to eat. Neutrophil 0, Hemloglobin 8.1, Platelet 22, Cr 1.15, BUN 27. Lactic acid 1.7, UA negative, Rapid influenza negative. IV fluids given. Oncology recommend hospital admission, Meropenem IV given. 03/26/2017 Admit to Hospital. Meropenem IV, Granix SQ for neutropenia. 03/27/2017 Granix dose increased. Throat culture + strep. Meropenem to PCN PO when improved. IV Fluconazole, Nystatin for thrush. 03/27/2017 Dr. Chance recommended watchful waiting instead of EGD. 03/27/2017 Dr. Bradford recommended holding Revlimid. Transfuse packed red blood cells to keep Hemoglobin > 7, Transfuse platelets to keep platelets > 10,000. 03/30/2017 X-ray abdomen negative. 03/30/2017 Liver ultrasound showed fatty liver, ordered for elevated liver function tests. 04/02/2017 Chest X-ray pulmonary edema. 04/06/[address] guided bone marrow biopsy of left iliac bone. IV fluconazole, oral nystatin for oropharyngeal, possible esophageal candidiasis. Granix SQ for neutropenia. Blood cultures negative, Urine culture negative, Respiratory panel negative. Elevated liver function tests secondary to Revlimid, antifungal medications. 04/08/2017 Admit to TCU for rehabilitation, strengthening, prior to discharge home with spouse. 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) Hyperlipidemia (Chronic) Allergies No Known Allergies Allergy (Verified 03/26/17 12:54) Home Medications: Ambulatory Orders Medication Instructions Recorded RX: Atorvastatin Calcium [Lipitor] 80 mg PO DAILY 04/16/13 RX: Nitroglycerin [Nitrostat] 0.4 mg SUBLINGUAL PRN PRN 04/16/13 RX: Ramipril [Altace] 10 mg PO DAILY 04/16/13 RX: Lactobacillus Combo No.10 1 each PO DAILY 02/03/17 [Probiotic] RX: Acetaminophen with Codeine 1 each PO Q6H PRN #60 tablet 03/20/17 [Tylenol with Codeine #3 Tablet] RX: Lidocaine 2% Viscous 20 ml PO 4X/DAY PRN 03/26/17 [Xylocaine Viscous] RX: Metoprolol Tartrate 12.5 mg PO BID 03/26/17 RX: Fluconazole [Diflucan] 200 mg PO DAILY 04/08/17 RX: Magnesium Hydroxide [Milk Of 30 ml PO DAILY PRN PRN #1 udc 04/08/17 Magnesia] RX: Megestrol [Megace] 40 mg PO TID 04/08/17 RX: Nystatin 500,000 unit PO 4X/DAY 04/08/17 RX: Senna/Docusate Sodium 2 tablet PO BID 04/08/17 [Senokot-S] RX: Sodium Chloride 0.65% [[place] 2 spray NASAL TID PRN PRN #1 04/08/17 Nasal [place]] spray.btl Surgical History: coronary bypass surgery Psychiatric History: No pertinent psych hx Lives: Spouse/ Significant Other Smoking Status: Never smoker Tobacco Use: Non-smoker Alcohol: None Drugs: None - *Family History Maternal History Items: Heart Disease Paternal History Items: Heart Disease Review of Systems Constitutional: Denies: Chills, Fever, Weight Change HEENT: Denies: Head Aches, Sinus Congestion, Sinus Drainage Cardiovascular: Denies: Chest Pain, Palpitations Respiratory: Denies: Cough, Shortness of breath at rest, Sputum production Gastrointestinal: Denies: Abdominal Pain, Nausea, Vomiting Genitourinary: Denies: Dysuria Musculoskeletal: Denies: Joint Pain, Joint Tenderness Skin: Denies: Rash, Wounds Neurological: Denies: Numbness, Tingling, Focal weakness Psychiatric: Denies: Anxiety, Depression, Homicidal Ideations, Suicidal Ideations Hematologic/ Lymphatic: Denies: Easy Bruising, Easy Bleeding VTE Information - Inpt Only VTE Present on Admission: No VTE Mechan Device Prophylaxis: Knee High ALONDRA Hose VTE Pharm Prophylaxis ordered?: No Reason prophylaxis not ordered:: Medical Contraindication Patient Problems: Active and Suspected Problems (Last Reviewed 03/13/17 @ 09:01 by Soo Yang) Sore throat (Acute) Streptococcal pharyngitis (Acute) Oropharyngeal candidiasis (Acute) Sepsis (Acute) - Physical Exam General: Alert, Oriented x3, Cooperative HEENT: Atraumatic, PERRLA, EOMI, Normocephalic Neck: Supple, No JVD, Negative Carotid Bruits Lungs: Clear to auscultation, Normal air movement Cardiovascular: Regular rate, No murmurs Abdomen: Bowel Sounds Present, Soft, Non Tender Extremities: No edema, Capillary Refill Less than 3 Seconds Skin: No rashes, No breakdown Musculoskeletal: No Tenderness to Palpation of Joints or Extremities Neurological: Cranial nerves II-XII grossly intact Psych/Mental Status: Normal Affect, Appropriate Vital Signs Temp Pulse Resp BP Pulse Ox 98.1 F 99 18 137/71 H 94 04/08/17 11:36 04/08/17 11:36 04/08/17 11:36 04/08/17 11:36 04/08/17 11:36 Oxygen Delivery Method Room Air Weight: 82.8 kg Body Mass Index (BMI) 26.2 Assessment/Plan Active and Suspected Problems (Last Reviewed 03/13/17 @ 09:01 by Soo Yang) Sore throat (Acute) Streptococcal pharyngitis (Acute) Oropharyngeal candidiasis (Acute) Sepsis (Acute) 66 year old male with past medical history significant for myelodysplastic syndrome on Revlimid, hospitalized for neutropenic fever secondary to streptococcal pharyngitis, oropharyngeal candidiasis, admitted to TCU for debility for rehabilitation, strengthening, prior to discharge home with spouse. Debility - PT/OT. Dysphagia - ST. Pain - Tylenol #3 1 tablet Q6H PRN moderate pain. Bowel - Miralax 17GM daily, Senna/colace 2 tablets BID, Dulcolax 10MG PO daily PRN. Pneumonia vaccination - Administer Prevnar 13 and/or Pneumovax 23 as necessary. DVT prophylaxis - Contraindicated due to low platelets. Hyperlipidemia - Atorvastatin 80MG QHS, ?LFT elevation. Oropharyngeal candidiasis - Fluconazole 200MG daily, Nystatin 500,000 units 4x/day, stop date? GI prophylaxis - Lactobacillus 1 tablet daily. Sore throat - Viscous Xylocaine 2% 20ML PO 4x/day PRN. Appetite loss - Megace 40MG TID, ?dose seems low. Coronary artery disease status post CABG - Metoprolol 12.5MG BID, Ramipril 10MG daily, NTG 0.4MG SL PRN. Dry nostrils - [place] nasal spray 2 sprays TID PRN. Cough - Robitussin 10ML Q6H PRN.
--- NOTE | 2017-04-08 13:16 | HP.PCM_ITS ---
Problem List (1) Sore throat Status: Acute (2) Streptococcal pharyngitis Status: Acute (3) Oropharyngeal candidiasis Status: Acute (4) Sepsis Status: Acute (5) Myelodysplastic syndrome Status: Chronic (6) Coronary artery disease Status: Chronic (7) Hypertension Status: Chronic (8) Neutropenia Status: Chronic (9) Pancytopenia Status: Chronic (10) Hyperlipidemia Status: Chronic History of Present Illness Date of Admission: 04/08/17 Chief Complaint: Here for rehabilitation, strengthening, prior to discharge home with spouse. The patient is a 66 year old Male with below past medical history presented to [facility] Emergency Department 03/26/2017 with sore throat. 03/26/2017 Chest X-ray showed stable cardiomegaly, atelectasis left base. 03/26/2017 CT soft tissue neck normal. History of MDS, Dr. Watson patient, multiple blood and platelet transfusions. on Revlimid, was told he is neutropenic. On amoxicillin for uvulitis. On Nystatin for thrush. Fever 100.1, sore throat getting worse. Unable to eat. Neutrophil 0, Hemloglobin 8.1, Platelet 22, Cr 1.15, BUN 27. Lactic acid 1.7, UA negative, Rapid influenza negative. IV fluids given. Oncology recommend hospital admission, Meropenem IV given. 03/26/2017 Admit to Hospital. Meropenem IV, Granix SQ for neutropenia. 03/27/2017 Granix dose increased. Throat culture + strep. Meropenem to PCN PO when improved. IV Fluconazole, Nystatin for thrush. 03/27/2017 Dr. Chance recommended watchful waiting instead of EGD. 03/27/2017 Dr. Bradford recommended holding Revlimid. Transfuse packed red blood cells to keep Hemoglobin > 7, Transfuse platelets to keep platelets > 10,000. 03/30/2017 X-ray abdomen negative. 03/30/2017 Liver ultrasound showed fatty liver, ordered for elevated liver function tests. 04/02/2017 Chest X-ray pulmonary edema. 04/06/[address] guided bone marrow biopsy of left iliac bone. IV fluconazole, oral nystatin for oropharyngeal, possible esophageal candidiasis. Granix SQ for neutropenia. Blood cultures negative, Urine culture negative, Respiratory panel negative. Elevated liver function tests secondary to Revlimid, antifungal medications. 04/08/2017 Admit to TCU for rehabilitation, strengthening, prior to discharge home with spouse. 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) Hyperlipidemia (Chronic) Allergies No Known Allergies Allergy (Verified 03/26/17 12:54) Home Medications: Ambulatory Orders Medication Instructions Recorded RX: Atorvastatin Calcium [Lipitor] 80 mg PO DAILY 04/16/13 RX: Nitroglycerin [Nitrostat] 0.4 mg SUBLINGUAL PRN PRN 04/16/13 RX: Ramipril [Altace] 10 mg PO DAILY 04/16/13 RX: Lactobacillus Combo No.10 1 each PO DAILY 02/03/17 [Probiotic] RX: Acetaminophen with Codeine 1 each PO Q6H PRN #60 tablet 03/20/17 [Tylenol with Codeine #3 Tablet] RX: Lidocaine 2% Viscous 20 ml PO 4X/DAY PRN 03/26/17 [Xylocaine Viscous] RX: Metoprolol Tartrate 12.5 mg PO BID 03/26/17 RX: Fluconazole [Diflucan] 200 mg PO DAILY 04/08/17 RX: Magnesium Hydroxide [Milk Of 30 ml PO DAILY PRN PRN #1 udc 04/08/17 Magnesia] RX: Megestrol [Megace] 40 mg PO TID 04/08/17 RX: Nystatin 500,000 unit PO 4X/DAY 04/08/17 RX: Senna/Docusate Sodium 2 tablet PO BID 04/08/17 [Senokot-S] RX: Sodium Chloride 0.65% [[place] 2 spray NASAL TID PRN PRN #1 04/08/17 Nasal [place]] spray.btl Surgical History: coronary bypass surgery Psychiatric History: No pertinent psych hx Lives: Spouse/ Significant Other Smoking Status: Never smoker Tobacco Use: Non-smoker Alcohol: None Drugs: None - *Family History Maternal History Items: Heart Disease Paternal History Items: Heart Disease Review of Systems Constitutional: Denies: Chills, Fever, Weight Change HEENT: Denies: Head Aches, Sinus Congestion, Sinus Drainage Cardiovascular: Denies: Chest Pain, Palpitations Respiratory: Denies: Cough, Shortness of breath at rest, Sputum production Gastrointestinal: Denies: Abdominal Pain, Nausea, Vomiting Genitourinary: Denies: Dysuria Musculoskeletal: Denies: Joint Pain, Joint Tenderness Skin: Denies: Rash, Wounds Neurological: Denies: Numbness, Tingling, Focal weakness Psychiatric: Denies: Anxiety, Depression, Homicidal Ideations, Suicidal Ideations Hematologic/ Lymphatic: Denies: Easy Bruising, Easy Bleeding VTE Information - Inpt Only VTE Present on Admission: No VTE Mechan Device Prophylaxis: Knee High ALONDRA Hose VTE Pharm Prophylaxis ordered?: No Reason prophylaxis not ordered:: Medical Contraindication Patient Problems: Active and Suspected Problems (Last Reviewed 03/13/17 @ 09:01 by Soo Yang) Sore throat (Acute) Streptococcal pharyngitis (Acute) Oropharyngeal candidiasis (Acute) Sepsis (Acute) - Physical Exam General: Alert, Oriented x3, Cooperative HEENT: Atraumatic, PERRLA, EOMI, Normocephalic Neck: Supple, No JVD, Negative Carotid Bruits Lungs: Clear to auscultation, Normal air movement Cardiovascular: Regular rate, No murmurs Abdomen: Bowel Sounds Present, Soft, Non Tender Extremities: No edema, Capillary Refill Less than 3 Seconds Skin: No rashes, No breakdown Musculoskeletal: No Tenderness to Palpation of Joints or Extremities Neurological: Cranial nerves II-XII grossly intact Psych/Mental Status: Normal Affect, Appropriate Vital Signs Temp Pulse Resp BP Pulse Ox 98.1 F 99 18 137/71 H 94 04/08/17 11:36 04/08/17 11:36 04/08/17 11:36 04/08/17 11:36 04/08/17 11:36 Oxygen Delivery Method Room Air Weight: 82.8 kg Body Mass Index (BMI) 26.2 Assessment/Plan Active and Suspected Problems (Last Reviewed 03/13/17 @ 09:01 by Soo Yang) Sore throat (Acute) Streptococcal pharyngitis (Acute) Oropharyngeal candidiasis (Acute) Sepsis (Acute) 66 year old male with past medical history significant for myelodysplastic syndrome on Revlimid, hospitalized for neutropenic fever secondary to streptococcal pharyngitis, oropharyngeal candidiasis, admitted to TCU for debility for rehabilitation, strengthening, prior to discharge home with spouse. * Debility - PT/OT. * Dysphagia - ST. * Pain - Tylenol #3 1 tablet Q6H PRN moderate pain. * Bowel - Miralax 17GM daily, Senna/colace 2 tablets BID, Dulcolax 10MG PO daily PRN. * Pneumonia vaccination - Administer Prevnar 13 and/or Pneumovax 23 as necessary. * DVT prophylaxis - Contraindicated due to low platelets. * Hyperlipidemia - Atorvastatin 80MG QHS, ?LFT elevation. * Oropharyngeal candidiasis - Fluconazole 200MG daily, Nystatin 500,000 units 4x /day, stop date? * GI prophylaxis - Lactobacillus 1 tablet daily. * Sore throat - Viscous Xylocaine 2% 20ML PO 4x/day PRN. * Appetite loss - Megace 40MG TID, ?dose seems low. * Coronary artery disease status post CABG - Metoprolol 12.5MG BID, Ramipril 10MG daily, NTG 0.4MG SL PRN. * Dry nostrils - [place] nasal spray 2 sprays TID PRN. * Cough - Robitussin 10ML Q6H PRN.
[2017-04-08] MEDS: guaiFENesin/Codeine 5 ML UDC 10 ML PO (15:02)
[2017-04-08] MEDS: Megestrol 40 MG Tablet PO ×2 (15:03→22:23)
[2017-04-08 17:58] VITALS: BP 137/71; PULSE 99
[2017-04-08] MEDS: Metoprolol Tartrate 25 MG Tablet 12.5 MG PO (17:58)
[2017-04-08] MEDS: NYSTATIN 500,000 UNIT/5 ML UDC 500000 UNIT PO ×2 (17:58→22:24)
--- NOTE | 2017-04-08 19:45 | NURSING ---
Dr Ribera notified of cold sore to Left nare. N.O. topical acyclovir x10 days.
[2017-04-08] MEDS: Acetaminophen/Codeine #3 Tablet 1 TABLET PO (22:20)
[2017-04-08] MEDS: Acyclovir 5% Tube 1 APPLIC TOPICAL (22:24)
[2017-04-09 06:20] LABS: Absolute Lymphocyte Count 0.67 X10^3/ul (0.83-4.51); Basophil# 0.05 X10^3/uL; Basophil% 5.8 % (0-1); Eosinophil# 0.02 X10^3/uL; Eosinophils% 2.3 % (0-5); Hematocrit 26.3 % (40-54); Lymphocyte # 0.67 X10^3/ul (4.0); Lymphocyte % 77.9 % (19-41); Mean Corp Hgb Conc 34.2 g/gl (32-36); Mean Corpuscular Volume 93.6 fL (80-94); Mean Platelet Vol. 11.4 fl (6.2-12.0); Monocyte# 0.08 X10^3/uL; Monocyte% 9.3 % (0-10); Neutrophil # 0.03 X10^3/uL (2.7-7.7); Neutrophil % 3.5 % (47-70); RBC Distribution Width SD 50.6 fl (35.1-43.9); Red Blood Count 2.81 M/mm3 (4.6-6.2)
[2017-04-09 06:36] LABS: Anion Gap 9 (5-15); BUN 17 mg/dL (7-18); BUN/Creat Ratio 20.7 RATIO (10-20); Calcium,Total 8.6 mg/dL (8.5-10.1); Chloride 98 mmol/L (98-107); Creatinine, Serum 0.82 mg/dL (0.70-1.30); EST Glomerular Filtration Rate 99 mL/min (>60); Est Glom Filt Rate - Afr Amer 120 mL/min (>60); Estimated Creatinine Clearance 89.02 ml/min; Glucose 102 mg/dL (74-106); Potassium 3.9 mmol/L (3.5-5.1); Sodium Level 132 mmol/L (136-145)
[2017-04-09 06:54] LABS: White Blood Count 0.9 K/mm3 (4.4-11.0)
[2017-04-09 06:55] LABS: Differential Comment SCANNED; Differential Indicated SCAN CRITERIA MET; POSITIVE COUNT YES; POSITIVE DIFFERENTIAL YES; POSITIVE MORPHOLOGY YES; Platelet Count 15 K/mm3 (150-450)
[2017-04-09] MEDS: Acetaminophen/Codeine #3 Tablet 1 TABLET PO ×2 (07:14→22:09)
[2017-04-09] MEDS: NYSTATIN 500,000 UNIT/5 ML UDC 500000 UNIT PO ×4 (07:14→22:11)
[2017-04-09] MEDS: Polyethylene Glycol 3350 17 GM PACKET PO (07:14)
[2017-04-09] MEDS: Acyclovir 5% Tube 1 APPLIC TOPICAL ×4 (07:15→22:10)
[2017-04-09] MEDS: guaiFENesin/Codeine 5 ML UDC 10 ML PO (07:15)
[2017-04-09] MEDS: Megestrol 40 MG Tablet PO ×3 (07:16→22:10)
[2017-04-09] MEDS: Fluconazole 100 MG Tablet 200 MG PO (07:17)
[2017-04-09] MEDS: Ramipril 10 MG Capsule PO (07:18)
[2017-04-09] MEDS: Atorvastatin Calcium 80 MG Tablet PO (07:19)
[2017-04-09 07:26] VITALS: BP 121/77; PULSE 118
[2017-04-09] MEDS: Metoprolol Tartrate 25 MG Tablet 12.5 MG PO ×2 (07:26→17:48)
--- NOTE | 2017-04-09 11:04 | NURSING ---
Ish held per pharmacy dur to critical lab values. Julianna PICKETT aware
[2017-04-09] MEDS: Tuberculin,Purif.prot.deriv. 50 TU/ML Vial 5 ML ID (11:39)
--- NOTE | 2017-04-09 13:11 | NURSING ---
Old IV site on patients right AC red, warm, edematous and tender. Dr. Ribera made aware, NO for warm compresses qshift, augmentin 875mg PO bid x10 days. Patient also has c/o dry nares, NO for vaseline to BL nares BID, lovenox d/c'd d/t low platelet count.
[2017-04-09 15:28] VITALS: BP 122/64; PULSE 100; RESP 16; TEMP 36.5; O2SAT 93
[2017-04-09 17:48] VITALS: PULSE 100
[2017-04-09] MEDS: Petrolatum,White 5 GM PACKET 1 APPLIC TOPICAL (17:48)
[2017-04-09] MEDS: Amox/Clavulanate 875 MG Tablet PO (17:49)
[2017-04-10] MEDS: guaiFENesin/Codeine 5 ML UDC 10 ML PO (06:38)
[2017-04-10] MEDS: Acetaminophen/Codeine #3 Tablet 1 TABLET PO ×2 (06:39→21:26)
[2017-04-10] MEDS: Megestrol 40 MG Tablet PO ×3 (06:40→21:27)
[2017-04-10] MEDS: Acyclovir 5% Tube 1 APPLIC TOPICAL ×4 (06:40→21:27)
[2017-04-10] MEDS: NYSTATIN 500,000 UNIT/5 ML UDC 500000 UNIT PO ×4 (06:40→21:27)
[2017-04-10 06:41] VITALS: BP 123/71; PULSE 110
[2017-04-10] MEDS: Metoprolol Tartrate 25 MG Tablet 12.5 MG PO ×2 (06:41→18:23)
[2017-04-10] MEDS: Fluconazole 100 MG Tablet 200 MG PO (06:41)
[2017-04-10] MEDS: Amox/Clavulanate 875 MG Tablet PO ×2 (06:42→18:22)
[2017-04-10] MEDS: Ramipril 10 MG Capsule PO (06:42)
[2017-04-10] MEDS: Petrolatum,White 5 GM PACKET 1 APPLIC TOPICAL ×2 (06:42→18:20)
[2017-04-10] MEDS: Atorvastatin Calcium 80 MG Tablet PO (06:42)
--- NOTE | 2017-04-10 10:47 | NURSING ---
Hospice here to meet with pt
[2017-04-10 13:39] LABS: Basophil# 0.06 X10^3/uL; Basophil% 10.2 % (0-1); Differential Indicated SCAN CRITERIA MET; Eosinophil# 0.01 X10^3/uL; Eosinophils% 1.7 % (0-5); Hematocrit 25.3 % (40-54); Hemoglobin 8.5 g/dl (13.0-16.5); Lymphocyte % 67.8 % (19-41); Mean Corp Hgb Conc 33.6 g/gl (32-36); Mean Corpuscular Hgb 31.8 pg (27.0-32.0); Mean Corpuscular Volume 94.8 fL (80-94); Mean Platelet Vol. 9.8 fl (6.2-12.0); Monocyte# 0.12 X10^3/uL; Monocyte% 20.3 % (0-10); POSITIVE COUNT YES; POSITIVE DIFFERENTIAL YES; POSITIVE MORPHOLOGY YES; Platelet Count 10 K/mm3 (150-450); RBC Distribution Width CV 16.2 % (11.6-14.6); RBC Distribution Width SD 51.7 fl (35.1-43.9); Red Blood Count 2.67 M/mm3 (4.6-6.2); White Blood Count 0.6 K/mm3 (4.4-11.0)
--- NOTE | 2017-04-10 14:22 | NURSING ---
Dr. Ribera and Dr. Watson updated on labwork, N.O. for 1 unit of platelets transfuse per protocol. Per blood bank a shipment comes in tonight, scheduled for 10:30 tomorrow in oncology infusion suites, order faxed. Pt and updated.
[2017-04-10 16:00] VITALS: BP 129/78; PULSE 102; RESP 20; TEMP 36.8; O2SAT 96
[2017-04-10] MEDS: guaiFENesin 600 MG Tablet 1200 MG PO (18:22)
[2017-04-10] MEDS: Senna/Docusate Sodium 1 Tablet 2 TABLET PO (18:22)
[2017-04-10 18:23] VITALS: BP 129/78; PULSE 102
--- NOTE | 2017-04-10 21:33 | NURSING ---
Pt asking for prn robitussin with codeine for his often/productive/moist cough. Orders d/c'd today, pt requesting med back prn, usually took in am and at hs and pt stated it was helpful. RN aware.
[2017-04-11] MEDS: Acetaminophen/Codeine #3 Tablet 1 TABLET PO ×3 (05:49→20:59)
[2017-04-11 06:04] LABS: Absolute Lymphocyte Count 0.55 X10^3/ul (0.83-4.51); Basophil# 0.04 X10^3/uL; Basophil% 5.7 % (0-1); Eosinophil# 0.01 X10^3/uL; Eosinophils% 1.4 % (0-5); Hematocrit 25.4 % (40-54); Hemoglobin 8.5 g/dl (13.0-16.5); Lymphocyte # 0.55 X10^3/ul (4.0); Lymphocyte % 78.6 % (19-41); Mean Corp Hgb Conc 33.5 g/gl (32-36); Mean Corpuscular Hgb 31.3 pg (27.0-32.0); Mean Corpuscular Volume 93.4 fL (80-94); Monocyte% 14.3 % (0-10); RBC Distribution Width CV 16.1 % (11.6-14.6); RBC Distribution Width SD 51.5 fl (35.1-43.9); Red Blood Count 2.72 M/mm3 (4.6-6.2)
--- NOTE | 2017-04-11 06:07 | NURSING ---
Pt requesting to have Robitussin back per previous order. Dr. Ribera aware. N.O entered.
[2017-04-11 06:10] LABS: Differential Indicated SCAN CRITERIA MET; POSITIVE COUNT YES; POSITIVE DIFFERENTIAL YES; POSITIVE MORPHOLOGY YES; Platelet Count 13 K/mm3 (150-450); White Blood Count 0.7 K/mm3 (4.4-11.0)
[2017-04-11 06:45] LABS: Differential Comment SCAN; Platelet Estimate MKD DEC (ADEQ)
[2017-04-11] MEDS: NYSTATIN 500,000 UNIT/5 ML UDC 500000 UNIT PO ×3 (07:10→20:50)
[2017-04-11] MEDS: Megestrol 40 MG Tablet PO ×3 (07:11→20:49)
[2017-04-11] MEDS: Ramipril 10 MG Capsule PO (07:11)
[2017-04-11 07:12] VITALS: BP 126/70; PULSE 88
[2017-04-11] MEDS: guaiFENesin/Codeine 5 ML UDC 10 ML PO (07:12)
[2017-04-11] MEDS: Amox/Clavulanate 875 MG Tablet PO ×2 (07:12→18:23)
[2017-04-11] MEDS: Fluconazole 100 MG Tablet 200 MG PO (07:12)
[2017-04-11] MEDS: Atorvastatin Calcium 80 MG Tablet PO (07:12)
[2017-04-11] MEDS: Metoprolol Tartrate 25 MG Tablet 12.5 MG PO ×2 (07:12→18:23)
[2017-04-11] MEDS: Petrolatum,White 5 GM PACKET 1 APPLIC TOPICAL ×2 (07:14→18:29)
[2017-04-11] MEDS: Acyclovir 5% Tube 1 APPLIC TOPICAL ×3 (07:14→20:50)
--- NOTE | 2017-04-11 08:53 | DCINST_ITS ---
- Discharge Diagnoses Current Active Problems: Current Active and Chronic Problems (Last Reviewed 03/13/17 @ 09:01 by Soo Yang) Sore throat (Acute) Streptococcal pharyngitis (Acute) Oropharyngeal candidiasis (Acute) Sepsis (Acute) Myelodysplastic syndrome (Chronic) Coronary artery disease (Chronic) Hypertension (Chronic) You will use the following diet at home:: No restrictions, Regular Your food should be the consistency of: Regular Your liquids should be the consistency of: Regular/Thin Discharge Activity: Return to Normal Activity, Use Walker Weight Bearing Status: Weight bearing as tolerated Call your doctor if you observe: Fever of 101 or Higher, Inability to urinate, Inability to have a bowel movement, Shortness of breath, Chest pain, Uncontrolled pain Allergies/Adverse Reactions: Allergies No Known Allergies Allergy (Verified 03/26/17 12:54) Medications to take at Discharge Atorvastatin Calcium [Lipitor] 80 mg PO DAILY 04/16/13 Nitroglycerin [Nitrostat] 0.4 mg SUBLINGUAL PRN PRN 04/16/13 Ramipril [Altace] 10 mg PO DAILY 04/16/13 Lactobacillus Combo No.10 [Probiotic] 1 each PO DAILY 02/03/17 Lidocaine 2% Viscous [Xylocaine Viscous] 20 ml PO 4X/DAY PRN 03/26/17 Metoprolol Tartrate 12.5 mg PO BID 03/26/17 Acetaminophen with Codeine [Tylenol with Codeine #3 Tablet] 1 each PO Q6H PRN # 60 tablet 04/11/17 Acyclovir [Zovirax] 1 applic TOPICAL 4X/DAY #1 tube 04/11/17 Amox/Clavulanate Tablet [Augmentin Tablet] 875 mg PO BID #6 tab 04/11/17 Fluconazole [Diflucan] 200 mg PO DAILY #30 tab 04/11/17 Guaifenesin/Codeine [Robitussin AC] 10 ml PO Q6H PRN PRN #300 udc 04/11/17 Megestrol [Megace] 40 mg PO TID #90 tab 04/11/17 Nystatin 500,000 unit PO 4X/DAY #600 udc 04/11/17 Petrolatum,White [Petrolatum] 1 applic TOPICAL BID #30 packet 04/11/17 Polyethylene Glycol 3350 [Miralax] 17 gm PO DAILY #30 packet 04/11/17 Sodium Chloride 0.65% [[place] Nasal [place]] 2 spray NASAL TID PRN PRN #1 spray.btl 04/11/17 The following prescriptions were given: Guaifenesin/Codeine [Robitussin AC] 10 ml PO Q6H PRN PRN #300 udc PRN Reason: COUGH Fluconazole [Diflucan] 200 mg PO DAILY #30 tab Polyethylene Glycol 3350 [Miralax] 17 gm PO DAILY #30 packet Sodium Chloride 0.65% [[place] Nasal [place]] 2 spray NASAL TID PRN PRN #1 spray.btl PRN Reason: NASAL DRYNESS Amox/Clavulanate Tablet [Augmentin Tablet] 875 mg PO BID #6 tab Petrolatum,White [Petrolatum] 1 applic TOPICAL BID #30 packet Acetaminophen with Codeine [Tylenol with Codeine #3 Tablet] 1 each PO Q6H PRN # 60 tablet PRN Reason: Pain Megestrol [Megace] 40 mg PO TID #90 tab Acyclovir [Zovirax] 1 applic TOPICAL 4X/DAY #1 tube Nystatin 500,000 unit PO 4X/DAY #600 udc Primary Care Physician: Екатерина Haq MD [Primary Care Provider] - Please follow up with your Primary Care Physician in: 1 week. Please Follow Up With: Felix Watson MD When: 1 week. Proposed Discharge Date: 04/12/17
--- NOTE | 2017-04-11 08:56 | DS.PCM_ITS ---
Discharge Date and Diagnosis - Problem List Patient Problems: Active and Suspected Problems (Last Reviewed 03/13/17 @ 09:01 by Soo Yang) Sore throat (Acute) Streptococcal pharyngitis (Acute) Oropharyngeal candidiasis (Acute) Sepsis (Acute) Date of Admission: 04/08/17 Date of Discharge: 04/12/17 - Primary Discharge Diagnosis Active and Suspected Problems (Last Reviewed 03/13/17 @ 09:01 by Soo Yang) Sore throat (Acute) Streptococcal pharyngitis (Acute) Oropharyngeal candidiasis (Acute) Sepsis (Acute) - Secondary Discharge Diagnosis Chronic Problems (Last Reviewed 03/13/17 @ 09:01 by Soo Yang) Myelodysplastic syndrome (Chronic) Coronary artery disease (Chronic) Hypertension (Chronic) 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) Pancytopenia (Chronic) Neutropenia (Chronic) Leukopenia (Chronic) Thrombocytopenia (Chronic) Pancytopenia (Chronic) 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) Hyperlipidemia (Chronic) Hospital Course and Treatment Imaging Results: 04/08/17 13:15 Diet: Regular Diet Food consistency:: Mechanical Soft/Ground Dietary Modifications:: Neutropenic Is pt able to select menu?: Yes Labs (Last 48 Hours) 04/10/17 04/11/17 04/11/17 13:15 05:00 05:00 WBC 0.6 L* 0.7 L* RBC 2.67 L 2.72 L Hgb 8.5 L 8.5 L Hct 25.3 L 25.4 L MCV 94.8 H 93.4 MCH 31.8 31.3 MCHC 33.6 33.5 RDW 16.2 H 16.1 H RDW Differential 51.7 H 51.5 H Plt Count 10 L* 13 L* MPV 9.8 13.0 H Immature Gran % (Auto) 0.000 0.000 Neut % (Auto) 0.0 L 0.0 L Lymph % (Auto) 67.8 H 78.6 H [place] % (Auto) 20.3 H 14.3 H Eos % (Auto) 1.7 1.4 Baso % (Auto) 10.2 H 5.7 H Absolute Neuts (auto) 0.0 L 0.0 L Absolute Lymphs (auto) 0.40 L 0.55 L Total Counted Not Reportable Not Reportable Differential Comment SCAN Diff Path Review May christian May christian Platelet Estimate MKD DEC Blood Type O POSITIVE Operations: None Procedures: None Summary of Care Provided: The patient is a 66 year old Male with past medical history significant for myelodysplastic syndrome on Revlimid, hospitalized for neutropenic fever secondary to streptococcal pharyngitis, oropharyngeal candidiasis, admitted to TCU for debility for rehabilitation, strengthening. On TCU, resident received 6 pack platelet transfusion 04/11/2017. Resident told me explicitly he no longer wants treatment for MDS, he is ready to go home with hospice. Will discharge home with hospice. Discharge Diet: No Restrictions Discharge Activity: Return to Normal Activity, Use Walker Weight Bearing Status: Weight bearing as tolerated Call your doctor if you observe: Fever of 101 or Higher, Inability to urinate, Inability to have a bowel movement, Shortness of breath, Chest pain, Uncontrolled pain Home Medications: Medications to take at Discharge Atorvastatin Calcium [Lipitor] 80 mg PO DAILY 04/16/13 Nitroglycerin [Nitrostat] 0.4 mg SUBLINGUAL PRN PRN 04/16/13 Ramipril [Altace] 10 mg PO DAILY 04/16/13 Lactobacillus Combo No.10 [Probiotic] 1 each PO DAILY 02/03/17 Lidocaine 2% Viscous [Xylocaine Viscous] 20 ml PO 4X/DAY PRN 03/26/17 Metoprolol Tartrate 12.5 mg PO BID 03/26/17 Acetaminophen with Codeine [Tylenol with Codeine #3 Tablet] 1 each PO Q6H PRN # 60 tablet 04/11/17 Acyclovir [Zovirax] 1 applic TOPICAL 4X/DAY #1 tube 04/11/17 Amox/Clavulanate Tablet [Augmentin Tablet] 875 mg PO BID #6 tab 04/11/17 Fluconazole [Diflucan] 200 mg PO DAILY #30 tab 04/11/17 Guaifenesin/Codeine [Robitussin AC] 10 ml PO Q6H PRN PRN #300 udc 04/11/17 Megestrol [Megace] 40 mg PO TID #90 tab 04/11/17 Nystatin 500,000 unit PO 4X/DAY #600 udc 04/11/17 Petrolatum,White [Petrolatum] 1 applic TOPICAL BID #30 packet 04/11/17 Polyethylene Glycol 3350 [Miralax] 17 gm PO DAILY #30 packet 04/11/17 Sodium Chloride 0.65% [[place] Nasal [place]] 2 spray NASAL TID PRN PRN #1 spray.btl 04/11/17 Following Prescrptions Were Given to Patient: Guaifenesin/Codeine [Robitussin AC] 10 ml PO Q6H PRN PRN #300 udc PRN Reason: COUGH Fluconazole [Diflucan] 200 mg PO DAILY #30 tab Polyethylene Glycol 3350 [Miralax] 17 gm PO DAILY #30 packet Sodium Chloride 0.65% [[place] Nasal [place]] 2 spray NASAL TID PRN PRN #1 spray.btl PRN Reason: NASAL DRYNESS Amox/Clavulanate Tablet [Augmentin Tablet] 875 mg PO BID #6 tab Petrolatum,White [Petrolatum] 1 applic TOPICAL BID #30 packet Acetaminophen with Codeine [Tylenol with Codeine #3 Tablet] 1 each PO Q6H PRN # 60 tablet PRN Reason: Pain Megestrol [Megace] 40 mg PO TID #90 tab Acyclovir [Zovirax] 1 applic TOPICAL 4X/DAY #1 tube Nystatin 500,000 unit PO 4X/DAY #600 udc Primary Care Physician: Екатерина Haq MD [Primary Care Provider] - Please follow up with your Primary Care Physician in: 1 week. Please Follow Up With: Felix Watson MD When: 1 week. Disposition: Home with Hospice Minutes spent on discharge:: 30 Patient Condition:: Poor Meaningful Use Info Meaningful Use Diagnoses (Choose all that apply): None applicable
--- NOTE | 2017-04-11 09:39 | CASEMGMT ---
Social Work Spoke with resident and resident family. Resident and resident family has met with hospice and plan to discharge home with hospice on 04/12/17. Notified team, all agreeable to discharge date. Resident plans to discharge home with [facility] and family for support. Resident family planning to provide transportation home for resident at time of discharge around noon on 04/12/17. Support given. Telephone call to [facility]. This social studies department chair communicating above information. Discharge information faxed. Proposed discharge date: 04/12/17 PLAN: Discharge home with spouse and hospice. Darlin LEHMAN, FINISHING LAB TECHNICIAN
[2017-04-11 09:58] LABS: Pathologist Review Reviewed
--- NOTE | 2017-04-11 10:16 | NURSING ---
pt off unit to oncology infusion suite for platelet administration
[2017-04-11 14:08] VITALS: BP 122/77; PULSE 104; RESP 18; O2SAT 91
--- NOTE | 2017-04-11 15:03 | CASEMGMT ---
Brief interview for mental status (BIMS) and resident mood interview (PHQ-9) completed on this day. BIMS score 13/15. PHQ-9 score 09/22
[2017-04-11 15:47] VITALS: BP 120/61; PULSE 101; RESP 18; TEMP 36.2; O2SAT 93
[2017-04-11 15:51] LABS: Pathologist Review Reviewed
[2017-04-11 15:55] LABS: Pathologist Review Reviewed
[2017-04-11 18:23] VITALS: BP 120/61; PULSE 101
[2017-04-11 21:00] VITALS: BP 116/72; PULSE 100; RESP 20; TEMP 37.1; O2SAT 94
[2017-04-12 06:00] VITALS: PULSE 100; RESP 20; O2SAT 93
[2017-04-12 06:10] VITALS: BP 138/79; PULSE 100
[2017-04-12] MEDS: Polyethylene Glycol 3350 17 GM PACKET PO (06:10)
[2017-04-12] MEDS: Metoprolol Tartrate 25 MG Tablet 12.5 MG PO (06:10)
[2017-04-12] MEDS: Amox/Clavulanate 875 MG Tablet PO (06:11)
[2017-04-12] MEDS: Ramipril 10 MG Capsule PO (06:11)
[2017-04-12] MEDS: Fluconazole 100 MG Tablet 200 MG PO (06:11)
[2017-04-12] MEDS: Atorvastatin Calcium 80 MG Tablet PO (06:11)
[2017-04-12] MEDS: Senna/Docusate Sodium 1 Tablet 2 TABLET PO (06:11)
[2017-04-12] MEDS: NYSTATIN 500,000 UNIT/5 ML UDC 500000 UNIT PO ×2 (06:12→10:59)
[2017-04-12] MEDS: Acyclovir 5% Tube 1 APPLIC TOPICAL ×2 (06:12→10:58)
[2017-04-12] MEDS: Megestrol 40 MG Tablet PO (06:12)
[2017-04-12] MEDS: Petrolatum,White 5 GM PACKET 1 APPLIC TOPICAL (06:13)
[2017-04-12 06:53] LABS: Absolute Lymphocyte Count 0.57 X10^3/ul (0.83-4.51); Basophil# 0.02 X10^3/uL; Basophil% 2.9 % (0-1); Eosinophil# 0.01 X10^3/uL; Eosinophils% 1.4 % (0-5); Hematocrit 23.8 % (40-54); Hemoglobin 7.9 g/dl (13.0-16.5); Lymphocyte # 0.57 X10^3/ul (4.0); Lymphocyte % 82.6 % (19-41); Mean Corp Hgb Conc 33.2 g/gl (32-36); Mean Corpuscular Hgb 30.6 pg (27.0-32.0); Mean Corpuscular Volume 92.2 fL (80-94); Mean Platelet Vol. 11.1 fl (6.2-12.0); Monocyte# 0.08 X10^3/uL; Monocyte% 11.6 % (0-10); Neutrophil # 0.01 X10^3/uL (2.7-7.7); Neutrophil % 1.5 % (47-70); RBC Distribution Width CV 16.2 % (11.6-14.6); RBC Distribution Width SD 53.2 fl (35.1-43.9); Red Blood Count 2.58 M/mm3 (4.6-6.2)
[2017-04-12 06:54] LABS: Differential Indicated SCAN CRITERIA MET; POSITIVE COUNT YES; POSITIVE DIFFERENTIAL YES; POSITIVE MORPHOLOGY YES
[2017-04-12 06:55] LABS: Platelet Count 24 K/mm3 (150-450); White Blood Count 0.7 K/mm3 (4.4-11.0)
[2017-04-12 07:27] LABS: Differential Comment SCAN
[2017-04-12 07:29] LABS: Platelet Estimate MKD DEC (ADEQ)
--- NOTE | 2017-04-12 12:33 | NURSING ---
report given to yael from hospice.
[2017-04-13 14:52] LABS: Pathologist Review Reviewed
--- NOTE | 2017-04-17 15:38 | MDS.RN ---
Information for the mds was obtained from review of the clinical record, interview of resident, staff, and direct observation of resident's care.
== END 2017-04-12 11:48 | disposition hospice, home (50) | DRG 948 ==
PROVIDERS: Admitting Provider Family Medicine Geriatric Medicine; Family Provider Internal Medicine; PCP Internal Medicine; Visit Provider Family Medicine Geriatric Medicine
DX: R53.81 Other malaise (principal); D61.818 Other pancytopenia; B37.0 Candidal stomatitis; D46.C Myelodysplastic syndrome with isolated del(5q) chromosomal abnormality; D70.3 Neutropenia due to infection; E78.5 Hyperlipidemia, unspecified; J02.0 Streptococcal pharyngitis; I25.10 Atherosclerotic heart disease of native coronary artery without angina pectoris; R50.81 Fever presenting with conditions classified elsewhere; I10 Essential (primary) hypertension; Z95.1 Presence of aortocoronary bypass graft; Z79.899 Other long term (current) drug therapy
CPT/HCPCS: 36415; 80048; 85025; 92526; 92610; 97110; 97116; 97162; 97165; 97530; 97802

== ENCOUNTER → 2017-04-11 10:30 | Outpatient (RCR) | payer MEDICARE, OTHER, SELFPAY ==
[2016-11-30 17:58] LABS: Hematocrit 33.7 % (40-54); Hemoglobin 11.9 g/dl (13.0-16.5); Mean Corp Hgb Conc 35.3 g/gl (32-36); Mean Corpuscular Hgb 35.5 pg (27.0-32.0); Mean Corpuscular Volume 100.6 fL (80-94); Platelet Count 86 K/mm3 (150-450); RBC Distribution Width CV 14.9 % (11.6-14.6); RBC Distribution Width SD 52.4 fl (35.1-43.9); Red Blood Count 3.35 M/mm3 (4.6-6.2); White Blood Count 1.8 K/mm3 (4.4-11.0)
[2016-11-30 18:07] LABS: Scan Indicated on CBC? Y/N NO
[2016-11-30 18:28] LABS: BNP,B-Type NATRIURETIC PEPTIDE 65.2 pg/mL (0-100)
[2016-12-14 13:49] VITALS: BP 120/81; PULSE 64; RESP 16; TEMP 36.7; O2SAT 96; BMI 30.2
--- NOTE | 2016-12-14 15:24 | ONC.PN.ESTAB ---
- Date of Service Date of Service:: 12/14/16 - Chief Complaint f/u for pancytopenia. - History of Present Illness 65-year-old man H/O CABG presented with shortness of breath on exertion, CBC on 11/30/2016 showed WBC 1.8 hemoglobin 11.9 and platelets 86. He had repeat labs done and comes in for follow-up. He had a laceration on the L forearm after trauma and went to the ER. - Past Medical/Social History Past Medical History Past Medical History: Heart disease,Hyperlipidemia,Fatigue Past Surgical History Surgical: CABG Other Surgical History: HEART CATH 2- TRIPLE BY-PASSES Family History Paternal Past Medical History: Congestive heart failure Maternal Past Medical History: Heart disease,Hyperlipidemia Social History Smoking Status Never smoker Review of Systems Constitutional:: Denies: Fever, Sweats, Weight loss, Appetite change, Chills Cardiovascular:: Denies: Chest pain, Palpitations, Dyspnea on exertion, Orthopnea, PND, Shortness of breath Respiratory: Reports: Shortness of breath upon exertion. Denies: Cough, Hemoptysis, Shortness of Breath, Wheezing Gastrointestinal:: Denies: Abdominal pain, Nausea, Vomiting, Diarrhea, Constipation, Hematochezia Genitourinary: Denies: Dysuria, Hematuria, 15, Flank pain Musculoskeletal:: Denies: Back pain, Myalgia, Arthralgia Skin: Reports: - - bruise L forearm. Objective Vital Signs Height 1.78 m Weight: 95.708 kg Weight in Pounds 211.0 lbs Pulse Ox 96 Temperature 98.1 F Pulse Rate 64 Respiratory Rate 16 Blood Pressure 120/81 Blood Pressure Position Sitting - Physical Exam General: Alert, Oriented x3, No apparent distress Skin:: - - bruise Left forearm. Laboratory Data: 12/11/2016 WBC 1.7 hemoglobin 9.9 platelets 71 neutrophils 0.7 lymphocytes 0.67. 12/07/2016 creatinine 1.15 LDH 260 vitamin B12 [id number] iron 174 ferritin 2 7402 erythropoietin 96, reticulocyte count 0.97%. Assessment and Plan Pancytopenia suggestive of hypoplastic bone marrow, discussed the differential diagnosis with patient including MDS, drug effect, malignancy. Patient agrees for further workup. Plan is to obtain bone marrow aspiration and biopsy with flow cytometry, cytogenetics. Patient will hold Coumadin for 5-7 days before biopsy. RTC 2 wks. Primary Care Provider: Екатерина Haq Referring Provider: Theodora Mack (1) Pancytopenia Status: Acute
[2017-01-03 09:29] VITALS: BP 110/71; PULSE 67; RESP 16; TEMP 37.1; O2SAT 98; BMI 29.8
--- NOTE | 2017-01-03 13:05 | ONC.PN.ESTAB ---
- Date of Service Date of Service:: 01/03/17 - Chief Complaint f/u for Pancytopenia and bone marrow biopsy report. - History of Present Illness 65-year-old man H/O CABG presented with shortness of breath on exertion, CBC on 11/30/2016 showed WBC 1.8 hemoglobin 11.9 and platelets 86. Repeat labs done on 12/11/2016 WBC of 1.7 with Neutrophils 0.7, lymphocytes 0.67. Bone marrow aspirate and biopsy were requested and comes in for follow-up. He feels well but still has SOB on exertion. His cardiac work up has been negative. - Past Medical/Social History Past Medical History Past Medical History: Heart disease,Hyperlipidemia,Fatigue Other Past Medical History: pancytopenia Past Surgical History Surgical: CABG Other Surgical History: HEART CATH 2- TRIPLE BY-PASSES Family History Paternal Past Medical History: Congestive heart failure Maternal Past Medical History: Heart disease,Hyperlipidemia Social History Social History: No changes Smoking Status Never smoker Review of Systems Constitutional:: Denies: Fever, Sweats, Weight loss, Appetite change, Chills Cardiovascular:: Denies: Chest pain, Palpitations, Dyspnea on exertion, Orthopnea, PND, Shortness of breath Respiratory: Reports: Shortness of breath upon exertion. Denies: Cough, Hemoptysis, Shortness of Breath, Wheezing Gastrointestinal:: Denies: Abdominal pain, Nausea, Vomiting, Diarrhea, Constipation, Hematochezia Genitourinary: Denies: Dysuria, Hematuria, 15, Flank pain Musculoskeletal:: Denies: Back pain, Myalgia, Arthralgia Skin: Denies: Rash, Skin Changes, Wounds Neurological:: Denies: Headache, Dizziness, Visual changes, Tinnitus, Hearing loss Psychiatric: Denies: Anxiety, Depression, Homicidal Ideations, Suicidal Ideations Objective Vital Signs Height 1.78 m Weight: 94.347 kg Weight in Pounds 208.0 lbs Pulse Ox 98 Temperature 98.7 F Pulse Rate 67 Respiratory Rate 16 Blood Pressure 110/71 Blood Pressure Position Sitting - Physical Exam General: Alert, Oriented x3, No apparent distress Pathology Data: 12/22/2016 bone marrow aspiration and biopsy reviewed, shows mildly hypercellular bone marrow with aberrant myeloblasts. Flow showed CD45 positive, CD34 positive cells. Cytogenetics reviewed shows deletion 5q, deletion 20q. Assessment and Plan MDS with leukopenia, thrombocytopenia. With deletion 5q and chromosomal abnormalities. Shortness of breath with normal EF. Rule out Pulmonary dysfunction. Discussed clinical problem. Plan is to obtain Pulmonary Consult for work up to SOB. RTC 2 wks to discuss further mgmt of MDS. Primary Care Provider: Екатерина Haq Referring Provider: Theodora Mack (1) Pancytopenia Status: Chronic (2) MDS (myelodysplastic syndrome) with 5q deletion Status: Acute (3) SOB (shortness of breath) on exertion Status: Acute (4) Leukopenia Status: Chronic (5) Thrombocytopenia Status: Chronic
[2017-01-17 14:29] VITALS: BP 115/65; PULSE 70; RESP 24; TEMP 2.5; TEMP 36.5; O2SAT 97; BMI 29.7
--- NOTE | 2017-01-17 16:09 | ONC.PN.ESTAB ---
- Date of Service Date of Service:: 01/17/17 - Chief Complaint f/u for MDS. - History of Present Illness 65-year-old man H/O CABG presented with shortness of breath on exertion, CBC on 11/30/2016 showed WBC 1.8 hemoglobin 11.9 and platelets 86. Repeat labs done on 12/11/2016 WBC of 1.7 with Neutrophils 0.7, lymphocytes 0.67. Bone marrow aspirate and biopsy on12/22/2016 showed mildly hypercellular marrow with aberrant blasts 8 %, Flow cytometry showed CD45 and 34 cells, Cytogenetics showed deletion 5q, deletion 20q and abnormal karyotype suggestive of MDS. IPSS 2.5. He had persistent SOB, cardiac work up was negative and was referred to Pulmonary for evaluation. He was in the ER yesterday, CTA was negative for PE but showed interstitial fibrosis. Comes in for follow up. - Past Medical/Social History Past Medical History Past Medical History: Heart disease,Hyperlipidemia,Fatigue Other Past Medical History: pancytopenia INTERSITIAL LUNG DISEASE PER PFT 01/10/17 Past Surgical History Surgical: CABG Other Surgical History: HEART CATH 2- TRIPLE BY-PASSES Family History Paternal Past Medical History: Congestive heart failure Maternal Past Medical History: Heart disease,Hyperlipidemia Social History Social History: No changes Smoking Status Never smoker Review of Systems Constitutional:: Reports: Fatigue. Denies: Fever, Sweats Cardiovascular:: Denies: Chest pain, Palpitations, Dyspnea on exertion, Orthopnea, PND, Shortness of breath Respiratory: Reports: Shortness of breath upon exertion. Denies: Cough, Hemoptysis Gastrointestinal:: Denies: Abdominal pain, Nausea, Vomiting, Diarrhea, Constipation, Hematochezia Genitourinary: Denies: Dysuria, Hematuria, 15, Flank pain Musculoskeletal:: Denies: Back pain, Myalgia, Arthralgia Skin: Denies: Rash, Skin Changes, Wounds Neurological:: Denies: Headache, Dizziness, Visual changes, Tinnitus, Hearing loss Psychiatric: Denies: Anxiety, Depression, Homicidal Ideations, Suicidal Ideations Objective Vital Signs Height 1.78 m Weight: 93.894 kg Weight in Pounds 207.0 lbs Pulse Ox 97 Temperature 36.5 F Pulse Rate 70 Respiratory Rate 24 Blood Pressure 115/65 Blood Pressure Position Sitting - Physical Exam General: Alert, Oriented x3, No apparent distress Laboratory Data: 01/16/2017 wbc 1.1, Hgb 9.4, Plts 57. Neutrophils 0.3. Pathology Data: 12/22/2016 bone marrow aspiration and biopsy reviewed, shows mildly hypercellular bone marrow with aberrant myeloblasts. Flow showed CD45 positive, CD34 positive cells. Cytogenetics reviewed shows deletion 5q, deletion 20q. Assessment and Plan MDS with leukopenia, thrombocytopenia and neutropenia. With deletion 5q and other chromosomal abnormalities. IPSS 2.5 high risk. Interstitial lung disease ? cause. Discussed clinical problem. Discussed treatment of high risk MDS with Revlimid, chemotherapy vs supportive care. Pt wants to resolve SOB before proceeding which is not a bad idea. Plan is to start Cipro 500mg PO bid if he develops fever then call the clinic. Follow up with Pulmonary [facility]. RTC 2 wks to discuss further mgmt of MDS. Medications: Prescriptions This Visit Medication Instructions Recorded Ciprofloxacin [Cipro] 500 mg PO BID #30 tablet 01/17/17 (1) Pancytopenia Status: Chronic (2) MDS (myelodysplastic syndrome) with 5q deletion Status: Acute (3) SOB (shortness of breath) on exertion Status: Acute (4) Leukopenia Status: Chronic (5) Thrombocytopenia Status: Chronic
[2017-01-24 09:23] LABS: Absolute Lymphocyte Count 0.73 X10^3/ul (0.83-4.51); Absolute Neutrophil Count 0.5 X10^3/uL (2.0-7.7); Basophil# 0.01 X10^3/uL; Basophil% 0.8 % (0-1); Hematocrit 29.6 % (40-54); Lymphocyte # 0.73 X10^3/ul (4.0); Lymphocyte % 56.6 % (19-41); Mean Corp Hgb Conc 33.8 g/gl (32-36); Mean Corpuscular Hgb 36.5 pg (27.0-32.0); Mean Platelet Vol. 10.4 fl (6.2-12.0); Monocyte# 0.09 X10^3/uL; Neutrophil # 0.46 X10^3/uL (2.7-7.7); Neutrophil % 35.6 % (47-70); Platelet Count 65 K/mm3 (150-450); RBC Distribution Width CV 17.6 % (11.6-14.6); RBC Distribution Width SD 68.4 fl (35.1-43.9); Red Blood Count 2.74 M/mm3 (4.6-6.2)
[2017-01-24 09:27] VITALS: BP 120/70; PULSE 61; RESP 20; TEMP 36.9; O2SAT 97; BMI 29.5
[2017-01-24 09:30] LABS: Differential Indicated SCAN CRITERIA MET; POSITIVE COUNT YES; POSITIVE DIFFERENTIAL YES; POSITIVE MORPHOLOGY YES; White Blood Count 1.3 K/mm3 (4.4-11.0)
--- NOTE | 2017-01-24 12:11 | PN_ITS ---
- Date of Service Date of Service:: 01/24/17 - Chief Complaint f/u for MDS. - History of Present Illness 65-year-old man H/O CABG presented with shortness of breath on exertion, CBC on 11/30/2016 showed WBC 1.8 hemoglobin 11.9 and platelets 86. Repeat labs done on 12/11/2016 WBC of 1.7 with Neutrophils 0.7, lymphocytes 0.67. Bone marrow aspirate and biopsy on12/22/2016 showed mildly hypercellular marrow with aberrant blasts 8 %, Flow cytometry showed CD45 and 34 cells, Cytogenetics showed deletion 5q, deletion 20q and abnormal karyotype suggestive of MDS. IPSS 2.5. He had persistent SOB, cardiac work up was negative and was referred to Pulmonary for evaluation. He was in the ER yesterday, CTA was negative for PE but showed interstitial fibrosis. He was referred for Pulmonary follow up. Comes in for follow up. - Past Medical/Social History Past Medical History Past Medical History: Heart disease,Hyperlipidemia,Fatigue Other Past Medical History: pancytopenia INTERSITIAL LUNG DISEASE PER PFT 01/10/17 Past Surgical History Surgical: CABG Other Surgical History: HEART CATH 2- TRIPLE BY-PASSES Family History Paternal Past Medical History: Congestive heart failure Maternal Past Medical History: Heart disease,Hyperlipidemia Social History Social History: No changes Smoking Status Never smoker Review of Systems Constitutional:: Reports: Weakness, Fatigue Vital Signs Height 1.78 m Weight: 93.168 kg Weight in Pounds 205.4 lbs Pulse Ox 97 Temperature 98.4 F Pulse Rate 61 Respiratory Rate 20 Blood Pressure 120/70 Blood Pressure Position Sitting - Physical Exam General: Alert, Oriented x3, No apparent distress Laboratory Data: Laboratory Tests 01/24/17 Range/Units 08:59 WBC 1.3 L* (4.4-11.0) K/mm3 RBC 2.74 L (4.6-6.2) M/mm3 Hgb 10.0 L (13.0-16.5) g/dl Hct 29.6 L (40-54) % MCV 108.0 H (80-94) fL MCH 36.5 H (27.0-32.0) pg MCHC 33.8 (32-36) g/gl RDW 17.6 H (11.6-14.6) % RDW Differential 68.4 H (35.1-43.9) fl Plt Count 65 L (150-450) K/mm3 MPV 10.4 (6.2-12.0) fl Immature Gran % (Auto) 0.000 (0.0-0.9) % Neut % (Auto) 35.6 L (47-70) % Lymph % (Auto) 56.6 H (19-41) % [place] % (Auto) 7.0 (0-10) % Eos % (Auto) 0.0 (0-5) % Baso % (Auto) 0.8 (0-1) % Absolute Neuts (auto) 0.5 L (2.0-7.7) X10^3/uL Absolute Lymphs (auto) 0.73 L (0.83-4.51) X10^3/ul Total Counted Not Reportable Differential Comment COMMENT Diff Path Review May foll Assessment and Plan MDS with leukopenia, thrombocytopenia and neutropenia. With deletion 5q and other chromosomal abnormalities. IPSS 2.5 high risk. Interstitial lung disease ? cause. Discussed clinical problem. Discussed treatment of high risk MDS again with Revlimid, GCSF to increase wbc, chemotherapy vs supportive care. Pt to proceed with Pulmonary work up. Plan is to start Cipro 500mg PO bid if he develops fever then call the clinic. Follow up with Pulmonary. RTC 1 wk to discuss further mgmt of MDS. Medications: Prescriptions This Visit Medication Instructions Recorded Ciprofloxacin [Cipro] 500 mg PO BID #30 tablet 01/17/17 (1) Pancytopenia Status: Chronic (2) MDS (myelodysplastic syndrome) with 5q deletion Status: Acute (3) SOB (shortness of breath) on exertion Status: Acute (4) Leukopenia Status: Chronic (5) Thrombocytopenia Status: Chronic
[2017-01-24 14:41] LABS: Pathologist Review Reviewed
[2017-01-24 17:00] LABS: Xtra Tube EP Lab EXTRA TUBE
[2017-01-31 08:29] VITALS: BP 124/72; PULSE 92; RESP 18; TEMP 36.9; O2SAT 95; BMI 29.2
--- NOTE | 2017-01-31 12:36 | ONC.PN.ESTAB ---
- Date of Service Date of Service:: 01/31/17 - Chief Complaint f/u for MDS - History of Present Illness 65-year-old man H/O CABG presented with shortness of breath on exertion, CBC on 11/30/2016 showed WBC 1.8 hemoglobin 11.9 and platelets 86. Repeat labs done on 12/11/2016 WBC of 1.7 with Neutrophils 0.7, lymphocytes 0.67. Bone marrow aspirate and biopsy on12/22/2016 showed mildly hypercellular marrow with aberrant blasts 8 %, Flow cytometry showed CD45 and 34 cells, Cytogenetics showed deletion 5q, deletion 20q and abnormal karyotype suggestive of MDS. IPSS 2.5. He had persistent SOB, cardiac work up was negative and was referred to Pulmonary for evaluation. CTA was negative for PE but showed interstitial fibrosis. Pulmonary work up for Interstitial Fibrosis is in progress. Comes in for follow up. - Past Medical/Social History Past Medical History Past Medical History: Heart disease,Hyperlipidemia,Fatigue Other Past Medical History: pancytopenia INTERSITIAL LUNG DISEASE PER PFT 01/10/17 Past Surgical History Surgical: CABG Other Surgical History: HEART CATH 2- TRIPLE BY-PASSES Family History Paternal Past Medical History: Congestive heart failure Maternal Past Medical History: Heart disease,Hyperlipidemia Social History Social History: No changes Smoking Status Never smoker Review of Systems Constitutional:: Reports: Fatigue. Denies: Fever, Sweats Cardiovascular:: Denies: Chest pain, Palpitations, Dyspnea on exertion, Orthopnea, PND, Shortness of breath Respiratory: Denies: Cough, Hemoptysis, Shortness of Breath, Wheezing Gastrointestinal:: Denies: Abdominal pain, Nausea, Vomiting, Diarrhea, Constipation, Hematochezia Genitourinary: Denies: Dysuria, Hematuria, 15, Flank pain Musculoskeletal:: Denies: Back pain, Myalgia, Arthralgia Vital Signs Height 5 ft 10.08 in Weight: 92.714 kg Weight in Pounds 204.4 lbs Pulse Ox 95 Temperature 98.5 F Pulse Rate 92 Respiratory Rate 18 Blood Pressure 124/72 Blood Pressure Position Sitting - Physical Exam General: Alert, Oriented x3, No apparent distress Laboratory Data: 01/31/2017 labs reviewed, WBC 1.3, hemoglobin 9.9, platelets 66, neutrophils 0.2. Assessment and Plan MDS with leukopenia, thrombocytopenia and severe neutropenia-ANC is 0.2. With deletion 5q and other chromosomal abnormalities. IPSS 2.5 high risk. Interstitial lung disease ? cause. Discussed clinical problem. Discussed treatment of high risk MDS again with Revlimid, GCSF to increase wbc, chemotherapy vs supportive care. Pt to proceed with Pulmonary work up. Spent 10mins out of 15mins discussing case. Plan is to start Granix 480mcg weekly for Neutropenia. Try Aleve, Benadryl for body aches. To start Cipro 500mg PO bid if he develops fever at home then call the clinic or go to ER. Follow up with Pulmonary. RTC 1 wk with CBC. Medications: Prescriptions This Visit Medication Instructions Recorded Ciprofloxacin [Cipro] 500 mg PO BID #30 tablet 01/17/17 (1) Pancytopenia Status: Chronic (2) MDS (myelodysplastic syndrome) with 5q deletion Status: Acute (3) SOB (shortness of breath) on exertion Status: Acute (4) Leukopenia Status: Chronic (5) Thrombocytopenia Status: Chronic
[2017-02-09 07:36] LABS: Absolute Lymphocyte Count 1.29 X10^3/ul (0.83-4.51); Absolute Neutrophil Count 0.1 X10^3/uL (2.0-7.7); Eosinophil# 0.06 X10^3/uL; Eosinophils% 3.8 % (0-5); Hematocrit 26.3 % (40-54); Hemoglobin 8.8 g/dl (13.0-16.5); Lymphocyte # 1.29 X10^3/ul (4.0); Lymphocyte % 81.6 % (19-41); Mean Corp Hgb Conc 33.5 g/gl (32-36); Mean Corpuscular Hgb 36.7 pg (27.0-32.0); Mean Corpuscular Volume 109.6 fL (80-94); Monocyte# 0.09 X10^3/uL; Monocyte% 5.7 % (0-10); Neutrophil # 0.14 X10^3/uL (2.7-7.7); Neutrophil % 8.9 % (47-70); RBC Distribution Width CV 17.2 % (11.6-14.6); White Blood Count 1.6 K/mm3 (4.4-11.0)
[2017-02-09 08:03] LABS: Differential Indicated SCAN CRITERIA MET; POSITIVE COUNT YES; POSITIVE DIFFERENTIAL YES; POSITIVE MORPHOLOGY YES; Platelet Count 47 K/mm3 (150-450)
[2017-02-09 08:13] LABS: ALB/GLOB Ratio 0.7 RATIO (0.9-2.4); AST(SGOT) 43 U/L (15-37); Alanine Aminotransfer ALT/SGPT 53 U/L (12-78); Albumin, Serum 3.1 g/dL (3.4-5.0); Alkaline Phosphatase 106 U/L (45-117); Anion Gap 9 (5-15); BUN 19 mg/dL (7-18); BUN/Creat Ratio 15.7 RATIO (10-20); Calcium,Total 8.5 mg/dL (8.5-10.1); Chloride 101 mmol/L (98-107); Creatinine, Serum 1.21 mg/dL (0.70-1.30); EST Glomerular Filtration Rate 63 mL/min (>60); Est Glom Filt Rate - Afr Amer 77 mL/min (>60); Estimated Creatinine Clearance 60.33 ml/min; Globulin 4.2 g/dL (2.2-4.2); Glucose 133 mg/dL (70-110); Protein, Total 7.3 g/dL (6.4-8.2); Sodium Level 136 mmol/L (136-145)
[2017-02-09 09:54] VITALS: BP 122/78; PULSE 94; RESP 18; TEMP 37.3; O2SAT 97; BMI 29.5
[2017-02-09 14:03] LABS: Xtra Tube EP Lab EXTRA TUBE
--- NOTE | 2017-02-09 22:27 | PN_ITS ---
- Date of Service Date of Service:: 02/09/17 - Chief Complaint f/u for MDS - History of Present Illness 65-year-old man H/O CABG presented with shortness of breath on exertion, CBC on 11/30/2016 showed WBC 1.8 hemoglobin 11.9 and platelets 86. Repeat labs done on 12/11/2016 WBC of 1.7 with Neutrophils 0.7, lymphocytes 0.67. Bone marrow aspirate and biopsy on12/22/2016 showed mildly hypercellular marrow with aberrant blasts 8 %, Flow cytometry showed CD45 and 34 cells, Cytogenetics showed deletion 5q, deletion 20q and abnormal karyotype suggestive of MDS. IPSS 2.5. He had persistent SOB, cardiac work up was negative and was referred to Pulmonary for evaluation. CTA was negative for PE but showed interstitial fibrosis. Pulmonary work up for Interstitial Fibrosis is in progress. He started GCSF on 01/31/2017 and comes in for follow up. He had a cold over the weekend and started Cipro. Did not get body aches with GCSF. - Past Medical/Social History Past Medical History Past Medical History: Heart disease,Hyperlipidemia,Fatigue Other Past Medical History: pancytopenia INTERSITIAL LUNG DISEASE PER PFT 01/10/17 Past Surgical History Surgical: CABG Other Surgical History: HEART CATH 2- TRIPLE BY-PASSES Family History Paternal Past Medical History: Congestive heart failure Maternal Past Medical History: Heart disease,Hyperlipidemia Social History Social History: No changes Smoking Status Never smoker Review of Systems Constitutional:: Denies: Fever, Sweats, Weight loss, Appetite change, Chills Cardiovascular:: Denies: Chest pain, Palpitations, Dyspnea on exertion, Orthopnea, PND, Shortness of breath Respiratory: Denies: Cough, Hemoptysis, Shortness of Breath, Wheezing Gastrointestinal:: Denies: Abdominal pain, Nausea, Vomiting, Diarrhea, Constipation, Hematochezia Vital Signs Height 5 ft 10.08 in Weight: 93.531 kg Weight in Pounds 206.2 lbs Pulse Ox 97 Temperature 99.1 F Pulse Rate 94 Respiratory Rate 18 Blood Pressure 122/78 Blood Pressure Position Sitting - Physical Exam General: Alert, Oriented x3, No apparent distress Laboratory Data: Laboratory Tests 3 02/09/17 02/09/17 Range/Units 06:02 06:02 WBC 1.6 L (4.4-11.0) K/mm3 RBC 2.40 L (4.6-6.2) M/mm3 Hgb 8.8 L (13.0-16.5) g/dl Hct 26.3 L (40-54) % MCV 109.6 H (80-94) fL MCH 36.7 H (27.0-32.0) pg MCHC 33.5 (32-36) g/gl RDW 17.2 H (11.6-14.6) % RDW Differential 68.0 H (35.1-43.9) fl Plt Count 47 L* (150-450) K/mm3 MPV 11.0 (6.2-12.0) fl Immature Gran % (Auto) 0.000 (0.0-0.9) % Neut % (Auto) 8.9 L (47-70) % Lymph % (Auto) 81.6 H (19-41) % [place] % (Auto) 5.7 (0-10) % Eos % (Auto) 3.8 (0-5) % Baso % (Auto) 0.0 (0-1) % Absolute Neuts (auto) 0.1 L (2.0-7.7) X10^3/uL Absolute Lymphs (auto) 1.29 (0.83-4.51) X10^3/ul Total Counted Not Reportable Differential Comment COMMENT Diff Path Review June Sodium 136 (136-145) mmol/L Potassium 4.0 (3.5-5.1) mmol/L Chloride 101 (98-107) mmol/L Carbon Dioxide 26.0 (21.0-32.0) mmol/L Anion Gap 9 (5-15) BUN 19 H (7-18) mg/dL Creatinine 1.21 (0.70-1.30) mg/dL Estim Creat Clear Calc 60.33 ml/min Est GFR (MDRD) Af Amer 77 (>60) mL/min Est GFR (MDRD) Non-Af 63 (>60) mL/min BUN/Creatinine Ratio 15.7 (10-20) RATIO Glucose 133 H (70-110) mg/dL Calcium 8.5 (8.5-10.1) mg/dL Total Bilirubin 0.70 (0.20-1.00) mg/dL AST 43 H (15-37) U/L ALT 53 (12-78) U/L Alkaline Phosphatase 106 (45-117) U/L Total Protein 7.3 (6.4-8.2) g/dL Albumin 3.1 L (3.4-5.0) g/dL Globulin 4.2 (2.2-4.2) g/dL Albumin/Globulin Ratio 0.7 L (0.9-2.4) RATIO Assessment and Plan MDS with leukopenia, thrombocytopenia and severe neutropenia-ANC is 0.1 today. With deletion 5q and other chromosomal abnormalities. IPSS 2.5 high risk. Decreasing Hgb. Started Granix 480mcg weekly on 01/31/2017. Interstitial lung disease ? cause. Pt to proceed with Pulmonary work up. Spent 10mins out of 15mins discussing case. Plan is to continue Granix 480mcg weekly for Neutropenia. To obtain Pre-cert for Revlimid therapy. To continue Cipro 500mg PO daily for 5 days. RTC 1 wk with CBC. (1) Pancytopenia Status: Chronic (2) MDS (myelodysplastic syndrome) with 5q deletion Status: Acute (3) SOB (shortness of breath) on exertion Status: Acute (4) Leukopenia Status: Chronic (5) Thrombocytopenia Status: Chronic Code Visit Office Visits / Consults: [id number] OV L3 Est
[2017-02-10 16:39] LABS: Pathologist Review Reviewed
[2017-02-13 08:28] LABS: Absolute Lymphocyte Count 1.12 X10^3/ul (0.83-4.51); Absolute Neutrophil Count 0.1 X10^3/uL (2.0-7.7); Eosinophil# 0.07 X10^3/uL; Eosinophils% 4.8 % (0-5); Lymphocyte # 1.12 X10^3/ul (4.0); Lymphocyte % 76.2 % (19-41); Mean Corp Hgb Conc 34.8 g/gl (32-36); Mean Corpuscular Hgb 37.9 pg (27.0-32.0); Mean Platelet Vol. 10.8 fl (6.2-12.0); Monocyte# 0.16 X10^3/uL; Monocyte% 10.9 % (0-10); Neutrophil # 0.12 X10^3/uL (2.7-7.7); Neutrophil % 8.1 % (47-70); RBC Distribution Width CV 16.7 % (11.6-14.6); Red Blood Count 2.11 M/mm3 (4.6-6.2); White Blood Count 1.5 K/mm3 (4.4-11.0)
[2017-02-13 08:33] LABS: Differential Indicated SCAN CRITERIA MET; POSITIVE COUNT YES; POSITIVE DIFFERENTIAL YES; POSITIVE MORPHOLOGY NO; Platelet Count 37 K/mm3 (150-450)
[2017-02-13 08:43] VITALS: BP 90/55; PULSE 66; RESP 16; TEMP 36.5; O2SAT 97
[2017-02-13 08:46] LABS: Hypochromasia 2+; Macrocytosis 1+; Platelet Estimate MKD DEC (ADEQ)
[2017-02-13 16:04] LABS: Xtra Tube EP Lab EXTRA TUBE
--- NOTE | 2017-02-13 16:35 | PN_ITS ---
- Date of Service Date of Service:: 02/13/17 - Chief Complaint f/u for MDS. - History of Present Illness 65-year-old man H/O CABG presented with shortness of breath on exertion, CBC on 11/30/2016 showed WBC 1.8 hemoglobin 11.9 and platelets 86. Repeat labs done on 12/11/2016 WBC of 1.7 with Neutrophils 0.7, lymphocytes 0.67. Bone marrow aspirate and biopsy on12/22/2016 showed mildly hypercellular marrow with aberrant blasts 8 %, Flow cytometry showed CD45 and 34 cells, Cytogenetics showed deletion 5q, deletion 20q and abnormal karyotype suggestive of MDS. IPSS 2.5. He had persistent SOB, cardiac work up was negative and was referred to Pulmonary for evaluation. CTA was negative for PE but showed interstitial fibrosis. Pulmonary work up for Interstitial Fibrosis is in progress. He started GCSF on 01/31/2017 and comes in for follow up. He feels tired. - Past Medical/Social History Past Medical History Past Medical History: Heart disease,Hyperlipidemia,Fatigue Other Past Medical History: pancytopenia INTERSITIAL LUNG DISEASE PER PFT 01/10/17 Past Surgical History Surgical: CABG Other Surgical History: HEART CATH 2- TRIPLE BY-PASSES Family History Paternal Past Medical History: Congestive heart failure Maternal Past Medical History: Heart disease,Hyperlipidemia Social History Social History: No changes Smoking Status Never smoker Review of Systems Constitutional:: Reports: Fatigue. Denies: Fever, Sweats Cardiovascular:: Denies: Chest pain, Palpitations, Dyspnea on exertion, Orthopnea, PND, Shortness of breath Respiratory: Denies: Cough, Hemoptysis, Shortness of Breath, Wheezing Gastrointestinal:: Denies: Abdominal pain, Nausea, Vomiting, Diarrhea, Constipation, Hematochezia Genitourinary: Denies: Dysuria, Hematuria, 15, Flank pain Vital Signs Height 5 ft 10.08 in Weight: 92.533 kg Weight in Pounds 204.0 lbs Pulse Ox 97 Temperature 97.7 F Pulse Rate 66 Respiratory Rate 16 Blood Pressure 90/55 Blood Pressure Position Sitting - Physical Exam General: Alert, Oriented x3, No apparent distress Laboratory Data: Laboratory Tests 3 02/13/17 Range/Units 08:04 WBC 1.5 L (4.4-11.0) K/mm3 RBC 2.11 L (4.6-6.2) M/mm3 Hgb 8.0 L (13.0-16.5) g/dl Hct 23.0 L (40-54) % MCV 109.0 H (80-94) fL MCH 37.9 H (27.0-32.0) pg MCHC 34.8 (32-36) g/gl RDW 16.7 H (11.6-14.6) % RDW Differential 65.0 H (35.1-43.9) fl Plt Count 37 L* (150-450) K/mm3 MPV 10.8 (6.2-12.0) fl Immature Gran % (Auto) 0.000 (0.0-0.9) % Neut % (Auto) 8.1 L (47-70) % Lymph % (Auto) 76.2 H (19-41) % [place] % (Auto) 10.9 H (0-10) % Eos % (Auto) 4.8 (0-5) % Baso % (Auto) 0.0 (0-1) % Absolute Neuts (auto) 0.1 L (2.0-7.7) X10^3/uL Absolute Lymphs (auto) 1.12 (0.83-4.51) X10^3/ul Total Counted Not Reportable Diff Path Review May foll Platelet Estimate MKD DEC (ADEQ) Hypochromasia 2+ Macrocytosis 1+ Pathology Data: 12/22/2016 bone marrow aspiration and biopsy reviewed, shows mildly hypercellular bone marrow with aberrant myeloblasts. Flow showed CD45 positive, CD34 positive cells. Cytogenetics reviewed shows deletion 5q, deletion 20q. Assessment and Plan MDS with leukopenia, thrombocytopenia and severe neutropenia-ANC is 0.1 today. With deletion 5q and other chromosomal abnormalities. Anemia-Hgb 8 and Plt 37K now. IPSS 2.5 high risk. Decreasing Hgb. Started Granix 480mcg weekly on 01/31/2017, ANC has not responded to injections once a week. Discussed changing to 3 times a week, pt agreed. Interstitial Lung dx, Pt to proceed with Pulmonary work up. Plan is to continue Granix 480mcg 3 times weekly for Neutropenia. Awaiting Revlimid authorization. RTC 1 wk with CBC. (1) Pancytopenia Status: Chronic (2) MDS (myelodysplastic syndrome) with 5q deletion Status: Acute (3) SOB (shortness of breath) on exertion Status: Acute (4) Leukopenia Status: Chronic (5) Thrombocytopenia Status: Chronic
[2017-02-14 15:43] LABS: Pathologist Review Reviewed
[2017-02-15] VITALS (9 sets, daily range): BP systolic 95–145; BP diastolic 60–73; PULSE 66–98; RESP 17–24; TEMP 36.4–37.9; O2SAT 94–100; BMI 29.2
[2017-02-15 10:47] LABS: Absolute Lymphocyte Count 0.93 X10^3/ul (0.83-4.51); Absolute Neutrophil Count 0.2 X10^3/uL (2.0-7.7); Differential Indicated SCAN CRITERIA MET; Eosinophil# 0.03 X10^3/uL; Eosinophils% 2.4 % (0-5); Hematocrit 21.4 % (40-54); Hemoglobin 7.3 g/dl (13.0-16.5); Lymphocyte # 0.93 X10^3/ul (4.0); Lymphocyte % 73.8 % (19-41); Mean Corp Hgb Conc 34.1 g/gl (32-36); Mean Corpuscular Hgb 37.1 pg (27.0-32.0); Mean Corpuscular Volume 108.6 fL (80-94); Mean Platelet Vol. 12.6 fl (6.2-12.0); Monocyte# 0.12 X10^3/uL; Monocyte% 9.5 % (0-10); Neutrophil # 0.18 X10^3/uL (2.7-7.7); Neutrophil % 14.3 % (47-70); POSITIVE COUNT YES; POSITIVE DIFFERENTIAL YES; POSITIVE MORPHOLOGY YES; Platelet Count 42 K/mm3 (150-450); RBC Distribution Width CV 17.1 % (11.6-14.6); RBC Distribution Width SD 66.6 fl (35.1-43.9); Red Blood Count 1.97 M/mm3 (4.6-6.2); White Blood Count 1.3 K/mm3 (4.4-11.0)
[2017-02-15 11:10] LABS: Anisocytosis 3+; Hypochromasia 1+; Platelet Estimate MKD DEC (ADEQ)
--- NOTE | 2017-02-15 12:06 | ONC.PN.ESTAB ---
- Date of Service Date of Service:: 02/15/17 - Chief Complaint Acute visit-MDS, fatigue - History of Present Illness Mr. Darci Tate is a 66-year-old man with a PMH of CABG who presented with exertional dyspnea. CBC on 11/30/2016 showed WBC 1.8 hemoglobin 11.9 and platelets 86. Repeat labs done on 12/11/2016 WBC of 1.7 with Neutrophils 0.7, lymphocytes 0.67. Bone marrow aspirate and biopsy on 12/22/2016 showed mildly hypercellular marrow with aberrant blasts 8 %, Flow cytometry showed CD45 and 34 cells, Cytogenetics showed deletion 5q, deletion 20q and abnormal karyotype suggestive of MDS. IPSS 2.5. He had persistent SOB, cardiac work up was negative and was referred to Pulmonary for evaluation. CTA was negative for PE but showed interstitial fibrosis. Pulmonary work up for Interstitial Fibrosis is in progress. He started GCSF on 01/31/2017. - Interval History The patient is presenting to clinic accompanied by spouse for an acute visit with complaints of generalized weakness and dizziness, subsequent to receiving Granix injection. He attributes symptoms to hypotension of late. States he discussed with his administrative asst, Dr. Ramirez yesterday and was told to discontinue Norvasc. Reports he did not take his dose this morning, however today is the first day without. Specifically, denies CP, palpitations, worsening exertional dyspnea,swelling, and any episodes of bleeding, although bruises easily. Reports I feel better with my oxygen on in reference to weakness. Appetite fair, PO fluid intake likely inadequate. - Past Medical/Social History Past Medical History Past Medical History: Heart disease,Hyperlipidemia,Fatigue Other Past Medical History: pancytopenia INTERSITIAL LUNG DISEASE PER PFT 01/10/17 Past Surgical History Surgical: CABG Other Surgical History: HEART CATH 2- TRIPLE BY-PASSES Family History Paternal Past Medical History: Congestive heart failure Maternal Past Medical History: Heart disease,Hyperlipidemia Social History Social History: No changes Smoking Status Never smoker Review of Systems Constitutional:: Reports: Weakness, Fatigue. Denies: Fever, Sweats, Weight loss, Appetite change, Chills Cardiovascular:: Reports: Dyspnea on exertion. Denies: Chest pain, Palpitations, Orthopnea, PND Respiratory: Denies: Cough, Hemoptysis, Wheezing Gastrointestinal:: Denies: Abdominal pain, Nausea, Vomiting, Diarrhea, Constipation, Hematochezia Genitourinary: Denies: Dysuria, Hematuria, 15, Flank pain Skin: Denies: Rash, Skin Changes, Wounds Neurological:: Denies: Headache, Dizziness, Numbness, Tingling, Visual changes, Tinnitus, Hearing loss Psychiatric: Denies: Anxiety, Depression, Homicidal Ideations, Suicidal Ideations Vital Signs Height 5 ft 10.08 in Weight: 92.533 kg Weight in Pounds 204.0 lbs Pulse Ox 97 Temperature 97.7 F Pulse Rate 66 Respiratory Rate 16 Blood Pressure 90/55 Blood Pressure Position Sitting - Physical Exam General: Alert, Oriented x3, No apparent distress, - - In wheelchair, wearing mask HEENT: Atraumatic, Normocephalic Oropharynx:: Negative for: Dry mucosa, Ulcerated lesions Neck:: Supple, Trachea midline. Negative for: JVD, bilateral Cardiac:: Regular rate, Regular rhythm, Murmur Lungs: Clear to auscultation, Excusion symmetrical. Negative for: Rhonchi, Wheezes Abdomen:: Bowel sounds x 4, Soft, Non-tender, Non-distended. Negative for: Hepatosplenomegaly Extremities:: Negative for: Cyanosis, Edema Neurological: Neuro grossly intact Skin:: Ecchymosis - Several areas in various stages of healing bilateral upper extremities. Negative for: Lesions, Rash, Petechiae Psychiatric:: Appropriate affect, Euthymic Lymphatics:: Negative for: Cervical lymphadenopathy, Supraclavicular lymphadenopathy, Axillary lymphadenopathy Laboratory Data: Laboratory Tests 02/15/17 02/13/17 Range/Units 10:28 08:04 WBC 1.3 L* (4.4-11.0) K/mm3 RBC 1.97 L (4.6-6.2) M/mm3 Hgb 7.3 L (13.0-16.5) g/dl Hct 21.4 L (40-54) % MCV 108.6 H (80-94) fL MCH 37.1 H (27.0-32.0) pg MCHC 34.1 (32-36) g/gl RDW 17.1 H (11.6-14.6) % RDW Differential 66.6 H (35.1-43.9) fl Plt Count 42 L* (150-450) K/mm3 MPV 12.6 H (6.2-12.0) fl Immature Gran % (Auto) 0.000 (0.0-0.9) % Neut % (Auto) 14.3 L (47-70) % Lymph % (Auto) 73.8 H (19-41) % [place]gs % (Auto) 9.5 (0-10) % Eos % (Auto) 2.4 (0-5) % Baso % (Auto) 0.0 (0-1) % Absolute Neuts (auto) 0.2 L (2.0-7.7) X10^3/uL Absolute Lymphs (auto) 0.93 (0.83-4.51) X10^3/ul Total Counted Not Reportable Diff Path Review May foll Reviewed Platelet Estimate MKD DEC (ADEQ) Hypochromasia 1+ Anisocytosis 3+ Assessment and Plan 1. 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 Decreasing Hgb as evidenced by value of 7.3 today. Given he is symptomatic we will transfuse 2 units PRBCs. ANC not improving. Neutropenic precautions reviewed. Patient has already been given Granix 480mcg today. 2. Interstitial Lung dx- Encouraged to continue pulmonary work up as planned. 3. Thrombocytopenia while on anticoagulation-platelet count 42,000. He is encouraged to contact provider promptly if he notes any episodes of bleeding or worsening bruising. Annette Quijano, MSN, [employer], AOCNP (1) MDS (myelodysplastic syndrome) with 5q deletion Status: Acute (2) Anticoagulant long-term use Status: Acute
[2017-02-15] MEDS: DiphenhydrAMINE 25 MG Capsule 50 MG PO (17:17)
[2017-02-15 18:29] LABS: Xtra Tube EP Lab EXTRA TUBE
[2017-02-15] MEDS: 0.9% NaCl Peripheral Flush Adult/Peds IV (21:05)
[2017-02-15] MEDS: Furosemide 40 MG/4 ML Vial IV (21:05)
--- NOTE | 2017-02-15 22:05 | NURSING ---
Addendum entered by Flori Cardenas 02/16/17 00:40: Leukodepleted was circled on the written order sheet but not irradiated. First unit of blood given was inspected and was also not irradiated. Attempted to contact Dr Watson's colleague adoption manager, Dr Bell, to confirm. Attempted to page and also left voicemail on cell phone. Unable to reach. Original Note: Noted on written order stated irradiated blood. blood not irradiated. called lab who looked at written order and they informed that order sheet although hand written was a generic order form where the doctors [place] what they would like and add in premed orders and lasix orders. Checked with charge nurse Amanda and visible on written order differences in hand writing. Proceeded with transfusion.
[2017-02-16 00:14] VITALS: BP 119/66; PULSE 88; RESP 24; TEMP 37.1; O2SAT 94
[2017-02-16 00:54] VITALS: BP 127/67; PULSE 95; RESP 24; TEMP 36.6; O2SAT 95
[2017-02-16 14:59] LABS: Pathologist Review Reviewed
[2017-02-21 09:52] VITALS: BP 107/65; PULSE 58; RESP 18; TEMP 36.3; O2SAT 95; BMI 29.4
[2017-02-21 10:17] LABS: Absolute Lymphocyte Count 1.04 X10^3/ul (0.83-4.51); Absolute Neutrophil Count 0.1 X10^3/uL (2.0-7.7); Eosinophil# 0.06 X10^3/uL; Eosinophils% 4.9 % (0-5); Hematocrit 27.1 % (40-54); Hemoglobin 9.4 g/dl (13.0-16.5); Lymphocyte # 1.04 X10^3/ul (4.0); Lymphocyte % 85.2 % (19-41); Mean Corp Hgb Conc 34.7 g/gl (32-36); Mean Corpuscular Hgb 35.5 pg (27.0-32.0); Mean Corpuscular Volume 102.3 fL (80-94); Mean Platelet Vol. 9.6 fl (6.2-12.0); Monocyte# 0.03 X10^3/uL; Monocyte% 2.5 % (0-10); Neutrophil # 0.09 X10^3/uL (2.7-7.7); Neutrophil % 7.4 % (47-70); RBC Distribution Width CV 19.6 % (11.6-14.6); RBC Distribution Width SD 72.7 fl (35.1-43.9); Red Blood Count 2.65 M/mm3 (4.6-6.2)
[2017-02-21 10:20] LABS: Differential Indicated SCAN CRITERIA MET; POSITIVE COUNT YES; POSITIVE DIFFERENTIAL YES; POSITIVE MORPHOLOGY YES; Platelet Count 37 K/mm3 (150-450); White Blood Count 1.2 K/mm3 (4.4-11.0)
[2017-02-21 10:39] LABS: Differential Comment SCAN
[2017-02-21 10:40] LABS: Anisocytosis 1+; Hypochromasia 1+; Microcytosis 1+; Platelet Estimate MKD DEC (ADEQ); Polychromasia 1+
[2017-02-21 17:28] LABS: Xtra Tube EP Lab EXTRA TUBE
[2017-02-22 13:06] LABS: Pathologist Review Reviewed
[2017-02-22 13:51] VITALS: BP 94/57; PULSE 68; RESP 16; TEMP 36.5; O2SAT 100
[2017-02-28 14:31] LABS: Absolute Lymphocyte Count 1.17 X10^3/ul (0.83-4.51); Basophil# 0.01 X10^3/uL; Basophil% 0.8 % (0-1); Eosinophil# 0.03 X10^3/uL; Eosinophils% 2.3 % (0-5); Hematocrit 21.6 % (40-54); Hemoglobin 7.6 g/dl (13.0-16.5); Lymphocyte # 1.17 X10^3/ul (4.0); Mean Corp Hgb Conc 35.2 g/gl (32-36); Mean Corpuscular Hgb 36.7 pg (27.0-32.0); Mean Corpuscular Volume 104.3 fL (80-94); Monocyte# 0.07 X10^3/uL; Monocyte% 5.4 % (0-10); Neutrophil # 0.02 X10^3/uL (2.7-7.7); Neutrophil % 1.5 % (47-70); Red Blood Count 2.07 M/mm3 (4.6-6.2)
[2017-02-28 14:38] LABS: Differential Indicated SCAN CRITERIA MET; POSITIVE COUNT YES; POSITIVE DIFFERENTIAL YES; POSITIVE MORPHOLOGY YES; Platelet Count 41 K/mm3 (150-450); White Blood Count 1.3 K/mm3 (4.4-11.0)
[2017-02-28 14:44] VITALS: BP 120/72; PULSE 71; RESP 16; TEMP 36.9; O2SAT 97
[2017-02-28 14:51] LABS: Anisocytosis 2+; Differential Comment SCANNED; Platelet Estimate MKD DEC (ADEQ); Schistocytes RARE; Tear Drop Cell RARE
[2017-02-28 14:56] VITALS: BP 120/72; PULSE 71; RESP 16; TEMP 36.9; O2SAT 97; BMI 29.7
[2017-02-28 22:16] LABS: Xtra Tube EP Lab EXTRA TUBE
[2017-03-01] VITALS (9 sets, daily range): BP systolic 89–137; BP diastolic 48–89; PULSE 68–79; RESP 18; TEMP 36.6–37.2; O2SAT 95–100; BMI 29.2; BMI 29.5
[2017-03-01] MEDS: Furosemide 20 MG/2 ML VIAL IV (12:09)
[2017-03-01 14:00] LABS: Pathologist Review Reviewed
--- NOTE | 2017-03-01 16:44 | PN_ITS ---
- Date of Service Date of Service:: 02/21/17 - History of Present Illness Mr. Darci Tate is a 66-year-old man with a PMH of CABG who presented with exertional dyspnea. CBC on 11/30/2016 showed WBC 1.8 hemoglobin 11.9 and platelets 86. Repeat labs done on 12/11/2016 WBC of 1.7 with Neutrophils 0.7, lymphocytes 0.67. Bone marrow aspirate and biopsy on 12/22/2016 showed mildly hypercellular marrow with aberrant blasts 8 %, Flow cytometry showed CD45 and 34 cells, Cytogenetics showed deletion 5q, deletion 20q and abnormal karyotype suggestive of MDS. IPSS 2.5. He had persistent SOB, cardiac work up was negative and was referred to Pulmonary for evaluation. CTA was negative for PE but showed interstitial fibrosis. Pulmonary work up for Interstitial Fibrosis is in progress. He started GCSF on 01/31/2017. - Past Medical/Social History Past Medical History Past Medical History: Heart disease,Hyperlipidemia,Fatigue Other Past Medical History: pancytopenia INTERSITIAL LUNG DISEASE PER PFT 01/10/17 Past Surgical History Surgical: CABG Other Surgical History: HEART CATH 2- TRIPLE BY-PASSES Family History Paternal Past Medical History: Congestive heart failure Maternal Past Medical History: Heart disease,Hyperlipidemia Social History Social History: No changes Smoking Status Never smoker Vital Signs Height 5 ft 10 in Weight: 93.485 kg Weight in Pounds 206.1 lbs Pulse Ox 97 Temperature 98.0 F Pulse Rate 79 Respiratory Rate 18 Blood Pressure [BP] 120/72 Blood Pressure 137/89 Blood Pressure Position [BP] Standing Blood Pressure Position Sitting - Physical Exam General: Alert, Oriented x3, No apparent distress Laboratory Data: Laboratory Tests 3 02/28/17 02/28/17 Range/Units Unknown 14:15 Diff Path Review Reviewed Blood Type O POSITIVE Antibody Screen NEGATIVE Crossmatch See Detail Laboratory Tests 02/21/17 09:27 WBC 1.2 L* Plt Count 37 L* Assessment and Plan MDS with leukopenia, thrombocytopenia and severe neutropenia-ANC is 0.1 today. With deletion 5q and other chromosomal abnormalities. Anemia-Hgb 8 and Plt 37K now. IPSS 2.5 high risk. Decreasing Hgb. Started Granix 480mcg weekly on 01/31/2017, ANC has not responded to injections once a week. Discussed changing to 3 times a week, pt agreed. Interstitial Lung dx, Pt to proceed with Pulmonary work up. Plan is to continue Granix 480mcg 3 times weekly for Neutropenia. Awaiting Revlimid authorization. RTC 1 wk with CBC. (1) Pancytopenia Status: Chronic (2) MDS (myelodysplastic syndrome) with 5q deletion Status: Acute (3) SOB (shortness of breath) on exertion Status: Acute (4) Leukopenia Status: Chronic (5) Thrombocytopenia Status: Chronic Code Visit Office Visits / Consults: [id number] OV L3 Est
[2017-03-02 11:57] VITALS: BP 108/73; PULSE 66; RESP 16; TEMP 36.5; O2SAT 96; BMI 28.7
--- NOTE | 2017-03-02 17:08 | ONC.PN.ESTAB ---
- Date of Service Date of Service:: 03/01/17 - Chief Complaint F/u for MDS. - History of Present Illness 66-year-old man with history of CABG presented with his exertional dyspnea, CBC on November 30, 2016 showed WBC 1.8 hemoglobin 11.9 platelets 86. Bone marrow aspirate and biopsy on December 22, 2016 showed mildly hypercellular marrow with aberrant blasts cells over 8%, flow cytometry showed CD 45 and 34 cells, cytogenetics showed deletion 5 q. minus deletion 20 q. and abnormal cardio type suggestive of MDS. IPSS 2.5. He had persistent dyspnea on exertion, cardiac workup was negative, CTA showed interstitial fibrosis with no PE. Workup for interstitial fibrosis is in progress. He started G-CSF on January 31, 2017 and currently on 480 mcg subcutaneously 3 times a week. Hemoglobin dropped to less than 8 and received first blood transfusion on February 23, 2017, required another blood transfusion on February 28, 2017. Comes in for follow up. He feels better after the blood transfusion. - Past Medical/Social History Past Medical History Past Medical History: Heart disease,Hyperlipidemia,Fatigue Other Past Medical History: pancytopenia INTERSITIAL LUNG DISEASE PER PFT 01/10/17 Past Surgical History Surgical: CABG Other Surgical History: HEART CATH 2- TRIPLE BY-PASSES Family History Paternal Past Medical History: Congestive heart failure Maternal Past Medical History: Heart disease,Hyperlipidemia Social History Social History: No changes Smoking Status Never smoker Review of Systems Constitutional:: Denies: Fever, Sweats, Weight loss, Appetite change, Chills Cardiovascular:: Denies: Chest pain, Palpitations, Dyspnea on exertion, Orthopnea, PND, Shortness of breath Respiratory: Denies: Cough, Hemoptysis, Shortness of Breath, Wheezing Gastrointestinal:: Denies: Abdominal pain, Nausea, Vomiting, Diarrhea, Constipation, Hematochezia Genitourinary: Denies: Dysuria, Hematuria, 15, Flank pain Musculoskeletal:: Denies: Back pain, Myalgia, Arthralgia Skin: Denies: Rash, Skin Changes, Wounds Neurological:: Denies: Headache, Dizziness, Visual changes, Tinnitus, Hearing loss Psychiatric: Denies: Anxiety, Depression, Homicidal Ideations, Suicidal Ideations Vital Signs Height 5 ft 10 in Weight: 90.718 kg Weight in Pounds 200.0 lbs Pulse Ox 96 Temperature 97.7 F Pulse Rate 66 Respiratory Rate 16 Blood Pressure [BP] 120/72 Blood Pressure 108/73 Blood Pressure Position [BP] Standing Blood Pressure Position Sitting - Physical Exam General: Alert, Oriented x3, No apparent distress Pathology Data: 12/22/2016 bone marrow aspiration and biopsy reviewed, shows mildly hypercellular bone marrow with aberrant myeloblasts. Flow showed CD45 positive, CD34 positive cells. Cytogenetics reviewed shows deletion 5q, deletion 20q. Assessment and Plan MDS-IPSS 2.5. Requiring Blood transfusions to decrease general weakness. Neutropenia on G-CSF, has not had response to Granix. Awaiting Revlimid approval. Plan to continue Granix 480 mcg sq 3 times weekly. RTC 03/03/2016. (1) Pancytopenia Status: Chronic (2) MDS (myelodysplastic syndrome) with 5q deletion Status: Acute (3) Leukopenia Status: Chronic (4) Thrombocytopenia Status: Chronic Code Visit Office Visits / Consults: [id number] OV L3 Est
[2017-03-03 10:56] LABS: Absolute Lymphocyte Count 0.79 X10^3/ul (0.83-4.51); Absolute Neutrophil Count 0.1 X10^3/uL (2.0-7.7); Basophil# 0.03 X10^3/uL; Basophil% 2.1 % (0-1); Eosinophil# 0.04 X10^3/uL; Eosinophils% 2.8 % (0-5); Hematocrit 29.5 % (40-54); Hemoglobin 10.3 g/dl (13.0-16.5); Lymphocyte # 0.79 X10^3/ul (4.0); Lymphocyte % 54.9 % (19-41); Mean Corp Hgb Conc 34.9 g/gl (32-36); Mean Corpuscular Hgb 35.3 pg (27.0-32.0); Mean Platelet Vol. 9.6 fl (6.2-12.0); Monocyte# 0.44 X10^3/uL; Monocyte% 30.6 % (0-10); Neutrophil # 0.12 X10^3/uL (2.7-7.7); Neutrophil % 8.2 % (47-70); POSITIVE COUNT YES; POSITIVE DIFFERENTIAL YES; POSITIVE MORPHOLOGY YES; Platelet Count 32 K/mm3 (150-450); RBC Distribution Width CV 18.7 % (11.6-14.6); RBC Distribution Width SD 65.7 fl (35.1-43.9); Red Blood Count 2.92 M/mm3 (4.6-6.2); White Blood Count 1.4 K/mm3 (4.4-11.0)
[2017-03-03 10:57] LABS: Differential Indicated SCAN CRITERIA MET
[2017-03-03 11:07] VITALS: BP 106/65; PULSE 75; RESP 18; TEMP 36.3; O2SAT 95; BMI 28.9
[2017-03-03 11:20] LABS: Differential Comment SCANNED
--- NOTE | 2017-03-03 11:38 | PN_ITS ---
- Date of Service Date of Service:: 03/03/17 - Chief Complaint f/u for MDS. - History of Present Illness 66-year-old man with history of CABG presented with his exertional dyspnea, CBC on November 30, 2016 showed WBC 1.8 hemoglobin 11.9 platelets 86. Bone marrow aspirate and biopsy on December 22, 2016 showed mildly hypercellular marrow with aberrant blasts cells over 8%, flow cytometry showed CD 45 and 34 cells, cytogenetics showed deletion 5 q. minus deletion 20 q. and abnormal cardio type suggestive of MDS. IPSS 2.5. He had persistent dyspnea on exertion, cardiac workup was negative, CTA showed interstitial fibrosis with no PE. Workup for interstitial fibrosis is in progress. He started G-CSF on January 31, 2017 and currently on 480 mcg subcutaneously 3 times a week. Hemoglobin dropped to less than 8 and received first blood transfusion on February 23, 2017, required another blood transfusion on February 28, 2017. He feels better after the blood transfusion. Comes in for Granix injection. - Past Medical/Social History Past Medical History Past Medical History: Heart disease,Hyperlipidemia,Fatigue Other Past Medical History: pancytopenia INTERSITIAL LUNG DISEASE PER PFT 01/10/17 Past Surgical History Surgical: CABG Other Surgical History: HEART CATH 2- TRIPLE BY-PASSES Family History Paternal Past Medical History: Congestive heart failure Maternal Past Medical History: Heart disease,Hyperlipidemia Social History Social History: No changes Smoking Status Never smoker Review of Systems Constitutional:: Denies: Fever, Sweats, Weight loss, Appetite change, Chills Cardiovascular:: Denies: Chest pain, Palpitations, Dyspnea on exertion, Orthopnea, PND, Shortness of breath Respiratory: Denies: Cough, Hemoptysis, Shortness of Breath, Wheezing Gastrointestinal:: Denies: Abdominal pain, Nausea, Vomiting, Diarrhea, Constipation, Hematochezia Genitourinary: Denies: Dysuria, Hematuria, 15, Flank pain Musculoskeletal:: Denies: Back pain, Myalgia, Arthralgia Skin: Denies: Rash, Skin Changes, Wounds Neurological:: Denies: Headache, Dizziness, Visual changes, Tinnitus, Hearing loss Psychiatric: Denies: Anxiety, Depression, Homicidal Ideations, Suicidal Ideations Vital Signs Height 5 ft 10 in Weight: 91.427 kg Weight in Pounds 201.0 lbs Pulse Ox 95 Temperature 97.4 F Pulse Rate 75 Respiratory Rate 18 Blood Pressure [BP] 120/72 Blood Pressure 106/65 Blood Pressure Position [BP] Standing Blood Pressure Position Sitting - Physical Exam General: Alert, Oriented x3, No apparent distress Laboratory Data: Laboratory Tests 3 03/03/17 Range/Units 10:29 WBC 1.4 L* (4.4-11.0) K/mm3 RBC 2.92 L (4.6-6.2) M/mm3 Hgb 10.3 L (13.0-16.5) g/dl Hct 29.5 L (40-54) % MCV 101.0 H (80-94) fL MCH 35.3 H (27.0-32.0) pg MCHC 34.9 (32-36) g/gl RDW 18.7 H (11.6-14.6) % RDW Differential 65.7 H (35.1-43.9) fl Plt Count 32 L* (150-450) K/mm3 MPV 9.6 (6.2-12.0) fl Immature Gran % (Auto) 1.400 H (0.0-0.9) % Neut % (Auto) 8.2 L (47-70) % Lymph % (Auto) 54.9 H (19-41) % [place]vin % (Auto) 30.6 H (0-10) % Eos % (Auto) 2.8 (0-5) % Baso % (Auto) 2.1 H (0-1) % Absolute Neuts (auto) 0.1 L (2.0-7.7) X10^3/uL Absolute Lymphs (auto) 0.79 L (0.83-4.51) X10^3/ul Total Counted Not Reportable Differential Comment SCANNED Diff Path Review May foll Assessment and Plan MDS-IPSS 2.5. Requiring Blood transfusions to decrease general weakness. Neutropenia on G-CSF, has not had response to Granix. Does not want to continue with it. Awaiting Revlimid approval. Plan is to stop Granix. Try Neupogen 480mcg sq daily. RTC 1 wk (1) Pancytopenia Status: Chronic (2) MDS (myelodysplastic syndrome) with 5q deletion Status: Acute (3) Leukopenia Status: Chronic (4) Thrombocytopenia Status: Chronic Code Visit Office Visits / Consults: [id number] OV L3 Est
[2017-03-03 18:29] LABS: Xtra Tube EP Lab EXTRA TUBE
[2017-03-06 13:54] LABS: Pathologist Review Reviewed
[2017-03-08 10:15] LABS: Absolute Lymphocyte Count 0.83 X10^3/ul (0.83-4.51); Absolute Neutrophil Count 0.2 X10^3/uL (2.0-7.7); Basophil# 0.02 X10^3/uL; Basophil% 1.7 % (0-1); Eosinophil# 0.03 X10^3/uL; Eosinophils% 2.5 % (0-5); Hematocrit 26.8 % (40-54); Hemoglobin 9.4 g/dl (13.0-16.5); Lymphocyte # 0.83 X10^3/ul (4.0); Lymphocyte % 68.6 % (19-41); Mean Corp Hgb Conc 35.1 g/gl (32-36); Mean Corpuscular Hgb 35.6 pg (27.0-32.0); Mean Corpuscular Volume 101.5 fL (80-94); Mean Platelet Vol. 9.2 fl (6.2-12.0); Monocyte# 0.13 X10^3/uL; Monocyte% 10.7 % (0-10); Neutrophil % 16.5 % (47-70); Platelet Count 30 K/mm3 (150-450); RBC Distribution Width CV 18.3 % (11.6-14.6); RBC Distribution Width SD 63.9 fl (35.1-43.9); Red Blood Count 2.64 M/mm3 (4.6-6.2); White Blood Count 1.2 K/mm3 (4.4-11.0)
[2017-03-08 10:16] LABS: Differential Indicated SCAN CRITERIA MET; POSITIVE COUNT YES; POSITIVE DIFFERENTIAL YES; POSITIVE MORPHOLOGY YES
[2017-03-08 10:28] VITALS: BP 100/66; PULSE 64; RESP 18; TEMP 36.6; O2SAT 98; BMI 28.3
[2017-03-08 10:34] LABS: Anisocytosis 2+; Differential Comment S
[2017-03-08] MEDS: Dextrose 5%/0.9% NaCl 1,000 ML 500 ML IV (11:45)
--- NOTE | 2017-03-08 11:56 | PN_ITS ---
- Date of Service Date of Service:: 03/08/17 - Chief Complaint f/u for MDS. - History of Present Illness 66-year-old man with history of CABG presented with his exertional dyspnea, CBC on November 30, 2016 showed WBC 1.8 hemoglobin 11.9 platelets 86. Bone marrow aspirate and biopsy on December 22, 2016 showed mildly hypercellular marrow with aberrant blasts cells over 8%, flow cytometry showed CD 45 and 34 cells, cytogenetics showed deletion 5 q. minus deletion 20 q. and abnormal cardio type suggestive of MDS. IPSS 2.5. He had persistent dyspnea on exertion, cardiac workup was negative, CTA showed interstitial fibrosis with no PE. Workup for interstitial fibrosis is in progress. He started G-CSF on January 31, 2017 and currently on 480 mcg subcutaneously 3 times a week. Hemoglobin dropped to less than 8 and received first blood transfusion on February 23, 2017, required another blood transfusion on February 28, 2017. He felt better after the blood transfusion. He had no change in White cell count with Granix so Neupogen was requested and he started it on Monday03/06/2017. He feels tired, had a dizzy spell this morning, appetite has been poor. - Past Medical/Social History Past Medical History Past Medical History: Heart disease,Hyperlipidemia,Fatigue Other Past Medical History: pancytopenia INTERSITIAL LUNG DISEASE PER PFT 01/10/17 Past Surgical History Surgical: CABG Other Surgical History: HEART CATH 2- TRIPLE BY-PASSES Family History Paternal Past Medical History: Congestive heart failure Maternal Past Medical History: Heart disease,Hyperlipidemia Social History Social History: No changes Smoking Status Never smoker Review of Systems Constitutional:: Reports: Weakness, Fatigue. Denies: Fever, Sweats Cardiovascular:: Denies: Chest pain, Palpitations, Dyspnea on exertion, Orthopnea, PND, Shortness of breath Respiratory: Reports: Cough - dry with scratchy throat.. Denies: Hemoptysis, Shortness of Breath, Wheezing Gastrointestinal:: Denies: Abdominal pain, Nausea, Vomiting, Diarrhea, Constipation, Hematochezia Genitourinary: Denies: Dysuria, Hematuria, 15, Flank pain Vital Signs Height 5 ft 10 in Weight: 89.675 kg Weight in Pounds 197.7 lbs Pulse Ox 98 Temperature 97.9 F Pulse Rate 64 Respiratory Rate 18 Blood Pressure [BP] 120/72 Blood Pressure 100/66 Blood Pressure Position [BP] Standing Blood Pressure Position Sitting - Physical Exam General: Alert, Oriented x3, No apparent distress HEENT: Atraumatic, PERRLA, EOMI, Normocephalic Oropharynx:: Dry mucosa Neck:: Supple, Trachea midline. Negative for: JVD, bilateral Cardiac:: Regular rate, Regular rhythm, Normal S1, Normal S2. Negative for: Murmur Lungs: Clear to auscultation, Excusion symmetrical. Negative for: Rhonchi, Wheezes Laboratory Data: Laboratory Tests 3 03/08/17 Range/Units 10:00 WBC 1.2 L* (4.4-11.0) K/mm3 RBC 2.64 L (4.6-6.2) M/mm3 Hgb 9.4 L (13.0-16.5) g/dl Hct 26.8 L (40-54) % MCV 101.5 H (80-94) fL MCH 35.6 H (27.0-32.0) pg MCHC 35.1 (32-36) g/gl RDW 18.3 H (11.6-14.6) % RDW Differential 63.9 H (35.1-43.9) fl Plt Count 30 L* (150-450) K/mm3 MPV 9.2 (6.2-12.0) fl Immature Gran % (Auto) 0.000 (0.0-0.9) % Neut % (Auto) 16.5 L (47-70) % Lymph % (Auto) 68.6 H (19-41) % [place]leicher % (Auto) 10.7 H (0-10) % Eos % (Auto) 2.5 (0-5) % Baso % (Auto) 1.7 H (0-1) % Absolute Neuts (auto) 0.2 L (2.0-7.7) X10^3/uL Absolute Lymphs (auto) 0.83 (0.83-4.51) X10^3/ul Total Counted Not Reportable Differential Comment S Diff Path Review May foll Anisocytosis 2+ Assessment and Plan MDS-IPSS 2.5. Requiring Blood transfusions to decrease general weakness. Neutropenia on G-CSF, started Neupogen 2 days ago. Awaiting Revlimid approval. Poor appetite and PO intake with dry cough, R/O URI. Plan is to continue Neupogen 480mcg sq daily. To give IV D5NS in clinic today. Try OTC cold medications. Try Decadron 4mg daily for Poor appetite. RTC 03/13/2017 Medications: Prescriptions This Visit Medication Instructions Recorded Filgrastim (G-Csf) [Neupogen] 480 mcg SC DAILY #7 vial 03/03/17 Lenalidomide [Revlimid] 5 mg PO DAILY #30 cap NS 03/07/17 Dexamethasone [Decadron] 2 mg PO DAILY #30 tab 03/08/17 (1) Pancytopenia Status: Chronic (2) MDS (myelodysplastic syndrome) with 5q deletion Status: Acute (3) Leukopenia Status: Chronic (4) Thrombocytopenia Status: Chronic Code Visit Office Visits / Consults: [id number] OV L3 Est
[2017-03-08 18:02] LABS: Xtra Tube EP Lab EXTRA TUBE
[2017-03-08 18:04] LABS: Xtra Tube EP Lab EXTRA TUBE
[2017-03-09 13:40] LABS: Pathologist Review Reviewed
[2017-03-13 09:03] VITALS: BP 90/58; PULSE 65; RESP 17; TEMP 36.9; O2SAT 96; BMI 28.9
[2017-03-13 09:10] LABS: Absolute Lymphocyte Count 1.17 X10^3/ul (0.83-4.51); Absolute Neutrophil Count 0.1 X10^3/uL (2.0-7.7); Basophil# 0.02 X10^3/uL; Basophil% 1.1 % (0-1); Hematocrit 26.2 % (40-54); Lymphocyte # 1.17 X10^3/ul (4.0); Mean Corp Hgb Conc 34.4 g/gl (32-36); Mean Corpuscular Hgb 34.4 pg (27.0-32.0); Mean Platelet Vol. 11.1 fl (6.2-12.0); Monocyte# 0.53 X10^3/uL; Monocyte% 29.4 % (0-10); Neutrophil # 0.07 X10^3/uL (2.7-7.7); Neutrophil % 3.9 % (47-70); RBC Distribution Width CV 19.1 % (11.6-14.6); RBC Distribution Width SD 68.6 fl (35.1-43.9); Red Blood Count 2.62 M/mm3 (4.6-6.2); White Blood Count 1.8 K/mm3 (4.4-11.0)
[2017-03-13 09:18] LABS: Differential Indicated SCAN CRITERIA MET; POSITIVE COUNT YES; POSITIVE DIFFERENTIAL YES; POSITIVE MORPHOLOGY YES; Platelet Count 34 K/mm3 (150-450)
[2017-03-13 09:19] LABS: ALB/GLOB Ratio 0.8 RATIO (0.9-2.4); AST(SGOT) 25 U/L (15-37); Alanine Aminotransfer ALT/SGPT 39 U/L (12-78); Albumin, Serum 3.3 g/dL (3.4-5.0); Alkaline Phosphatase 113 U/L (45-117); Anion Gap 9 (5-15); BUN 28 mg/dL (7-18); Calcium,Total 8.5 mg/dL (8.5-10.1); Chloride 103 mmol/L (98-107); Creatinine, Serum 1.22 mg/dL (0.70-1.30); EST Glomerular Filtration Rate 63 mL/min (>60); Est Glom Filt Rate - Afr Amer 76 mL/min (>60); Estimated Creatinine Clearance 59.84 ml/min; Glucose 145 mg/dL (70-110); Protein, Total 7.3 g/dL (6.4-8.2); Sodium Level 137 mmol/L (136-145)
[2017-03-13 12:54] LABS: Pathologist Review Reviewed
[2017-03-13 16:41] LABS: Xtra Tube EP Lab EXTRA TUBE
--- NOTE | 2017-03-13 16:53 | ONC.PN.ESTAB ---
- Date of Service Date of Service:: 03/13/17 - Chief Complaint f/u for MDS and neutropenia. - History of Present Illness 66-year-old man with history of CABG presented with his exertional dyspnea, CBC on November 30, 2016 showed WBC 1.8 hemoglobin 11.9 platelets 86. Bone marrow aspirate and biopsy on December 22, 2016 showed mildly hypercellular marrow with aberrant blasts cells over 8%, flow cytometry showed CD 45 and 34 cells, cytogenetics showed deletion 5 q. minus deletion 20 q. and abnormal cardio type suggestive of MDS. IPSS 2.5. He had persistent dyspnea on exertion, cardiac workup was negative, CTA showed interstitial fibrosis with no PE. Workup for interstitial fibrosis is in progress. He started G-CSF on January 31, 2017 and currently on 480 mcg subcutaneously 3 times a week. Hemoglobin dropped to less than 8 and received first blood transfusion on February 23, 2017, required another blood transfusion on February 28, 2017. He felt better after the blood transfusion. He had no change in White cell count with Granix so Neupogen 480mcg dly was requested and he started it on Monday03/06/2017 and finished a 7 days on 03/12/2017. He gets episodes of dizziness and IV hydration helps resolve it. He was in the ER yesterday for hydration. Comes in for follow up. - Past Medical/Social History Past Medical History Past Medical History: Heart disease,Hyperlipidemia,Fatigue Other Past Medical History: pancytopenia INTERSITIAL LUNG DISEASE PER PFT 01/10/17 Past Surgical History Surgical: CABG Other Surgical History: HEART CATH 2- TRIPLE BY-PASSES Family History Paternal Past Medical History: Congestive heart failure Maternal Past Medical History: Heart disease,Hyperlipidemia Social History Social History: No changes Smoking Status Never smoker Review of Systems Constitutional:: Reports: Fatigue Cardiovascular:: Denies: Chest pain, Palpitations, Dyspnea on exertion, Orthopnea, PND, Shortness of breath Respiratory: Denies: Cough, Hemoptysis, Shortness of Breath, Wheezing Gastrointestinal:: Denies: Abdominal pain, Nausea, Vomiting, Diarrhea, Constipation, Hematochezia Genitourinary: Denies: Dysuria, Hematuria, 15, Flank pain Vital Signs Height 5 ft 10 in Weight: 91.444 kg Weight in Pounds 201.6 lbs Pulse Ox 96 Temperature 98.5 F Pulse Rate 65 Respiratory Rate 17 Blood Pressure [BP] 120/72 Blood Pressure 90/58 Blood Pressure Position [BP] Standing Blood Pressure Position Sitting - Physical Exam General: Alert, Oriented x3, No apparent distress Laboratory Data: Laboratory Tests 03/13/17 03/13/17 Range/Units 08:40 08:40 WBC 1.8 L (4.4-11.0) K/mm3 RBC 2.62 L (4.6-6.2) M/mm3 Hgb 9.0 L (13.0-16.5) g/dl Hct 26.2 L (40-54) % MCV 100.0 H (80-94) fL MCH 34.4 H (27.0-32.0) pg MCHC 34.4 (32-36) g/gl RDW 19.1 H (11.6-14.6) % RDW Differential 68.6 H (35.1-43.9) fl Plt Count 34 L* (150-450) K/mm3 MPV 11.1 (6.2-12.0) fl Immature Gran % (Auto) 0.600 (0.0-0.9) % Neut % (Auto) 3.9 L (47-70) % Lymph % (Auto) 65.0 H (19-41) % Walker % (Auto) 29.4 H (0-10) % Eos % (Auto) 0.0 (0-5) % Baso % (Auto) 1.1 H (0-1) % Absolute Neuts (auto) 0.1 L (2.0-7.7) X10^3/uL Absolute Lymphs (auto) 1.17 (0.83-4.51) X10^3/ul Total Counted Not Reportable Differential Comment COMMENT Diff Path Review Reviewed Sodium 137 (136-145) mmol/L Potassium 4.0 (3.5-5.1) mmol/L Chloride 103 (98-107) mmol/L Carbon Dioxide 25.0 (21.0-32.0) mmol/L Anion Gap 9 (5-15) BUN 28 H (7-18) mg/dL Creatinine 1.22 (0.70-1.30) mg/dL Estim Creat Clear Calc 59.84 ml/min Est GFR (MDRD) Af Amer 76 (>60) mL/min Est GFR (MDRD) Non-Af 63 (>60) mL/min BUN/Creatinine Ratio 23.0 H (10-20) RATIO Glucose 145 H (70-110) mg/dL Calcium 8.5 (8.5-10.1) mg/dL Total Bilirubin 0.60 (0.20-1.00) mg/dL AST 25 (15-37) U/L ALT 39 (12-78) U/L Alkaline Phosphatase 113 (45-117) U/L Total Protein 7.3 (6.4-8.2) g/dL Albumin 3.3 L (3.4-5.0) g/dL Globulin 4.0 (2.2-4.2) g/dL Albumin/Globulin Ratio 0.8 L (0.9-2.4) RATIO Assessment and Plan MDS-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 Requiring Blood transfusions to decrease general weakness. Neutropenia, received [id number] for 1 wk with no response. Thrombocytopenia. Awaiting Revlimid approval. Episodes of low BP and dizziness ? due to Beta Suellen. Plan is to discontinue Neupogen. To hold Coumadin. Discuss with Dr. Ramirez about decreasing Metoprolol. Continue Decadron 4mg daily for Poor appetite. RTC 1 wk with CBC. Medications: Prescriptions This Visit Medication Instructions Recorded Filgrastim (G-Csf) [Neupogen] 480 mcg SC DAILY #7 vial 03/03/17 Lenalidomide [Revlimid] 5 mg PO DAILY #30 cap NS 03/07/17 Dexamethasone [Decadron] 2 mg PO DAILY #30 tab 03/08/17 (1) Pancytopenia Status: Chronic (2) MDS (myelodysplastic syndrome) with 5q deletion Status: Acute (3) Leukopenia Status: Chronic (4) Thrombocytopenia Status: Chronic (5) Neutropenia Status: Chronic Code Visit Office Visits / Consults: [id number] OV L4 Est
[2017-03-20 13:32] LABS: Absolute Lymphocyte Count 0.48 X10^3/ul (0.83-4.51); Absolute Neutrophil Count 0.1 X10^3/uL (2.0-7.7); Differential Indicated SCAN CRITERIA MET; Hematocrit 22.5 % (40-54); Hemoglobin 7.7 g/dl (13.0-16.5); Lymphocyte # 0.48 X10^3/ul (4.0); Lymphocyte % 78.7 % (19-41); Mean Corp Hgb Conc 34.2 g/gl (32-36); Mean Corpuscular Hgb 34.2 pg (27.0-32.0); Mean Platelet Vol. 9.9 fl (6.2-12.0); Monocyte# 0.07 X10^3/uL; Monocyte% 11.5 % (0-10); Neutrophil # 0.06 X10^3/uL (2.7-7.7); Neutrophil % 9.8 % (47-70); POSITIVE COUNT YES; POSITIVE DIFFERENTIAL YES; POSITIVE MORPHOLOGY YES; Platelet Count 32 K/mm3 (150-450); RBC Distribution Width CV 19.8 % (11.6-14.6); RBC Distribution Width SD 70.3 fl (35.1-43.9); Red Blood Count 2.25 M/mm3 (4.6-6.2); White Blood Count 0.6 K/mm3 (4.4-11.0)
[2017-03-20 13:40] VITALS: BP 93/57; PULSE 69; RESP 20; TEMP 38; O2SAT 100; BMI 27.9
[2017-03-20 14:28] LABS: Anisocytosis 2+; Platelet Estimate MKD DEC (ADEQ)
[2017-03-20] MEDS: Lactated Ringers 1,000 ML 999 ML IV (14:49)
--- NOTE | 2017-03-20 16:59 | ONC.PN.ESTAB ---
- Date of Service Date of Service:: 03/20/17 - Chief Complaint F/u for MDS mgmt. - History of Present Illness 66-year-old man with history of CABG presented with his exertional dyspnea, CBC on November 30, 2016 showed WBC 1.8 hemoglobin 11.9 platelets 86. Bone marrow aspirate and biopsy on December 22, 2016 showed mildly hypercellular marrow with aberrant blasts cells over 8%, flow cytometry showed CD 45 and 34 cells, cytogenetics showed deletion 5 q. minus deletion 20 q. and abnormal cardio type suggestive of MDS. IPSS 2.5. He had persistent dyspnea on exertion, cardiac workup was negative, CTA showed interstitial fibrosis with no PE. Workup for interstitial fibrosis is in progress. He started G-CSF on January 31, 2017 and currently on 480 mcg subcutaneously 3 times a week. Hemoglobin dropped to less than 8 and received first blood transfusion on February 23, 2017, required another blood transfusion on February 28, 2017. He felt better after the blood transfusion. He had no change in White cell count with Granix so Neupogen 480mcg dly was requested and he started it on Monday03/06/2017 and finished a 7 days on 03/12/2017. He gets episodes of dizziness and IV hydration helps resolve it. He was seen in ER this morning with sore throat and given Amoxicillin. He has started Revlimid on 03/16/2017. Comes in for follow up. - Past Medical/Social History Past Medical History Past Medical History: Heart disease,Hyperlipidemia,Fatigue Other Past Medical History: pancytopenia INTERSITIAL LUNG DISEASE PER PFT 01/10/17 Past Surgical History Surgical: CABG Other Surgical History: HEART CATH 2- TRIPLE BY-PASSES Family History Paternal Past Medical History: Congestive heart failure Maternal Past Medical History: Heart disease,Hyperlipidemia Social History Social History: No changes Smoking Status Never smoker Review of Systems Constitutional:: Reports: Fatigue. Denies: Fever, Sweats Cardiovascular:: Denies: Chest pain, Palpitations, Dyspnea on exertion, Orthopnea, PND, Shortness of breath Respiratory: Denies: Cough, Hemoptysis, Shortness of Breath, Wheezing Gastrointestinal:: Denies: Abdominal pain, Nausea, Vomiting, Diarrhea, Constipation, Hematochezia Genitourinary: Denies: Dysuria, Hematuria, 15, Flank pain Musculoskeletal:: Denies: Back pain, Myalgia, Arthralgia Skin: Denies: Rash, Skin Changes, Wounds Neurological:: Denies: Headache, Dizziness, Visual changes, Tinnitus, Hearing loss Vital Signs Height 5 ft 10 in Weight: 88.451 kg Weight in Pounds 195.0 lbs Pulse Ox 100 Temperature 100.4 F Pulse Rate 69 Respiratory Rate 20 Blood Pressure [BP] 120/72 Blood Pressure 93/57 Blood Pressure Position [BP] Standing Blood Pressure Position Sitting - Physical Exam General: Alert, Oriented x3, No apparent distress Laboratory Data: Laboratory Tests 03/20/17 03/20/17 Range/Units 13:19 13:14 WBC 0.6 L* (4.4-11.0) K/mm3 RBC 2.25 L (4.6-6.2) M/mm3 Hgb 7.7 L (13.0-16.5) g/dl Hct 22.5 L (40-54) % MCV 100.0 H (80-94) fL MCH 34.2 H (27.0-32.0) pg MCHC 34.2 (32-36) g/gl RDW 19.8 H (11.6-14.6) % RDW Differential 70.3 H (35.1-43.9) fl Plt Count 32 L* (150-450) K/mm3 MPV 9.9 (6.2-12.0) fl Immature Gran % (Auto) 0.000 (0.0-0.9) % Neut % (Auto) 9.8 L (47-70) % Lymph % (Auto) 78.7 H (19-41) % [place] % (Auto) 11.5 H (0-10) % Eos % (Auto) 0.0 (0-5) % Baso % (Auto) 0.0 (0-1) % Absolute Neuts (auto) 0.1 L (2.0-7.7) X10^3/uL Absolute Lymphs (auto) 0.48 L (0.83-4.51) X10^3/ul Total Counted Not Reportable Differential Comment Platelet Estimate MKD DEC (ADEQ) Anisocytosis 2+ Crossmatch See Detail Assessment and Plan MDS-IPSS 2.5. Requiring Blood transfusions to decrease general weakness. Neutropenia, WBC 0.6 today on Revlimid. Started on Amoxicillin for Sore throat. Thrombocytopenia. Poor appetite. Plan is to continue Revlimid. Continue Decadron 4mg daily for Poor appetite. RTC 1 wk with CBC. Medications: Prescriptions This Visit Medication Instructions Recorded Lenalidomide [Revlimid] 5 mg PO DAILY #30 cap NS 03/07/17 Dexamethasone [Decadron] 2 mg PO DAILY #30 tab 03/08/17 Acetaminophen with Codeine 1 each PO Q6H PRN #60 tablet 03/20/17 [Tylenol with Codeine #3 Tablet] (1) Pancytopenia Status: Chronic (2) MDS (myelodysplastic syndrome) with 5q deletion Status: Acute (3) Leukopenia Status: Chronic (4) Thrombocytopenia Status: Chronic (5) Neutropenia Status: Chronic Code Visit Office Visits / Consults: [id number] OV L3 Est
[2017-03-20 21:15] LABS: Xtra Tube EP Lab EXTRA TUBE
[2017-03-21 10:02] VITALS: BP 118/53; PULSE 87; RESP 18; TEMP 37; O2SAT 95; BMI 27.9
[2017-03-21 12:07] VITALS: BP 119/54; PULSE 75; RESP 18
[2017-03-21 13:05] LABS: Pathologist Review Reviewed
[2017-03-21] MEDS: Furosemide 40 MG/4 ML Vial IV (13:45)
[2017-03-21 13:55] VITALS: BP 120/85; PULSE 91; RESP 16; TEMP 37.4; O2SAT 96
[2017-03-21 15:18] VITALS: BP 116/60; PULSE 84; RESP 18; O2SAT 98
[2017-03-21 16:19] VITALS: BP 128/62; PULSE 73; RESP 16; O2SAT 98
[2017-04-11 11:25] VITALS: BP 96/62; PULSE 99; RESP 18; TEMP 36.5; O2SAT 95; BMI 27.9
[2017-04-11 12:45] VITALS: BP 113/60; PULSE 94; RESP 12; TEMP 36.8; O2SAT 95
[2017-04-11 13:15] VITALS: BP 114/54; PULSE 96; RESP 18; TEMP 37.2
== END ==
LOC: LAB 11-30 16:30 → OMD 12-14 13:43 → ONC 01-31 08:00 → OMD 02-09 10:00 → ONC 02-13 09:00 → OMD 02-13 09:30 → ONC 02-15 10:30 → OMD 02-15 11:00 → MEDOUTP 02-15 16:30 → ONC 02-21 09:20 → OMD 02-28 15:00 → ONC 03-03 10:45 → OMD 03-03 11:00 → ONC 03-08 10:00 → OMD 03-13 09:00 → ONC 03-20 13:00
PROVIDERS: Nurse Practitioner Family; Family Provider Internal Medicine; PCP Internal Medicine; Visit Provider Internal Medicine Medical Oncology
DX: I25.118 Atherosclerotic heart disease of native coronary artery with other forms of angina pectoris (principal); R06.09 Other forms of dyspnea; Z79.01 Long term (current) use of anticoagulants; R60.9 Edema, unspecified; Z79.899 Other long term (current) drug therapy; I35.8 Other nonrheumatic aortic valve disorders; I25.5 Ischemic cardiomyopathy; I25.10 Atherosclerotic heart disease of native coronary artery without angina pectoris; E78.5 Hyperlipidemia, unspecified; I21.3 ST elevation (STEMI) myocardial infarction of unspecified site; R06.02 Shortness of breath
CPT/HCPCS: 36415; 36430; 80053; 83880; 85025; 85027; 85610; 86850; 86900; 86920; 86922; 86965; 96360; 96361; 96374; J7040; J7120; P9016; P9035; P9040; A4216; J1940

== ENCOUNTER → 2017-04-15 12:31 | Outpatient (CLI) | payer MEDICARE, OTHER, SELFPAY | PROVIDERS: Family Provider Internal Medicine; PCP Internal Medicine; Visit Provider Internal Medicine | DX: R69 Illness, unspecified (principal) ==

== ENCOUNTER → 2017-04-15 13:56 | Outpatient (CLI) | payer SELFPAY ==
[2017-04-15 14:19] LABS: Absolute Lymphocyte Count 0.48 X10^3/ul (0.83-4.51); Basophil# 0.02 X10^3/uL; Basophil% 3.3 % (0-1); Eosinophil# 0.01 X10^3/uL; Eosinophils% 1.7 % (0-5); Hematocrit 23.4 % (40-54); Hemoglobin 7.8 g/dl (13.0-16.5); Lymphocyte # 0.48 X10^3/ul (4.0); Mean Corp Hgb Conc 33.3 g/gl (32-36); Mean Corpuscular Hgb 30.6 pg (27.0-32.0); Mean Corpuscular Volume 91.8 fL (80-94); Monocyte# 0.07 X10^3/uL; Monocyte% 11.7 % (0-10); Neutrophil # 0.02 X10^3/uL (2.7-7.7); Neutrophil % 3.3 % (47-70); Platelet Count 11 K/mm3 (150-450); RBC Distribution Width SD 51.7 fl (35.1-43.9); Red Blood Count 2.55 M/mm3 (4.6-6.2)
[2017-04-15 14:35] LABS: Differential Indicated SCAN CRITERIA MET; POSITIVE COUNT YES; POSITIVE DIFFERENTIAL YES; POSITIVE MORPHOLOGY YES; White Blood Count 0.6 K/mm3 (4.4-11.0)
[2017-04-15 14:50] LABS: Differential Comment SCANNED
[2017-04-15 14:51] LABS: Platelet Estimate MKD DEC (ADEQ)
[2017-04-17 10:30] LABS: Pathologist Review Reviewed
== END ==
PROVIDERS: Family Provider Internal Medicine; PCP Internal Medicine; Visit Provider Internal Medicine
DX: D46.9 Myelodysplastic syndrome, unspecified (principal); D70.9 Neutropenia, unspecified
CPT/HCPCS: 85025